=== PATIENT | female | born 1955 | race African-American/Black ===

== ENCOUNTER → 2017-06-20 | Day surgery (SDC) | payer OTHER ==
[~2017-06-20] MED LIST: Acetaminophen 500 MG TAB PO SCH; DARATUMUMAB IV SCH; DEXAMETHASONE IVPB SCH; DIPHENHYDRAMINE HCL IVPB SCH; Dexamethasone 20 MG in Sodium Chloride 0.9% 50 ML IVPB SCH; FLU VACC QS2017-18 36 mo. & older 0.5 ML SYRINGE IM ONE; Famotidine/PF 20 mg/2ml Vial SLOW IVP SCH; PROVENTIL INHALER 6.7 G (200 INHALATIONS) INH SCH; SODIUM CHLORIDE 0.9% IV SCH; SODIUM CHLORIDE 0.9% IVPB SCH; Sodium Chloride 0.9% 30 ML ONE
== END ==
LOC: ONC/OP 09:34
PROVIDERS: ATTEND Internal Medicine Hematology & Oncology
DX: Z51.11 Encounter for antineoplastic chemotherapy (principal); C90.00 Multiple myeloma not having achieved remission; Z86.19 Personal history of other infectious and parasitic diseases; H40.9 Unspecified glaucoma; I10 Essential (primary) hypertension; K21.9 Gastro-esophageal reflux disease without esophagitis; F17.210 Nicotine dependence, cigarettes, uncomplicated; I25.10 Atherosclerotic heart disease of native coronary artery without angina pectoris; I48.91 Unspecified atrial fibrillation; E11.9 Type 2 diabetes mellitus without complications; Z79.84 Long term (current) use of oral hypoglycemic drugs; Z79.01 Long term (current) use of anticoagulants; Z79.891 Long term (current) use of opiate analgesic; Z79.899 Other long term (current) drug therapy; Z98.51 Tubal ligation status; Z95.818 Presence of other cardiac implants and grafts; Z96.651 Presence of right artificial knee joint; Z90.49 Acquired absence of other specified parts of digestive tract; Z98.890 Other specified postprocedural states; Z86.59 Personal history of other mental and behavioral disorders
CPT/HCPCS: 36415; 80053; 82248; 83615; 84100; 84550; 86850; 86900; 86901; 96367; 96375; 96413; 96415; 99212; A4216; G0463; J1100; J1200; J1642; J7050; J9145; S0028

== ENCOUNTER 2017-06-27 09:49 | Day surgery (SDC) | payer OTHER ==
[2017-06-27] MEDS ORDERED: Sodium Chloride 0.9% 20 ML ONE (10:06)
[2017-06-27] MEDS ORDERED: SODIUM CHLORIDE 0.9% IVPB SCH (10:15)
[2017-06-27] MEDS ORDERED: DEXAMETHASONE IVPB SCH (10:15)
[2017-06-27] MEDS ORDERED: Acetaminophen 500 MG TAB PO SCH (10:15)
[2017-06-27] MEDS ORDERED: DIPHENHYDRAMINE IVPB SCH (10:15)
[2017-06-27] MEDS ORDERED: Dexamethasone 20 MG in Sodium Chloride 0.9% 50 ML IVPB SCH (10:30)
[2017-06-27] MEDS ORDERED: diphenhydrAMINE 50 MG in Sodium Chloride 0.9% 50 ML IVPB SCH (10:30)
[2017-06-27] MEDS ORDERED: SODIUM CHLORIDE 0.9% IV SCH (11:00)
[2017-06-27] MEDS ORDERED: DARATUMUMAB IV SCH (11:00)
[2017-06-27 11:04] VITALS: BP 116/66; TEMP 99.3
== END 2017-06-27 16:37 | disposition home or self-care (01) ==
LOC: ONC/OP 09:49
PROVIDERS: ATTEND Internal Medicine Hematology & Oncology
DX: Z51.11 Encounter for antineoplastic chemotherapy (principal); C90.00 Multiple myeloma not having achieved remission; E11.65 Type 2 diabetes mellitus with hyperglycemia; H40.9 Unspecified glaucoma; K21.9 Gastro-esophageal reflux disease without esophagitis; I10 Essential (primary) hypertension; F17.210 Nicotine dependence, cigarettes, uncomplicated; I25.10 Atherosclerotic heart disease of native coronary artery without angina pectoris; I48.0 Paroxysmal atrial fibrillation; Z79.01 Long term (current) use of anticoagulants; Z79.84 Long term (current) use of oral hypoglycemic drugs; Z79.82 Long term (current) use of aspirin; Z79.891 Long term (current) use of opiate analgesic; Z79.899 Other long term (current) drug therapy; Z98.51 Tubal ligation status; Z96.651 Presence of right artificial knee joint; Z90.49 Acquired absence of other specified parts of digestive tract; Z98.890 Other specified postprocedural states; Z86.19 Personal history of other infectious and parasitic diseases
CPT/HCPCS: 96367; 96413; 96415; A4216; J1100; J1200; J1642; J7050; J9145

== ENCOUNTER 2017-06-30 13:18 | Observation (INO) | payer OTHER ==
[2017-06-30 14:16] LABS: #Lymphocytes 1.2 thou/uL (1.20-3.40); #Monocytes 0.5 thou/uL (0.11-0.59); #Neutrophils 2.5 thou/uL (1.40-6.50); %Basophils 0.4 % (0.0-1.0); %Eosinophils 0.7 % (0.0-10.0); %Monocytes 10.9 % (0.0-10.0); Mean Platelet Volume 9.2 fL (7.4-10.4); Red Blood Cell (RBC) Count 3.49 mill/uL (4.20-5.40); White Blood Cell (WBC) Count 4.1 thou/uL (4.8-10.8)
[2017-06-30 14:36] LABS: ALT (SGPT) 33 U/L (8-55); AST (SGOT) 23 U/L (5-34); Alkaline Phosphatase 44 U/L (40-150); Anion Gap 13 mmol/L (10-20); BUN (Urea Nitrogen) 14 mg/dL (9.8-20.1); Bilirubin, Total 0.4 mg/dL (0.2-1.2); Calc. Creatinine Clearance 0 mL/min (70-130); Calcium 8.2 mg/dL (7.8-10.44); Carbon Dioxide 23 mmol/L (23-31); Chloride 108 mmol/L (98-107); Estimated GFR-MDRD 81; Globulin 2.2 g/dL (2.4-3.5); Protein, Total 5.3 g/dL (6.0-8.3)
[2017-06-30 14:41] LABS: Troponin I Less than 0.010 ng/mL (< 0.028)
--- NOTE | 2017-06-30 15:04 | RAD ---
CHEST 1 VIEW: Date: 06/30/17 COMPARISON: 04/29/17. HISTORY: Syncope. Multiple myeloma. Patient is on blood thinners. Fall. FINDINGS: Stable right-sided MediPort catheter. Normal cardiac silhouette. Pulmonary vessels and hilum are nor mal. Costophrenic angles are clear. Chronic changes of the lung parenchyma. Subsegmental atelectasis in the left lung base is noted. No pneumothorax or osseous abnormalities. IMPRESSION: No acute cardiopulmonary process. POS: [facility]
[2017-06-30] MEDS ORDERED: ISOVUE-370 76%-LOCM 1 ML ONE (15:27)
--- NOTE | 2017-06-30 15:30 | CT ---
NONCONTRAST HEAD CT: Date: 06/30/17 HISTORY: Multiple myeloma. Blood thinners. Patient fell. Post-traumatic pain. COMPARISON: 01/13/27. TECHNIQUE: A noncontrast head CT is performed from the skull base to the skull vertex. FINDINGS: No parenchymal hemorrhage or extra-axial hematoma. No midline shift. Basilar cisterns are patent. Br ain volume is age-appropriate. Cortical walters-white matter differentiation is preserved. Ventricles a nd sulci are patent and symmetric. Stable hyperdensity in the medial aspect of both lentiform nuclei due to calcifications/mineralizati on. Adequate aeration of the sinuses and mastoid air cells. Extensive lytic lesions involve the calvariu m, compatible with patient's history of multiple myeloma. IMPRESSION: No intracranial post-traumatic sequelae. POS: [facility]
--- NOTE | 2017-06-30 15:35 | CT ---
CERVICAL SPINE CT WITHOUT CONTRAST: Date: 06/30/17 HISTORY: Fall. Post=traumatic pain. Multiple myeloma. COMPARISON: None. TECHNIQUE: Cervical spine CT is performed without contrast. Reformatted images are submitted for interpretation . FINDINGS: Straightening of normal cervical lordosis, likely due to patient position, muscle spasm, or cervical collar. Current study is not tailored to assess for ligamentous injury. No prevertebral soft tissue swelling. No epidural hematoma. Varying degrees of central canal stenosi s and foraminal narrowing on the basis of degenerative change. Evaluation is limited by technique. Visualized soft tissue neck structures, upper mediastinum, and lung apices are unremarkable. Lateral masses of C1 and C2 articulate appropriately. Appropriate articulation of the interarticular facets. Odontoid process is intact. Straightening of normal cervical lordosis may be due to patient positioning, muscle spasm, or cervic al collar. Current study is not tailored to assess for ligamentous injury. Cervical spine vertebral body height is maintained. No fracture. Extensive lucent foci throughout th e cervical spine compatible with history of multiple myeloma. IMPRESSION: 1. Multiple myelomatous lesions throughout the cervical spine. 2. No evidence of fracture. 3. Straightening of normal cervical lordosis as above. POS: [facility]
--- NOTE | 2017-06-30 15:56 | CT ---
CT ANGIOGRAM OF CHEST: Date: 06/30/17 COMPARISON: 02/07/17. HISTORY: Multiple myeloma. Pain. Hypotension. TECHNIQUE: CT angiogram of the chest is performed in the axial plane. Coronal and oblique three-dimensional ref ormatted images are submitted for interpretation. FINDINGS: Trachea and central bronchi are patent. Stable 5.0 mm nodule in the right upper lobe. Areas of scarr ing and atelectasis in both lower lobes are noted. Superimposed ground-glass opacities may be due to edema or infiltrate. No pneumothorax or pleural effusion. Visualized upper solid organs are unremarkable. Gallbladder is surgically absent. The thoracic aorta and upper abdominal aorta have a normal caliber. No periaortic fat stranding. No mediastinal mass, lymphadenopathy, or hematoma. Stable pericardial fluid along the aortic arch. Adequate contrast opacification of the pulmonary arterial system to the level of the segmental arter ies. No filling defect to imply thromboembolism. There are multiple lucent lesions throughout the osseous structures compatible with known history of multiple myeloma. There is stable soft tissue density at the origin of the celiac artery. Significance is uncertain. IMPRESSION: 1. No evidence of pulmonary artery embolism to the level of the segmental arteries. 2. Chronic changes throughout the osseous structures. Multiple lytic foci due to myelomatous diseas e. 3. Stable nodule in the right lung. POS: [facility]
[2017-06-30] MEDS ORDERED: Dextrose 50% Abboject 50 ML SYRINGE SLOW IVP PRN (17:09)
[2017-06-30] MEDS ORDERED: Ondansetron ODT 4 MG TAB PO PRN (17:09)
[2017-06-30] MEDS ORDERED: Morphine IR Tab 15 MG TAB PO PRN (17:09)
[2017-06-30] MEDS ORDERED: Sodium Chloride 0.9% 1,000 ML IV SCH (17:09)
[2017-06-30] MEDS ORDERED: Nicotine 14 MG PATCH TD SCH (17:09)
[2017-06-30] MEDS ORDERED: Dextrose 5% in Water 1,000 ML IV PRN (17:09)
[2017-06-30] MEDS ORDERED: HumaLOG 300 UNITS/3 ML VIAL SC PRN (17:28)
[2017-06-30 17:29] VITALS: BMI 23.0
[2017-06-30] MEDS ORDERED: Ketorolac Tromethamine 30 MG/ML VIAL IVP SCH ×2 (17:30→18:00)
[2017-06-30] MEDS ORDERED: Diphenoxylate HCl/Atropine Tablet PO PRN (17:32)
[2017-06-30] MEDS ORDERED: Ondansetron ODT 8 MG TAB SL PRN (17:32)
[2017-06-30] MEDS ORDERED: Prochlorperazine Maleate 5 MG TAB PO PRN (17:43)
[2017-06-30] MEDS: Sodium Chloride 0.9% 1,000 ML IV SCH (18:46)
[2017-06-30] MEDS: Morphine IR Tab 15 MG TAB PO PRN (18:46)
--- NOTE | 2017-06-30 19:25 | HP-2 ---
DATE OF ADMISSION: 06/30/2017 CODE STATUS: FULL. PRIMARY CARE PHYSICIAN: [facility] ATTENDING PHYSICIAN: Marietta Johnson M.D. RESIDENT: Diandra Corona MD CHIEF COMPLAINT: \\\\"Black out.\\\\" HISTORY OF PRESENT ILLNESS: This is a 62-year-old female with past medical history of multiple myeloma, coronary artery disease status post 3 stents, atrial fibrillation, who presents after an episode of blacking out. She reports that she took two of her 30 mg extended release morphine tablets for severe pain even though she was only supposed to take one of them. She was sitting outside, when all of a sudden she felt really dizzy. She does not remember anything after that she just felt like she blacked out. This episode was witnessed by her son who reports that she fell. She is unsure how long she was passed out for but she did not have any incontinence during this episode. She did eat breakfast this morning and has had a little bit to drink today. She reports persistent dizziness and lightheadedness, especially when she tries to sit up even right now. This is associated with some blurry vision. She reports severe pain in her back that is related to her multiple myeloma that is chronic. PAST MEDICAL HISTORY: 1. Multiple myeloma. 2. Gastroesophageal reflux disease. 3. Coronary artery disease status post 3 stents. 4. Paroxysmal atrial fibrillation. 5. Tobacco abuse. 6. Diabetes mellitus type 2. PAST SURGICAL HISTORY: 1. Cholecystectomy. 2. Right knee replacement. 3. Breast lumpectomy. 4. Bilateral tubal ligation. ALLERGIES: No known drug allergies. MEDICATIONS: 1. Morphine extended release 30 mg b.i.d. 2. Morphine immediate release 15 mg q. 6 hours p.r.n. 3. Amlodipine 5 mg p.o. daily. 4. Calcium carbonate 600 mg p.o. daily. 5. Vitamin D3 1000 units p.o. daily. 6. Folic acid, multivitamin, iron one tablet p.o. daily. 7. Lomotil 2 tablets p.o. q.i.d. p.r.n. 8. Pomalyst 4 mg p.o. daily. 9. Protonix 40 mg p.o. daily. 10. Compazine 10 mg p.o. q.4 h. p.r.n. 11. Metformin 1000 mg p.o. b.i.d. 12. Xarelto 20 mg p.o. daily. 13. Potassium chloride 20 mEq p.o. q.a.m. with meals. FAMILY HISTORY: Mom has hypertension and diabetes. SOCIAL HISTORY: Tobacco 1/2 pack per day for many years. Denies alcohol use. Reports occasional marijuana use, most recently 1 month ago. She lives with her son. REVIEW OF SYSTEMS: A 12- point review of systems was conducted and was negative , except what was mentioned in the HPI. PHYSICAL EXAMINATION: VITAL SIGNS: Blood pressure 103/60, pulse 65, respiratory rate 16, temperature 98.3, pulse ox 96% on room air, weight 63.5 kilograms. GENERAL: Alert and oriented x3, no acute distress, well-nourished, appropriately interactive. HEENT: Pupils equal, round, reactive to light. Extraocular muscles are intact. Conjunctivae within normal limits. ENT: Nasal mucosa within normal limits. Poor dentition in the mouth. NECK: Supple, no lymphadenopathy. CARDIOVASCULAR: Regular rate and rhythm, no murmurs, 2+ radial and pedal pulses. RESPIRATORY: Normal effort, no retractions, clear to auscultation bilaterally. SKIN: Warm and dry. ABDOMEN: Soft, nontender to palpation, normoactive bowel sounds. No mass or distention. EXTREMITIES: No clubbing, cyanosis or edema. MUSCULOSKELETAL: Structure and tone within normal limits. NEUROLOGIC: No focal deficits. Sensation within normal limits. PSYCHIATRIC: Appropriate. LABORATORY DATA: WBC 4.1, hemoglobin 12.6, hematocrit 36.0, platelets 76, MCV 103. Sodium 140, potassium 4.0, chloride 108, CO2 of 23, BUN 14, creatinine 0.85, glucose 152, GFR 81, calcium 8.2, total protein 5.3, albumin 3.1, total bilirubin 0.4, AST 23, ALT 33, alkaline phos 44, CK-MB 0.4, troponin less than 0.010. Chest x-ray no acute cardiopulmonary process. CT angiogram no evidence of PE, stable nodule in right lung. Brain CT stable lytic lesions. No acute process. CT cervical spine, multiple myeloma lesions. No fractures. ASSESSMENT AND PLAN: This is a 62-year-old female who presents with: 1. Acute narcotic overdose that was unintentional. We will continue immediate release morphine overnight with close monitoring and we will restart extended release in the morning to control pain. We will give a normal saline bolus followed by NS at 125. We will monitor on tele. 2. Hypotension, likely orthostatic. We will check orthostatic vitals. We will give 1 liter normal saline bolus followed by NS at 125 mL per hour. We will encourage p.o. intake. 3. Multiple myeloma pain crisis. We will give immediate release morphine and monitor closely and then we will restart extended release morphine in the morning. If the patient's blood pressures have improved, she is currently alert and oriented x3. 4. Paroxysmal atrial fibrillation. We will monitor on tele and will hold Xarelto due to thrombocytopenia. 5. Thrombocytopenia. This patient is chronically thrombocytopenic, but this is worsened from her baseline. We will hold her Xarelto and monitor. Recheck CBC in the a.m. 6. Coronary artery disease status post 3 stents. Denies chest pain. We will continue home medications. 7. Diabetes mellitus type 2. Sliding scale insulin, metformin, and consistent carbohydrate diet, Accu-Cheks a.c. and at bedtime. 8. Tobacco and marijuana abuse. Nicoderm patch, counseling on cessation. 9. Gastroesophageal reflux disease. We will continue home medications. 10. VTE prophylaxis, sequential compression devices as the patient has low platelets. DISPOSITION: Observation on telemetry. Symptomatic medications will be provided. History and physical exam as well as management discussed with Dr. Marietta Johnson. MIKAEL
[2017-06-30] MEDS: Gabapentin 100 MG CAP PO SCH (20:34)
[2017-06-30] MEDS: Famotidine 20 MG TAB PO SCH (20:34)
[2017-06-30] MEDS ORDERED: FLU VACC QS2017-18 36 mo. & older 0.5 ML SYRINGE IM ONE (21:00)
[2017-07-01] MEDS: Morphine IR Tab 15 MG TAB PO PRN (01:19)
[2017-07-01] MEDS: Sodium Chloride 0.9% 1,000 ML IV SCH ×2 (03:19→12:57)
[2017-07-01 05:29] LABS: #Monocytes 0.3 thou/uL (0.11-0.59); #Neutrophils 2.7 thou/uL (1.40-6.50); %Basophils 0.3 % (0.0-1.0); %Eosinophils 0.9 % (0.0-10.0); %Lymphocytes 24.3 % (21.0-51.0); %Monocytes 8.4 % (0.0-10.0); Mean Platelet Volume 9.1 fL (7.4-10.4); Red Blood Cell (RBC) Count 3.57 mill/uL (4.20-5.40)
[2017-07-01 05:44] LABS: Anion Gap 11 mmol/L (10-20); BUN (Urea Nitrogen) 10 mg/dL (9.8-20.1); Calc. Creatinine Clearance 84 mL/min (70-130); Calcium 7.8 mg/dL (7.8-10.44); Carbon Dioxide 19 mmol/L (23-31); Chloride 110 mmol/L (98-107); Estimated GFR-MDRD Greater than 90
--- NOTE | 2017-07-01 06:43 | PDOC.FM ---
- Subjective Subjective: Pt states that she is in a considerable amount of back pain, which is where she normally hurts. She says that the immediate release morphine does help, it just doesnt provide relief until the next dose. She denies continued light headedness , nausea/vomiting, SOB. All other symptoms in ROS are negative. There were no acute events over night. - Objective MAR Reviewed: Yes Vital Signs & Weight: Vital Signs (12 hours) Temp Pulse Resp BP BP Pulse Ox 07/01/17 03:00 98.5 F 75 20 121/71 98 06/30/17 23:58 98.6 F 66 20 137/67 99 06/30/17 20:00 97.3 F L 74 16 06/30/17 18:51 97.3 F L 74 16 123/75 99 Weight Weight 58.967 kg I&O: 06/29/17 06/30/17 07/01/17 06:59 06:59 06:59 Intake Total 250 Balance 250 Result Diagrams: 07/01/17 04:39 07/01/17 04:39 Phys Exam - Physical Examination Constitutional: NAD HEENT: moist MMs Neck: no JVD, full ROM Respiratory: clear to auscultation bilateral Cardiovascular: RRR, no significant murmur Gastrointestinal: soft, non-tender, no distention, positive bowel sounds Musculoskeletal: no edema Neurological: non-focal, normal sensation, moves all 4 limbs Psychiatric: normal affect, A&O x 3 Skin: no rash Dx/Plan (1) Opiate overdose Code(s): T40.601A - POISONING BY UNSP NARCOTICS, ACCIDENTAL, INIT Status: Acute Qualifiers: Encounter type: initial encounter Injury intent: accidental or unintentional Qualified Code(s): T40.601A - Poisoning by unspecified narcotics , accidental (unintentional), initial encounter (2) Thrombocytopenia Code(s): D69.6 - THROMBOCYTOPENIA, UNSPECIFIED Status: Chronic (3) Hypokalemia Code(s): E87.6 - HYPOKALEMIA Status: Acute (4) Chronic pain due to neoplasm Code(s): G89.3 - NEOPLASM RELATED PAIN (ACUTE) (CHRONIC) Status: Chronic (5) Multiple myeloma Code(s): C90.00 - MULTIPLE MYELOMA NOT HAVING ACHIEVED REMISSION Status: Chronic Qualifiers: Multiple myeloma remission status: unspecified Qualified Code(s): C90.00 - Multiple myeloma not having achieved remission (6) Syncope Code(s): R55 - SYNCOPE AND COLLAPSE Status: Acute Qualifiers: Syncope type: unspecified Qualified Code(s): R55 - Syncope and collapse (7) DM type 2 (diabetes mellitus, type 2) Status: Chronic - Plan Plan: 1. Opiate Overdose -accidental od dt to taking too much medicine 2/2 pain related to multiple myeloma -blood pressure has been stable since yesterday. -Pt is stable and appears to be back at her baseline -likely ready for discharge today 2. hypotension -2/2 opiate over dose, see above 3. Multiple myeloma -pain control with immediate release morphine while hospitalized -chronic diagnosis being managed outpatient 4. Afib -continue home meds -monitor on tele 5. Thrombocytopenia -chronic -monitor cbc 6. DM2 -low carb diet -SSI -home meds -BG checks achs 7. chronic pain -related to MM. Treat as above 8. Hypokalemia -likely dilutional -replace PO today
[2017-07-01] MEDS ORDERED: Potassium Chloride 20 MEQ TAB PO ONE (08:00)
[2017-07-01] MEDS ORDERED: metFORMIN 500 MG TAB PO SCH (08:00)
[2017-07-01] MEDS ORDERED: Potassium Chloride 20 MEQ TAB PO SCH (08:00)
[2017-07-01] MEDS ORDERED: FLUoxetine HCl 20 MG CAP PO SCH (09:00)
[2017-07-01] MEDS ORDERED: Senokot S 8.6-50 MG TAB PO SCH (09:00)
[2017-07-01] MEDS ORDERED: Morphine ER 30 MG TAB PO SCH (09:00)
[2017-07-01] MEDS: Gabapentin 100 MG CAP PO SCH (09:59)
[2017-07-01] MEDS: Famotidine 20 MG TAB PO SCH (11:25)
--- NOTE | 2017-07-01 11:42 | ADD-PRG ---
DATE OF SERVICE: 07/01/2017 This is an addendum to the note of Dr. Tommy Parnell. Ms. Esquivel is much better this morning. She is awake and alert, in no distress. She had been admitt ed after temporarily \\\\"blacking out\\\\" after taking in extra morphine for pain control. She also h as a history of multiple myeloma. She is counseled regarding the proper usage of opioid pain medica tion. In the event this morning she is awake and alert with normal vital signs and ready for and an xious for discharge. Her chemistries are normal. Her glucose levels are in the acceptable range. Her CBC was normal, except for an elevated MCV and a slightly low platelet count, likely related to her multiple myeloma and therapy therein.
[2017-07-01 11:45] VITALS: BP 156/83; TEMP 98.5
--- NOTE | 2017-07-01 14:48 | DIS-2 ---
DATE OF ADMISSION: 06/30/2017 DATE OF DISCHARGE: 07/01/2017 RESIDENT: Tommy Parnell DO ADMITTING ATTENDING: Marietta Johnson M.D. DISCHARGE ATTENDING: Manny Mina M.D. CONSULTATIONS: None. PROCEDURES: None. PRIMARY DIAGNOSIS: Opiate overdose. SECONDARY DIAGNOSES: Multiple myeloma, thrombocytopenia, atrial fibrillation, coronary artery disease, type 2 diabetes, gastroesophageal reflux disease and tobacco abuse. DISCHARGE MEDICATIONS: Lomotil 2.5/0.025 mg, Compazine 10 mg p.o. q.4 hours p.r.n., Pomalyst 4 mg p.o. daily, Protonix 40 mg p.o. daily, calcium 600 mg p.o. daily, amlodipine 5 mg p.o. daily, multivitamin daily, vitamin D3 1000 units daily, Prozac 20 mg daily, gabapentin 100 mg b.i.d., Zestril 10 mg daily, morphine ER 30 mg p.o. q.12 hours, morphine IR 50 mg q.4 hours p.r.n., Zofran 6 mg sublingual q.6 hours p.r.n., metformin 1000 mg p.o. b.i.d., Coreg 6.25 mg p.o. b.i.d., Xarelto 20 mg daily, aspirin 81 mg daily and potassium chloride 20 mEq p.o. daily. HOSPITAL COURSE: Patient was admitted after having a syncopal episode. It was determined that she had overdosed on her narcotics accidentally, instead of taking her morphine q.12 hours, she took two at once for her breakthrough pain. She never required Narcan. There was no sign of respiratory failure; however , she was hypotensive with blood pressures as low as 91 systolic starting the evening of 06/30. The blood pressure started to improve and more consistently in the normal range after on 07/01. It was explained to the patient how she should be taking her medications to avoid this in the future. Of note, the patient in April appears to have labs consistent with a chronic hepatitis C infection. It was also noted that she has not been treated and there is no other workup documented. It is recommended that this be addressed in an outpatient setting. The patient is discharged with the disposition being stable. DISCHARGE INSTRUCTIONS: 1. Location: Home. 2. Diet: Regular. 3. Activity: Ad shakeel. 4. Followup: Marco Koch MD in 1 week and Mary Almendarez M.D., within 1 week. MTDD
== END 2017-07-01 13:20 | disposition home or self-care (01) ==
LOC: ERS 13:18 → 2SW 16:51
PROVIDERS: ADMIT Family Medicine; ATTEND Family Medicine
DX: T40.2X1A Poisoning by other opioids, accidental (unintentional), initial encounter (principal); R55 Syncope and collapse; C90.00 Multiple myeloma not having achieved remission; D69.6 Thrombocytopenia, unspecified; I25.10 Atherosclerotic heart disease of native coronary artery without angina pectoris; E11.9 Type 2 diabetes mellitus without complications; K21.9 Gastro-esophageal reflux disease without esophagitis; I48.0 Paroxysmal atrial fibrillation; F17.210 Nicotine dependence, cigarettes, uncomplicated; Z79.01 Long term (current) use of anticoagulants; Z79.84 Long term (current) use of oral hypoglycemic drugs; Z79.899 Other long term (current) drug therapy; Z98.51 Tubal ligation status; Z90.49 Acquired absence of other specified parts of digestive tract; Z95.5 Presence of coronary angioplasty implant and graft; Z96.651 Presence of right artificial knee joint; Z98.890 Other specified postprocedural states; Z83.3 Family history of diabetes mellitus; Z82.49 Family history of ischemic heart disease and other diseases of the circulatory system
CPT/HCPCS: 36415; 36416; 70450; 71010; 71275; 72125; 80048; 80053; 82553; 84134; 84484; 85025; 90471; 90682; 93005; 96361; 96374; G0008; G0378; J1885; Q2036

== ENCOUNTER 2017-07-04 10:05 | Day surgery (SDC) | payer OTHER ==
[2017-07-04] MEDS ORDERED: diphenhydrAMINE 50 MG, Admixture Fee 1 EACH in Sodium Chloride 0.9% 50 ML IVPB SCH (10:15)
[2017-07-04] MEDS ORDERED: ADMIXTURE FEE IV SCH (10:30)
[2017-07-04] MEDS ORDERED: DARATUMUMAB IV SCH ×2 (10:30→10:45)
[2017-07-04] MEDS ORDERED: SODIUM CHLORIDE IV SCH (10:30)
[2017-07-04] MEDS ORDERED: Acetaminophen 500 MG TAB PO SCH (10:30)
[2017-07-04] MEDS ORDERED: Dexamethasone 20 MG, Admixture Fee 1 EACH in Sodium Chloride 0.9% 50 ML IVPB SCH (10:30)
[2017-07-04] MEDS ORDERED: Sodium Chloride 0.9% 20 ML ONE (10:41)
[2017-07-04] MEDS ORDERED: SODIUM CHLORIDE 0.9% IV SCH (10:45)
[2017-07-04 11:56] VITALS: BP 136/72; TEMP 98.8
== END 2017-07-04 16:00 | disposition home or self-care (01) ==
LOC: ONC/OP 10:05
PROVIDERS: ATTEND Internal Medicine Hematology & Oncology
DX: Z51.11 Encounter for antineoplastic chemotherapy (principal); C79.52 Secondary malignant neoplasm of bone marrow; C90.00 Multiple myeloma not having achieved remission; I10 Essential (primary) hypertension; K21.9 Gastro-esophageal reflux disease without esophagitis; H40.9 Unspecified glaucoma; I48.91 Unspecified atrial fibrillation; I25.10 Atherosclerotic heart disease of native coronary artery without angina pectoris; E11.9 Type 2 diabetes mellitus without complications; F17.200 Nicotine dependence, unspecified, uncomplicated; Z90.49 Acquired absence of other specified parts of digestive tract; Z98.890 Other specified postprocedural states
CPT/HCPCS: 96367; 96413; 96415; A4216; J1100; J1200; J1642; J7050; J9145

== ENCOUNTER 2017-07-18 12:30 | Day surgery (SDC) | payer OTHER ==
[2017-07-18] MEDS ORDERED: SODIUM CHLORIDE 0.9% IV SCH ×2 (12:45→13:15)
[2017-07-18] MEDS ORDERED: DARATUMUMAB IV SCH ×2 (12:45→13:15)
[2017-07-18] MEDS ORDERED: Dexamethasone 20 MG in Sodium Chloride 0.9% 50 ML IVPB SCH (12:45)
[2017-07-18] MEDS ORDERED: diphenhydrAMINE 50 MG in Sodium Chloride 0.9% 50 ML IVPB SCH (12:45)
[2017-07-18] MEDS ORDERED: Acetaminophen 500 MG TAB PO SCH (12:45)
[2017-07-18] MEDS ORDERED: Sodium Chloride 0.9% 20 ML ONE (13:42)
== END 2017-07-18 16:52 | disposition home or self-care (01) ==
LOC: ONC/OP 12:30
PROVIDERS: ATTEND Internal Medicine Hematology & Oncology
DX: Z51.11 Encounter for antineoplastic chemotherapy (principal); C90.00 Multiple myeloma not having achieved remission; C79.52 Secondary malignant neoplasm of bone marrow; I48.91 Unspecified atrial fibrillation; K21.9 Gastro-esophageal reflux disease without esophagitis; I25.10 Atherosclerotic heart disease of native coronary artery without angina pectoris; E11.9 Type 2 diabetes mellitus without complications; F17.200 Nicotine dependence, unspecified, uncomplicated
CPT/HCPCS: 96367; 96413; 96415; A4216; J1100; J1200; J1642; J7050; J9145

== ENCOUNTER → 2017-08-01 | Day surgery (SDC) | payer OTHER ==
[~2017-08-01] MED LIST changes: -DEXAMETHASONE IVPB SCH; -DIPHENHYDRAMINE HCL IVPB SCH; -FLU VACC QS2017-18 36 mo. & older 0.5 ML SYRINGE IM ONE; -Famotidine/PF 20 mg/2ml Vial SLOW IVP SCH; -PROVENTIL INHALER 6.7 G (200 INHALATIONS) INH SCH; -SODIUM CHLORIDE 0.9% IVPB SCH; +Sodium Chloride 0.9% 20 ML ONE; -Sodium Chloride 0.9% 30 ML ONE; +diphenhydrAMINE 50 MG in Sodium Chloride 0.9% 50 ML IVPB SCH
[2017-08-01 12:19] VITALS: BP 150/79; TEMP 98.1
== END ==
LOC: ONC/OP 11:56
PROVIDERS: ATTEND Internal Medicine Hematology & Oncology
DX: Z51.11 Encounter for antineoplastic chemotherapy (principal); C90.00 Multiple myeloma not having achieved remission; C79.52 Secondary malignant neoplasm of bone marrow; I48.91 Unspecified atrial fibrillation; I25.10 Atherosclerotic heart disease of native coronary artery without angina pectoris; E11.9 Type 2 diabetes mellitus without complications; K21.9 Gastro-esophageal reflux disease without esophagitis; F17.200 Nicotine dependence, unspecified, uncomplicated
CPT/HCPCS: 36415; 80053; 82248; 83615; 84100; 84165; 84550; 96367; 96413; 96415; A4216; J1100; J1200; J1642; J7050; J9145

== ENCOUNTER 2017-08-08 09:50 | Day surgery (SDC) | payer OTHER ==
[2017-08-08] MEDS ORDERED: diphenhydrAMINE 50 MG, Admixture Fee 1 EACH in Sodium Chloride 0.9% 50 ML IVPB SCH (10:00)
[2017-08-08] MEDS ORDERED: Acetaminophen 500 MG TAB PO SCH (10:00)
[2017-08-08] MEDS ORDERED: Dexamethasone 20 MG, Admixture Fee 1 EACH in Sodium Chloride 0.9% 50 ML IVPB SCH (10:00)
[2017-08-08] MEDS ORDERED: DARATUMUMAB IV SCH (10:15)
[2017-08-08] MEDS ORDERED: ADMIXTURE FEE IV SCH (10:15)
[2017-08-08] MEDS ORDERED: [UNRECOGNIZED DRUG - OTHER] IV SCH (10:15)
[2017-08-08] MEDS ORDERED: Sodium Chloride 0.9% 20 ML ONE (14:22)
== END 2017-08-08 15:13 | disposition home or self-care (01) ==
LOC: ONC/OP 09:50
PROVIDERS: ATTEND Internal Medicine Hematology & Oncology
DX: Z51.11 Encounter for antineoplastic chemotherapy (principal); C79.51 Secondary malignant neoplasm of bone; C90.00 Multiple myeloma not having achieved remission; E09.9 Drug or chemical induced diabetes mellitus without complications; T38.0X5A Adverse effect of glucocorticoids and synthetic analogues, initial encounter; I10 Essential (primary) hypertension; K21.9 Gastro-esophageal reflux disease without esophagitis; F17.210 Nicotine dependence, cigarettes, uncomplicated; S32.050A Wedge compression fracture of fifth lumbar vertebra, initial encounter for closed fracture; I25.10 Atherosclerotic heart disease of native coronary artery without angina pectoris; Z95.5 Presence of coronary angioplasty implant and graft; Z98.890 Other specified postprocedural states; Z79.82 Long term (current) use of aspirin; Z79.84 Long term (current) use of oral hypoglycemic drugs; Z79.891 Long term (current) use of opiate analgesic; Z79.899 Other long term (current) drug therapy; Z86.19 Personal history of other infectious and parasitic diseases; Z90.49 Acquired absence of other specified parts of digestive tract; Z98.51 Tubal ligation status
CPT/HCPCS: 36415; 80053; 82232; 82248; 83615; 84100; 84550; 96367; 96413; 96415; A4216; J1100; J1200; J1642; J7050; J9145

== ENCOUNTER 2017-08-20 11:27 | Inpatient (IN) | payer OTHER ==
[2017-08-20] MEDS ORDERED: Iopamidol 370 76% 50 ML VIAL FS ONE (11:51)
[2017-08-20] MEDS ORDERED: ISOVUE-370 76%-LOCM 1 ML ONE (11:52)
[2017-08-20 12:11] LABS: #Lymphocytes 1.4 thou/uL (1.20-3.40); #Monocytes 0.4 thou/uL (0.11-0.59); #Neutrophils 6.4 thou/uL (1.40-6.50); %Basophils 0.3 % (0.0-1.0); %Eosinophils 0.1 % (0.0-10.0); %Lymphocytes 16.5 % (21.0-51.0); %Monocytes 4.8 % (0.0-10.0); Hematocrit 51.2 % (36.0-47.0); Mean Platelet Volume 10.6 fL (7.4-10.4); White Blood Cell (WBC) Count 8.1 thou/uL (4.8-10.8)
[2017-08-20 12:27] LABS: ALT (SGPT) 97 U/L (8-55); AST (SGOT) 88 U/L (5-34); Alkaline Phosphatase 173 U/L (40-150); Anion Gap 16 mmol/L (10-20); BUN (Urea Nitrogen) 12 mg/dL (9.8-20.1); Bilirubin, Total 1.4 mg/dL (0.2-1.2); Calc. Creatinine Clearance 0 mL/min (70-130); Calcium 9.2 mg/dL (7.8-10.44); Carbon Dioxide 22 mmol/L (23-31); Chloride 99 mmol/L (98-107); Estimated GFR-MDRD 71; Globulin 2.8 g/dL (2.4-3.5); Protein, Total 7.1 g/dL (6.0-8.3)
--- NOTE | 2017-08-20 12:34 | RAD ---
CHEST ONE VIEW: History: Hypertension, malaise. Comparison: 06-30-17 FINDINGS: Port catheter tip in the inferior SVC. Chronic appearing parenchymal changes in both lung bases which appear similar. No pneumothorax. No effusion. IMPRESSION: Chronic changes. No acute intrathoracic abnormalities. POS: [facility]
[2017-08-20] MEDS ORDERED: Labetalol HCl 100 MG/20 ML VIAL ONE (12:38)
[2017-08-20] MEDS ORDERED: Nitroglycerin 2% Ointment 1 INCH/1 GM Packet ONE (12:38)
[2017-08-20 12:47] LABS: Troponin I 0.043 ng/mL (< 0.028)
[2017-08-20] MEDS ORDERED: Ondansetron HCl/PF 4 MG/2 ML Vial ONE (13:18)
[2017-08-20] MEDS ORDERED: Morphine 2 mg/2ml in 0.9% NaCl PF SYRINGE ONE (13:44)
--- NOTE | 2017-08-20 14:17 | CT ---
CT BRAIN WITHOUT CONTRAST: Date: 08/20/17 HISTORY: Blurry vision. Multiple myeloma. FINDINGS: No acute territorial infarct or hemorrhage. No midline shift or mass effect. There are innumerable punched out lucencies throughout the calvarium. The paranasal sinuses and mastoids are clear. Orbits are unremarkable. IMPRESSION: 1. No acute intracranial abnormality. 2. Extensive lytic lucencies throughout the calvarium consistent with the patient's history of multi ple myeloma. POS: [facility]
[2017-08-20 16:15] LABS: Troponin I 0.055 ng/mL (< 0.028)
[2017-08-20] MEDS ORDERED: Metoprolol Tartrate 50 MG TAB ONE (16:28)
[2017-08-20] MEDS ORDERED: Dextrose 5% in Water 1,000 ML IV PRN (17:12)
[2017-08-20] MEDS ORDERED: Labetalol HCl 100 MG/20 ML VIAL SLOW IVP PRN (17:12)
[2017-08-20] MEDS ORDERED: Promethazine HCl 25 MG/ML VIAL SLOW IVP PRN (17:12)
[2017-08-20] MEDS ORDERED: HumaLOG 300 UNITS/3 ML VIAL SC PRN (17:12)
[2017-08-20] MEDS ORDERED: Dextrose 50% Abboject 50 ML SYRINGE SLOW IVP PRN (17:12)
[2017-08-20] MEDS ORDERED: Prochlorperazine Maleate 5 MG TAB PO PRN (17:20)
--- NOTE | 2017-08-20 17:42 | HP ---
PRIMARY CARE PHYSICIAN CODE STATUS: Full. This is an attending history and physical for the patient, Kevin Esquivel. For full history and physica l details, please see Dr. Diandra Corona's dictated note. I am in agreement with her assessment and kory n as documented. Portions of the history and physical have been repeated by myself. HISTORY OF PRESENT ILLNESS: In brief, this patient is a 62-year-old female with a history of multipl e myeloma who is being followed by Dr. Almendarez who presented to her office today with elevated blood pressures and was subsequently sent to the emergency room. Upon questioning, the patient reports jamilah t over the last few days she has been feeling ill with chills as well as cold sweats, feelings fevers , nausea, vomiting, diarrhea, and abdominal pain, worse in the right lower quadrant. She reports no alleviating or exacerbating factors. She has not tried any medications for relief. She reports that she did not take her blood pressure medicines today due to not feeling well and that her blood press ure had been elevated. The patient also endorses blurry vision that has been present over the last w eeks to months. She, however, denies any chest pain, lower extremity edema or changes in headaches. She does report that she has chronic headaches associated with multiple myeloma. The patient does e ndorse some lightheadedness as well as presyncopal type symptoms at night when going to the bathroom that have been persistent over the last several weeks. Per the patient does endorse some palpitation s that began today. Upon arrival to Dr. Almendarez's office, the patient was noted to have highly eleva maya blood pressures with systolic blood pressure greater than 200 and was subsequently sent to the em ergency room. Upon arrival, she received labetalol as well as nitropatch, which did decreases her bl ood pressure somewhat. PHYSICAL EXAMINATION: At the time of my examination, the patient's: VITAL SIGNS: Showed a temperature of 98.0, pulse 112, blood pressure 137/106, respirations 18 and pu lse ox 98% on room air. GENERAL: The patient was alert and oriented x3. She was mildly ill appearing and was lying in bed w ith eyes closed. HEENT: Pupils were equally round and reactive to light. Extraocular movements intact. CHEST: Clear bilaterally to auscultation. HEART: Irregular rate, as well as rhythm. No murmurs, rubs or gallops. Pulses intact and symmetric al bilaterally. ABDOMEN: Soft. The patient did have moderate tenderness to palpation diffusely, worse in the right lower quadrant. The patient also had a positive voluntary guarding. She appeared to have a positive Rovsing sign as she had tenderness in the right lower quadrant with palpation of the left lower quad rant. The patient also had a positive heel strike sign. EXTREMITIES: There is no clubbing, cyanosis or edema. PERTINENT LABORATORY STUDIES: 1. CBC: WBC 8.1, hemoglobin and hematocrit 16.5 and 51, platelets 104. 2. BMP was overall normal with the exception of a blood sugar of 309. 3. BNP 233. 4. Troponin 0.043. 5. AST and ALT were 88 and 97, both of which are chronic per review of her chart. 6. Chest x-ray showed no acute abnormality. 7. Brain CT showed extensive throughout the calvarium consistent with the patient's history of multi ple myeloma, but otherwise no acute intracranial abnormality. ASSESSMENT AND PLAN: This is a 62-year-old female with a history of multiple myeloma presenting with several days of abdominal pain, nausea, and vomiting as well as elevated blood pressure secondary to missing medication today. 1. Hypertensive urgency. We have a likely cause for her hypertensive urgency and that she did not t leopoldo her medications this morning due to not feeling well. The patient has been given nitro patch as well as labetalol in the ER with significant improvement of her blood pressure. We will resume her h ome medications and titrate as needed. We will need to ensure that her blood pressure does not eleva te quickly to the range it was prior to presentation to the emergency room. Patient did appear to b[place] ve some cardiac rhythm abnormalities on telemetry monitoring and therefore, we will repeat an EKG. S he has a history of paroxysmal atrial fibrillation and her not taking her rate control medications th is morning could explain some of this. Troponins will be trended. Also, due to the new onset elevat ion in BNP and hypertensive urgency, we will check an echo. 2. Nonsustained ventricular tachycardia. This is a new diagnosis that was found during the ER visit today. She has been noted to have 2 separate runs of nonsustained ventricular tachycardia on teleme try monitoring. This could be related to underlying rhythm disturbance. She has been given metoprol ol x1 dose and see if we can bring her overall heart rate down. Cardiology has been consulted. Eraston apryl troponins and obtain an echo as above. Await further recommendations from Cardiology. 3. Abdominal pain. Currently unknown etiology. However, the patient does have sometimes a peritone al irritation including the guarding as well as positive Rovsing sign, and heel strike sign. We will obtain CT abdomen to evaluate for abdominal pathology that could be related to the patient's symptom s and reason for not feeling well over the last few days. We will also check a flu swab in the urina lysis. My concern at this time would be a possible appendicitis or other right lower quadrant pathol ogy. Await results of CT scan and further management per those results. No antibiotics at this time ; however, the patient was noted to have any abdominal pathology she should likely need to be started on antibiotics. Right now, does not appear she has serious infection as her white count is normal a nd she is afebrile.
[2017-08-20] MEDS ORDERED: Piperacillin/Tazobactam 3.375 GM in Sodium Chloride 0.9% 100 ML IVPB SCH (18:15)
[2017-08-20 18:33] LABS: Troponin I 0.068 ng/mL (< 0.028)
[2017-08-20] MEDS: Sodium Chloride 0.9% 1,000 ML IV SCH (19:33)
[2017-08-20] MEDS ORDERED: Metoprolol Tartrate 5 MG/5 ML VIAL IVP SCH (20:15)
[2017-08-20] MEDS: Morphine ER 30 MG TAB PO SCH (20:34)
[2017-08-20] MEDS: Gabapentin 100 MG CAP PO SCH (20:35)
[2017-08-20] MEDS ORDERED: Enoxaparin Sodium 60 MG/0.6 ML SYRINGE SC SCH (21:00)
[2017-08-20 21:12] LABS: Bilirubin Negative (Negative); Blood, Urine Negative (Negative); Glucose, Urine (Dipstick) 250 mg/dL (Negative); Ketone, Urine Negative (Negative); Nitrite Negative (Negative); Protein, Urine (Dipstick) 300 mg/dL (Neg-Trace)
[2017-08-20 21:13] LABS: Bacteria/HPF None Seen HPF (None Seen); Hyaline Casts/LPF 4-6 HYALINE CAST LPF (0-3 Hyaline); RBC/HPF 0-3 HPF (0-3); Squamous Epithelial 0-3 HPF (0-3)
--- NOTE | 2017-08-20 21:56 | CT ---
CT OF THE ABDOMEN AND PELVIS WITH IV CONTRAST 08/20/17 PROVIDED CLINICAL HISTORY: Abdominal pain. FINDINGS: Comparison is made with the examination dated 04/29/17. The visualized lung bases are free of significant opacity. The liver, spleen, pancreas, kidneys, and adrenal glands demonstrate an unremarkable CT appearance. A small gastric diverticulum is seen. A non mass-like area of fluid density seen within the retroperitoneum surrounding the proximal most enteric vessels, stable as compared to prior and presumably reflecting a congenital cyst. There is no bowel dilatation, inflammatory fat stranding, free fluid or lymph node enlargement appare nt. There is mural thickening involving a portion of the sigmoid colon which is somewhat focal. The osseous structures demonstrate a diffusely heterogeneous appearance compatible with the provided clinical history of treated multiple myeloma. Vascular calcifications are seen. IMPRESSION: 1. No definite CT evidence for an acute process. 2. Somewhat focal mural thickening involving a portion of the sigmoid colon could reflect change s of nondistention. Correlation with screening colonoscopy is recommended to exclude neoplasm. POS: [facility]
--- NOTE | 2017-08-20 22:02 | CON ---
DATE OF CONSULTATION: 08/20/2017. REASON FOR CONSULTATION: Atrial fibrillation with a rapid ventricular response. HISTORY OF PRESENT ILLNESS: Ms. Kevin Esquivel is a 62-year-old woman with history of multiple myeloma. The patient presented to the hospital today with a feeling of cold, sweating, difficulty breathing, nausea, vomiting, diarrhea, and abdominal pain, worse in the right lower quadrant. It was noted jamilah t she had atrial fibrillation with a rapid ventricular response here and has also had hypertension wi th blood pressures over 200 systolic. On my arrival to exam today, her heart rate is 160, it is irre gular, in atrial fibrillation with a rapid rate. The patient is being treated with Xarelto presumably for atrial fibrillation, but I do not have the o ther details of that history presently. It is really unclear exactly what medications she was taking at home. She has been started on Xarelt o here starting tomorrow. Difficult to tell what medicines she was taking. SOCIAL HISTORY: Positive for tobacco, half pack of cigarettes a day. PAST SURGICAL HISTORY: Cholecystectomy and tubal ligation. MEDICATIONS: She has received here, metoprolol, Zofran, labetalol. ALLERGIES: None known. REVIEW OF SYSTEMS: Constitutional: Positive for weakness and fatigue. Currently, vision: No carrillo es. Hearing: no changes. Pulmonary: No cough or wheezing. Positive for shortness of breath. Car diac: Positive for palpitations and shortness of breath. Gastrointestinal: Positive for nausea and diarrhea. Skin: No rashes. PHYSICAL EXAMINATION: GENERAL: Ill-appearing elderly woman. VITAL SIGNS: Her heart rate is 165 beats per minute. NECK: Neck veins are normal. Carotid normal upstrokes. No bruits. LUNGS: Clear. CARDIAC: Tachycardic and irregularly irregular. ABDOMEN: Soft, nontender. EXTREMITIES: There is no clubbing or cyanosis. There is no edema. Extremities are cool, but not co ld. LABORATORY AND X-RAY FINDINGS: EKG reveals atrial fibrillation with a rapid rate. ASSESSMENT: 1. Atrial fibrillation with a rapid rate. 2. Reports there is some evidence of some wide complex rhythm at a time. I suspect that is probably aberrancy, but I do not see that on the chart currently. 3. Multiple myeloma. PLAN: 1. We will give intravenous metoprolol and start intravenous diltiazem. 2. Echocardiogram tomorrow. 3. Consideration for amiodarone. The patient's heart rate goes extremely rapidly when she goes into fibrillation.
[2017-08-20 23:18] LABS: Troponin I 0.073 ng/mL (< 0.028)
--- NOTE | 2017-08-21 05:56 | HP-2 ---
DATE OF ADMISSION: 08/20/2017 CODE STATUS: FULL. PRIMARY CARE PHYSICIAN: [facility] ATTENDING: Edin Lugo MD RESIDENT: Diandra Corona MD SPECIALIST: Mary Almendarez M.D. with Oncology. CHIEF COMPLAINT: Elevated blood pressure at oncologist's office. HISTORY OF PRESENT ILLNESS: This is a 62-year-old female with past medical history of multiple myeloma, hypertension, type 2 diabetes, atrial fibrillation , who presents because she has been feeling ill for the past 3 days and so she did not take her blood pressure medications yesterday and then she went to Dr. Almendarez's office and had a blood pressure greater than 200, so he sent her to the ED. She started having nausea and vomiting 3 days ago, along with feeling feverish. She has blurry vision starting this morning. She has been having headaches as well, but these are chronic. She has no swelling in her legs. Her last chemotherapy was on . She denies any chest pain. She does have some dysuria starting 2 days ago, but no increased urinary frequency. She is also having diarrhea that started 3 days ago as well. In the ER, she was given Nitro-Bid, labetalol 10 mg IV push, Zofran 4 mg IV push, aspirin 324 mg, morphine 2 mg IV push. PAST MEDICAL HISTORY: 1. Multiple myeloma. 2. Coronary artery disease status post 3 stents. 3. Gastroesophageal reflux disease. 4. Hypertension. 5. Diabetes type 2. 6. Atrial fibrillation. PAST SURGICAL HISTORY: 1. Right knee surgery. 2. Left breast lumpectomy. 3. Cholecystectomy. 4. Tubal ligation. 5. Stents x3. 6. Hernia surgery. ALLERGIES: No known drug allergies. MEDICATIONS: 1. Xarelto 20 mg p.o. daily. 2. Compazine 10 mg p.o. q.4 h. p.r.n. 3. Potassium chloride 20 mEq p.o. q.a.m. with meals. 4. Pantoprazole 40 mg p.o. daily. 5. Morphine immediate release 15 mg p.o. q.4 h. p.r.n. pain. 6. Morphine extended release 30 mg p.o. q.12 h. 7. Metformin 1000 mg p.o. b.i.d. with meals. 8. Lisinopril 10 mg p.o. daily. 9. Fluoxetine 20 mg p.o. daily. 10. Carvedilol 6.25 mg p.o. b.i.d. with meals. 11. Aspirin 81 mg p.o. daily. 12. Amlodipine 5 mg p.o. daily. 13. Zofran 8 mg sublingual q.6 h. p.r.n. 14. Multivitamin. 15. Lomotil 2 tabs p.o. q.i.d. p.r.n. 16. Vitamin D3 of 1000 units p.o. daily. 17. Calcium carbonate 600 mg p.o. daily. FAMILY HISTORY: Ovarian cancer, breast cancer. SOCIAL HISTORY: Smokes 5 cigarettes per day for 30 years. Alcohol denies. Drugs, uses marijuana occasionally. Lives with her son. REVIEW OF SYSTEMS: General: Positive for fever and chills and fatigue. Eyes: Positive for vision changes. Negative for eye pain. ENT: Positive for rhinorrhea. Negative for sore throat. Respiratory: Negative for cough or shortness of breath. Cardiovascular: Negative for chest pain or edema. Gastrointestinal: Positive for nausea, vomiting, diarrhea, abdominal pain. Negative for GI bleeding. Genitourinary: Positive for dysuria, negative for polyuria. Skin: Negative for rashes or lesions. Musculoskeletal: Positive for pain and tenderness. Neurologic: Positive for weakness. Negative for syncope. Positive for dizziness and positive for presyncope. PHYSICAL EXAMINATION: VITAL SIGNS: Blood pressure initially was 201/132, during my evaluation was 143 /105, pulse 105, respiratory rate 16, temperature 98.0, pulse ox 97% on room air , current weight 58.97 kilograms. GENERAL: Alert, oriented x3, diaphoretic, ill appearing, well-nourished, appropriately interactive. HEENT: PERRLA. Extraocular muscles intact. Mild scleral icterus. ENT: Nasal mucosa, oropharynx within normal limits. NECK: Supple, no lymphadenopathy. CARDIOVASCULAR: Irregularly irregular rhythm. No murmurs or gallops, 2+ radial and pedal pulses. RESPIRATORY: Normal effort, no retractions. Clear to auscultation bilaterally. SKIN: Warm and dry. No cyanosis or lesions. ABDOMEN: Soft, diffusely tender to palpation, worse in the right lower quadrant. Positive heel tap, positive Rovsing sign, voluntary guarding, positive rebound tenderness. No mass or distention. EXTREMITIES: No cyanosis or edema. MUSCULOSKELETAL: Structure and tone within normal limits. NEUROLOGICAL: No focal deficits. Sensation within normal limits. PSYCHIATRIC: Appropriate. LABORATORY DATA: WBC 8.1, hemoglobin 16.5, hematocrit 51.2, platelets 104. Sodium 134, potassium 33.4, chloride 99, CO2 of 22, BUN 12, creatinine 0.96, platelets 309, calcium 9.2, total bilirubin 1.4, AST 88, ALT 97, alkaline phosphatase 173, BNP 233.4, troponin 0.043. EKG showed normal sinus rhythm with prolonged QT and left axis shift. Chest x-ray showed chronic changes, no acute process. ASSESSMENT AND PLAN: This is a 62-year-old female who presents with: 1. Hypertensive urgency. We will continue patient's home medications. Will give labetalol as needed for systolic blood pressure greater than 180, diastolic blood pressure greater than 100. We will recheck EKG. We will monitor the patient closely on tele. We will check blood pressures every 4 hours. 2. Abdominal pain. There is concern for appendicitis due to patient's voluntary guarding, positive Rovsing sign, rebound tenderness, and with her decreased immune system, she may not have elevated white count with infection. She will get a CT abdomen with oral contrast. We will check blood cultures. We will give her a dose of Zosyn. The patient has also had some nausea and vomiting. She will be treated with IV Phenergan for nausea as Zofran will prolong the QT further. 3. Indeterminate troponins, likely secondary to demand. We will trend and repeat EKG. The patient has no chest pain. We will monitor on tele. 4. Elevated BNP. We will get an echo. 5. New onset of nonsustained ventricular tachycardia. Patient had two runs of ventricular tachycardia. While in the ED, the longest was 10 beats. We will consult Cardiology. We will give the patient 50 mg of metoprolol for her tachycardia and will monitor on tele. 6. Dysuria. We will check a urinalysis. If abnormal, we will get urine culture. 7. Acute kidney injury, this could be secondary to dehydration from vomiting, diarrhea versus hypertension. We will give normal saline at 100 mL per hour and monitor. 8. Hypokalemia. We will replete. 9. Elevated liver function tests likely secondary to chemotherapy, is chronic. 10. Thrombocytopenia. We will monitor. 11. Multiple myeloma. The patient is getting chemotherapy with Dr. Almendarez twice weekly. We will continue morphine for pain control. 12. Atrial fibrillation. We will continue home medications. 13. Diabetes type 2. I will give metformin, Accu-Cheks, sliding scale insulin. 14. Coronary artery disease. We will continue aspirin. 15. Gastroesophageal reflux disease. We will continue Protonix. 16. Prolonged QTC. We will get an EKG. We will avoid medication that will worsen the QT. DISPOSITION: Admit to tele. Symptomatic medication will be provided. History and physical exam as well as management discussed with Dr. Lugo. [facility]
[2017-08-21 06:44] LABS: #Lymphocytes 1.5 thou/uL (1.20-3.40); #Monocytes 0.4 thou/uL (0.11-0.59); #Neutrophils 4.2 thou/uL (1.40-6.50); %Basophils 0.1 % (0.0-1.0); %Eosinophils 0.5 % (0.0-10.0); %Lymphocytes 24.7 % (21.0-51.0); %Monocytes 5.9 % (0.0-10.0); Hematocrit 43.7 % (36.0-47.0); Red Blood Cell (RBC) Count 4.23 mill/uL (4.20-5.40); White Blood Cell (WBC) Count 6.2 thou/uL (4.8-10.8)
[2017-08-21] MEDS: Carvedilol 6.25 MG TAB PO SCH ×2 (07:56→18:03)
[2017-08-21] MEDS: metFORMIN 500 MG TAB PO SCH ×2 (07:56→18:01)
[2017-08-21] MEDS: Amlodipine 5 MG TAB PO SCH (07:57)
[2017-08-21] MEDS: Potassium Chloride 20 MEQ TAB PO SCH (07:57)
[2017-08-21] MEDS: FLUoxetine HCl 20 MG CAP PO SCH (07:58)
[2017-08-21] MEDS: Morphine ER 30 MG TAB PO SCH ×2 (07:58→21:27)
[2017-08-21] MEDS: Gabapentin 100 MG CAP PO SCH ×2 (07:58→21:28)
[2017-08-21] MEDS: Lisinopril 10 MG TAB PO SCH (07:58)
[2017-08-21] MEDS ORDERED: Carvedilol 6.25 MG TAB PO SCH (08:00)
[2017-08-21 08:21] LABS: Troponin I 0.052 ng/mL (< 0.028)
[2017-08-21 08:39] LABS: Anion Gap 13 mmol/L (10-20); BUN (Urea Nitrogen) 22 mg/dL (9.8-20.1); Calc. Creatinine Clearance 62 mL/min (70-130); Calcium 7.8 mg/dL (7.8-10.44); Carbon Dioxide 21 mmol/L (23-31); Chloride 101 mmol/L (98-107); Estimated GFR-MDRD 85
[2017-08-21] MEDS ORDERED: Potassium Chloride 20 MEQ TAB PO SCH (08:45)
--- NOTE | 2017-08-21 08:47 | PDOC.FM ---
- Subjective Subjective: Patient appears better this AM. She is still having abdominal pain, N/V. She reports some palpitations overnight, but none currently. She is still having some blurry vision, but it has improved from yesterday. - Objective MAR Reviewed: Yes Vital Signs & Weight: Vital Signs (12 hours) Temp Pulse Resp BP BP Pulse Ox 08/21/17 07:58 129/78 08/21/17 07:57 69 129/78 08/21/17 07:56 129/78 08/21/17 07:53 97.9 F 69 16 129/78 97 Weight Weight 56.291 kg I&O: 08/20/17 08/21/17 08/22/17 06:59 06:59 06:59 Intake Total 50 Balance 50 Result Diagrams: 08/21/17 05:29 08/21/17 07:36 <Diandra Corona - Last Filed: 08/21/17 09:18> - Objective Vital Signs & Weight: Vital Signs (12 hours) Temp Pulse Resp BP BP Pulse Ox 08/21/17 07:58 129/78 08/21/17 07:57 69 129/78 08/21/17 07:56 129/78 08/21/17 07:53 97.9 F 69 16 129/78 97 Weight Weight 56.291 kg I&O: 08/20/17 08/21/17 08/22/17 06:59 06:59 06:59 Intake Total 50 Balance 50 Result Diagrams: 08/21/17 05:29 08/21/17 07:36 <Edin Lugo - Last Filed: 08/21/17 12:23> Phys Exam - Physical Examination Constitutional: NAD (not diaphoretic) HEENT: moist MMs Respiratory: no wheezing, no rales, no rhonchi, clear to auscultation bilateral Cardiovascular: RRR, no significant murmur, no rub Gastrointestinal: soft, no distention, positive bowel sounds diffusely tender to palpation, worse in RLQ Musculoskeletal: no edema, pulses present Neurological: non-focal, moves all 4 limbs Psychiatric: normal affect, A&O x 3 <Diandra Corona - Last Filed: 08/21/17 09:18> Dx/Plan (1) Hypertensive urgency Code(s): I16.0 - HYPERTENSIVE URGENCY Status: Acute Plan: Patient had HTN urgency with BP 200s/100s Improving this AM, continue to monitor BP closely, monitor on tele -Labetalol prn SBP > 180 -Continue home BP meds (2) Atrial fibrillation with rapid ventricular response Code(s): I48.91 - UNSPECIFIED ATRIAL FIBRILLATION Status: Acute Plan: Patient went into a-fib w RVR with rate up to 160s overnight -Cards has been consulted, appreciate recs -Diltiazem -Metoprolol IV -Monitor on tele -Will need closer outpatient f/u with cardiology (3) Abdominal pain Code(s): R10.9 - UNSPECIFIED ABDOMINAL PAIN Status: Acute QualifierTitle: Abdominal location: right lower quadrant Qualified Code(s ): R10.31 - Right lower quadrant pain Plan: Patient has RLQ abdominal pain, CT showed no acute process, no signs of colitis or appendicitis. Patient had been having N/V/D for the past 3 days with subjective fevers and sweating, this is likely a viral gastroenteritis versus side effect of chemotherapy. -Treat symptomatically with phenergan prn due to patient's prolonged QT -Tylenol prn fever/chills -Patient is s/p one dose of zosyn, no need to continue at this time. (4) Non-sustained ventricular tachycardia Code(s): I47.2 - VENTRICULAR TACHYCARDIA Status: Acute Plan: Patient had two runs of Non-sustained VT while in the ED. This has not happened since and she has been monitored on tele overnight -Will continue tele monitoring -diltiazem gtt -Metoprolol IV (5) WALLY (acute kidney injury) Code(s): N17.9 - ACUTE KIDNEY FAILURE, UNSPECIFIED Status: Acute Plan: Patient had WALLY intitially, likely 2/2 dehydration, this has improved s/p fluids -Will continue to monitor (6) Elevated troponin Code(s): R74.8 - ABNORMAL LEVELS OF OTHER SERUM ENZYMES Status: Acute Plan: Patient had troponins that were elevated in the indeterminate range intially, these have since downtrended. No signs of ischemic changes on EKG (7) Elevated brain natriuretic peptide (BNP) level Code(s): R79.89 - OTHER SPECIFIED ABNORMAL FINDINGS OF BLOOD CHEMISTRY Status : Acute Plan: BNP elevated to 300s -Will get Echo -Monitor on tele -no signs of fluid overload (8) Prolonged QT interval Code(s): R94.31 - ABNORMAL ELECTROCARDIOGRAM [ECG] [EKG] Status: Acute (9) Hypokalemia Code(s): E87.6 - HYPOKALEMIA Status: Acute Plan: Patient has chronic hypokalemia, will replete and monitor (10) Multiple myeloma Code(s): C90.00 - MULTIPLE MYELOMA NOT HAVING ACHIEVED REMISSION Status: Chronic QualifierTitle: Multiple myeloma remission status: unspecified Qualified Code(s): C90.00 - Multiple myeloma not having achieved remission Plan: Patient has MM being treated by Dr. Almendarez with biweekly chemotherapy. Will monitor closely -f/u outpatient with Dr. Almendarez (11) Thrombocytopenia Code(s): D69.6 - THROMBOCYTOPENIA, UNSPECIFIED Status: Chronic Plan: This is likely 2/2 chemotherapy -Will hold lovenox for platelets < 100 (12) GERD (gastroesophageal reflux disease) Code(s): K21.9 - GASTRO-ESOPHAGEAL REFLUX DISEASE WITHOUT ESOPHAGITIS Status: Acute QualifierTitle: Esophagitis presence: without esophagitis Qualified Code( s): K21.9 - Gastro-esophageal reflux disease without esophagitis Plan: Will continue protonix (13) DM type 2 (diabetes mellitus, type 2) Status: Chronic QualifierTitle: Diabetes mellitus complication status: without complication 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 Corona. I agree with the History, Examination, Assessment and Plan documented above with any addition or exceptions noted below. Patient is currently in NSR after being on Diltiazem for Aflutter overnight. Cardiology on board. Anticipate that by restarting home meds she will maintain NSR. Appreciate cardiology recs. Awaiting Echo. In regards to abdominal pain, she continues to have tender abdomen despite overtly normal CT. Due to symptoms and signs on exam, we will treat empirically for Colitis with Cipro and Flagyl. Serial abdominal exams. <Edin Lugo - Last Filed: 08/21/17 12:23>
[2017-08-21] MEDS ORDERED: FLU VACC QS2017-18 36 mo. & older 0.5 ML SYRINGE IM ONE (09:00)
[2017-08-21] MEDS ORDERED: Enoxaparin Sodium 60 MG/0.6 ML SYRINGE SC SCH (09:00)
[2017-08-21] MEDS: Sodium Chloride 0.9% 1,000 ML IV SCH ×2 (09:39→10:26)
[2017-08-21] MEDS: metroNIDAZOLE 500 MG in Premix Bag 1 BAG IVPB SCH ×2 (13:50→21:26)
--- NOTE | 2017-08-21 14:40 | PRG ---
DATE OF SERVICE: 08/21/2017 HISTORY: Ms. Esquivel states she just does not feel well. No chest pain or pressure, just fatigued. PHYSICAL EXAMINATION: VITAL SIGNS: Blood pressure 129/78, pulse 60, sinus. LUNGS: Clear. CARDIAC: Normal S1 and S2. ABDOMEN: Soft, nontender. EXTREMITIES: There is no edema. ASSESSMENT: 1. Paroxysmal atrial fibrillation, back in sinus rhythm. 2. Hypokalemia. Potassium is 3.2. 3. Multiple myeloma. 4. Low platelet counts. PLAN: 1. Agree with stopping enoxaparin. 2. Okay to go back on Xarelto for atrial fibrillation prophylaxis. 3. She is on low dose carvedilol. Continue current medical regimen for now. Echocardiogram has be en ordered and is pending.
[2017-08-21] MEDS ORDERED: Rivaroxaban 10 MG TAB PO SCH (17:00)
[2017-08-21] MEDS: Rivaroxaban 10 MG TAB PO SCH (18:02)
[2017-08-22] MEDS: Sodium Chloride 0.9% 1,000 ML IV SCH (05:37)
[2017-08-22] MEDS: metroNIDAZOLE 500 MG in Premix Bag 1 BAG IVPB SCH ×3 (05:37→23:01)
[2017-08-22 06:38] LABS: #Lymphocytes 0.7 thou/uL (1.20-3.40); #Monocytes 0.4 thou/uL (0.11-0.59); %Basophils 0.1 % (0.0-1.0); %Eosinophils 0.5 % (0.0-10.0); %Monocytes 11.7 % (0.0-10.0); Hematocrit 36.2 % (36.0-47.0); Mean Platelet Volume 9.8 fL (7.4-10.4); Red Blood Cell (RBC) Count 3.48 mill/uL (4.20-5.40); White Blood Cell (WBC) Count 3.1 thou/uL (4.8-10.8)
[2017-08-22 06:57] LABS: Anion Gap 11 mmol/L (10-20); BUN (Urea Nitrogen) 21 mg/dL (9.8-20.1); Calc. Creatinine Clearance 66 mL/min (70-130); Carbon Dioxide 18 mmol/L (23-31); Chloride 108 mmol/L (98-107); Estimated GFR-MDRD 87
--- NOTE | 2017-08-22 08:09 | PDOC.FM ---
- Subjective Subjective: The patient reports that she is still having pain this AM. She reports 3 episodes of diarrhea yesterday. No longer having nausea or vomiting. She is not feeling feverish. Denies chest pain or palpitations - Objective MAR Reviewed: Yes Vital Signs & Weight: Vital Signs (12 hours) Temp Pulse Resp BP Pulse Ox 08/22/17 03:37 98.3 F 63 16 121/63 97 08/21/17 23:30 99.1 F 71 20 123/65 95 Weight Admit Weight 56.291 kg Weight 59.144 kg I&O: 08/21/17 08/22/17 08/23/17 06:59 06:59 06:59 Intake Total 50 2207 Balance 50 2207 Result Diagrams: 08/22/17 05:44 08/22/17 05:44 <Diandra Corona - Last Filed: 08/22/17 08:06> - Objective Vital Signs & Weight: Vital Signs (12 hours) Temp Pulse Resp BP BP Pulse Ox 08/22/17 08:48 98.3 F 63 16 98 08/22/17 08:35 106/59 L 08/22/17 08:32 106/59 L 08/22/17 03:37 98.3 F 63 16 121/63 97 Weight Admit Weight 56.291 kg Weight 59.144 kg I&O: 08/21/17 08/22/17 08/23/17 06:59 06:59 06:59 Intake Total 50 2207 Balance 50 2207 Result Diagrams: 08/22/17 05:44 08/22/17 05:44 <Edin Lugo - Last Filed: 08/22/17 12:23> Phys Exam - Physical Examination Constitutional: NAD (drowsy) HEENT: moist MMs Respiratory: no wheezing, no rales, no rhonchi, clear to auscultation bilateral Cardiovascular: RRR, no significant murmur, no rub Gastrointestinal: soft, no distention, positive bowel sounds mildly tender to palpation diffusely Musculoskeletal: no edema, pulses present Psychiatric: normal affect, A&O x 3 <Diandra Corona - Last Filed: 08/22/17 08:06> Dx/Plan (1) Hypertensive urgency Code(s): I16.0 - HYPERTENSIVE URGENCY Status: Acute Plan: Patient had HTN urgency with BP 200s/100s Improving this AM, continue to monitor BP closely, monitor on tele -Labetalol prn SBP > 180 -Continue home BP meds BP has been 82/50-123/65. (2) Atrial fibrillation with rapid ventricular response Code(s): I48.91 - UNSPECIFIED ATRIAL FIBRILLATION Status: Acute Plan: Patient went into a-fib w RVR with rate up to 160s initially, but converted to NSR s/p diltiazem gtt -Cards has been consulted, appreciate recs -Diltiazem gtt has been d/c'd -Carvedilol -Monitor on tele -Will need closer outpatient f/u with cardiology (3) Abdominal pain Code(s): R10.9 - UNSPECIFIED ABDOMINAL PAIN Status: Acute QualifierTitle: Abdominal location: right lower quadrant Qualified Code(s ): R10.31 - Right lower quadrant pain Plan: Patient has RLQ abdominal pain, CT showed no acute process, no signs of appendicitis. Patient had been having N/V/D for the past 3 days with subjective fevers and sweating, this is likely a viral gastroenteritis versus side effect of chemotherapy. -Treat symptomatically with phenergan prn due to patient's prolonged QT -Tylenol prn fever/chills -Patient is s/p one dose of zosyn -Cipro day 2, Flagyl day 2 for concern for colitis -Clear liquid diet (4) Non-sustained ventricular tachycardia Code(s): I47.2 - VENTRICULAR TACHYCARDIA Status: Resolved Plan: Patient had two runs of Non-sustained VT while in the ED. This has not happened since and she has been monitored on tele overnight -Will continue tele monitoring (5) WALLY (acute kidney injury) Code(s): N17.9 - ACUTE KIDNEY FAILURE, UNSPECIFIED Status: Resolved Plan: Patient had WALLY intitially, likely 2/2 dehydration, this has improved s/p fluids -Will continue to monitor (6) Elevated troponin Code(s): R74.8 - ABNORMAL LEVELS OF OTHER SERUM ENZYMES Status: Resolved Plan: Patient had troponins that were elevated in the indeterminate range intially, these have since downtrended. No signs of ischemic changes on EKG (7) Elevated brain natriuretic peptide (BNP) level Code(s): R79.89 - OTHER SPECIFIED ABNORMAL FINDINGS OF BLOOD CHEMISTRY Status : Acute Plan: BNP elevated to 300s -Will get Echo -Monitor on tele -no signs of fluid overload (8) Prolonged QT interval Code(s): R94.31 - ABNORMAL ELECTROCARDIOGRAM [ECG] [EKG] Status: Acute Plan: Patient had prolonged QT, this could be medication induced. Will avoid adding medications that prolong QT -Monitor on tele (9) Hypokalemia Code(s): E87.6 - HYPOKALEMIA Status: Acute Plan: Patient has chronic hypokalemia, will replete and monitor (10) Multiple myeloma Code(s): C90.00 - MULTIPLE MYELOMA NOT HAVING ACHIEVED REMISSION Status: Chronic QualifierTitle: Multiple myeloma remission status: unspecified Qualified Code(s): C90.00 - Multiple myeloma not having achieved remission Plan: Patient has MM being treated by Dr. Almendarez with biweekly chemotherapy. Will monitor closely -f/u outpatient with Dr. Almendarez -Morphine per patient's outpatient regimen for pain control (11) Thrombocytopenia Code(s): D69.6 - THROMBOCYTOPENIA, UNSPECIFIED Status: Chronic Plan: This is likely 2/2 chemotherapy -Will monitor closely for signs of bleeding. 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 Corona. I agree with the History, Examination, Assessment and Plan documented above with any addition or exceptions noted below. Patient somewhat improved this morning. Her nausea and vomiting are improved, and reports her abdominal pain is somewhat better, now only significant prior to bowel movements, described as cramping type pain. Continue abx for suspected colitis. She continues to be in normal sinus rhythm, appreciate Cardiology recs. Her BP has been low over the last day, we will decrease her medications to prevent hypotension. Stop IV fluids and encourage PO hydration. <Edin Lugo - Last Filed: 08/22/17 12:23>
[2017-08-22] MEDS: Potassium Chloride 20 MEQ TAB PO SCH (08:31)
[2017-08-22] MEDS: metFORMIN 500 MG TAB PO SCH ×2 (08:31→17:37)
[2017-08-22] MEDS: FLUoxetine HCl 20 MG CAP PO SCH (08:32)
[2017-08-22] MEDS: Carvedilol 6.25 MG TAB PO SCH ×2 (08:32→17:37)
[2017-08-22] MEDS: Gabapentin 100 MG CAP PO SCH ×2 (08:32→21:05)
[2017-08-22] MEDS: Morphine ER 30 MG TAB PO SCH ×2 (08:32→21:05)
[2017-08-22] MEDS: Amlodipine 5 MG TAB PO SCH (08:35)
[2017-08-22] MEDS: Lisinopril 10 MG TAB PO SCH (08:35)
[2017-08-22] MEDS: Morphine IR Tab 15 MG TAB PO PRN (13:53)
[2017-08-22] MEDS: Mag-Al 1200 mg/1200 mg/30 ML UDCUP PO PRN ×2 (15:11→21:05)
[2017-08-22] MEDS: Rivaroxaban 10 MG TAB PO SCH (17:37)
[2017-08-22] MEDS: Loperamide HCl 2 MG CAP PO PRN (23:03)
--- NOTE | 2017-08-22 23:57 | PRG ---
DATE OF SERVICE: 08/22/2017 Ms. Esquivel is continues to have severe diarrhea, she is back in normal sinus rhythm. I would recommen d she continue aspirin and she said she has had at least 2 coronary stents placed in the last year. She is on Xarelto for atrial fibrillation clot prophylaxis. We will sign off at this point. Please call us if needed.
[2017-08-23] MEDS: Mag-Al 1200 mg/1200 mg/30 ML UDCUP PO PRN (04:04)
[2017-08-23] MEDS: Morphine IR Tab 15 MG TAB PO PRN ×2 (04:04→16:37)
[2017-08-23] MEDS: metroNIDAZOLE 500 MG in Premix Bag 1 BAG IVPB SCH (05:59)
[2017-08-23 06:17] LABS: Anion Gap 11 mmol/L (10-20); BUN (Urea Nitrogen) 6 mg/dL (9.8-20.1); Calc. Creatinine Clearance 79 mL/min (70-130); Calcium 7.1 mg/dL (7.8-10.44); Carbon Dioxide 17 mmol/L (23-31); Chloride 109 mmol/L (98-107); Estimated GFR-MDRD Greater than 90
[2017-08-23 07:27] LABS: Hematocrit 33.7 % (36.0-47.0); Mean Platelet Volume 9.3 fL (7.4-10.4); Red Blood Cell (RBC) Count 3.17 mill/uL (4.20-5.40); White Blood Cell (WBC) Count 2.8 thou/uL (4.8-10.8)
[2017-08-23 07:54] LABS: Band 4 % (5-11); Macrocytosis SLIGHT = 6-15 cells (100X) (0-5/hpf); Neutrophil 42 % (42-75); Polychromasia SLIGHT = 2-3 cells (100X) (0-2/hpf); Reactive Lymphocytes 20 % (0-10)
[2017-08-23] MEDS: metFORMIN 500 MG TAB PO SCH ×2 (08:27→16:22)
[2017-08-23] MEDS: Potassium Chloride 20 MEQ TAB PO SCH (08:27)
[2017-08-23] MEDS: FLUoxetine HCl 20 MG CAP PO SCH (08:28)
[2017-08-23] MEDS: Carvedilol 6.25 MG TAB PO SCH ×2 (08:28→16:22)
[2017-08-23] MEDS: Gabapentin 100 MG CAP PO SCH ×2 (08:28→21:26)
[2017-08-23] MEDS: Lisinopril 10 MG TAB PO SCH (08:29)
[2017-08-23] MEDS: Morphine ER 30 MG TAB PO SCH ×2 (08:29→21:26)
--- NOTE | 2017-08-23 08:38 | PDOC.FM ---
- Subjective Subjective: Patient reports that she is feeling better this AM. She states that she has been slowly improving and is almost back at her baseline level of pain. She is still having diarrhea, but this improved with the immodium. She is tolerating some PO clear liquids. She denies any fevers. - Objective MAR Reviewed: Yes Vital Signs & Weight: Vital Signs (12 hours) Temp Pulse Resp BP BP Pulse Ox 08/23/17 08:29 136/70 08/23/17 08:28 136/70 08/23/17 08:25 97.6 F 62 18 136/70 99 08/23/17 07:29 98.5 F 61 16 08/23/17 03:09 98.5 F 61 16 108/56 L 97 08/22/17 23:22 98.5 F 65 16 97/54 L 97 08/22/17 20:52 97.8 F 67 16 113/65 100 08/22/17 20:50 97.8 F 67 16 100 Weight Admit Weight 56.291 kg Weight 57.924 kg I&O: 08/22/17 08/23/17 08/24/17 06:59 06:59 06:59 Intake Total 2207 2855 Output Total 3300 Balance 2207 -445 Result Diagrams: 08/23/17 05:06 08/23/17 05:06 <Diandra Corona - Last Filed: 08/23/17 08:34> - Objective Vital Signs & Weight: Vital Signs (12 hours) Temp Pulse Resp BP BP Pulse Ox 08/23/17 08:29 136/70 08/23/17 08:28 136/70 08/23/17 08:25 97.6 F 62 18 136/70 99 08/23/17 07:29 98.5 F 61 16 08/23/17 03:09 98.5 F 61 16 108/56 L 97 Weight Admit Weight 56.291 kg Weight 57.924 kg I&O: 08/22/17 08/23/17 08/24/17 06:59 06:59 06:59 Intake Total 2207 2855 Output Total 3300 Balance 2207 -445 Result Diagrams: 08/23/17 05:06 08/23/17 05:06 <Edin Lugo - Last Filed: 08/23/17 12:16> Phys Exam - Physical Examination Constitutional: NAD HEENT: moist MMs Respiratory: no wheezing, no rales, no rhonchi, clear to auscultation bilateral Cardiovascular: RRR, no significant murmur, no rub Gastrointestinal: soft, no distention, positive bowel sounds mildly tender to palpation diffusely Musculoskeletal: no edema, pulses present Neurological: non-focal, moves all 4 limbs Deviation from normal: drowsy <Diandra Corona - Last Filed: 08/23/17 08:34> Dx/Plan (1) Hypertensive urgency Code(s): I16.0 - HYPERTENSIVE URGENCY Status: Resolved Plan: Patient had HTN urgency with BP 200s/100s Resolved, continue to monitor BP closely, monitor on tele BP have now been low -Labetalol prn SBP > 180 -Continue home BP meds, except hold amlodipine BP has been 97/54-118/66. (2) Atrial fibrillation with rapid ventricular response Code(s): I48.91 - UNSPECIFIED ATRIAL FIBRILLATION Status: Resolved Plan: Patient went into a-fib w RVR with rate up to 160s initially, but converted to NSR s/p diltiazem gtt -Cards has been consulted, appreciate recs -Diltiazem gtt has been d/c'd -Carvedilol -Monitor on tele -Will need closer outpatient f/u with cardiology (3) Abdominal pain Code(s): R10.9 - UNSPECIFIED ABDOMINAL PAIN Status: Acute QualifierTitle: Abdominal location: right lower quadrant Qualified Code(s ): R10.31 - Right lower quadrant pain Plan: Patient has RLQ abdominal pain, CT showed no acute process, no signs of appendicitis. Patient had been having N/V/D for the past 3 days with subjective fevers and sweating, this is likely a viral gastroenteritis versus side effect of chemotherapy. -Treat symptomatically with phenergan prn due to patient's prolonged QT -Tylenol prn fever/chills -Patient is s/p one dose of zosyn -Cipro day 3, Flagyl day 3 for concern for colitis -Clear liquid diet -Immodium prn diarrhea -C. diff toxin negative (4) Non-sustained ventricular tachycardia Code(s): I47.2 - VENTRICULAR TACHYCARDIA Status: Resolved Plan: Patient had two runs of Non-sustained VT while in the ED. This has not happened since and she has been monitored on tele -Will continue tele monitoring (5) WALLY (acute kidney injury) Code(s): N17.9 - ACUTE KIDNEY FAILURE, UNSPECIFIED Status: Resolved Plan: Patient had WALLY intitially, likely 2/2 dehydration, this has improved s/p fluids -Will continue to monitor (6) Elevated troponin Code(s): R74.8 - ABNORMAL LEVELS OF OTHER SERUM ENZYMES Status: Resolved Plan: Patient had troponins that were elevated in the indeterminate range intially, these have since downtrended. No signs of ischemic changes on EKG (7) Elevated brain natriuretic peptide (BNP) level Code(s): R79.89 - OTHER SPECIFIED ABNORMAL FINDINGS OF BLOOD CHEMISTRY Status : Acute Plan: BNP elevated to 300s Echo showed EF 55-60%, some diastolic dysfunction -Monitor on tele -no signs of fluid overload (8) Prolonged QT interval Code(s): R94.31 - ABNORMAL ELECTROCARDIOGRAM [ECG] [EKG] Status: Acute Plan: Patient had prolonged QT, this could be medication induced. Will avoid adding medications that prolong QT -Monitor on tele (9) Hypokalemia Code(s): E87.6 - HYPOKALEMIA Status: Acute Plan: Patient has chronic hypokalemia, will replete and monitor (10) Multiple myeloma Code(s): C90.00 - MULTIPLE MYELOMA NOT HAVING ACHIEVED REMISSION Status: Chronic QualifierTitle: Multiple myeloma remission status: unspecified Qualified Code(s): C90.00 - Multiple myeloma not having achieved remission Plan: Patient has MM being treated by Dr. Almendarez with biweekly chemotherapy. Will monitor closely -f/u outpatient with Dr. Almendarez -Morphine per patient's outpatient regimen for pain control (11) Thrombocytopenia Code(s): D69.6 - THROMBOCYTOPENIA, UNSPECIFIED Status: Chronic Plan: This is likely 2/2 chemotherapy -Will monitor closely for signs of bleeding. (12) GERD (gastroesophageal reflux disease) Code(s): K21.9 - GASTRO-ESOPHAGEAL REFLUX DISEASE WITHOUT ESOPHAGITIS Status: Acute QualifierTitle: Esophagitis presence: without esophagitis Qualified Code( s): K21.9 - Gastro-esophageal reflux disease without esophagitis Plan: Will continue protonix (13) DM type 2 (diabetes mellitus, type 2) Status: Chronic QualifierTitle: Diabetes mellitus complication status: without complication Diabetes mellitus order builder insulin use: without order builder use Qualified Code(s): E11.9 - Type 2 diabetes mellitus without complications Plan: Will continue home meds -SSI -Accuchecks ACHS (14) Neutropenia Code(s): D70.9 - NEUTROPENIA, UNSPECIFIED Status: Acute QualifierTitle: Neutropenia type: secondary to cancer chemotherapy Qualified Code(s): D70.1 - Agranulocytosis secondary to cancer chemotherapy; T45.1X5A - Adverse effect of antineoplastic and immunosuppressive drugs, initial encounter; T45.1X5A - Adverse effect of antineoplastic and immunosuppressive drugs, initial encounter Plan: This is likely 2/2 chemotherapy -Will continue to monitor <Diandra Corona - Last Filed: 08/23/17 08:34> Attending Addendum - Attending Addendum I personally evaluated the patient and discussed the management with Dr. Corona. I agree with the History, Examination, Assessment and Plan documented above with any addition or exceptions noted below. Patient with some improvement in abdominal pain. Her heart rhythm continues to be NSR and she is on appropriate meds for that. Appreciate cardiology recs. After discussion with her oncologist, her abdominal pain and diarrhea are chronic issues. Cdiff screen negative. We will stop antibiotics at this time, and she has been given Imodium for relief. Continue to monitor and advance diet. Possible discharge in next 1-2 days if continues to improve. <Edin Lugo - Last Filed: 08/23/17 12:16>
[2017-08-23] MEDS: Loperamide HCl 2 MG CAP PO PRN ×2 (08:43→18:10)
[2017-08-23 13:50] VITALS: BMI 22.6
[2017-08-23] MEDS: Rivaroxaban 10 MG TAB PO SCH (16:38)
[2017-08-24] MEDS: Morphine IR Tab 15 MG TAB PO PRN ×3 (00:43→12:06)
[2017-08-24] MEDS: Mag-Al 1200 mg/1200 mg/30 ML UDCUP PO PRN (03:39)
[2017-08-24] MEDS: Loperamide HCl 2 MG CAP PO PRN ×2 (03:44→12:05)
[2017-08-24 06:13] LABS: Anion Gap 12 mmol/L (10-20); BUN (Urea Nitrogen) 8 mg/dL (9.8-20.1); Calc. Creatinine Clearance 80 mL/min (70-130); Calcium 8.4 mg/dL (7.8-10.44); Carbon Dioxide 19 mmol/L (23-31); Chloride 107 mmol/L (98-107); Estimated GFR-MDRD Greater than 90
[2017-08-24 06:18] LABS: #Eosinphils 0.1 thou/uL (0.0-0.7); #Lymphocytes 1.3 thou/uL (1.20-3.40); #Monocytes 0.5 thou/uL (0.11-0.59); #Neutrophils 1.2 thou/uL (1.40-6.50); %Eosinophils 4.5 % (0.0-10.0); %Lymphocytes 40.7 % (21.0-51.0); %Monocytes 14.5 % (0.0-10.0); Hematocrit 35.3 % (36.0-47.0); Mean Platelet Volume 9.9 fL (7.4-10.4); Red Blood Cell (RBC) Count 3.34 mill/uL (4.20-5.40); White Blood Cell (WBC) Count 3.1 thou/uL (4.8-10.8)
--- NOTE | 2017-08-24 07:23 | PDOC.FM ---
- Subjective Subjective: Pt reports just feeling okay this morning. Still having some pain. Says she is doing better overall. Discussed with her about the possiblity of going home with home health. She said that would probably work. Denies any acute events overnight. Denies any fever chills. - Objective MAR Reviewed: Yes Vital Signs & Weight: Vital Signs (12 hours) Temp Pulse Resp BP Pulse Ox 08/24/17 04:00 99.0 F 68 20 133/69 99 08/23/17 20:55 98.2 F 63 16 133/63 99 Weight Admit Weight 56.291 kg Weight 57.924 kg I&O: 08/23/17 08/24/17 08/25/17 06:59 06:59 06:59 Intake Total 2855 1120 Output Total 3300 2000 Balance -026 -082 Result Diagrams: 08/24/17 05:13 08/24/17 05:13 Radiology Reviewed by me: Yes (No new imaging to review) <Olvin Shell - Last Filed: 08/24/17 07:24> - Objective Vital Signs & Weight: Vital Signs (12 hours) Temp Pulse Resp BP BP Pulse Ox 08/24/17 09:41 162/77 H 08/24/17 09:39 162/77 H 08/24/17 08:00 98.5 F 67 18 162/77 H 99 08/24/17 04:00 99.0 F 68 20 133/69 99 Weight Admit Weight 56.291 kg Weight 57.924 kg I&O: 08/23/17 08/24/17 08/25/17 06:59 06:59 06:59 Intake Total 2855 1840 240 Output Total 3300 2800 Balance -304 -859 240 Result Diagrams: 08/24/17 05:13 08/24/17 05:13 <Edin Lugo - Last Filed: 08/24/17 10:44> Phys Exam - Physical Examination HEENT: PERRLA, moist MMs, oral pharynx no lesions Neck: no nodes, supple, full ROM Respiratory: no wheezing, no rales, no rhonchi, clear to auscultation bilateral Cardiovascular: RRR, no significant murmur, no rub Gastrointestinal: soft, non-tender, no distention, positive bowel sounds But when performed deep palpation w/ stethescope did not illicit response Musculoskeletal: no edema, pulses present, edema present Neurological: non-focal, normal sensation, moves all 4 limbs Lymphatic: no nodes Psychiatric: normal affect, A&O x 3 Skin: no rash, normal turgor <Olvin Shell - Last Filed: 08/24/17 07:24> Dx/Plan (1) Abdominal pain Code(s): R10.9 - UNSPECIFIED ABDOMINAL PAIN Status: Chronic QualifierTitle: Abdominal location: right lower quadrant Qualified Code(s ): R10.31 - Right lower quadrant pain (2) GERD (gastroesophageal reflux disease) Code(s): K21.9 - GASTRO-ESOPHAGEAL REFLUX DISEASE WITHOUT ESOPHAGITIS Status: Chronic QualifierTitle: Esophagitis presence: without esophagitis Qualified Code( s): K21.9 - Gastro-esophageal reflux disease without esophagitis (3) Neutropenia Code(s): D70.9 - NEUTROPENIA, UNSPECIFIED Status: Acute QualifierTitle: Neutropenia type: secondary to cancer chemotherapy Qualified Code(s): D70.1 - Agranulocytosis secondary to cancer chemotherapy; T45.1X5A - Adverse effect of antineoplastic and immunosuppressive drugs, initial encounter; T45.1X5A - Adverse effect of antineoplastic and immunosuppressive drugs, initial encounter (4) Prolonged QT interval Code(s): R94.31 - ABNORMAL ELECTROCARDIOGRAM [ECG] [EKG] Status: Acute (5) WALLY (acute kidney injury) Code(s): N17.9 - ACUTE KIDNEY FAILURE, UNSPECIFIED Status: Resolved (6) Atrial fibrillation with rapid ventricular response Code(s): I48.91 - UNSPECIFIED ATRIAL FIBRILLATION Status: Resolved (7) Elevated troponin Code(s): R74.8 - ABNORMAL LEVELS OF OTHER SERUM ENZYMES Status: Resolved (8) Hypertensive urgency Code(s): I16.0 - HYPERTENSIVE URGENCY Status: Resolved (9) Non-sustained ventricular tachycardia Code(s): I47.2 - VENTRICULAR TACHYCARDIA Status: Resolved (10) DM type 2 (diabetes mellitus, type 2) Status: Chronic QualifierTitle: Diabetes mellitus complication status: without complication Diabetes mellitus watermelon inspector insulin use: without assisted use Qualified Code(s): E11.9 - Type 2 diabetes mellitus without complications (11) Hypertension Code(s): I10 - ESSENTIAL (PRIMARY) HYPERTENSION Status: Chronic (12) Multiple myeloma Code(s): C90.00 - MULTIPLE MYELOMA NOT HAVING ACHIEVED REMISSION Status: Chronic QualifierTitle: Multiple myeloma remission status: unspecified Qualified Code(s): C90.00 - Multiple myeloma not having achieved remission - Plan Plan: (1) Hypertensive urgency Patient had HTN urgency with BP 200s/100s Resolved, continue to monitor BP closely, monitor on tele BP have now been low -Labetalol prn SBP > 180 -Continue home BP meds, except hold amlodipine BP has been stable today and through the night. (2) Atrial fibrillation with rapid ventricular response Patient went into a-fib w RVR with rate up to 160s initially, but converted to NSR s/p diltiazem gtt -Cards has been consulted, appreciate recs -Diltiazem gtt has been d/c'd -Carvedilol -Patient Rate regular and rhythm regular at this time. -Monitor on tele -Will need closer outpatient f/u with cardiology (3) Abdominal pain Patient has RLQ abdominal pain, CT showed no acute process, no signs of appendicitis. Patient had been having N/V/D for the past 3 days with subjective fevers and sweating, this is likely a viral gastroenteritis versus side effect of chemotherapy. -More likely gastroenteritis. Talked with Oncology PA and she stated patient chronically has this abdominal pain. She was less concerned for colitis -Treat symptomatically with phenergan prn due to patient's prolonged QT -Tylenol prn fever/chills -Patient is s/p one dose of zosyn -Got Cipro for 3 days and flagyl for 3 days. C-diff negative. Abx have been stopped -Immodium prn diarrhea (4) Non-sustained ventricular tachycardia Patient had two runs of Non-sustained VT while in the ED. This has not happened since and she has been monitored on tele -Will continue tele monitoring (5) WALLY (acute kidney injury) -Resolved at this time. Patient had WALLY intitially, likely 2/2 dehydration, this has improved s/p fluids -Will continue to monitor (6) Elevated troponin Patient had troponins that were elevated in the indeterminate range intially, these have since downtrended. No signs of ischemic changes on EKG (7) Elevated brain natriuretic peptide (BNP) level BNP elevated to 300s Echo showed EF 55-60%, some diastolic dysfunction -Monitor on tele -no signs of fluid overload (8) Prolonged QT interval Patient had prolonged QT, this could be medication induced. Will avoid adding medications that prolong QT -Monitor on tele (9) Hypokalemia -resolved at this time. K stable this morning Patient has chronic hypokalemia, will monitor as needed and replace as needed (10) Multiple myeloma Patient has MM being treated by Dr. Almendarez with biweekly chemotherapy. Will monitor closely -f/u outpatient with Dr. Almendarez -Morphine per patient's outpatient regimen for pain control -Discussed case w/ Dr. Almendarez PA. She reported patient chronically having abdominal pain and diarrhea. Says patient is around baseline (11) Thrombocytopenia This is likely 2/2 chemotherapy -Will monitor closely for signs of bleeding. -Hgb improved today (12) GERD (gastroesophageal reflux disease) Will continue protonix (13) DM type 2 (diabetes mellitus, type 2) Will continue home meds -SSI -Accuchecks ACHS (14) Neutropenia This is likely 2/2 chemotherapy -Will continue to monitor <Olvin Shell - Last Filed: 08/24/17 07:24> Attending Addendum - Attending Addendum I personally evaluated the patient and discussed the management with Dr. Shell. I agree with the History, Examination, Assessment and Plan documented above with any addition or exceptions noted below. Patient admitted for HTN urgency and irregular heart rate which has been controlled over the last few days. Her BP measurements are improved and she has been in normal sinus rhythm. We feel this was all due to missing doses of medication at home. She continues to experience abdominal pain and diarrhea, though these problems are chronic and she reports some improvement. She has been worked up for serious causes of abdominal pain, and has normal results and lab findings. Diarrhea could be related to Metformin, though unlikely. Patient has declined on multiple instances the chance of rehab versus SNF stint. She desires to go home. There is nothing currently requiring hospitalization and we will work to discharge patient today. <Edin Lugo - Last Filed: 08/24/17 10:44>
[2017-08-24] MEDS: Carvedilol 6.25 MG TAB PO SCH ×2 (09:39→17:23)
[2017-08-24] MEDS: Morphine ER 30 MG TAB PO SCH (09:39)
[2017-08-24] MEDS: metFORMIN 500 MG TAB PO SCH ×3 (09:39→17:43)
[2017-08-24] MEDS: Gabapentin 100 MG CAP PO SCH (09:41)
[2017-08-24] MEDS: Lisinopril 10 MG TAB PO SCH (09:41)
[2017-08-24] MEDS: FLUoxetine HCl 20 MG CAP PO SCH (09:41)
[2017-08-24] MEDS: Potassium Chloride 20 MEQ TAB PO SCH (09:41)
[2017-08-24] MEDS ORDERED: Simethicone Chewable 80 MG TAB PO ONE (10:16)
[2017-08-24] MEDS: Dicyclomine 10 MG/5 ML UDCUP PO SCH ×3 (12:02→17:22)
[2017-08-24 16:48] VITALS: BP 127/61; TEMP 98.4
[2017-08-24] MEDS ORDERED: metFORMIN 500 MG TAB PO SCH (17:00)
[2017-08-24] MEDS: Rivaroxaban 10 MG TAB PO SCH (17:22)
--- NOTE | 2017-08-27 06:45 | DIS-2 ---
DATE OF ADMISSION: 08/20/2017 DATE OF DISCHARGE: 08/24/2017 ADMITTING RESIDENT: Diandra Corona MD DISCHARGE RESIDENT: Diandra Corona MD ADMITTING ATTENDING: Edin Lugo MD DISCHARGE ATTENDING: Edin Lugo MD CONSULTATIONS: Dr. Trent with Cardiology. PROCEDURES: None. IMAGIN. Chest x-ray showed chronic changes, no acute intrathoracic abnormalities. 2. Brain CT showed no acute intracranial abnormality, extensive lytic lucencies throughout the edilson rium consistent with the patient's history of multiple myeloma. 3. Echocardiogram showed left ventricular ejection fraction estimated at 55%-60%, either a flow reve rsal suggestive of diastolic dysfunction, cannot exclude hypokinetic motion of the inferior wall note d in the left ventricle, mild mitral regurgitation, mild tricuspid regurgitation. 4. Abdomen and pelvis CT showed no definite CT evidence for an acute process, somewhat focal mural t hickening involving a portion of the sigmoid colon reflect changes of nondistention. Correlation wit h screening colonoscopy is recommended to exclude neoplasm. PRIMARY DIAGNOSES: 1. Hypertensive urgency. 2. Atrial fibrillation with rapid ventricular response. 3. Abdominal pain, NOS. 4. Nonsustained ventricular tachycardia. 5. Acute kidney injury. 6. Elevated troponin. 7. Elevated BNP. 8. Prolonged QT interval. 9. Hypokalemia. 10. Thrombocytopenia. 11. Multiple myeloma. SECONDARY DIAGNOSES: 1. Gastroesophageal reflux disease. 2. Type 2 diabetes. 3. Neutropenia. DISCHARGE MEDICATIONS: 1. Amlodipine 5 mg p.o. daily. 2. Aspirin 81 mg p.o. daily. 3. Calcium 600 mg p.o. daily. 4. Carvedilol 6.25 mg p.o. b.i.d. with meals. 5. Vitamin D3 1000 units p.o. daily. 6. Dicyclomine 10 mg p.o. q.i.d. 7. Lomotil 2 tabs p.o. q.i.d. p.r.n. diarrhea. 8. Prozac 20 mg p.o. daily. 9. Multivitamin 1 tab p.o. daily. 10. Gabapentin 100 mg p.o. b.i.d. 11. Lisinopril 10 mg p.o. daily. 12. Imodium 2 mg p.o. p.r.n. 13. Metformin 500 mg p.o. b.i.d. with meals. 14. MS Contin 30 mg p.o. q.12 hours. 15. Morphine immediate-release 15 mg p.o. q.4 hours p.r.n. pain. 16. Zofran 8 mg sublingual q.6 hours p.r.n. nausea, vomiting. 17. Protonix 40 mg p.o. daily. 18. Potassium chloride 20 mEq p.o. q.a.m. with meals. 19. Compazine 10 mg p.o. q.4 hours p.r.n. nausea. 20. Xarelto 20 mg p.o. q. 1700. DISCONTINUED MEDICATIONS: None. HISTORY OF PRESENT ILLNESS AND HOSPITAL COURSE: This is a 62-year-old female with past medical histo ry of multiple myeloma, who presented to the ED from her oncologist's office due to elevated blood pr essures in the 200s/100s and was found to have similar blood pressures in the emergency room. She in itially was diaphoretic and in severe pain on her exam and while I was in the room examining her, was noted to be on the monitor having her heart rate jumped to the 140s to 150s. The patient reports th at she had been not feeling well for several days with nausea, vomiting, diarrhea, and had severe rig ht lower quadrant abdominal pain. There was concern for possible appendicitis. Her CT of her abdome n was done which was found to be negative and so a C. diff was done that was also negative, so the radha quintana was treated symptomatically with antinausea medicines, but there was concern that she could hav e had the colitis that she was treated initially with Cipro and Flagyl for a few days to see if that would help, which did help her pain some. She was also started on clear liquid diet with some fluids ; however, after few days with some improvement but not very much improvement. We got in touch with her oncologist and found that she does have some chronic abdominal pain and so it was determined that this is likely a viral gastroenteritis on top of her chronic abdominal pain complicating the picture . The patient reported that she was close to back at her baseline abdominal pain, so she was started back on a full diet and the fluids were stopped. The antibiotics were stopped and she was started o n antidiarrheals. The patient's metformin dose was also decreased to see if this would help with her diarrhea. The patient was found to be initially in atrial fibrillation with RVR as well as hyperten sive urgency. The hypertensive urgency quickly resolved with p.r.n. treatment as well as restarting home meds due to the patient having vomited her home meds the past few days. The atrial fibrillation with rapid ventricular response resolved as well after being started on a diltiazem drip and Dr. Kody barcenas with Cardiology, had been consulted and he followed that set of things. The patient converted ba ck to normal sinus rhythm and remained in sinus rhythm. The rest of the time, she was stopped off th e diltiazem drip and started back on her home medicines with the carvedilol and amlodipine. She ju ined in normal sinus rhythm on the telemetry. The rest of her hospitalization was no longer diaphore tic and felt better from that standpoint. DISPOSITION: Stable. DISCHARGE INSTRUCTIONS: 1. Location: Home. 2. Diet: As tolerated. 3. Activity: As tolerated. 4. Followup: Follow up with Dr. Mina within 2 weeks.
== END 2017-08-24 20:33 | disposition home or self-care (01) | DRG 305 ==
LOC: ERS 11:27 → 2NO 14:10
PROVIDERS: ADMIT Student in an Organized Health Care Education/Training Program; ATTEND Student in an Organized Health Care Education/Training Program
DX: I16.0 Hypertensive urgency (principal); I47.2 Ventricular tachycardia; N17.9 Acute kidney failure, unspecified; C90.00 Multiple myeloma not having achieved remission; I45.81 Long QT syndrome; E11.9 Type 2 diabetes mellitus without complications; I25.10 Atherosclerotic heart disease of native coronary artery without angina pectoris; K21.9 Gastro-esophageal reflux disease without esophagitis; D70.1 Agranulocytosis secondary to cancer chemotherapy; D69.59 Other secondary thrombocytopenia; I48.0 Paroxysmal atrial fibrillation; A08.4 Viral intestinal infection, unspecified; E87.6 Hypokalemia; F17.210 Nicotine dependence, cigarettes, uncomplicated; R74.8 Abnormal levels of other serum enzymes; Z92.21 Personal history of antineoplastic chemotherapy; Z95.5 Presence of coronary angioplasty implant and graft; Z79.82 Long term (current) use of aspirin; Z80.3 Family history of malignant neoplasm of breast; Z80.41 Family history of malignant neoplasm of ovary; T45.1X5A Adverse effect of antineoplastic and immunosuppressive drugs, initial encounter; Y92.238 Other place in hospital as the place of occurrence of the external cause
CPT/HCPCS: 36415; 36416; 70450; 71010; 74177; 80048; 80053; 81001; 82550; 82553; 83735; 83880; 84484; 85025; 87040; 87324; 87449; 93005; 93306; 96374; 96375; A4216; G8978-GP-CM; G8979-GP-CK; J0744; J1642; J1650; J2270; J2405; J2543; J7050; Q0164

== ENCOUNTER 2017-09-26 09:52 | Day surgery (SDC) | payer OTHER ==
[2017-09-26] MEDS ORDERED: Sodium Chloride 0.9% 20 ML ONE (10:02)
[2017-09-26] MEDS ORDERED: SODIUM CHLORIDE IV SCH (10:15)
[2017-09-26] MEDS ORDERED: Dexamethasone 20 MG, Admixture Fee 1 EACH in Sodium Chloride 0.9% 50 ML IVPB SCH (10:15)
[2017-09-26] MEDS ORDERED: Acetaminophen 500 MG TAB PO SCH (10:15)
[2017-09-26] MEDS ORDERED: DARATUMUMAB IV SCH ×2 (10:15→10:30)
[2017-09-26] MEDS ORDERED: ADMIXTURE FEE IV SCH (10:15)
[2017-09-26] MEDS ORDERED: SODIUM CHLORIDE 0.9% IV SCH (10:30)
[2017-09-26] MEDS ORDERED: diphenhydrAMINE 50 MG/ML VIAL IVP SCH (11:30)
[2017-09-26 12:04] VITALS: BP 125/74; TEMP 98.6
== END 2017-09-26 15:08 | disposition home or self-care (01) ==
LOC: ONC/OP 09:52
PROVIDERS: ATTEND Internal Medicine Hematology & Oncology
DX: Z51.11 Encounter for antineoplastic chemotherapy (principal); C79.52 Secondary malignant neoplasm of bone marrow; C90.00 Multiple myeloma not having achieved remission; E11.9 Type 2 diabetes mellitus without complications; I10 Essential (primary) hypertension; K21.9 Gastro-esophageal reflux disease without esophagitis; Z79.82 Long term (current) use of aspirin; Z79.891 Long term (current) use of opiate analgesic; Z79.84 Long term (current) use of oral hypoglycemic drugs; Z79.899 Other long term (current) drug therapy; Z95.5 Presence of coronary angioplasty implant and graft; Z90.49 Acquired absence of other specified parts of digestive tract; Z98.51 Tubal ligation status; Z98.890 Other specified postprocedural states
CPT/HCPCS: 36415; 80053; 82248; 83615; 84100; 84550; 96375; 96413; 96415; 99212; A4216; G0463; J1100; J1200; J1642; J7050; J9145

== ENCOUNTER 2017-10-10 10:25 | Day surgery (SDC) | payer OTHER ==
[2017-10-10] MEDS ORDERED: Sodium Chloride 0.9% 40 ML ONE (10:59)
[2017-10-10] MEDS ORDERED: Dexamethasone 20 MG/5 ML VIAL SLOW IVP SCH (11:30)
[2017-10-10] MEDS ORDERED: Acetaminophen 500 MG TAB PO SCH (11:30)
[2017-10-10] MEDS ORDERED: diphenhydrAMINE 50 MG/ML VIAL IVP SCH (11:30)
[2017-10-10] MEDS ORDERED: SODIUM CHLORIDE IV SCH (11:45)
[2017-10-10] MEDS ORDERED: DARATUMUMAB IV SCH ×2 (11:45)
[2017-10-10] MEDS ORDERED: SODIUM CHLORIDE 0.9% IV SCH (11:45)
[2017-10-10] MEDS ORDERED: ADMIXTURE FEE IV SCH (11:45)
[2017-10-10] MEDS ORDERED: Dexamethasone 20 MG in Sodium Chloride 0.9% 50 ML IVPB SCH (12:15)
[2017-10-10 14:22] VITALS: BP 138/70
== END 2017-10-10 16:46 | disposition home or self-care (01) ==
LOC: ONC/OP 10:25
PROVIDERS: ATTEND Internal Medicine Hematology & Oncology
DX: Z51.11 Encounter for antineoplastic chemotherapy (principal); C79.52 Secondary malignant neoplasm of bone marrow; C90.00 Multiple myeloma not having achieved remission; I48.0 Paroxysmal atrial fibrillation; K21.9 Gastro-esophageal reflux disease without esophagitis; E11.9 Type 2 diabetes mellitus without complications; Z79.84 Long term (current) use of oral hypoglycemic drugs; Z79.899 Other long term (current) drug therapy
CPT/HCPCS: 36415; 80048; 96367; 96375; 96413; 96415; A4216; J1100; J1200; J1642; J7050; J9145

== ENCOUNTER 2017-10-24 10:28 | Day surgery (SDC) | payer OTHER ==
[2017-10-24] MEDS ORDERED: SODIUM CHLORIDE IV SCH (10:45)
[2017-10-24] MEDS ORDERED: ADMIXTURE FEE IV SCH (10:45)
[2017-10-24] MEDS ORDERED: Dexamethasone 20 MG/5 ML VIAL SLOW IVP SCH (10:45)
[2017-10-24] MEDS ORDERED: Acetaminophen 500 MG TAB PO SCH (10:45)
[2017-10-24] MEDS ORDERED: DARATUMUMAB IV SCH ×2 (10:45→11:00)
[2017-10-24] MEDS ORDERED: diphenhydrAMINE 50 MG/ML VIAL IVP SCH ×2 (10:45→14:15)
[2017-10-24] MEDS ORDERED: SODIUM CHLORIDE 0.9% IV SCH (11:00)
[2017-10-24 11:01] VITALS: BP 180/88; TEMP 97.6
[2017-10-24] MEDS ORDERED: Dexamethasone 10 MG/ML VIAL SLOW IVP SCH (11:15)
== END 2017-10-24 16:41 | disposition home or self-care (01) ==
LOC: ONC/OP 10:28
PROVIDERS: ATTEND Internal Medicine Hematology & Oncology
DX: Z51.11 Encounter for antineoplastic chemotherapy (principal); C90.00 Multiple myeloma not having achieved remission; C79.52 Secondary malignant neoplasm of bone marrow; K21.9 Gastro-esophageal reflux disease without esophagitis; E11.65 Type 2 diabetes mellitus with hyperglycemia; H40.9 Unspecified glaucoma; I10 Essential (primary) hypertension; F17.210 Nicotine dependence, cigarettes, uncomplicated; I25.10 Atherosclerotic heart disease of native coronary artery without angina pectoris; I48.91 Unspecified atrial fibrillation; Z79.01 Long term (current) use of anticoagulants; Z79.84 Long term (current) use of oral hypoglycemic drugs; Z79.82 Long term (current) use of aspirin; Z79.891 Long term (current) use of opiate analgesic; Z79.899 Other long term (current) drug therapy; Z98.51 Tubal ligation status; Z90.49 Acquired absence of other specified parts of digestive tract; Z98.890 Other specified postprocedural states
CPT/HCPCS: 96375; 96413; 96415; 99212; G0463; J1100; J1200; J7050; J9145

== ENCOUNTER 2017-11-06 09:21 | Day surgery (SDC) | payer OTHER ==
[2017-11-04 10:53] VITALS: BMI 22.8
[~2017-11-06 09:21] MED LIST changes: -Acetaminophen 500 MG TAB PO SCH; -DARATUMUMAB IV SCH; -Dexamethasone 20 MG in Sodium Chloride 0.9% 50 ML IVPB SCH; +FLU VACC QS2017-18 36 mo. & older 0.5 ML SYRINGE IM ONE; -SODIUM CHLORIDE 0.9% IV SCH; -Sodium Chloride 0.9% 20 ML ONE; -diphenhydrAMINE 50 MG in Sodium Chloride 0.9% 50 ML IVPB SCH
[2017-11-06 10:10] LABS: INR-International Normal Ratio 0.9; PTT 32.8 SEC (22.9-36.1); Prothrombin Time 12.6 SEC (12.0-14.7)
[2017-11-06 11:38] VITALS: BP 180/97; TEMP 99.4
[2017-11-06] MEDS ORDERED: FLU VACC QS2017-18 36 mo. & older 0.5 ML SYRINGE IM ONE (12:30)
--- NOTE | 2017-11-06 13:27 | CT ---
CT GUIDED BONE MARROW BIOPSY: INDICATIONS: Blood disorder. Assess for multiple myeloma. FINDINGS: Poultry Dresser films taken with patient prone on the CT table reveals an abnormal mottled density of the visua lized bones of the pelvis, consistent with multiple myeloma or other infiltrative process. Bone marrow biopsy performed using CT guidance to the posterior iliac spine on the left. An 11 gauge Arrow bone marrow biopsy system was utilized to obtain bone marrow aspirate and bone marrow biopsy f rom this site. The processing technologist was present at the bedside and confirmed adequacy of tissu e. PROCEDURE NOTE: The procedure was discussed with the patient with the nurse. Consent was signed. The nurse states t hat the patient then took oral analgesic medication, which had been prescribed to the patient. No IV conscious sedation was given at the time of the procedure. CT was used to locate an entry site. The skin was then prepped and draped in a sterile manner. Loca l anesthesia was administered with Lidocaine. The 11 gauge Arrow biopsy instrument was used. This n eedle with trocar in place was directed into the right iliac crest, under CT guidance. Bone marrow a spirate was then obtained and given to the technologist. The trocar was removed. A battery powered instrument was attached, and a 2 cm in length bone marrow core biopsy was then obtained and given to the technologist. Post procedure images showed no hematoma. The patient tolerated the procedure well, and there were no problems or complications. POS: [facility]
--- NOTE | 2017-11-08 13:46 | CT ---
CT GUIDED BONE MARROW BIOPSY: INDICATIONS: Blood disorder. Assess for multiple myeloma. FINDINGS: Salesperson Burial Needs films taken with patient prone on the CT table reveals an abnormal mottled density of the visua lized bones of the pelvis, consistent with multiple myeloma or other infiltrative process. Bone marrow biopsy performed using CT guidance to the posterior iliac spine on the left. An 11 gauge Arrow bone marrow biopsy system was utilized to obtain bone marrow aspirate and bone marrow biopsy f rom this site. The biotechnologist was present at the bedside and confirmed adequacy of tissu e. PROCEDURE NOTE: The procedure was discussed with the patient with the nurse. Consent was signed. The nurse states t hat the patient then took oral analgesic medication, which had been prescribed to the patient. No IV conscious sedation was given at the time of the procedure. CT was used to locate an entry site. The skin was then prepped and draped in a sterile manner. Loca l anesthesia was administered with Lidocaine. The 11 gauge Arrow biopsy instrument was used. This n eedle with trocar in place was directed into the right iliac crest, under CT guidance. Bone marrow a spirate was then obtained and given to the technologist. The trocar was removed. A battery powered instrument was attached, and a 2 cm in length bone marrow core biopsy was then obtained and given to the technologist. Post procedure images showed no hematoma. The patient tolerated the procedure well, and there were no problems or complications.
== END 2017-11-06 13:45 | disposition home or self-care (01) ==
LOC: CT 09:21
PROVIDERS: ATTEND Internal Medicine Hematology & Oncology
PROC: BR2CZZZ Computerized Tomography (CT Scan) of Pelvis (ICD-10-PCS; principal; 2017-11-06)
PROC: 07DR3ZX Extraction of Iliac Bone Marrow, Percutaneous Approach, Diagnostic (ICD-10-PCS; principal; 2017-11-06)
DX: C90.00 Multiple myeloma not having achieved remission (principal); E11.65 Type 2 diabetes mellitus with hyperglycemia; H40.9 Unspecified glaucoma; I10 Essential (primary) hypertension; K21.9 Gastro-esophageal reflux disease without esophagitis; F17.210 Nicotine dependence, cigarettes, uncomplicated; I25.10 Atherosclerotic heart disease of native coronary artery without angina pectoris; I48.91 Unspecified atrial fibrillation; Z79.84 Long term (current) use of oral hypoglycemic drugs; Z79.891 Long term (current) use of opiate analgesic; Z79.899 Other long term (current) drug therapy; Z86.19 Personal history of other infectious and parasitic diseases
CPT/HCPCS: 20225; 36415; 77012; 85097; 85610; 85730; 88184; 88237; 88305; 88311; 88313; 88341; 88342; 88365; J1642

== ENCOUNTER 2017-11-07 12:18 | Day surgery (SDC) | payer OTHER ==
[2017-11-07] MEDS ORDERED: SODIUM CHLORIDE IV SCH (12:45)
[2017-11-07] MEDS ORDERED: Dexamethasone 20 MG/5 ML VIAL SLOW IVP SCH (12:45)
[2017-11-07] MEDS ORDERED: DARATUMUMAB IV SCH ×2 (12:45→13:00)
[2017-11-07] MEDS ORDERED: ADMIXTURE FEE IV SCH (12:45)
[2017-11-07] MEDS ORDERED: Acetaminophen 500 MG TAB PO SCH (13:00)
[2017-11-07] MEDS ORDERED: diphenhydrAMINE 50 MG/ML VIAL IVP SCH (13:00)
[2017-11-07] MEDS ORDERED: Dexamethasone 20 MG in Sodium Chloride 0.9% 50 ML IVPB SCH (13:00)
[2017-11-07] MEDS ORDERED: SODIUM CHLORIDE 0.9% IV SCH (13:00)
[2017-11-07] MEDS ORDERED: Sodium Chloride 0.9% 50 ML ONE (13:05)
[2017-11-07 13:09] VITALS: BP 171/94; TEMP 97.6
== END 2017-11-07 17:35 | disposition home or self-care (01) ==
LOC: ONC/OP 12:18
PROVIDERS: ATTEND Internal Medicine Hematology & Oncology
DX: Z51.11 Encounter for antineoplastic chemotherapy (principal); C90.00 Multiple myeloma not having achieved remission; I10 Essential (primary) hypertension; K21.9 Gastro-esophageal reflux disease without esophagitis; F17.210 Nicotine dependence, cigarettes, uncomplicated; Z79.899 Other long term (current) drug therapy
CPT/HCPCS: 96367; 96375; 96413; 96415; A4216; J1100; J1200; J1642; J7050; J9145

== ENCOUNTER 2017-11-21 12:11 | Day surgery (SDC) | payer OTHER ==
[2017-11-21] MEDS ORDERED: Sodium Chloride 0.9% 40 ML ONE (12:27)
[2017-11-21] MEDS ORDERED: Acetaminophen 500 MG TAB PO SCH (12:30)
[2017-11-21] MEDS ORDERED: DARATUMUMAB IV SCH (12:30)
[2017-11-21] MEDS ORDERED: SODIUM CHLORIDE IV SCH (12:30)
[2017-11-21] MEDS ORDERED: diphenhydrAMINE 50 MG/ML VIAL IVP SCH (12:30)
[2017-11-21] MEDS ORDERED: ADMIXTURE FEE IV SCH (12:30)
[2017-11-21] MEDS ORDERED: Dexamethasone 10 MG/ML VIAL SLOW IVP SCH (12:30)
[2017-11-21 15:32] VITALS: BP 163/90; TEMP 98.2
== END 2017-11-21 17:23 | disposition home or self-care (01) ==
LOC: ONC/OP 12:11
PROVIDERS: ATTEND Internal Medicine Hematology & Oncology
DX: Z51.11 Encounter for antineoplastic chemotherapy (principal); C79.52 Secondary malignant neoplasm of bone marrow; C90.00 Multiple myeloma not having achieved remission; I10 Essential (primary) hypertension; K21.9 Gastro-esophageal reflux disease without esophagitis; F17.210 Nicotine dependence, cigarettes, uncomplicated; Z79.84 Long term (current) use of oral hypoglycemic drugs; Z79.899 Other long term (current) drug therapy
CPT/HCPCS: 36415; 80053; 82248; 83615; 84100; 84550; 96375; 96413; 96415; A4216; J1100; J1200; J1642; J7050; J9145

== ENCOUNTER 2017-12-05 10:26 | Day surgery (SDC) | payer OTHER ==
[2017-12-05] MEDS ORDERED: Sodium Chloride 0.9% 50 ML ONE (10:34)
[2017-12-05] MEDS ORDERED: diphenhydrAMINE 50 MG/ML VIAL IVP SCH (10:45)
[2017-12-05] MEDS ORDERED: ADMIXTURE FEE IV SCH (10:45)
[2017-12-05] MEDS ORDERED: [UNRECOGNIZED DRUG - OTHER] IV SCH (10:45)
[2017-12-05] MEDS ORDERED: DARATUMUMAB IV SCH (10:45)
[2017-12-05] MEDS ORDERED: Acetaminophen 500 MG TAB PO SCH (10:45)
[2017-12-05] MEDS ORDERED: Dexamethasone 10 MG/ML VIAL SLOW IVP SCH (10:45)
[2017-12-05 11:02] VITALS: BP 139/71; TEMP 98
== END 2017-12-05 15:18 | disposition home or self-care (01) ==
LOC: ONC/OP 10:26
PROVIDERS: ATTEND Internal Medicine Hematology & Oncology
DX: Z51.11 Encounter for antineoplastic chemotherapy (principal); C79.52 Secondary malignant neoplasm of bone marrow; C90.00 Multiple myeloma not having achieved remission; I10 Essential (primary) hypertension; K21.9 Gastro-esophageal reflux disease without esophagitis; E11.9 Type 2 diabetes mellitus without complications; F17.210 Nicotine dependence, cigarettes, uncomplicated; Z79.891 Long term (current) use of opiate analgesic; Z79.84 Long term (current) use of oral hypoglycemic drugs; Z79.899 Other long term (current) drug therapy
CPT/HCPCS: 96375; 96413; 96415; A4216; J1100; J1200; J1642; J7050; J9145

== ENCOUNTER 2017-12-09 17:23 | Inpatient (IN) | payer OTHER ==
[2017-12-09 18:20] LABS: ALT (SGPT) 107 U/L (8-55); AST (SGOT) 91 U/L (5-34); Albumin 4.1 g/dL (3.4-4.8); Alkaline Phosphatase 107 U/L (40-150); Anion Gap 14 mmol/L (10-20); BUN (Urea Nitrogen) 12 mg/dL (9.8-20.1); Bilirubin, Total 0.8 mg/dL (0.2-1.2); CK (CPK) 19 U/L (29-168); Calc. Creatinine Clearance 0 mL/min (70-130); Calcium 9.3 mg/dL (7.8-10.44); Carbon Dioxide 18 mmol/L (23-31); Chloride 105 mmol/L (98-107); Estimated GFR-MDRD Greater than 90; Globulin 2.5 g/dL (2.4-3.5); Glucose 157 mg/dL (80-115); Potassium 4.1 mmol/L (3.5-5.1); Protein, Total 6.6 g/dL (6.0-8.3); Sodium 133 mmol/L (136-145)
--- NOTE | 2017-12-09 18:20 | RAD ---
FRONTAL VIEW CHEST: INDICATIONS: Chest pain. COMPARISON: 08/20/2017 FINDINGS: Right-sided chest port remains. Lungs are mildly hyperinflated. Linear densities are seen at the lo wer lung zones, grossly stable. There is no new consolidation or effusion. Otherwise, the chest is similar in appearance. IMPRESSION: Stable chest. POS: [facility]
[2017-12-09 18:24] LABS: CKMB 0.4 ng/mL (0-6.6); Troponin I Less than 0.010 ng/mL (< 0.028)
[2017-12-09 18:38] LABS: #Basophils 0.1 thou/uL (0.0-0.2); #Lymphocytes 3.3 thou/uL (1.20-3.40); %Basophils 0.9 % (0.0-1.0); %Eosinophils 0.3 % (0.0-10.0); %Monocytes 11.9 % (0.0-10.0); Hemoglobin 17.5 g/dL (12.0-16.0); Mean Corpuscular HGB CONC 34.2 g/dL (32.0-36.0); Mean Corpuscular Hemoglobin 34.8 pg (27.0-31.0); Mean Platelet Volume 10.1 fL (7.4-10.4); Platelet Count 118 thou/uL (130-400); RBC Distribution Width 12.4 % (11.5-14.5); Red Blood Cell (RBC) Count 5.01 mill/uL (4.20-5.40); White Blood Cell (WBC) Count 8.4 thou/uL (4.8-10.8)
[2017-12-09] MEDS ORDERED: Promethazine HCl 25 MG/ML VIAL ONE ×2 (18:41→20:26)
[2017-12-09] MEDS ORDERED: Fentanyl 100 MCG/2 ML VIAL ONE (18:41)
[2017-12-09] MEDS ORDERED: Morphine 4 MG/ML VIAL ONE ×3 (20:00→22:24)
[2017-12-09] MEDS ORDERED: Ondansetron ODT 8 MG TAB ONE (22:38)
[2017-12-10] MEDS ORDERED: Morphine 4 MG/ML VIAL ONE ×2 (01:25→05:11)
[2017-12-10] MEDS ORDERED: Labetalol HCl 100 MG/20 ML VIAL SLOW IVP PRN (01:44)
[2017-12-10] MEDS ORDERED: hydrALAZINE 20 MG/ML VIAL SLOW IVP PRN (01:44)
[2017-12-10] MEDS ORDERED: Haloperidol Lactate 5 MG/ML VIAL ONE (01:47)
[2017-12-10] MEDS ORDERED: Promethazine HCl 25 MG/ML VIAL ONE (01:47)
[2017-12-10] MEDS ORDERED: Morphine 4 MG/ML Carpuject SLOW IVP PRN ×2 (02:36→13:25)
[2017-12-10] MEDS ORDERED: hydrALAZINE 20 MG/ML VIAL ONE ×3 (03:01→07:28)
--- NOTE | 2017-12-10 03:33 | PDOC.FPRHP ---
- History of Present Illness Chief Complaint: Abdominal pain History of Present Illness: 61 yo F w/hx of multiple myeloma, chronic pain, GERD, COPD, CAD, pAfib here with CC of RLQ abd pain with associated n/v which onset yesterday with acute worsening of pain over the past few hours. She has a history of similar uncontrolled pain in the past and the pt is on PO morphine as an out patient. She describes the pain as acute stabbing pain in the RLQ and epigastrum. Additionally, she was noted to have multiple elevated BPs of greater than 220 systolic in the ED. Pt reports that she did take her meds this morning. She was given IV morphine with some help with pain, however no reduction in BP. Pt was given IV hydralazine which resulted in a reduction to 185 systolic. She denies headache, changes in vision, dizziness, peripheral numbness/weakness. - Allergies/Adverse Reactions Allergies Allergy/AdvReac Type Severity Reaction Status Date / Time No Known Allergies Allergy Verified 11/05/17 09:41 - Home Medications Medication Instructions Recorded Confirmed Type Diphenoxylate HCl/Atropine 2 tab PO DAILY 01/13/17 12/10/17 History [Lomotil] Pantoprazole [Protonix] 40 mg PO DAILY 01/13/17 12/10/17 History Prochlorperazine Maleate 10 mg PO Q4HR PRN 01/13/17 12/10/17 History [Compazine] Carvedilol [Coreg] 6.25 mg PO BID-WM #60 tab 05/05/17 12/10/17 Rx FLUoxetine HCl [Prozac] 20 mg PO DAILY #30 cap 05/05/17 12/10/17 Rx Lisinopril [Zestril] 10 mg PO DAILY #30 tab 05/05/17 12/10/17 Rx Loperamide HCl [Imodium] 2 mg PO PRN PRN #30 cap 08/24/17 12/10/17 Rx Brinzolamide/Brimonidine Tart 1 drop EA EYE BID 11/04/17 12/10/17 History [Simbrinza 1%/0.2% Ophth Susp] Latanoprost [Xalatan 0.005% Ophth 1 drop EA EYE HS 11/04/17 12/10/17 History Soln] Morphine ER [MS Contin] 30 mg PO TID 11/04/17 12/10/17 History metFORMIN [Glucophage] 1,000 mg PO BID-WM 11/04/17 12/10/17 History Amlodipine [Norvasc] 5 mg PO DAILY 12/10/17 12/10/17 History FLUoxetine HCl [Prozac] 40 mg PO DAILY #30 cap 12/13/17 Rx Naloxegol Oxalate [Movantik] 12.5 mg PO DAILY-AC #30 tab 12/13/17 Rx Naproxen [Naprosyn] 500 mg PO BID #60 tablet 12/13/17 Rx Comments: Per clinic med rec - History PMHx: Multiple Myeloma Hep C GERD Macrocytic anemia COPD CAD pAfib Tobacco abuse PSHx: [place] Tubal ligation Hemorrhoidectoy Inguinal hernia repair FHx: Brother HTN Sister uterine ca Social: 30 pk yr smoking no etoh marijuana - Review of Systems General: reports: fever/chills (Chills/cold sweat). denies: weight/appetite/ sleep changes Eyes: denies: vision changes ENT: denies: nasal congestion Respiratory: denies: cough, congestion, shortness of breath Cardiovascular: denies: chest pain, palpitation Gastrointestinal: reports: abdominal pain (LLQ and epigastric) Skin: denies: rashes, lesions Musculoskeletal: denies: pain, tenderness Neurological: denies: numbness, syncope, seizure - Vital signs BP: 199/117 HR: 82 RR: 16 Tmax: Pox: 99% on RA Wt: 55.8 kg - Physical Exam Constitutional: NAD, awake, alert and oriented HEENT: normocephalic and atraumatic, PERRLA, EOMI Neck: supple, FROM, trachea midline Chest: no-tender to palpation Heart: RRR, normal S1/S2 Lungs: CTAB, no respiratory distress -Abdomen: Acute TTP w/guarding LLQ and epigastrum Musculoskeletal: normal structure, normal tone Neurological: no focal deficit, CN II-XII intact Skin: no rash/lesions, good turgor Heme/Lymphatic: no unusual bruising or bleeding Psychiatric: intact recent and remote memory FMR H&P: Results - Labs Result Diagrams: 12/13/17 03:59 12/13/17 03:59 Lab results: WBC 8.4 thou/uL (4.8-10.8) 12/09/17 17:44 Hgb 17.5 g/dL (12.0-16.0) H 12/09/17 17:44 Hct 51.1 % (36.0-47.0) H 12/09/17 17:44 MCV 102.0 fl (81.0-99.0) H 12/09/17 17:44 Plt Count 118 thou/uL (130-400) L 12/09/17 17:44 Neutrophils % 48.0 % (42.0-75.0) 12/09/17 17:44 Sodium 133 mmol/L (136-145) L 12/09/17 17:44 Potassium 4.1 mmol/L (3.5-5.1) 12/09/17 17:44 Chloride 105 mmol/L (98-107) 12/09/17 17:44 Carbon Dioxide 18 mmol/L (23-31) L 12/09/17 17:44 BUN 12 mg/dL (9.8-20.1) 12/09/17 17:44 Creatinine 0.68 mg/dL (0.6-1.1) 12/09/17 17:44 Glucose 157 mg/dL (80-115) H 12/09/17 17:44 Calcium 9.3 mg/dL (7.8-10.44) 12/09/17 17:44 Total Bilirubin 0.8 mg/dL (0.2-1.2) 12/09/17 17:44 AST 91 U/L (5-34) H 12/09/17 17:44 ALT 107 U/L (8-55) H 12/09/17 17:44 Alkaline Phosphatase 107 U/L (40-150) 12/09/17 17:44 Creatine Kinase 19 U/L (29-168) L 12/09/17 17:44 CK-MB (CK-2) 0.4 ng/mL (0-6.6) 12/09/17 17:44 Serum Total Protein 6.6 g/dL (6.0-8.3) 12/09/17 17:44 Albumin 4.1 g/dL (3.4-4.8) 12/09/17 17:44 Lipase 27 U/L (8-78) 12/09/17 17:44 - Radiology Interpretation CT scan - abdomen Status: pending FMR H&P: A/P - Problem List (1) Intractable abdominal pain Status: Chronic Code(s): R10.9 - UNSPECIFIED ABDOMINAL PAIN (2) GERD (gastroesophageal reflux disease) Status: Chronic Code(s): K21.9 - GASTRO-ESOPHAGEAL REFLUX DISEASE WITHOUT ESOPHAGITIS Qualifiers: Esophagitis presence: without esophagitis Qualified Code(s): K21.9 - Gastro -esophageal reflux disease without esophagitis (3) History of hepatitis C Status: Chronic Code(s): Z86.19 - PERSONAL HISTORY OF OTHER INFECTIOUS AND PARASITIC DISEASES (4) Hypertension Status: Chronic Code(s): I10 - ESSENTIAL (PRIMARY) HYPERTENSION (5) Multiple myeloma Status: Chronic Code(s): C90.00 - MULTIPLE MYELOMA NOT HAVING ACHIEVED REMISSION Qualifiers: Multiple myeloma remission status: unspecified Qualified Code(s): C90.00 - Multiple myeloma not having achieved remission (6) Atrial fibrillation with controlled ventricular response Status: Resolved Code(s): I48.91 - UNSPECIFIED ATRIAL FIBRILLATION (7) Hypertensive urgency Status: Resolved Code(s): I16.0 - HYPERTENSIVE URGENCY - Plan Intractable abdominal pain - This is similar to a previous admission. She has been taking her scheduled PO morphine. - Will add IV morphine q2 - CT abd is pending to rule out surgical/infectious cause - Most likely associated with ca related pain Hypertensive urgency - Restart home meds and add PRN Labetalol and hydralazine - work to control pain which is likely contributing to elevated BP - no concern for end organ damage Multiple Myeloma - most recent chemo round last week - Courtesy consult for Dr Almendarez DM2 - ACHS accucheck - low carb diet - continue metformin CAD - restart home statin pAfib - currently rate controlled - continue xarelto GERD - home protonix HTN - restart home meds Marijuana abuse - agency legal counsel on cessation Ppx - pt currently on NOAC Diet low carb Code full Dispo: stable. Work to control pain and r/o infectious/surgical cause of pain. Likely length of stay 24-48 hours FMR H&P: Upper Level - Pertinent history Mrs. Esquivel is a 62 year old female with a past medical history of multiple myeloma, hypertension, GERD, DM2, and atrial fibrillation who presented to the ED complaining of chest pain and right lower quadrant pain. She also reports associated nausea, vomiting, chills, diarrhea. She describes the chest pain as sharp, epigastric, and tender to palpation. She denies shortness of breath, PND , orthopnea cough, dysuria, polyuria, hematuria. She is currently undergoing chemotherapy for multiple myeloma. - Pertinent findings Vital Signs BP: 225/124 HR 90 RR 18 Temp 97.6 O2 sat 99% on Room Air General: AAOx3. Patient appears to be in pain Eyes: EOMI, PERRL. Nonicteric ENT: MMM. Oropharynx clear CV: RRR, no m/r/g Resp: CTA-B. No WRR. Breathing unlabored. Abdomen: Soft. Nondistended. RLQ tenderness. Voluntary guarding. No rebound Skin: No rash or ulcer. No palpable lesions Neuro: CN II-XII intact Psych: Mood and affect appropriate. Judgment and insight intact. - Plan Date/Time: 12/10/17 3439 I, Anurag Lewis DO, have evaluated this patient and agree with findings/plan as outlined by geotechnical intern resident. Pertinent changes/additions are listed here. 62 year old female presents with: 1) Hypertensive urgency - Place in telemetry. Will give iv labetalol. Restart home meds 2) Right lower quadrant pain - No clear etiology at this time. Patient presented with the same complaint on last admission. Abdomen is tender but not consistent with acute abdomen. Will check CT and lactic acid. Serial abdominal exams. Morphine prn pain. Patient appears to have 3) Multiple myeloma - Consult palliative care. Consider consulting oncology for recommendations 4) GERD - Protonix 5) CAD - Home meds 6) Atrial fibrillation - Home meds 7) Hypertension - Continue home meds 8) Marijuana abuse - Recommend cessation Attending Addendum - Attending Addendum Date/Time: 12/17/17 5985 I personally evaluated the patient and discussed the management with Dr. Parnell and Joshua. I agree with and repeated the History, Examination, Assessment and Plan documented above on the day of admission with any addition or exceptions noted below. Abdominal pain with no guarding/rigidity or peritoneal signs. Will admit and perform serial abdominal exams and watch closely.
[2017-12-10 04:25] LABS: Lactic Acid 3.9 mmol/L (0.5-2.2)
[2017-12-10 04:31] LABS: CKMB 0.8 ng/mL (0-6.6)
[2017-12-10 04:38] LABS: Troponin I Less than 0.010 ng/mL (< 0.028)
[2017-12-10] MEDS ORDERED: Labetalol HCl 100 MG/20 ML VIAL ONE (05:21)
[2017-12-10] MEDS ORDERED: Prochlorperazine Maleate 5 MG TAB PO PRN (06:10)
[2017-12-10] MEDS ORDERED: Loperamide HCl 2 MG CAP PO PRN (06:10)
[2017-12-10] MEDS ORDERED: Sodium Chloride 0.9% 1,000 ML IV SCH ×2 (06:45→08:46)
[2017-12-10] MEDS ORDERED: Morphine 10 MG/ML VIAL ONE (07:50)
[2017-12-10] MEDS ORDERED: Iopamidol 370 76% 50 ML VIAL FS ONE (08:02)
[2017-12-10] MEDS ORDERED: ISOVUE-370 76%-LOCM 1 ML ONE (08:02)
[2017-12-10] MEDS ORDERED: Promethazine HCl 25 MG/ML VIAL SLOW IVP PRN (08:38)
[2017-12-10] MEDS ORDERED: Ondansetron HCl/PF 4 MG/2 ML Vial IVP PRN ×2 (08:38→10:57)
[2017-12-10] MEDS ORDERED: Ondansetron ODT 4 MG TAB PO PRN ×2 (08:39→08:46)
[2017-12-10] MEDS ORDERED: Acetaminophen 325 MG TAB PO PRN (08:39)
--- NOTE | 2017-12-10 08:44 | CT ---
PRELIMINARY REPORT/[facility]/EMERGENTY AFTER-HOURS PROCEDURE CT Abdomen and Pelvis With Intravenous Contrast CLINICAL HISTORY: 62 years old, female; Pain and signs and symptoms; Nausea and vomiting; Abdominal pain; Localized; Up per; Prior surgery; Patient HX: F62 presents w/ cp and r side pain x1 day. Pt also reports n/v/d. Yahir kaufman myelomas x3 years on chemo. Pt's last chemo was on . Pt came down with increased pain l ast night. Pt tried morphine for pain but it didn't help. Pt reports she is on xalerto. Pt reports up per abd pain also. Surgical history of cholecystectomy, surgical history of tubal ligation. Stents x3 , hernia repair. TECHNIQUE: Axial computed tomography images of the abdomen and pelvis with intravenous contrast. Coronal reforma tted images were created and reviewed. COMPARISON: Abdomen and pelvis CT report dated 05/24/2014 FINDINGS: Lung bases: Unremarkable. No mass. No consolidation. A small hiatal hernia is detected. ABDOMEN: Liver: Cirrhosis No mass. Gallbladder and bile ducts: Prior cholecystectomy. No ductal dilation. Pancreas: Unremarkable. No mass. No ductal dilation. Spleen: Unremarkable. No splenomegaly. Adrenals: Unremarkable. No mass. Kidneys and ureters: Unremarkable. No solid mass. No hydronephrosis. Stomach and bowel: Colonic diverticulosis noted No obstruction. Question mild colonic thickening. Appendix: No findings to suggest acute appendicitis. PELVIS: Bladder: Unremarkable. No mass. Reproductive: Calcified uterine fibroid noted. ABDOMEN and PELVIS: Intraperitoneal space: Unremarkable. No free air. No significant fluid collection. Bones/joints: No acute fracture. No dislocation. Osteopenia and degenerative changes. Severe chronic compression deformity at L1 with associated sclerosis. Moderate compression deformities at T10 and L5 Soft tissues: Tiny fat-containing periumbilical hernia Vasculature: Unremarkable. No abdominal aortic aneurysm. Lymph nodes: Low attenuation lymph nodes suspected encasing the celiac axis and superior mesenteric a rtery. Calcified lymph node noted in the right posterior pelvis measuring 11 mm IMPRESSION: Low attenuation adenopathy versus fibrosis surrounding the superior mesenteric artery and celiac tabby ry. Comparison with prior images would be helpful. Further evaluation as clinically indicated. Question minimal left-sided colitis. Colonic diverticulosis without diverticulitis. Cirrhosis. Osteopenia and compression fractures as described. Given the history of multiple myeloma underlying o sseous involvement not excluded Thank you for allowing us to participate in the care of your patient. Dictated and Authenticated by: Tony Stevens MD 12/10/2017 4:43 AM Central Time ([place] & [place]) CT ABDOMEN AND PELVIS WITH IV CONTRAST: Date: 12-10-17 Performed on emergency basis at 0413 hours. History: Abdominal pain. Comparison: 08-20-17 FINDINGS: The findings agree with the preliminary report by Dr. Stevens from [facility]. The lobular low density structure surrounding the origin of the mesenteric artery and celiac trunk in the upper abdo men is stable on exams dating back to 2013 and may represent fibrosis. Minimal inflammation is associ ated with the left colon without evidence of complication. Chronic changes of the bones are stable. Code QA POS: OFF
[2017-12-10] MEDS ORDERED: Non-Formulary Item 1 EACH (Brinzolamide/Brimonidine Tart [Simbrinza 1%/0.2% Ophth Susp] 1 EA EYE SCH (09:00)
[2017-12-10] MEDS ORDERED: Morphine ER 15 MG TAB PO SCH (09:00)
[2017-12-10] MEDS: Diphenoxylate HCl/Atropine Tablet PO SCH (09:07)
[2017-12-10] MEDS: Carvedilol 6.25 MG TAB PO SCH ×2 (09:08→17:08)
[2017-12-10] MEDS: metFORMIN 500 MG TAB PO SCH ×2 (09:08→17:12)
[2017-12-10] MEDS: FLUoxetine HCl 20 MG CAP PO SCH (09:08)
[2017-12-10] MEDS: Lisinopril 10 MG TAB PO SCH (09:08)
[2017-12-10] MEDS: Amlodipine 5 MG TAB PO SCH (09:09)
[2017-12-10] MEDS: Brimonidine Tartrate 0.2% Ophth Soln 5 ml Bottle EA EYE SCH ×3 (10:37→20:07)
[2017-12-10] MEDS: Dorzolamide HCl 2% Ophth Soln 10 ml Bottle EA EYE SCH ×2 (10:38→20:07)
[2017-12-10] MEDS ORDERED: diphenhydrAMINE 25 MG CAP PO PRN (10:57)
[2017-12-10] MEDS ORDERED: Naloxone HCl 0.4 mg/ml Vial IV PRN (10:57)
[2017-12-10] MEDS ORDERED: Zolpidem Tartrate 5 MG TAB PO PRN (10:57)
[2017-12-10] MEDS ORDERED: Promethazine HCl 25 MG/ML VIAL IM PRN (10:57)
[2017-12-10] MEDS ORDERED: HYDROmorphone 10 mg/100 ml CADD IV PRN (10:57)
[2017-12-10] MEDS ORDERED: diphenhydrAMINE 50 MG/ML VIAL IM/IV PRN (10:57)
[2017-12-10] MEDS ORDERED: Enoxaparin Sodium 40 MG/0.4 ML SYRINGE SC SCH (11:15)
[2017-12-10] MEDS ORDERED: Morphine 4 MG/ML VIAL SLOW IVP PRN (13:40)
[2017-12-10] MEDS: metroNIDAZOLE 500 MG in Premix Bag 1 BAG IVPB SCH ×2 (14:11→21:34)
[2017-12-10 14:35] LABS: Bilirubin Negative (Negative); Blood, Urine Negative (Negative); Clarity CLEAR (Clear); Glucose, Urine (Dipstick) 100 mg/dL (Negative); Leukocyte Negative (Negative); Nitrite Negative (Negative); Protein, Urine (Dipstick) 100 mg/dL (Neg-Trace); Urobilinogen 0.2 mg/dL (0.2-1.0)
[2017-12-10 14:38] LABS: Bacteria/HPF None Seen HPF (None Seen); Hyaline Casts/LPF 0-3 HYALINE CAST LPF (0-3 Hyaline); Pathc Cast-AUWi Flag 0.14 (0-2.49); RBC/HPF 0-3 HPF (0-3); Squamous Epithelial 0-3 HPF (0-3)
[2017-12-10 14:41] LABS: Specific Gravity, Urine 1.048 (1.002-1.036)
[2017-12-10 15:28] LABS: Lactic Acid 3.9 mmol/L (0.5-2.2)
[2017-12-10] MEDS: Morphine ER 30 MG TAB PO SCH ×2 (15:42→20:04)
[2017-12-10] MEDS ORDERED: Sodium Chloride 0.9% 500 ML IV SCH (16:45)
[2017-12-10] MEDS: Sodium Chloride 0.9% 1,000 ML IV SCH ×2 (17:08→20:16)
--- NOTE | 2017-12-10 18:48 | CON ---
DATE OF CONSULTATION: 12/10/2017 REASON FOR CONSULTATION: Multiple myeloma. HISTORY OF PRESENT ILLNESS: Ms. Esquivel is a 62-year-old -[place] female with a history of non secretory multiple myeloma. She is on Darzalex chemotherapy. She presented to the emergency room wi th acute onset of bone pain. She had a fall and hit her left ribs. The patient has had chronic bone pain for several years and is on MS Contin 30 mg t.i.d. with morphine immediate release 15 mg p.r.n. She ran out several days ago and her pain was intractable, so [facility] pressure [facility] elevated with a systolic greater than 220. She was given IV bloo d pressure medications with mild improvement in her BP. She was given IV morphine and her MS Contin was resumed. The patient's last chemotherapy treatment was on , 12/05/2017. Her next treatm ent is on 12/19/2017. Currently, she complains of moderate pain, particularly in her left rib area. She did have a CT scan in the emergency room which showed chronic compression fractures of her L1, T 10 and L5. There were no noted rib fractures. Patient's hemoglobin was elevated at 17 on admission. She was started on IV fluids for likely dehydration. PAST MEDICAL HISTORY: 1. Multiple myeloma. 2. Chronic bone pain. 3. History of hepatitis C. 4. Diverticulitis. 5. Bilateral glaucoma. 6. Hypertension. 7. Gastroesophageal reflux disease. PAST SURGICAL HISTORY: 1. Cholecystectomy. 2. Tubal ligation. 3. Hernia repair. 4. Hemorrhoidectomy. 5. LHC with PCI. ALLERGIES: No known drug allergies. HOME MEDICATIONS: 1. Amlodipine 5 mg daily. 2. Fluoxetine 20 mg daily. 3. Lisinopril 10 mg daily. 4. Metformin 1000 mg b.i.d. 5. Morphine 15 mg IR p.r.n. 6. MS Contin 30 mg t.i.d. 7. Protonix 40 mg daily. FAMILY HISTORY: Sister had ovarian cancer. SOCIAL HISTORY: , has four children, lives with her son. Current everyday smoker about ector f pack a day. No alcohol or illicit drug use. REVIEW OF SYSTEMS: Twelve point review of systems is negative except for noted in HPI. PHYSICAL EXAMINATION: VITAL SIGNS: Temperature 97.9, pulse 86, respiratory rate 15, BP is 124/80. She is 95% on room air. GENERAL: Chronically ill-appearing female in no acute distress. HEENT: Normocephalic, atraumatic. Pupils are equal and reactive to light. NECK: Supple. CARDIOVASCULAR: Regular rate and rhythm. LUNGS: Clear. ABDOMEN: Soft, nontender, bowel sounds are positive. EXTREMITIES: No clubbing, cyanosis or edema. SKIN: No rash. HEMATOLOGICAL: No petechia or purpura. NEUROLOGICAL: Nonfocal. PSYCHIATRIC: The patient is alert and oriented and appropriate. PERTINENT LABORATORY DATA AND IMAGING DATA: Current WBCs 8.4, hemoglobin 17.5, hematocrit 51.1, and platelet count is 118,000, 48% neutrophils, 39% lymphocytes, 12% monocytes. Sodium is 133, potassium 4.1, chloride 105, CO2 is 18, BUN is 12, creatinine 0.68, lactic acid is 3, calcium 9.3, bilirubin i s 0.8, AST is 91, ALT is 107, alkaline phosphatase is 107, creatinine kinase is 19. Troponin is less than 0.010. Serum total protein 6.6, albumin 4.1, globulin 2.5, and lipase 27. Urine is negative f or bacteria. Radiology per HPI. ASSESSMENT: 1. Multiple myeloma. 2. Acute on chronic bone pain. DISCUSSION: The patient's oral pain medication has resumed. She has IV p.r.n. meds. Her pain is im proving with medication. She has been started on IV fluids. Typically, she does not have an elevate d hemoglobin and hematocrit and this is likely due to mild dehydration. The patient's multiple myelo ma has been well controlled with Darzalex. Her last bone marrow biopsy was in October which showed imp rovement in plasma cells. She is due for another treatment on 12/19/2017. Recommend supportive care and we will follow her hospital course remotely. Thank you for the consult.
[2017-12-10 21:21] LABS: Lactic Acid 4.3 mmol/L (0.5-2.2)
[2017-12-10] MEDS: Latanoprost 0.005% Ophth Soln 2.5 ml Bottle EA EYE SCH (21:32)
[2017-12-10] MEDS: Morphine IR 10 MG/5 ML UDCUP PO PRN (21:33)
--- NOTE | 2017-12-10 22:23 | PDOC.EVN ---
Event Note - Event Note Event Note: called by nursing 2/2 critical lactic of 4.3 Evaluated patient at bedside Diffuse mild tenderness to palpation, no guarding or rebound, bowel sounds present Patient states pain is worse on L side and the back Ordered CMP, PT/INR, CBC Will consider CTA pending above <Kiko Leonard - Last Filed: 12/10/17 22:22> Attending Addendum - Attending Addendum Date/Time: 12/11/17 0127 Discussed in detail with team. Agree with plan. <Christopher Hernandez - Last Filed: 12/11/17 01:27>
[2017-12-10 22:52] LABS: Hemoglobin 13.7 g/dL (12.0-16.0); Mean Corpuscular HGB CONC 34.8 g/dL (32.0-36.0); Mean Corpuscular Hemoglobin 35.5 pg (27.0-31.0); Mean Platelet Volume 8.9 fL (7.4-10.4); Platelet Count 94 thou/uL (130-400); RBC Distribution Width 12.4 % (11.5-14.5); Red Blood Cell (RBC) Count 3.86 mill/uL (4.20-5.40); White Blood Cell (WBC) Count 6.8 thou/uL (4.8-10.8)
[2017-12-10 22:57] LABS: INR-International Normal Ratio 1.1; Prothrombin Time 14.5 SEC (12.0-14.7)
[2017-12-10 23:42] LABS: ALT (SGPT) 63 U/L (8-55); AST (SGOT) 54 U/L (5-34); Albumin 3.1 g/dL (3.4-4.8); Alkaline Phosphatase 67 U/L (40-150); Anion Gap 14 mmol/L (10-20); BUN (Urea Nitrogen) 15 mg/dL (9.8-20.1); Bilirubin, Total 0.9 mg/dL (0.2-1.2); Calc. Creatinine Clearance 59 mL/min (70-130); Calcium 6.9 mg/dL (7.8-10.44); Carbon Dioxide 16 mmol/L (23-31); Chloride 106 mmol/L (98-107); Estimated GFR-MDRD 80; Globulin 1.7 g/dL (2.4-3.5); Glucose 158 mg/dL (80-115); Potassium 3.8 mmol/L (3.5-5.1); Protein, Total 4.8 g/dL (6.0-8.3); Sodium 133 mmol/L (136-145)
[2017-12-11] MEDS: Morphine IR 10 MG/5 ML UDCUP PO PRN ×3 (02:02→18:37)
[2017-12-11 05:01] LABS: #Lymphocytes 0.9 thou/uL (1.20-3.40); #Monocytes 0.4 thou/uL (0.11-0.59); #Neutrophils 2.1 thou/uL (1.40-6.50); %Basophils 0.5 % (0.0-1.0); %Eosinophils 0.4 % (0.0-10.0); %Monocytes 11.1 % (0.0-10.0); Hemoglobin 12.9 g/dL (12.0-16.0); Mean Corpuscular Hemoglobin 34.7 pg (27.0-31.0); Mean Platelet Volume 8.4 fL (7.4-10.4); Platelet Count 69 thou/uL (130-400); RBC Distribution Width 12.3 % (11.5-14.5); Red Blood Cell (RBC) Count 3.71 mill/uL (4.20-5.40); White Blood Cell (WBC) Count 3.4 thou/uL (4.8-10.8)
[2017-12-11] MEDS: metroNIDAZOLE 500 MG in Premix Bag 1 BAG IVPB SCH ×3 (05:09→22:55)
[2017-12-11 05:25] LABS: Anion Gap 13 mmol/L (10-20); BUN (Urea Nitrogen) 15 mg/dL (9.8-20.1); Calc. Creatinine Clearance 65 mL/min (70-130); Calcium 6.9 mg/dL (7.8-10.44); Carbon Dioxide 18 mmol/L (23-31); Chloride 107 mmol/L (98-107); Estimated GFR-MDRD 89; Glucose 136 mg/dL (80-115); Potassium 3.5 mmol/L (3.5-5.1); Sodium 134 mmol/L (136-145)
--- NOTE | 2017-12-11 07:19 | CT ---
CTA ABDOMEN AND PELVIS WITH 3D VOLUME RENDERING: CLINICAL HISTORY: Abdominal pain. Clinical concern for mesenteric ischemia. FINDINGS: There is tortuosity of the abdominal aorta without evidence of aneurysm or focal resection. There is diffuse calcified and noncalcified plaque of the abdominal aorta. There is minimal atherosclerotic irregularity involving the origin of the celiac trunk. No significant stenosis of the superior mesen teric artery. Mild calcification is seen at the origin of the left main renal artery. No high grade stenosis of the right main renal artery. There is marked abnormal thickening of the wall of the sigmoid colon, where there are interspersed di verticula. There is prominent distention of the urinary bladder. Severe compression fracture of L1 is present. There is a moderate to severe L5 compression fracture. Mild superior endplate height lo ss of L3 and mild to moderate superior endplate height loss of L4 present. There is focal endplate i rregularity of T10. IMPRESSION: 1. Diffuse atherosclerotic vascular disease, as described above. There is no evidence of focal occl usion of the imaged arterial system of the abdomen and pelvis. 2. Multifocal compression deformities of the thoracolumbar spine. 3. Prominent abnormal wall thickening of the sigmoid colon. There are interspersed diverticula. Th e possibility of an underlying mass is not included. Followup with colonoscopy is warranted. POS: [facility]
[2017-12-11 07:55] LABS: Lactic Acid 2.3 mmol/L (0.5-2.2)
[2017-12-11] MEDS ORDERED: ISOVUE-370 76%-LOCM 1 ML ONE (08:15)
[2017-12-11] MEDS: Morphine ER 30 MG TAB PO SCH ×3 (09:00→20:20)
[2017-12-11] MEDS: metFORMIN 500 MG TAB PO SCH ×2 (09:00→17:34)
[2017-12-11] MEDS ORDERED: Enoxaparin Sodium 40 MG/0.4 ML SYRINGE SC SCH (09:00)
[2017-12-11] MEDS: FLUoxetine HCl 20 MG CAP PO SCH (09:01)
[2017-12-11] MEDS: Lisinopril 10 MG TAB PO SCH (09:01)
[2017-12-11] MEDS: Amlodipine 5 MG TAB PO SCH (09:01)
[2017-12-11] MEDS: Carvedilol 6.25 MG TAB PO SCH ×2 (09:01→17:34)
[2017-12-11] MEDS: Diphenoxylate HCl/Atropine Tablet PO SCH (09:04)
[2017-12-11] MEDS: Brimonidine Tartrate 0.2% Ophth Soln 5 ml Bottle EA EYE SCH ×2 (09:09→20:21)
[2017-12-11] MEDS: Dorzolamide HCl 2% Ophth Soln 10 ml Bottle EA EYE SCH ×2 (09:24→20:21)
[2017-12-11] MEDS: Sodium Chloride 0.9% 1,000 ML IV SCH ×2 (10:18→20:22)
--- NOTE | 2017-12-11 11:02 | PDOC.FM ---
- Subjective Subjective: CASSI overnight. CTA-AP obtained 2/2 increase in LA which was negative for any ischemia Pt rates pain at 7/10 this AM which she states is her usual pain when at home on her home PO morphine regimen. Endorsing RLQ pain s/p fall. Vitals otherwise stable. - Objective MAR Reviewed: Yes Vital Signs & Weight: Vital Signs (12 hours) Temp Pulse Resp BP BP BP Pulse Ox 12/11/17 07:58 98.3 F 75 18 12/11/17 07:25 98.3 F 75 18 120/69 98 12/11/17 04:45 98.1 F 76 15 99/56 L 98 12/11/17 02:02 69 16 108/66 97 12/10/17 23:23 98.1 F 67 18 94/50 L 97 Weight Weight 54.613 kg I&O: 12/10/17 12/11/17 12/12/17 06:59 06:59 06:59 Intake Total 3187 684 Output Total 1000 400 Balance 2187 284 Result Diagrams: 12/11/17 04:51 12/11/17 04:51 <Christopher Rosenbaum - Last Filed: 12/11/17 11:00> - Objective Vital Signs & Weight: Vital Signs (12 hours) Temp Pulse Resp BP BP BP Pulse Ox 12/11/17 11:15 99.0 F 75 18 111/58 L 97 12/11/17 07:58 98.3 F 75 18 12/11/17 07:25 98.3 F 75 18 120/69 98 12/11/17 04:45 98.1 F 76 15 99/56 L 98 12/11/17 02:02 69 16 108/66 97 12/10/17 23:23 98.1 F 67 18 94/50 L 97 Weight Weight 54.613 kg I&O: 12/10/17 12/11/17 12/12/17 06:59 06:59 06:59 Intake Total 3187 684 Output Total 1000 400 Balance 2187 284 Result Diagrams: 12/11/17 04:51 12/11/17 04:51 <Jermaine Diallo - Last Filed: 12/11/17 11:28> Phys Exam - Physical Examination Constitutional: NAD HEENT: PERRLA Respiratory: no wheezing, clear to auscultation bilateral Cardiovascular: RRR, no significant murmur Gastrointestinal: soft TTP RLQ. No rebound or rigidity. Musculoskeletal: no edema, pulses present Neurological: moves all 4 limbs Psychiatric: A&O x 3 <Christopher Rosenbaum - Last Filed: 12/11/17 11:00> Dx/Plan (1) Intractable abdominal pain Code(s): R10.9 - UNSPECIFIED ABDOMINAL PAIN Status: Acute Plan: Pt back to patient's endorsed baseline on home regimen Likely 2/2 running out of home meds which she endorses Negative for any ischemia w/ CTA obtained Will consult GI 2/2 sigmoid wall thickening conerning for possible malignancy (2) Multiple myeloma Code(s): C90.00 - MULTIPLE MYELOMA NOT HAVING ACHIEVED REMISSION Status: Chronic QualifierTitle: Multiple myeloma remission status: unspecified Qualified Code(s): C90.00 - Multiple myeloma not having achieved remission Plan: Pain likely exacerbation of her usual chronic pain 2/2 her malignancy Oncology consulted, appreciate reccomendations Will consult GI for possible EGD w/ bowel wall thickening seen on CTA Cont w/ home PO pain medication regimen (3) Thrombocytopenia Code(s): D69.6 - THROMBOCYTOPENIA, UNSPECIFIED Status: Chronic Plan: Likely 2/2 MM Will cont. to monitor (4) History of hepatitis C Code(s): Z86.19 - PERSONAL HISTORY OF OTHER INFECTIOUS AND PARASITIC DISEASES Status: Chronic Plan: stable Will cont. to monitor (5) Hypertensive urgency Code(s): I16.0 - HYPERTENSIVE URGENCY Status: Resolved Plan: Back to normal BP w/ pain better controlled and on home BP meds Will cont. to monitor (6) Colitis Code(s): K52.9 - NONINFECTIVE GASTROENTERITIS AND COLITIS, UNSPECIFIED Status : Ruled-out Plan: Likely chronic upon review of old records Will cont. abx for now Pending GI recs <Christopher Rosenbaum - Last Filed: 12/11/17 11:00> Attending Addendum - Attending Addendum Date/Time: 12/11/17 1120 I personally evaluated the patient and discussed the management with Dr. Jasmyne Rosenbaum. I agree with the History, Examination, Assessment and Plan documented above with any addition or exceptions noted below. She appears depressed, but does not endorse being depressed. Does endorse low energy, and problems sleeping. Enjoys reading and is involved with her moravian. She is already taking Fluoxetine 20 mg daily. Poiints to RLQ and RUQ as location of her pain. Rates pain at 7 but states that is her normal baseline. Abdomen is soft. Mild mid right abdominal tenderness. Tender over right lower anterior ribs and over right ASISpine. I personally reveiwed the CT of Abdomen/ Pelvis and see no bertha abnormalities/or pelvic fractures. A: Chronic pain RUQ/RLQ and tenderness over R-mid abdomen. Depression, likely could benefit from increased dose Fluoxetine. P: GI consulted for Colonoscopy that was recommended but patient did not follow up after last hospitalization. Increase Fluoxetine to 40 mg daily. MD Nick <Jermaine Diallo - Last Filed: 12/11/17 11:28>
[2017-12-11] MEDS ORDERED: GoLYTELY 4,000 ml Bottle PO SCH (13:45)
[2017-12-11 14:25] VITALS: BMI 21.3
--- NOTE | 2017-12-11 14:32 | CON ---
DATE OF CONSULTATION: 12/11/2017 REASON FOR CONSULTATION: Abnormal CT scan of the sigmoid colon. HISTORY OF PRESENT ILLNESS: Kevin Esquivel is a pleasant but unfortunate 62-year-old -[place] w aster with multiple myeloma for the past 3 years, currently on chemotherapy. She has a lot of associa maya chronic pain associated with multiple fractures. She has a history of peripheral vascular diseas e and she continues to smoke, coronary artery disease, atrial fibrillation, and COPD. She also has h epatitis C. She has seen my GI colleague, Dr. Kalyan Sullivan in the past. Note that a colonoscopy back in 2005 was normal. She was admitted to the hospital yesterday with acute worsening of somewhat vault manager rex abdominal pain. She states that the pain has been going on for a few weeks to months, but sudden ly worsened yesterday. The pain is primarily in the right lower quadrant, but sometimes involving th e epigastrium as well. She has not had a bowel movement for the past couple of days. She was doing a lot of vomiting on presentation. No further vomiting today. She is admitted for IV fluids and tabatha n control. She had a CT of the abdomen and pelvis with contrast yesterday and this demonstrated prom inent abnormal thickening of the sigmoid colon as well as sigmoid diverticulosis, but no inflammatory changes to suggest diverticulitis. Neoplasm cannot be excluded. I note that she had a similar find ing on CT scan back in 08/2017. I also note that she did undergo EGD and colonoscopy in 05/[address] Ramires here in the hospital. At that time, EGD showed a small hiatal hernia and a duodenal p olyp which was biopsied and benign showing duodenitis and colonoscopy showed sigmoid diverticulosis a s well as a polyp in the descending colon which appeared to be a lipoma and biopsies of that were neg ative. There were no mass, lesions seen on that colonoscopy. REVIEW OF SYSTEMS: Full review of systems including constitutional, head, eyes, ears, nose, throat, GI, , cardiovascular, respiratory, musculoskeletal, and neurologic systems is negative except as no maya in the HPI. PAST MEDICAL HISTORY: Multiple myeloma on chemotherapy, cholecystectomy, tubal ligation, peripheral vascular disease, coronary artery disease with stent placement, inguinal hernia repair, atrial fibril lation, diabetes, COPD, GERD, hepatitis C. ALLERGIES: No known drug allergies. OUTPATIENT MEDICATIONS: Amlodipine, fluoxetine, lisinopril, metformin, Protonix 40 mg daily, MS Cont in, morphine intermediate release. FAMILY HISTORY: Sister had uterine cancer. SOCIAL HISTORY: The patient continues to smoke. She has a [id number] history of smoking. Does sm elaine marijuana. No alcohol. PHYSICAL EXAMINATION: VITAL SIGNS: Temperature 99.0, pulse 75, blood pressure 111/58, 97% oxygen saturation on room air. GENERAL: Chronically ill-appearing 62-year-old -[place] woman lying in bed in no acute distr ess. SKIN: No jaundice, no rashes were palpable. EYES: No scleral icterus. Extraocular movements intact. ENT: Mucous membranes moist, no oral lesions. LYMPH: No submandibular, supraclavicular lymphadenopathy. THYROID: Nontender to palpation. HEART: Regular rate and rhythm. LUNGS: Clear to auscultation bilaterally. ABDOMEN: Bowel sounds present, soft, tender to palpation in the right lower quadrant and to a lesser degree in the epigastrium. No guarding, rebound tenderness. EXTREMITIES: No peripheral edema. VESSELS: Radial pulses 2+ bilaterally. NEUROLOGICAL: Cranial nerves II-XII intact bilaterally. No focal deficits. LABORATORY STUDIES: Hemoglobin initially 17.5 with hydration this has gone to 12.9, WBC 3.4, platele ts 69. INR 1.1. Sodium 134, potassium 3.5, BUN 15, creatinine 0.79. Lactic acid initially 4.3, now down to 2.3. Total bilirubin 0.9, alkaline phosphatase 67, AST 54, ALT 63, albumin 3.1, lipase only 27. Troponin negative. IMAGING STUDIES: CT angiogram of the abdomen and pelvis demonstrated prominent abnormal thickening i n the sigmoid colon with interspersed diverticulosis. There are multiple compression fracture deform ities of the spine as well as diffuse atherosclerotic disease. ASSESSMENT AND PLAN: 1. Right lower quadrant pain. 2. Epigastric pain. 3. Nausea, vomiting. 4. Abnormal CT scan of the sigmoid colon. I note the patient had an essentially negative EGD and co lonoscopy in 05/2017, but on the other hand these abdominal pain symptoms seem to be newer, and arabella p so far has been otherwise unrevealing. It would be reasonable to proceed with endoscopic investiga tion at this time, particularly examination of the sigmoid colon to rule out underlying mass. We kunal l go ahead and try to prep her for EGD and colonoscopy tomorrow. Thank you for the consultation. Please call back with questions or concerns.
[2017-12-11] MEDS: Ketorolac Tromethamine 30 MG/ML VIAL IVP PRN ×2 (15:36→22:52)
[2017-12-11] MEDS: Latanoprost 0.005% Ophth Soln 2.5 ml Bottle EA EYE SCH (20:21)
[2017-12-12] MEDS: metroNIDAZOLE 500 MG in Premix Bag 1 BAG IVPB SCH ×3 (05:25→21:51)
[2017-12-12] MEDS: Sodium Chloride 0.9% 1,000 ML IV SCH (06:08)
[2017-12-12] MEDS: Carvedilol 6.25 MG TAB PO SCH ×2 (06:08→18:41)
[2017-12-12] MEDS: Morphine ER 30 MG TAB PO SCH ×3 (07:02→21:41)
[2017-12-12 08:06] LABS: Mean Corpuscular HGB CONC 34.3 g/dL (32.0-36.0); Mean Corpuscular Hemoglobin 35.4 pg (27.0-31.0); Mean Platelet Volume 9.3 fL (7.4-10.4); Platelet Count 71 thou/uL (130-400); RBC Distribution Width 12.4 % (11.5-14.5); Red Blood Cell (RBC) Count 3.67 mill/uL (4.20-5.40); White Blood Cell (WBC) Count 2.5 thou/uL (4.8-10.8)
[2017-12-12 08:12] LABS: Anion Gap 11 mmol/L (10-20); BUN (Urea Nitrogen) 6 mg/dL (9.8-20.1); Calc. Creatinine Clearance 80 mL/min (70-130); Carbon Dioxide 18 mmol/L (23-31); Chloride 112 mmol/L (98-107); Estimated GFR-MDRD Greater than 90; Glucose 93 mg/dL (80-115); Potassium 3.5 mmol/L (3.5-5.1); Sodium 137 mmol/L (136-145)
[2017-12-12] MEDS: metFORMIN 500 MG TAB PO SCH ×2 (08:25→18:41)
[2017-12-12] MEDS: FLUoxetine HCl 20 MG CAP PO SCH (08:27)
[2017-12-12] MEDS: Amlodipine 5 MG TAB PO SCH (08:28)
[2017-12-12] MEDS: Lisinopril 10 MG TAB PO SCH (08:28)
[2017-12-12] MEDS ORDERED: Dexamethasone 10 MG/ML VIAL SLOW IVP SCH (08:30)
[2017-12-12] MEDS: Dorzolamide HCl 2% Ophth Soln 10 ml Bottle EA EYE SCH ×2 (08:38→21:42)
[2017-12-12] MEDS: Brimonidine Tartrate 0.2% Ophth Soln 5 ml Bottle EA EYE SCH ×2 (08:39→20:10)
[2017-12-12] MEDS: Morphine IR 10 MG/5 ML UDCUP PO PRN ×2 (08:53→19:59)
[2017-12-12] MEDS: Diphenoxylate HCl/Atropine Tablet PO SCH (09:00)
[2017-12-12 09:01] LABS: MDiff Complete? YES; PLT Morphology Comment Appears Decreased; RBC Morphology Normal
[2017-12-12 09:06] LABS: Band 1 % (5-11); Lymphocytes 47 % (21-51); Neutrophil 38 % (42-75)
[2017-12-12 09:07] LABS: Eosinophils 1 % (0-10); Monocytes 12 % (0-10); Promyelocytes 1 % (0-0)
--- NOTE | 2017-12-12 09:33 | PDOC.FM ---
- Subjective Subjective: CASSI overnight, VSS, pain somewhat improved this AM. Still endorsing RLQ and right rib pain. Pt to go for EGD/Colonoscopy this AM w/ GI. - Objective MAR Reviewed: Yes Vital Signs & Weight: Vital Signs (12 hours) Temp Pulse Resp BP BP BP Pulse Ox 12/12/17 08:43 98.8 F 66 16 97 12/12/17 08:28 66 130/80 12/12/17 07:30 98.8 F 65 16 130/80 97 12/12/17 04:00 98.1 F 66 20 146/72 H 95 12/11/17 23:00 98.3 F 69 20 96 Weight Admit Weight 57.017 kg Weight 54.613 kg I&O: 12/11/17 12/12/17 12/13/17 06:59 06:59 06:59 Intake Total 3187 5860 Output Total 1000 4800 Balance 2187 1060 Result Diagrams: 12/12/17 03:30 12/12/17 03:30 <Christopher Rosenbaum - Last Filed: 12/12/17 09:31> - Objective Vital Signs & Weight: Vital Signs (12 hours) Temp Pulse Resp BP BP BP Pulse Ox 12/12/17 08:43 98.8 F 66 16 97 12/12/17 08:28 66 130/80 12/12/17 07:30 98.8 F 65 16 130/80 97 12/12/17 04:00 98.1 F 66 20 146/72 H 95 12/11/17 23:00 98.3 F 69 20 96 Weight Admit Weight 57.017 kg Weight 54.613 kg I&O: 12/11/17 12/12/17 12/13/17 06:59 06:59 06:59 Intake Total 3187 5860 Output Total 1000 4800 Balance 2187 1060 Result Diagrams: 12/12/17 03:30 12/12/17 03:30 <Jermaine Diallo - Last Filed: 12/12/17 10:21> Phys Exam - Physical Examination Constitutional: NAD HEENT: PERRLA, moist MMs Neck: no nodes Respiratory: no wheezing, clear to auscultation bilateral Cardiovascular: RRR, no significant murmur Gastrointestinal: soft, no distention, positive bowel sounds TTP RLQ, epigastrium and right lower ribs/flank Musculoskeletal: no edema, pulses present Neurological: moves all 4 limbs Psychiatric: A&O x 3 Deviation from normal: blunted affect Skin: cap refill <2 seconds <Christopher Rosenbaum - Last Filed: 12/12/17 09:31> Dx/Plan (1) Intractable abdominal pain Code(s): R10.9 - UNSPECIFIED ABDOMINAL PAIN Status: Acute Plan: Pt back to patient's endorsed baseline on home regimen Likely 2/2 running out of home meds which she endorses Negative for any ischemia w/ CTA obtained To go for EGD/colonscopy today to further eval sigmoid mass Will contact onc today to determine last PET scan w/ bone pain from possible bone mets on ddx for eitiology of pain (2) Multiple myeloma Code(s): C90.00 - MULTIPLE MYELOMA NOT HAVING ACHIEVED REMISSION Status: Chronic QualifierTitle: Multiple myeloma remission status: unspecified Qualified Code(s): C90.00 - Multiple myeloma not having achieved remission Plan: Pain likely exacerbation of her usual chronic pain 2/2 her malignancy Oncology consulted, appreciate reccomendations EGD/colonscopy today to eval sigmoid mass Will discuss possibility of bone mets as eitiology of pt's worsening pain w/ Onc (3) Thrombocytopenia Code(s): D69.6 - THROMBOCYTOPENIA, UNSPECIFIED Status: Chronic Plan: Likely 2/2 MM Will cont. to monitor (4) History of hepatitis C Code(s): Z86.19 - PERSONAL HISTORY OF OTHER INFECTIOUS AND PARASITIC DISEASES Status: Chronic Plan: stable Will cont. to monitor (5) Colitis Code(s): K52.9 - NONINFECTIVE GASTROENTERITIS AND COLITIS, UNSPECIFIED Status : Ruled-out Plan: Likely chronic upon review of old records Will cont. abx for now Pending GI recs and findings on EGD/colonoscopy <Christopher Rosenbaum - Last Filed: 12/12/17 09:31> Attending Addendum - Attending Addendum Date/Time: 12/12/17 1018 I personally evaluated the patient and discussed the management with Dr. AYAD Rosenbaum. I agree with the History, Examination, Assessment and Plan documented above with any addition or exceptions noted below. Seen in her room. Staring off out the window. A little more interactive today. Still appears depressed to this examiner. Tender over the R-lower anterior ribs, R-pelvis and R-mid abdomen. Concern that this is myeloma bone pain vs GI source or both. P: Going for EGD/Colonoscpy this morning. Fluoxetine was increased yesterday and hope to see improvement in pain and depressed affect in the next few days or weeks. MD Nick <Jermaine Diallo - Last Filed: 12/12/17 10:21>
[2017-12-12] MEDS ORDERED: Lidocaine 1% PF 5 ML VIAL ONE (16:13)
[2017-12-12] MEDS ORDERED: PROPOFOL 200 MG/20 ML VIAL ONE (16:13)
[2017-12-12] MEDS ORDERED: Morphine 4 MG/ML VIAL ONE (17:21)
[2017-12-12] MEDS: Latanoprost 0.005% Ophth Soln 2.5 ml Bottle EA EYE SCH (20:15)
[2017-12-13] MEDS: Morphine IR 10 MG/5 ML UDCUP PO PRN ×3 (00:07→12:47)
--- NOTE | 2017-12-13 00:20 | OP ---
DATE OF PROCEDURE: 12/12/2017 PREOPERATIVE DIAGNOSES: 1. Epigastric pain. 2. Right lower quadrant pain. 3. Abnormal CT scan of the colon. PROCEDURE IN DETAIL: After informed consent was obtained, the patient was placed in the left lateral decubitus position. Anesthesia was administered per the Anesthesia Department. Forward-viewing end oscope was inserted into the esophagus under direct visualization with ease and passed to the second portion of the duodenum with ease. Second portion of the duodenum, duodenal bulb were normal. The p ylorus, antrum, body, fundus, and cardia were normal. Retroflexion in the stomach was normal. The e sophagus was normal throughout. ASSESSMENT: Normal esophagogastroduodenoscopy. RECOMMENDATIONS: Proceed with colonoscopy. PROCEDURE IN DETAIL: After informed consent was obtained, the patient was placed in the left lateral decubitus position. Anesthesia was administered per the Anesthesia Department. Forward-viewing end oscope was inserted into the rectum after perianal inspection and rectal exam were normal and passed to the cecum with ease. The cecum, ileocecal valve, and appendiceal orifice were normal. The prep w as good. The ascending, transverse, descending, sigmoid and rectum were normal except for left-sided diverticulosis coli. ASSESSMENT: 1. Left-sided diverticulosis coli. 2. Otherwise normal colonoscopy. RECOMMENDATIONS: 1. Continue present management. 2. Consider trial of Movantik.
[2017-12-13 04:55] LABS: Band 1 % (5-11); Hemoglobin 13.5 g/dL (12.0-16.0); Lymphocytes 12 % (21-51); MDiff Complete? YES; Mean Corpuscular HGB CONC 34.4 g/dL (32.0-36.0); Monocytes 16 % (0-10); Neutrophil 69 % (42-75); PLT Morphology Comment Appears Decreased; Platelet Count 74 thou/uL (130-400); RBC Distribution Width 12.3 % (11.5-14.5); Reactive Lymphocytes 2 % (0-10); Red Blood Cell (RBC) Count 3.75 mill/uL (4.20-5.40); White Blood Cell (WBC) Count 3.6 thou/uL (4.8-10.8)
[2017-12-13] MEDS: metroNIDAZOLE 500 MG in Premix Bag 1 BAG IVPB SCH ×2 (05:00→13:59)
[2017-12-13 05:41] LABS: Anion Gap 14 mmol/L (10-20); BUN (Urea Nitrogen) 8 mg/dL (9.8-20.1); Calc. Creatinine Clearance 71 mL/min (70-130); Calcium 7.3 mg/dL (7.8-10.44); Carbon Dioxide 13 mmol/L (23-31); Chloride 106 mmol/L (98-107); Estimated GFR-MDRD Greater than 90; Glucose 328 mg/dL (80-115); Potassium 3.9 mmol/L (3.5-5.1); Sodium 129 mmol/L (136-145)
[2017-12-13] MEDS ORDERED: Morphine IR 10 MG/5 ML UDCUP PO SCH (07:30)
[2017-12-13] MEDS: metFORMIN 500 MG TAB PO SCH (07:51)
[2017-12-13] MEDS: Lisinopril 10 MG TAB PO SCH (07:51)
[2017-12-13] MEDS: Morphine ER 30 MG TAB PO SCH (07:52)
[2017-12-13] MEDS: FLUoxetine HCl 20 MG CAP PO SCH (07:52)
[2017-12-13] MEDS: Carvedilol 6.25 MG TAB PO SCH (07:53)
[2017-12-13] MEDS: Amlodipine 5 MG TAB PO SCH (07:53)
[2017-12-13] MEDS: Brimonidine Tartrate 0.2% Ophth Soln 5 ml Bottle EA EYE SCH (07:59)
[2017-12-13] MEDS: Diphenoxylate HCl/Atropine Tablet PO SCH (07:59)
[2017-12-13 08:00] VITALS: BP 130/80
[2017-12-13] MEDS: Dorzolamide HCl 2% Ophth Soln 10 ml Bottle EA EYE SCH (08:00)
[2017-12-13] MEDS ORDERED: Naproxen 500 MG TAB PO SCH (09:00)
--- NOTE | 2017-12-13 09:24 | PDOC.FM ---
- Subjective Subjective: Colonoscopy and endoscopy performed yesterday by GI. Pt w/ slightly worse pain above baseline 04/11 w/ usual home pain 03/11. CASSI overnight, VSS, afebrile. No new complaints. - Objective MAR Reviewed: Yes Vital Signs & Weight: Vital Signs (12 hours) Temp Pulse Resp BP BP BP BP 12/13/17 07:53 62 130/80 12/13/17 07:51 130/80 12/13/17 07:13 98.0 F 62 16 161/95 H 12/13/17 04:00 73 18 146/79 H 12/13/17 00:11 98.0 F 70 20 131/77 Pulse Ox 12/13/17 07:53 12/13/17 07:51 12/13/17 07:13 99 12/13/17 04:00 12/13/17 00:11 98 Weight Admit Weight 57.017 kg Weight 54.613 kg I&O: 12/12/17 12/13/17 12/14/17 06:59 06:59 06:59 Intake Total 5860 350 Output Total 4800 650 Balance 1060 -300 Result Diagrams: 12/13/17 03:59 12/13/17 03:59 <Christopher Rosenbaum - Last Filed: 12/13/17 09:21> - Objective Vital Signs & Weight: Vital Signs (12 hours) Temp Pulse Resp BP BP Pulse Ox 12/13/17 08:00 98.1 F 62 16 99 12/13/17 07:53 62 130/80 12/13/17 07:51 130/80 12/13/17 07:13 98.0 F 62 16 161/95 H 99 Weight Admit Weight 57.017 kg Weight 54.613 kg I&O: 12/12/17 12/13/17 12/14/17 06:59 06:59 06:59 Intake Total 5860 350 720 Output Total 4800 650 Balance 1060 -300 720 Result Diagrams: 12/13/17 03:59 12/13/17 03:59 <Jermaine Diallo - Last Filed: 12/13/17 16:23> Phys Exam - Physical Examination Constitutional: NAD HEENT: PERRLA, moist MMs Respiratory: no wheezing, clear to auscultation bilateral Cardiovascular: RRR, no significant murmur Gastrointestinal: soft, no distention, positive bowel sounds TTP RLQ and over iliac crest Musculoskeletal: no edema, pulses present Neurological: moves all 4 limbs Psychiatric: A&O x 3 Deviation from normal: depressed Skin: cap refill <2 seconds <Christopher Rosenbaum - Last Filed: 12/13/17 09:21> Dx/Plan (1) Intractable abdominal pain Code(s): R10.9 - UNSPECIFIED ABDOMINAL PAIN Status: Chronic Plan: Pt with slight increase in pain this AM above baseline s/p endocsopy Was previously back to patient's endorsed baseline on home regimen Will give 20 mg IR morphine this AM and start naprosyn 500 mg BID Opiods written by Onc and sent to pharmacy Negative for any ischemia w/ CTA obtained To go for EGD/colonscopy today to further eval sigmoid mass Pain likely 2/2 med noncompliance and bone pain from her MM Pt has f/u appointment w/ onc in 1 week (2) Multiple myeloma Code(s): C90.00 - MULTIPLE MYELOMA NOT HAVING ACHIEVED REMISSION Status: Chronic QualifierTitle: Multiple myeloma remission status: unspecified Qualified Code(s): C90.00 - Multiple myeloma not having achieved remission Plan: Pain likely exacerbation of her usual chronic pain 2/2 her malignancy Oncology consulted, appreciate reccomendations EGD/colonscopy WNL Will start movantik to aid w/ opiod induced constipation (3) Thrombocytopenia Code(s): D69.6 - THROMBOCYTOPENIA, UNSPECIFIED Status: Chronic Plan: Likely 2/2 MM Will cont. to monitor (4) History of hepatitis C Code(s): Z86.19 - PERSONAL HISTORY OF OTHER INFECTIOUS AND PARASITIC DISEASES Status: Chronic Plan: stable Will cont. to monitor <Christopher Rosenbaum - Last Filed: 12/13/17 09:21> Attending Addendum - Attending Addendum Date/Time: 12/13/17 1626 I personally evaluated the patient and discussed the management with Dr. Mendez and Dr. Rosenbaum. I agree with the History, Examination, Assessment and Plan documented above with any addition or exceptions noted below. She feels ok and denies pain. Pain seems to be coming from ribs and pelvis and appears to be bone pain from her myeloma. V/S stable/acceptable. Plan: D/c home on usual meds but increase Fluoxetine to 40 mg daily, start Naprosyn 500 bid with meals, Increased morphine to 20 mg prn. Follow up with PCP next week at [facility] and with Dr. Almendarez as scheduled on . Nick <Jermaine Diallo - Last Filed: 12/13/17 16:23>
[2017-12-13 09:52] VITALS: TEMP 98.1
--- NOTE | 2017-12-14 03:14 | DIS-2 ---
DATE OF ADMISSION: 12/10/2017 DATE OF DISCHARGE: 12/13/2017 ADMITTING ATTENDING: Christopher Hernandez M.D. DISCHARGE ATTENDING: Jermaine Diallo M.D. RESIDENT: Christopher Rosenbaum M.D. CONSULTATIONS: 1. Oncology, Dr. Almendarez. 2. GI, Dr. Mejia. PROCEDURES: EGD and colonoscopy pertinent positive for diverticulosis, otherwise without abnormaliti es. PRIMARY DIAGNOSES: 1. Hypertensive urgency. 2. Intractable abdominal pain secondary to multiple myeloma. SECONDARY DIAGNOSES: 1. Type 2 diabetes mellitus. 2. Hypertension. 3. Multiple myeloma. 4. Thrombocytopenia. 5. History of hepatitis C. DISCHARGE MEDICATIONS: 1. MS Contin 30 mg t.i.d. 2. Immediate release morphine 15 mg p.o. q.4 hours as needed for breakthrough pain. 3. Naproxen 500 mg p.o. b.i.d. 4. Prozac 40 mg p.o. daily. 5. Movantik 12.5 mg p.o. daily before food. 6. Lomotil 2 mg p.o. daily. 7. Compazine 10 mg p.o. q.4 hours as needed. 8. Protonix 40 mg p.o. daily. 9. Coreg 6.25 mg p.o. b.i.d. with meals. 10. Imodium 2 mg p.o. p.r.n. 11. Latanoprost 1 drop each eye at bedtime. 12. Simbrinza 1%/0.2% ophthalmic suspension 1 drop each eye b.i.d. 12. Metformin 1000 mg p.o. b.i.d. 13. Norvasc 10 mg p.o. daily. DISCONTINUED MEDICATIONS: Fluoxetine 10 mg p.o. daily. HISTORY OF PRESENT ILLNESS: The patient is a 62-year-old female with past medical history of multipl e myeloma, hypertension, chronic abdominal pain, who presented to the ER for evaluation of worsening abdominal pain and was found to have elevated blood pressures in the 220s/120s. The patient reported ly had been out of her usual pain regimen prescribed by her oncologist for the past few days. The pa lilian was given IV morphine equivalent with improvement of her pain and given her home blood pressure medications in addition to IV p.r.n. medications. The patient's pain became better, under control a nd pain returned back to baseline on home regimen. CT abdomen and pelvis obtained showing thickening of the sigmoid colonic wall concerning for possible metastasis. GI was consulted for further evalua tion. The patient underwent EGD and colonoscopy, which were both negative for any malignant processe s. The patient did have elevated lactate upon admission, which peaked at 4.9 and down trending statu s post IV fluid administration secondary to acute worsening abdominal pain and elevated lactic acid. The patient underwent CTA abdomen and pelvis, which was negative for any ischemic process. The faye ent was started on 500 mg b.i.d. naproxen for the patient having likely bone pain secondary to her mu ltiple myeloma. It was found that the patient had recent bone biopsies last month with worsening of her myeloma. The patient is to follow up outpatient with Dr. Almendarez for further chemotherapy treatm ents. DISPOSITION: Stable. DISCHARGE INSTRUCTIONS: 1. Location: Home. 2. Follow up with Dr. Almendarez at prescheduled appointment in 1 week. 3. Follow up with primary care provider in 7-10 days. 4. Activity: Ad-shakeel.
[2017-12-16 18:10] LABS: Hematocrit 36.6 % (34.0-46.6); Hematology Comment Note: (.); RBC Folate Test Component 1246 ng/mL (>498)
== END 2017-12-13 14:34 | disposition home or self-care (01) | DRG 948 ==
LOC: ERS 17:23 → OBSVTOIN 12-10 01:45 → 2SW 12-10 01:45 → T4-A 12-11 22:49
PROVIDERS: ADMIT Emergency Medicine; ATTEND Emergency Medicine
PROC: 0DJ08ZZ Inspection of Upper Intestinal Tract, Via Natural or Artificial Opening Endoscopic (ICD-10-PCS; principal; 2017-12-12)
PROC: 0DJD8ZZ Inspection of Lower Intestinal Tract, Via Natural or Artificial Opening Endoscopic (ICD-10-PCS; 2017-12-12)
DX: G89.3 Neoplasm related pain (acute) (chronic) (principal); C90.00 Multiple myeloma not having achieved remission; D69.6 Thrombocytopenia, unspecified; M48.54XA Collapsed vertebra, not elsewhere classified, thoracic region, initial encounter for fracture; E86.0 Dehydration; I48.91 Unspecified atrial fibrillation; M48.56XA Collapsed vertebra, not elsewhere classified, lumbar region, initial encounter for fracture; I16.0 Hypertensive urgency; B19.20 Unspecified viral hepatitis C without hepatic coma; E11.9 Type 2 diabetes mellitus without complications; F17.210 Nicotine dependence, cigarettes, uncomplicated; R10.32 Left lower quadrant pain; I73.9 Peripheral vascular disease, unspecified; I25.10 Atherosclerotic heart disease of native coronary artery without angina pectoris; J44.9 Chronic obstructive pulmonary disease, unspecified; K21.9 Gastro-esophageal reflux disease without esophagitis; F12.10 Cannabis abuse, uncomplicated; F32.9 Major depressive disorder, single episode, unspecified; K57.30 Diverticulosis of large intestine without perforation or abscess without bleeding
CPT/HCPCS: 36415; 36416; 71045; 74174; 74177; 80048; 80053; 81003; 81015; 82553; 82607; 82747; 83605; 83690; 84484; 85025; 85027; 85610; 87086; 93005; 96361; 96365; 96366; 96375; 96376; A4216; J0360; J0744; J1100; J1630; J1650; J1885; J2001; J2270; J2550; J2704; J3010

== ENCOUNTER 2017-12-19 11:29 | Day surgery (SDC) | payer OTHER ==
[2017-12-19] MEDS ORDERED: Sodium Chloride 0.9% 50 ML ONE (12:04)
[2017-12-19] MEDS ORDERED: diphenhydrAMINE 50 MG in Sodium Chloride 0.9% 50 ML IVPB SCH (12:15)
[2017-12-19 12:20] VITALS: BP 117/66; TEMP 98.7
[2017-12-19] MEDS ORDERED: Dexamethasone 20 MG in Sodium Chloride 0.9% 50 ML IVPB SCH (12:30)
[2017-12-19] MEDS ORDERED: DARATUMUMAB IV SCH ×2 (12:30→12:45)
[2017-12-19] MEDS ORDERED: SODIUM CHLORIDE 0.9% IV SCH ×2 (12:30→12:45)
[2017-12-19] MEDS ORDERED: Acetaminophen 500 MG TAB PO SCH (12:30)
[2017-12-19 14:40] LABS: ALT (SGPT) 100 U/L (8-55); AST (SGOT) 137 U/L (5-34); Albumin 3.1 g/dL (3.4-4.8); Alkaline Phosphatase 132 U/L (40-150); Anion Gap 9 mmol/L (10-20); BUN (Urea Nitrogen) 14 mg/dL (9.8-20.1); Bilirubin, Total 0.6 mg/dL (0.2-1.2); Calc. Creatinine Clearance 72 mL/min (70-130); Calcium 8.8 mg/dL (7.8-10.44); Carbon Dioxide 25 mmol/L (23-31); Chloride 105 mmol/L (98-107); Estimated GFR-MDRD Greater than 90; Globulin 1.7 g/dL (2.4-3.5); Glucose 219 mg/dL (80-115); LDH 200 U/L (125-220); Potassium 4.3 mmol/L (3.5-5.1); Protein, Total 4.8 g/dL (6.0-8.3); Sodium 135 mmol/L (136-145); Uric Acid 6.4 mg/dL (2.6-6.0)
== END 2017-12-19 17:44 | disposition home or self-care (01) ==
LOC: ONC/OP 11:29
PROVIDERS: ATTEND Internal Medicine Hematology & Oncology
DX: Z51.11 Encounter for antineoplastic chemotherapy (principal); C90.00 Multiple myeloma not having achieved remission; C79.52 Secondary malignant neoplasm of bone marrow; I10 Essential (primary) hypertension; K21.9 Gastro-esophageal reflux disease without esophagitis; H40.9 Unspecified glaucoma; E11.51 Type 2 diabetes mellitus with diabetic peripheral angiopathy without gangrene; F17.200 Nicotine dependence, unspecified, uncomplicated; I25.10 Atherosclerotic heart disease of native coronary artery without angina pectoris; I48.91 Unspecified atrial fibrillation; J44.9 Chronic obstructive pulmonary disease, unspecified; Z79.84 Long term (current) use of oral hypoglycemic drugs; Z79.1 Long term (current) use of non-steroidal anti-inflammatories (NSAID); Z79.899 Other long term (current) drug therapy
CPT/HCPCS: 83615; 84550; 96367; 96375; 96413; 96415; A4216; J1100; J1200; J1642; J7050; J9145

== ENCOUNTER 2018-01-04 12:34 | Observation (INO) | payer OTHER ==
[~2018-01-04 12:34] MED LIST changes: -FLU VACC QS2017-18 36 mo. & older 0.5 ML SYRINGE IM ONE; +ISOVUE-370 76%-LOCM 1 ML ONE; +Iopamidol 370 76% 50 ML VIAL FS ONE
[2018-01-04] MEDS ORDERED: Ondansetron ODT 4 MG TAB ONE (13:08)
[2018-01-04] MEDS ORDERED: Nitroglycerin 2% Ointment 1 INCH/1 GM Packet ONE (13:31)
[2018-01-04 13:46] LABS: #Lymphocytes 1.7 thou/uL (1.20-3.40); #Monocytes 0.6 thou/uL (0.11-0.59); #Neutrophils 2.6 thou/uL (1.40-6.50); %Basophils 0.2 % (0.0-1.0); %Eosinophils 0.5 % (0.0-10.0); %Lymphocytes 34.5 % (21.0-51.0); %Monocytes 12.3 % (0.0-10.0); %Neutrophils 52.4 % (42.0-75.0); Hemoglobin 14.2 g/dL (12.0-16.0); Mean Corpuscular Hemoglobin 36.2 pg (27.0-31.0); Mean Platelet Volume 9.2 fL (7.4-10.4); Platelet Count 119 thou/uL (130-400); RBC Distribution Width 12.9 % (11.5-14.5); Red Blood Cell (RBC) Count 3.93 mill/uL (4.20-5.40)
--- NOTE | 2018-01-04 13:51 | RAD ---
PORTABLE CHEST: Date: 01/04/18 HISTORY: Chest pain. COMPARISON: 12/09/17. FINDINGS: Linear stranding left lower lung again noted. Lungs are clear. No infiltrate or vascular congestion. MediPort catheter is unchanged in position. IMPRESSION: No acute process or interval change. POS: [facility]
[2018-01-04 13:57] LABS: ALT (SGPT) 57 U/L (8-55); AST (SGOT) 70 U/L (5-34); Alkaline Phosphatase 127 U/L (40-150); Anion Gap 14 mmol/L (10-20); BUN (Urea Nitrogen) 10 mg/dL (9.8-20.1); Bilirubin, Total 0.7 mg/dL (0.2-1.2); CK (CPK) 17 U/L (29-168); CKMB 0.4 ng/mL (0-6.6); Calc. Creatinine Clearance 0 mL/min (70-130); Calcium 7.2 mg/dL (7.8-10.44); Carbon Dioxide 15 mmol/L (23-31); Chloride 112 mmol/L (98-107); Estimated GFR-MDRD Greater than 90; Glucose 190 mg/dL (80-115); Potassium 3.6 mmol/L (3.5-5.1); Sodium 137 mmol/L (136-145); Troponin I Less than 0.010 ng/mL (< 0.028)
--- NOTE | 2018-01-04 15:10 | CT ---
CT PULMONARY ANGIO CHEST WITH CONTRAST: Date: 01/04/18 Multiple axial tomograms obtained through chest with IV enhancement and angio protocol with multiplan ar reconstruction and 3D postprocessing obtained. INDICATION: Chest pain. FINDINGS: Pulmonary arteries show adequate enhancement. There is no evidence of pulmonary embolus. The lungs sh ow no evidence of infiltrate or effusion. Mediastinum unremarkable with nonspecific lymph node nodes. Images through the upper abdomen reveal a nodular density in the region of the left adrenal gland. T his may represent a gastric diverticulum, although this is not definitely confirmed on the prior stud ies. Lack of oral contrast prevents adequate confirmation of this density. IMPRESSION: 1. No evidence of pulmonary embolus. 2. No acute lung process. 3. Question density in the region of the left adrenal. An adrenal mass was not present on the recent CT and this may represent a gastric diverticulum protruding into the left adrenal gland. This could be confirmed with repeat exam with oral contrast as indicated. POS: [facility]
--- NOTE | 2018-01-04 15:32 | PDOC.FPRHP ---
- History of Present Illness Chief Complaint: Chest Pain History of Present Illness: 62 y/o F with PMHx MM, HTN, HLD, DM2, a-fib who presents with chest pain. The patient reports that the chest pain started this morning and is sharp, substernal, comes and goes. Nothing makes the pain feel better or worse. The pain is associated with SOB, Nausea, and diaphoresis. She reports that she did feel a little better when she got the nitro in the ED. She has never had a pain like this before. Her last chemo was on . She has chronic abdominal pain related to her multiple myeloma. She denies a cough, fever, diarrhea. ED Course: The patient was given Morphine 4mg, NS 500mL bolus x2, Nitro bid 1 inch, zofran 4mg in the ED. - Allergies/Adverse Reactions Allergies Allergy/AdvReac Type Severity Reaction Status Date / Time No Known Allergies Allergy Verified 11/05/17 09:41 - Home Medications Medication Instructions Recorded Confirmed Type Diphenoxylate HCl/Atropine 2 tab PO DAILY 01/13/17 01/04/18 History [Lomotil] Pantoprazole [Protonix] 40 mg PO DAILY 01/13/17 01/04/18 History Carvedilol [Coreg] 6.25 mg PO BID- #60 tab 05/05/17 01/04/18 Rx Lisinopril [Zestril] 10 mg PO DAILY #30 tab 05/05/17 01/04/18 Rx Loperamide HCl [Imodium] 2 mg PO PRN PRN #30 cap 08/24/17 01/04/18 Rx Brinzolamide/Brimonidine Tart 1 drop EA EYE BID 11/04/17 01/04/18 History [Simbrinza 1%/0.2% Ophth Susp] Latanoprost [Xalatan 0.005% Ophth 1 drop EA EYE HS 11/04/17 01/04/18 History Soln] Morphine ER [MS Contin] 30 mg PO TID 11/04/17 01/04/18 History metFORMIN [Glucophage] 1,000 mg PO BID- 11/04/17 01/04/18 History Amlodipine [Norvasc] 5 mg PO DAILY 12/10/17 01/04/18 History FLUoxetine HCl [Prozac] 40 mg PO DAILY #30 cap 12/13/17 01/04/18 Rx Naloxegol Oxalate [Movantik] 12.5 mg PO DAILY-AC #30 tab 12/13/17 01/04/18 Rx Naproxen [Naprosyn] 500 mg PO BID #60 tablet 12/13/17 01/04/18 Rx Dicyclomine [Bentyl Oral Solution] 5 ml PO QID 01/04/18 01/04/18 History - History PMHx: Multiple Myeloma Hep C GERD Macrocytic anemia COPD CAD pAfib Tobacco abuse PSHx: [place] Tubal ligation Hemorrhoidectomy Inguinal hernia repair FHx: Brother HTN Sister uterine ca Social: 30 pk yr smoking no etoh occasional marijuana use - reports that she has quit - Review of Systems General: denies: fever/chills, weight/appetite/sleep changes Eyes: denies: eye pain ENT: reports: nasal congestion. denies: rhinorrhea Respiratory: denies: cough, shortness of breath Cardiovascular: reports: chest pain. denies: edema Gastrointestinal: reports: nausea, vomiting Skin: denies: rashes, lesions Musculoskeletal: reports: pain, tenderness Neurological: denies: numbness, syncope, seizure Psychological: denies: anxiety, depression - Vital signs BP: 166/98 HR: 76 RR: 18 Tmax: 98.2 Pox: 98% on RA Wt: 56.25kg - Physical Exam Constitutional: NAD, awake, alert and oriented, well developed HEENT: normocephalic and atraumatic, PERRLA, EOMI, grossly normal vision, normal nasal mucosa, MMM, other (poor dentition) Neck: supple, no LAD Heart: RRR, normal S1/S2, no murmurs/rubs/gallops, pulses present, no edema Lungs: CTAB, no respiratory distress, good air movement, no rales/rhonchi, no wheezing, no retractions -Abdomen: Non-distended, normoactive bowel sounds, soft, mildly tender to palpation diffusely -Musculoskeletal: normal structure, decreased tone Neurological: no focal deficit, CN II-XII intact Skin: good turgor, capillary refill <2 seconds Heme/Lymphatic: no unusual bruising or bleeding, no purpura Psychiatric: normal mood and affect, good judgment and insight, intact recent and remote memory FMR H&P: Results - Labs Result Diagrams: 01/04/18 13:27 01/04/18 13:27 Lab results: WBC 5.0 thou/uL (4.8-10.8) 01/04/18 13:27 Hgb 14.2 g/dL (12.0-16.0) 01/04/18 13:27 Hct 40.7 % (36.0-47.0) 01/04/18 13:27 MCV 104.0 fl (81.0-99.0) H 01/04/18 13:27 Plt Count 119 thou/uL (130-400) L 01/04/18 13:27 Neutrophils % 52.4 % (42.0-75.0) 01/04/18 13:27 Sodium 137 mmol/L (136-145) 01/04/18 13:27 Potassium 3.6 mmol/L (3.5-5.1) 01/04/18 13:27 Chloride 112 mmol/L (98-107) H 01/04/18 13:27 Carbon Dioxide 15 mmol/L (23-31) L 01/04/18 13:27 BUN 10 mg/dL (9.8-20.1) 01/04/18 13:27 Creatinine 0.57 mg/dL (0.6-1.1) L 01/04/18 13:27 Glucose 190 mg/dL (80-115) H 01/04/18 13:27 Calcium 7.2 mg/dL (7.8-10.44) L 01/04/18 13:27 Total Bilirubin 0.7 mg/dL (0.2-1.2) 01/04/18 13:27 AST 70 U/L (5-34) H 01/04/18 13:27 ALT 57 U/L (8-55) H 01/04/18 13:27 Alkaline Phosphatase 127 U/L (40-150) 01/04/18 13:27 Creatine Kinase 17 U/L (29-168) L 01/04/18 13:27 CK-MB (CK-2) 0.4 ng/mL (0-6.6) 01/04/18 13:27 B-Natriuretic Peptide 118.8 pg/mL (0-100) H 01/04/18 13:27 Serum Total Protein 5.0 g/dL (6.0-8.3) L 01/04/18 13:27 Albumin 3.0 g/dL (3.4-4.8) L 01/04/18 13:27 - EKG Interpretation EKG: NSR - Radiology Interpretation Chest x-ray Status: image reviewed by me, report reviewed by me Additional comment: No acute process CT scan - chest Status: report reviewed by me Additional comment: No PE. Adrenal mass vs gastric diverticulum. CT scan - abdomen Status: report reviewed by me Additional comment: Posterior gastric fundal diverticulum. FMR H&P: A/P - Problem List (1) Chest pain Current Visit: Yes Status: Acute Code(s): R07.9 - CHEST PAIN, UNSPECIFIED Qualifiers: Ischemic chest pain type: unspecified angina pectoris type (2) Hypertensive urgency Current Visit: No Status: Acute Code(s): I16.0 - HYPERTENSIVE URGENCY (3) Chronic pain due to neoplasm Current Visit: No Status: Chronic Code(s): G89.3 - NEOPLASM RELATED PAIN ( ACUTE) (CHRONIC) (4) DM type 2 (diabetes mellitus, type 2) Current Visit: No Status: Chronic Qualifiers: Diabetes mellitus skilled nursing insulin use: without skilled nursing use Diabetes mellitus complication status: without complication Qualified Code(s): E11.9 - Type 2 diabetes mellitus without complications (5) Dyslipidemia Current Visit: No Status: Chronic Code(s): E78.5 - HYPERLIPIDEMIA, UNSPECIFIED (6) GERD (gastroesophageal reflux disease) Current Visit: No Status: Chronic Code(s): K21.9 - GASTRO-ESOPHAGEAL REFLUX DISEASE WITHOUT ESOPHAGITIS Qualifiers: Esophagitis presence: without esophagitis Qualified Code(s): K21.9 - Gastro -esophageal reflux disease without esophagitis (7) Hypertension Current Visit: No Status: Chronic Code(s): I10 - ESSENTIAL (PRIMARY) HYPERTENSION (8) Multiple myeloma Current Visit: No Status: Chronic Code(s): C90.00 - MULTIPLE MYELOMA NOT HAVING ACHIEVED REMISSION Qualifiers: Multiple myeloma remission status: unspecified Qualified Code(s): C90.00 - Multiple myeloma not having achieved remission - Plan Atypical Chest Pain Heart Score 4. Trop negative x2. EKG negative. CTA negative for PE. -Monitor on tele -Trend cardiac enzymes -Repeat EKG for new or worsening CP -Stress test in AM -Nitro prn -Aspirin -Statin HTN Urgency Patient had BP to 187/138 in the ED. Improved with Nitrobid. She did not take her home BP meds this AM. -Will continue to monitor -Continue patient's home BP meds Abdominal Pain, chronic Patient has chronic abdominal pain 2/2 her Multiple Myeloma. She also had a gastric diverticula found on CT scan that could be contributing to some of her pain. She does not have an acute surgical abdomen. Lactic acid WNL. -Will continue her home pain meds -Monitor for signs of worsening pain HTN -restart home amlodipine, lisinopril, and coreg CAD -Continue aspirin DM2 -SSI -Accuchecks ACHS Transaminitis Chronic, lower than last visit. Likely 2/2 hep C -f/u outpatient GERD -Protonix Macrocytic Anemia Chronic, Stable -Monitor Hep C -f/u outpatient COPD No signs of acute exacerbation -duonebs prn VTE Ppx: Lovenox Code Status: Full Disposition/LOS: Obs on tele, length of stay likely less than 48 hours. FMR H&P: Upper Level - Pertinent history Patient seen by me 01/02/18 at approximately 1600 54 year old female presents with chest pain associtaed with nausea, vomiting, dyspnea, and diaphoresis. Pain is substernal. Other associated symptoms include chills, malaise, weakness, and back pain (which is chronic). She says her stomach also hurts. She has not measured a fever. She denies diarrhea, dysuria, polyuria, rhinorrhea, nasal congestion, sore throat, and cough. She took her pain meds this morning but did not take her other medications because of feeling unwell PMH - Multiple myeloma, history of Hep C, GERD, HTN, DM2, COPD, CAD, paroxysmal atrial fibrillation, and microcytic anemia PSH - EGD 12/13/17 was normal, colonoscopy 12/13/17 showed colonic diverticuli; cholecystectomy, hemorrhoidectomy, hernia repair, and BTL Social - 30 pack year smoking. Occasional marijuana but reports she has now quit. Denies alcohol use. ED - Seen by [facility] Divya O'Jr. Given topical Nitrobid, 1L NS, and 4 mg iv morphine - Pertinent findings Vital Signs Tmax 98.1 RR 17 HR 78 BP 153/106 O2 sats 99% on RA Wegith 56.2 kg Physical Exam General: NAD. AAOx4. Eyes: EOMI, PERRL, nonicteric ENT: MMM, oropharynx clear CV: RRR. No murmurs, rubs, or gallops. Pulses full and equal in all 4 extremities Respiratory: Lungs CTAB. No wheezing, rales, or rhonchi auscultated. Breating unlabored Abdomen: Diffusely tender. No distention. Voluntary guarding. No rebound Extremities: No clubbing, cyanosis, or edema. Equal movements bilaterally Skin: No rash or ulcer Neuro: CN II - XII intact. No focal deficits Psych: Quiet. Affect guarded CXR - No acute processes CTA chest - Negative for PE and acute lung process. Questionable area of density near left adrenal. Radiology recommended CT abdomen and pelvis EKG - NSR. LAD. No ischemic changes. - Plan Date/Time: 01/04/18 1530 I, Anurag Lewis DO, have evaluated this patient and agree with findings/plan as outlined by industrial design intern resident. Pertinent changes/additions are listed here. A/P: 62 year old female presents for: 1) Atypical chest pain - Place on telemetry. HEART score is 4. Trend CEz and EKG. Consider stress test in the morning. Patient has transdermal Nitro. Continue aspirin and statin 2) Abdominal pain - Patient does not have an acute abdomen. Will get CT abdomen on basis of possible abnormal finding on CTA chest. Repeat abdominal exam later tonight. Symptoms could be consistent with diverticulitis and patient had diverticulosis on colonoscopy last month. Will await CT results and treat with antibiotics if patient develops fever or other signs of infection. Well check lactic acid 3) Hypertensive urgency - Improved with management of pain. Patient missed home BP meds this morning. Will restart home meds 4) HTN - restart home meds 5) CAD - Home meds 6) DM2 - Home meds. Accuchecks. Sliding scale insulin 7) COPD - DuoNeb PRN 8) GERD - Protonix 9) Macrocytic abnemia - Chronic 10) Hep C - Outpatient follow up 11) Transaminitis - Chronic. Likely 2/2 Hep C. LFTs lower than last visit. 12) Code status- Full
[2018-01-04] MEDS ORDERED: Morphine 4 MG/ML VIAL ONE (15:35)
[2018-01-04] MEDS ORDERED: Acetaminophen 325 MG TAB PO PRN (16:58)
[2018-01-04] MEDS ORDERED: Ondansetron ODT 4 MG TAB SL PRN (16:58)
[2018-01-04] MEDS ORDERED: Morphine 4 MG/ML VIAL SLOW IVP PRN (16:58)
[2018-01-04] MEDS ORDERED: Ondansetron HCl/PF 4 MG/2 ML Vial IVP PRN (16:58)
--- NOTE | 2018-01-04 17:00 | CT ---
ABDOMEN AND PELVIC CT SCAN 01/04/18 HISTORY: 62-year-old female with history of abdominal pain and chest pain. Minimal linear and parenchymal changes in the lung bases. There is severe heterogeneous bony deminera lization with multiple old stable compression fractures and multiple areas of marked decreased bone d ensity throughout the axial skeleton and pelvis but all of these appear stable from prior studies. Th e liver, pancreas and spleen appear unremarkable. The area of concern on the prior CT is indeed a gas tric fundal diverticulum. There is some prominent scattered persistent renal cortical contrast enhanc ement. There is no renal hydronephrosis. Correlate with patient's renal function. No evidence of larg e or small bowel obstruction. Stable appearing fullness around the celiac and superior mesenteric art vesta region. No free intraperitoneal fluid. IMPRESSION: Areas of concern on the prior CT pulmonary angiogram is indeed a posteriorly located gastric fundal d iverticulum now seen with air and contrast. Very heterogeneous intense delayed contrast concentration noted within both renal cortices bilaterally. No renal hydronephrosis. No evidence for other signifi cant acute process. POS: [facility]
[2018-01-04] MEDS ORDERED: Nitroglycerin 0.4 MG TAB (25 Tab Bottle) PO PRN (17:03)
[2018-01-04 17:05] LABS: Lactic Acid 1.4 mmol/L (0.5-2.2)
[2018-01-04 17:10] LABS: Troponin I Less than 0.010 ng/mL (< 0.028)
[2018-01-04 17:11] VITALS: BMI 22.8
[2018-01-04] MEDS ORDERED: Aspirin 325 MG TAB PO SCH (17:15)
[2018-01-04] MEDS ORDERED: HumaLOG 300 UNITS/3 ML VIAL SC PRN (17:16)
[2018-01-04] MEDS ORDERED: Dextrose 50% Abboject 50 ML SYRINGE SLOW IVP PRN (17:16)
[2018-01-04] MEDS ORDERED: Dextrose 5% in Water 1,000 ML IV PRN (17:16)
[2018-01-04] MEDS: Sodium Chloride 0.9% 1,000 ML IV SCH (17:55)
[2018-01-04] MEDS: Ondansetron ODT 4 MG TAB PO PRN (17:55)
[2018-01-04] MEDS: Morphine ER 30 MG TAB PO SCH (19:53)
[2018-01-04] MEDS: Famotidine 20 MG TAB PO SCH (19:54)
[2018-01-04 20:04] LABS: Troponin I Less than 0.010 ng/mL (< 0.028)
[2018-01-05] MEDS: Sodium Chloride 0.9% 1,000 ML IV SCH (04:06)
[2018-01-05 05:16] LABS: Anion Gap 7 mmol/L (10-20); BUN (Urea Nitrogen) 9 mg/dL (9.8-20.1); Calc. Creatinine Clearance 82 mL/min (70-130); Calcium 7.7 mg/dL (7.8-10.44); Carbon Dioxide 21 mmol/L (23-31); Cardiac Risk 6.6 (Less than 4.5); Chloride 113 mmol/L (98-107); Cholesterol 166 mg/dl (< 200 Desired); Estimated GFR-MDRD Greater than 90; Glucose 91 mg/dL (80-115); HDL Cholesterol 25 mg/dL (>60 Neg Risk); LDL Cholesterol, Calculated 108 mg/dL; Potassium 3.7 mmol/L (3.5-5.1); Sodium 137 mmol/L (136-145); Triglycerides 167 mg/dL (Less than 150)
[2018-01-05 05:46] LABS: Hemoglobin 12.7 g/dL (12.0-16.0); Lymphocytes 53 % (21-51); MDiff Complete? YES; Macrocytosis SLIGHT = 6-15 cells (100X) (0-5/hpf); Mean Corpuscular HGB CONC 34.6 g/dL (32.0-36.0); Mean Corpuscular Hemoglobin 35.7 pg (27.0-31.0); Mean Platelet Volume 8.9 fL (7.4-10.4); Monocytes 11 % (0-10); Neutrophil 36 % (42-75); PLT Morphology Comment Appears Decreased; Platelet Count 104 thou/uL (130-400); RBC Distribution Width 12.8 % (11.5-14.5); Red Blood Cell (RBC) Count 3.56 mill/uL (4.20-5.40); White Blood Cell (WBC) Count 4.3 thou/uL (4.8-10.8)
--- NOTE | 2018-01-05 06:07 | PDOC.FM ---
- Subjective Subjective: Kevin Esquivel seen at bedside this morning. She is doing well, had no acute events overnight. She denies any current chest pain or any recurrence of chest pain overnight. She is NPO and ready for stress test this morning. She has no questions or concerns. Denies fever, chills, chest pain, dyspnea, n/v, diaphoresis. - Objective MAR Reviewed: Yes Vital Signs & Weight: Vital Signs (12 hours) Temp Pulse Resp BP Pulse Ox 01/05/18 03:55 98.1 F 73 14 113/58 L 98 01/04/18 23:10 98.8 F 75 18 126/70 98 01/04/18 19:55 98.4 F 76 20 01/04/18 19:37 98.4 F 76 20 120/64 98 Weight Weight 58.513 kg I&O: 01/03/18 01/04/18 01/05/18 06:59 06:59 06:59 Intake Total 1212 Output Total 450 Balance 762 Result Diagrams: 01/05/18 04:35 01/05/18 04:35 <Myron Persaud - Last Filed: 01/05/18 07:40> - Objective Vital Signs & Weight: Vital Signs (12 hours) Temp Pulse Resp BP Pulse Ox 01/05/18 07:38 98.1 F 75 16 145/70 H 97 01/05/18 03:55 98.1 F 73 14 113/58 L 98 01/04/18 23:10 98.8 F 75 18 126/70 98 Weight Weight 129 lb I&O: 01/04/18 01/05/18 01/06/18 06:59 06:59 06:59 Intake Total 1212 Output Total 450 Balance 762 Result Diagrams: 01/05/18 04:35 01/05/18 04:35 <Fernando Gilmore - Last Filed: 01/05/18 10:08> Phys Exam - Physical Examination Constitutional: NAD HEENT: moist MMs, sclera anicteric Neck: no JVD, supple, full ROM Respiratory: no wheezing, no rales, no rhonchi, clear to auscultation bilateral Cardiovascular: RRR, no significant murmur, no rub Gastrointestinal: soft, non-tender, no distention Musculoskeletal: no edema, pulses present Neurological: non-focal, normal sensation, moves all 4 limbs Psychiatric: normal affect, A&O x 3 Skin: no rash, normal turgor <Myron Persaud - Last Filed: 01/05/18 07:40> Dx/Plan (1) Chest pain Code(s): R07.9 - CHEST PAIN, UNSPECIFIED Status: Acute QualifierTitle: Ischemic chest pain type: unspecified angina pectoris type (2) Hypertensive urgency Code(s): I16.0 - HYPERTENSIVE URGENCY Status: Acute (3) Chronic pain due to neoplasm Code(s): G89.3 - NEOPLASM RELATED PAIN (ACUTE) (CHRONIC) Status: Chronic (4) Dyslipidemia Code(s): E78.5 - HYPERLIPIDEMIA, UNSPECIFIED Status: Chronic (5) History of hepatitis C Code(s): Z86.19 - PERSONAL HISTORY OF OTHER INFECTIOUS AND PARASITIC DISEASES Status: Chronic (6) Hypertension Code(s): I10 - ESSENTIAL (PRIMARY) HYPERTENSION Status: Chronic (7) Multiple myeloma Code(s): C90.00 - MULTIPLE MYELOMA NOT HAVING ACHIEVED REMISSION Status: Chronic QualifierTitle: Multiple myeloma remission status: unspecified Qualified Code(s): C90.00 - Multiple myeloma not having achieved remission - Plan Plan: Atypical Chest Pain Heart Score 4. EKG negative. CTA negative for PE. -Monitor on tele -cardiac enzymes neg X3 -Repeat EKG for new or worsening CP -Stress test in AM -Nitro prn -Aspirin -Statin HTN Urgency Patient had BP to 187/138 in the ED. Improved with Nitrobid. She did not take her home BP meds this AM. -Will continue to monitor -Continue patient's home BP meds Abdominal Pain, chronic Patient has chronic abdominal pain 2/2 her Multiple Myeloma. She also had a gastric diverticula found on CT scan that could be contributing to some of her pain. She does not have an acute surgical abdomen. Lactic acid WNL. -Will continue her home pain meds -Monitor for signs of worsening pain HTN -restart home amlodipine, lisinopril, and coreg CAD -Continue aspirin DM2 -SSI -Accuchecks ACHS Transaminitis Chronic, lower than last visit. Likely 2/2 hep C -f/u outpatient GERD -Protonix Macrocytic Anemia Chronic, Stable -Monitor Hep C -f/u outpatient COPD No signs of acute exacerbation -duonebs prn <Myron Persaud - Last Filed: 01/05/18 07:40> Attending Addendum - Attending Addendum Date/Time: 01/05/18 1006 I personally evaluated the patient and discussed the management with Dr. Persaud I agree with the History, Examination, Assessment and Plan documented above with any addition or exceptions noted below. Kevin Esquivel is a 62 year old female who presented to the ED with substernal chest pain associated with nausea and diaphoresis, pain relieved with nitro. Stable vitals, Negative EKG, trops negative X3, chest pain has resolved and not returned. Stress test scheduled for this morning. Further plan to be determined after stress test results. <Fernando Gilmore - Last Filed: 01/05/18 10:08>
[2018-01-05] MEDS ORDERED: Carvedilol 6.25 MG TAB PO SCH (08:00)
[2018-01-05] MEDS: Morphine ER 30 MG TAB PO SCH ×2 (08:26→14:29)
[2018-01-05] MEDS: Ondansetron ODT 4 MG TAB PO PRN (08:26)
[2018-01-05] MEDS ORDERED: Enoxaparin Sodium 40 MG/0.4 ML SYRINGE SC SCH (09:00)
[2018-01-05] MEDS ORDERED: Lisinopril 10 MG TAB PO SCH (09:00)
[2018-01-05] MEDS ORDERED: Prevnar 13-Val Conj/PF 0.5 ML SYRINGE IM ONE (09:00)
[2018-01-05] MEDS ORDERED: Amlodipine 5 MG TAB PO SCH (09:00)
[2018-01-05] MEDS ORDERED: Aspirin 325 MG TAB PO SCH (09:00)
[2018-01-05] MEDS ORDERED: FLUoxetine HCl 20 MG CAP PO SCH (09:00)
[2018-01-05] MEDS ORDERED: Diphenoxylate HCl/Atropine Tablet PO SCH (09:00)
[2018-01-05] MEDS ORDERED: Regadenoson 0.4 MG/5 ML SYRINGE ONE (11:39)
[2018-01-05 11:43] VITALS: BP 149/85; TEMP 97.7
[2018-01-05] MEDS: Famotidine 20 MG TAB PO SCH (12:18)
--- NOTE | 2018-01-05 13:06 | NM ---
RADIONUCLIDE STRESS AND REST MYOCARDIAL PERFUSION SCAN WITH CT ATTENUATION CORRECTION AND SPECT IMAGI NG WITH LEFT VENTRICULAR WALL MOTION EVALUATION AND EJECTION FRACTION: HISTORY: chest pain --------- FINDINGS: Lexiscan protocol used. There is heterogeneous uptake of radiotracer throughout the left ventricular myocardium. No focal perfusion defect or reversibility. QGS analysis of gated SPECT images estimates left ventricular ejection fraction at 76%. IMPRESSION: 1. Normal myocardial perfusion scan. 2. Normal LVEF. POS: [facility]
--- NOTE | 2018-01-05 23:21 | DIS-2 ---
DATE OF ADMISSION: 01/04/2018 DATE OF DISCHARGE: 01/05/2018 RESIDENT: Myron Persaud MD. ADMITTING ATTENDING: Dr. Fernando Gilmore. DISCHARGE ATTENDING: Dr. Fernando Gilmore. CONSULTATIONS: None. PROCEDURES: 1. Chest x-ray on 01/04/2018, impression; no acute process or interval change. 2. CT of the chest on 01/04/2018, impression; no evidence of pulmonary embolus, no acute lung proces s, question density in the region of the left adrenal and adrenal mass was not the problem on recent CT and this may represent a gastric diverticulum protruding into the left adrenal gland. 3. CT of the abdomen and pelvis on 01/04/2018, impression; areas of concern on the prior CT pulmonar y angiogram is indeed a posteriorly located gastric fundal diverticulum now seen with air and contras t, very heterogeneous intense delayed contrast concentration noted within both renal cortices bilater ally. No renal hydronephrosis. No other significant acute process. 4. Nuclear medicine stress test on 01/05/2018, impression; normal myocardial perfusion scan and norm al left ventricular ejection fraction. ADMISSION DIAGNOSES: 1. Atypical chest pain. 2. Hypertensive urgency. 3. Chronic pain due to neoplasm. 4. Type 2 diabetes mellitus. 5. Dyslipidemia. 6. Gastroesophageal reflux disease. 7. Hypertension. 8. Multiple myeloma. DISCHARGE DIAGNOSES: 1. Chest pain. 2. Type 2 diabetes mellitus. 3. Multiple myeloma. 4. Chronic pain due to neoplasm. 5. Dyslipidemia. 6. Gastroesophageal reflux disease. 7. Hypertension. DISCHARGE MEDICATIONS: Resume all home medications as follows: 1. Lomotil 2 tabs p.o. daily. 2. Protonix 40 mg p.o. daily. 3. Lisinopril 10 mg p.o. daily. 4. Carvedilol 6.25 mg p.o. b.i.d. with meals. 5. Imodium 2 mg p.o. p.r.n. 6. Latanoprost 1 drop to each eye at bedtime. 7. Simbrinza 1 drop each eye b.i.d. 8. Metformin 1000 mg p.o. b.i.d. with meals. 9. Metformin ER 30 mg p.o. t.i.d. 10. Amlodipine 5 mg p.o. daily. 11. Naproxen 500 p.o. b.i.d. 12. Fluoxetine HCL 40 mg p.o. daily. 13. Movantik 12.5 mg p.o. daily a.c. 14. Bentyl 5 mL p.o. q.i.d. 15. Morphine IR 15 mg tab 1-2 tabs p.o. q.4 hours p.r.n. 16. Aspirin 325 mg p.o. daily. HISTORY OF PRESENT ILLNESS AND HOSPITAL COURSE: Kevin Esquivel is a 62-year-old female with past medica l history of multiple myeloma, hypertension, hyperlipidemia, type 2 diabetes mellitus, and atrial fib rillation who presented to the ED with chest pain on 01/04/2018, she reported the chest pain started earlier in the morning and it is sharp, substernal, and comes and goes, Nothing makes the pain feel b stephon or worse. Pain occurred at rest. The pain is also associated with shortness of breath, nausea and diaphoresis. She reports that she feels a little bit better when she got nitroglycerin in the E D. She has never had pain like this before. Her last chemo was on a few days prior to pres entation and she has chronic abdominal pain related to her multiple myeloma. She denies any cough, f ever, diarrhea. In the ED, she received morphine 4 mg, normal saline 500 mL bolus x2, nitroglycerin and Zofran. Patient was admitted for ACS rule out. She had a negative EKGs showing only normal sinu s rhythm. Chest x-ray was normal. CT scan of the chest was normal. CT scan of the abdomen showed p osterior gastric fundic diverticulum. Troponins were negative x3. BNP was 118. Patient's pain was well controlled during her admission. Stress test on 01/05/2018 was negative showing normal ejection fraction, normal myocardial perfusion study. Patient was cleared for discharge after negative stres s test. The patient was instructed to follow up with primary care provider at [facility] t o discuss her hospital admission and to discuss management of CT of the abdomen findings of gastric f undal diverticulum. The patient was in agreement with the plan. No new medications were started. DISPOSITION: Stable. The patient is in good condition on discharge. She should do well. She follo ws up with primary care provider at [facility] to discuss her admission and to discuss abno rmal findings on CT abdomen. DISCHARGE INSTRUCTIONS: 1. Location: Home. 2. Diet: Heart healthy. 3. Activity: As tolerated. 4. Followup: Follow up with primary care provider at [facility] within 1 week.
== END 2018-01-05 15:04 | disposition home or self-care (01) ==
LOC: ERS 12:34 → 2SW 15:27
PROVIDERS: ADMIT Family Medicine; ATTEND Family Medicine
DX: R07.89 Other chest pain (principal); C90.00 Multiple myeloma not having achieved remission; G89.3 Neoplasm related pain (acute) (chronic); E11.9 Type 2 diabetes mellitus without complications; E78.5 Hyperlipidemia, unspecified; K21.9 Gastro-esophageal reflux disease without esophagitis; I10 Essential (primary) hypertension; J44.9 Chronic obstructive pulmonary disease, unspecified; I25.10 Atherosclerotic heart disease of native coronary artery without angina pectoris; F17.210 Nicotine dependence, cigarettes, uncomplicated; I48.0 Paroxysmal atrial fibrillation; I16.0 Hypertensive urgency; D53.9 Nutritional anemia, unspecified; Z79.82 Long term (current) use of aspirin; Z79.891 Long term (current) use of opiate analgesic; Z79.84 Long term (current) use of oral hypoglycemic drugs; Z79.899 Other long term (current) drug therapy
CPT/HCPCS: 36415; 36416; 71045; 71275; 74176; 78452; 80048; 80053; 80061; 82550; 82553; 83605; 83880; 84484; 85025; 85379; 93005; 93017; 94760; 96361; 96372; 96374; A9500; G0378; J1642; J1650; J2270; J2785; Q0162

== ENCOUNTER 2018-01-15 10:51 | Day surgery (SDC) | payer OTHER ==
[2018-01-15] MEDS ORDERED: diphenhydrAMINE 50 MG/ML VIAL IVP SCH (11:00)
[2018-01-15] MEDS ORDERED: DARATUMUMAB IV SCH ×2 (11:15)
[2018-01-15] MEDS ORDERED: SODIUM CHLORIDE 0.9% IV SCH ×2 (11:15)
[2018-01-15] MEDS ORDERED: Dexamethasone 10 MG/ML VIAL SLOW IVP SCH (11:15)
[2018-01-15] MEDS ORDERED: Acetaminophen 500 MG TAB PO SCH (11:15)
[2018-01-15] MEDS ORDERED: Morphine IR Tab 15 MG TAB PO SCH (13:00)
[2018-01-15] MEDS ORDERED: Sodium Chloride 0.9% 40 ML ONE (13:30)
[2018-01-15 14:21] VITALS: BP 119/74; TEMP 98.6
== END 2018-01-15 16:20 | disposition home or self-care (01) ==
LOC: ONC/OP 10:51
PROVIDERS: ATTEND Internal Medicine Hematology & Oncology
DX: Z51.11 Encounter for antineoplastic chemotherapy (principal); C79.52 Secondary malignant neoplasm of bone marrow; C90.00 Multiple myeloma not having achieved remission; I10 Essential (primary) hypertension; K21.9 Gastro-esophageal reflux disease without esophagitis; F17.210 Nicotine dependence, cigarettes, uncomplicated; E11.9 Type 2 diabetes mellitus without complications; Z79.84 Long term (current) use of oral hypoglycemic drugs; Z79.891 Long term (current) use of opiate analgesic; Z79.82 Long term (current) use of aspirin; Z79.899 Other long term (current) drug therapy
CPT/HCPCS: 36415; 80053; 82248; 83615; 84100; 84550; 96375; 96413; 96415; 99211; A4216; G0463; J1100; J1200; J1642; J7050; J9145

== ENCOUNTER 2018-02-13 11:04 | Day surgery (SDC) | payer OTHER ==
[2018-02-13] MEDS ORDERED: diphenhydrAMINE 50 MG/ML VIAL IVP SCH (11:15)
[2018-02-13] MEDS ORDERED: Sodium Chloride 0.9% 30 ML ONE (11:27)
[2018-02-13] MEDS ORDERED: SODIUM CHLORIDE 0.9% IV SCH ×2 (11:30)
[2018-02-13] MEDS ORDERED: Acetaminophen 500 MG TAB PO SCH (11:30)
[2018-02-13] MEDS ORDERED: DARATUMUMAB IV SCH ×2 (11:30)
[2018-02-13] MEDS ORDERED: Dexamethasone 20 MG/5 ML VIAL SLOW IVP SCH (11:30)
[2018-02-13 12:30] VITALS: BP 124/74; TEMP 98.4
== END 2018-02-13 15:31 | disposition home or self-care (01) ==
LOC: ONC/OP 11:04
PROVIDERS: ATTEND Internal Medicine Hematology & Oncology
DX: Z51.11 Encounter for antineoplastic chemotherapy (principal); C79.52 Secondary malignant neoplasm of bone marrow; C90.00 Multiple myeloma not having achieved remission; R11.2 Nausea with vomiting, unspecified; B19.20 Unspecified viral hepatitis C without hepatic coma; E11.65 Type 2 diabetes mellitus with hyperglycemia; E11.39 Type 2 diabetes mellitus with other diabetic ophthalmic complication; H40.9 Unspecified glaucoma; I10 Essential (primary) hypertension; K21.9 Gastro-esophageal reflux disease without esophagitis; F17.210 Nicotine dependence, cigarettes, uncomplicated
CPT/HCPCS: 96375; 96413; 96415; A4216; J1200; J1642; J7050; J9145

== ENCOUNTER 2018-03-13 10:17 | Day surgery (SDC) | payer MEDICARE, MEDICAID ==
[2018-03-13] MEDS ORDERED: SODIUM CHLORIDE 0.9% IV SCH (10:45)
[2018-03-13] MEDS ORDERED: Dexamethasone 20 MG in Sodium Chloride 0.9% 50 ML IVPB SCH (10:45)
[2018-03-13] MEDS ORDERED: DARATUMUMAB IV SCH (10:45)
[2018-03-13] MEDS ORDERED: Acetaminophen 500 MG TAB PO SCH (10:45)
[2018-03-13] MEDS ORDERED: diphenhydrAMINE 50 MG/ML VIAL IVP SCH (10:45)
[2018-03-13] MEDS ORDERED: Sodium Chloride 0.9% 30 ML ONE ×2 (10:46→11:40)
[2018-03-13 11:50] VITALS: BP 143/86; TEMP 99
== END 2018-03-13 16:51 | disposition home or self-care (01) ==
LOC: ONC/OP 10:17
PROVIDERS: ATTEND Internal Medicine Hematology & Oncology
DX: Z51.11 Encounter for antineoplastic chemotherapy (principal); C79.52 Secondary malignant neoplasm of bone marrow; C90.00 Multiple myeloma not having achieved remission; B19.20 Unspecified viral hepatitis C without hepatic coma; E11.65 Type 2 diabetes mellitus with hyperglycemia; E11.39 Type 2 diabetes mellitus with other diabetic ophthalmic complication; I10 Essential (primary) hypertension; K21.9 Gastro-esophageal reflux disease without esophagitis; F17.210 Nicotine dependence, cigarettes, uncomplicated; R11.2 Nausea with vomiting, unspecified; H40.9 Unspecified glaucoma; Z79.84 Long term (current) use of oral hypoglycemic drugs; Z79.899 Other long term (current) drug therapy
CPT/HCPCS: 36415; 80053; 82248; 83615; 84100; 84550; 96375; 96413; 96415; A4216; J1100; J1200; J1642; J7050; J9145

== ENCOUNTER 2018-04-28 09:43 | Outpatient (CLI) | payer MEDICAID, MEDICARE, OTHER ==
--- NOTE | 2018-04-28 10:15 | RAD ---
RIGHT SIDED RIBS TWO VIEWS STANDARD: History: Fall. Comparison: None. FINDINGS: Port catheter tip is in good position at the cavoatrial junction. No evidence of displaced right side d rib fractures. No pneumothorax. No underlying right sided airspace opacity. IMPRESSION: No acute displaced rib fracture. POS: [facility]
== END 2018-04-28 09:44 | disposition home or self-care (01) ==
LOC: RAD 09:43
PROVIDERS: ATTEND Internal Medicine
DX: R07.81 Pleurodynia (principal)

== ENCOUNTER 2018-05-14 09:53 | Day surgery (SDC) | payer MEDICARE, MEDICAID ==
[2018-05-14] MEDS: Acetaminophen 500 MG TAB PO SCH (10:56)
[2018-05-14] MEDS: Sodium Chloride 0.9% 20 ML ONE (10:57)
[2018-05-14] MEDS: diphenhydrAMINE 50 MG, Admixture Fee 1 EACH in Sodium Chloride 0.9% 50 ML IVPB SCH (11:50)
[2018-05-14] MEDS: Dexamethasone 20 MG, Admixture Fee 1 EACH in Sodium Chloride 0.9% 50 ML IVPB SCH (11:50)
[2018-05-14 12:23] VITALS: BP 159/90; TEMP 98.8
[2018-05-14] MEDS: SODIUM CHLORIDE 0.9% IV SCH (12:30)
[2018-05-14] MEDS: DARATUMUMAB IV SCH (12:30)
== END 2018-05-14 16:28 | disposition home or self-care (01) ==
LOC: ONC/OP 09:53
PROVIDERS: ATTEND Internal Medicine Hematology & Oncology
DX: Z51.11 Encounter for antineoplastic chemotherapy (principal); C90.00 Multiple myeloma not having achieved remission; C79.52 Secondary malignant neoplasm of bone marrow; I10 Essential (primary) hypertension; K21.9 Gastro-esophageal reflux disease without esophagitis; F17.200 Nicotine dependence, unspecified, uncomplicated; Z79.899 Other long term (current) drug therapy
CPT/HCPCS: 36415; 80053; 82248; 83615; 84100; 84550; 96375; 96413; 96415; A4216; J1100; J1200; J1642; J7050; J9145

== ENCOUNTER 2018-06-11 10:35 | Day surgery (SDC) | payer MEDICARE, MEDICAID ==
[2018-06-11] MEDS ORDERED: Sodium Chloride 0.9% 30 ML ONE (10:44)
[2018-06-11] MEDS ORDERED: SODIUM CHLORIDE 0.9% IV SCH ×2 (11:00)
[2018-06-11] MEDS ORDERED: diphenhydrAMINE 50 MG CAP PO SCH (11:00)
[2018-06-11] MEDS ORDERED: Dexamethasone 20 MG in Sodium Chloride 0.9% 50 ML IVPB SCH (11:00)
[2018-06-11] MEDS ORDERED: Dexamethasone Sod Phosphate 20 MG in Sodium Chloride 0.9% 50 ML IVPB SCH (11:00)
[2018-06-11] MEDS ORDERED: DARATUMUMAB IV SCH ×2 (11:00)
[2018-06-11] MEDS ORDERED: Acetaminophen 500 MG TAB PO SCH (11:00)
[2018-06-11 12:41] VITALS: BP 160/83; TEMP 98.3
[2018-06-11 12:57] LABS: Bilirubin Negative (Negative); Blood, Urine Negative (Negative); Clarity CLEAR (Clear); Glucose, Urine (Dipstick) Negative (Negative); Leukocyte Trace (Negative); Nitrite Negative (Negative); Protein, Urine (Dipstick) Trace mg/dL (Neg-Trace); Specific Gravity, Urine 1.023 (1.002-1.036)
[2018-06-11 12:59] LABS: Bacteria/HPF None Seen HPF (None Seen); Hyaline Casts/LPF 0-3 HYALINE CAST LPF (0-3 Hyaline); Pathc Cast-AUWi Flag 0.29 (0-2.49); RBC/HPF 0-3 HPF (0-3); Squamous Epithelial 0-3 HPF (0-3); WBC/HPF 0-3 HPF (0-3)
[2018-06-11] MEDS ORDERED: diphenhydrAMINE 25 MG CAP PO SCH (14:30)
== END 2018-06-11 16:11 | disposition home or self-care (01) ==
LOC: ONC/OP 10:35
PROVIDERS: ATTEND Internal Medicine Hematology & Oncology
DX: Z51.11 Encounter for antineoplastic chemotherapy (principal); C90.00 Multiple myeloma not having achieved remission; C79.52 Secondary malignant neoplasm of bone marrow; I10 Essential (primary) hypertension; K21.9 Gastro-esophageal reflux disease without esophagitis; F17.200 Nicotine dependence, unspecified, uncomplicated; Z79.84 Long term (current) use of oral hypoglycemic drugs; Z79.899 Other long term (current) drug therapy
CPT/HCPCS: 36415; 80053; 81001; 82248; 83615; 84100; 84550; 87086; 96367; 96413; 96415; 99211; A4216; G0463; J1100; J1642; J7050; J9145

== ENCOUNTER 2018-07-09 11:40 | Day surgery (SDC) | payer MEDICARE, MEDICAID ==
[2018-07-09] MEDS ORDERED: Sodium Chloride 0.9% 20 ML ONE (11:45)
[2018-07-09 11:50] VITALS: BP 143/84; TEMP 97.6
[2018-07-09] MEDS ORDERED: SODIUM CHLORIDE 0.9% IV SCH ×2 (12:00)
[2018-07-09] MEDS ORDERED: Dexamethasone Sod Phosphate 20 MG in Sodium Chloride 0.9% 50 ML IVPB SCH (12:00)
[2018-07-09] MEDS ORDERED: Acetaminophen 500 MG TAB PO SCH (12:00)
[2018-07-09] MEDS ORDERED: Dexamethasone 20 MG in Sodium Chloride 0.9% 50 ML IVPB SCH (12:00)
[2018-07-09] MEDS ORDERED: diphenhydrAMINE 50 MG CAP PO SCH (12:00)
[2018-07-09] MEDS ORDERED: DARATUMUMAB IV SCH ×2 (12:00)
== END 2018-07-09 17:13 | disposition home or self-care (01) ==
LOC: ONC/OP 11:40
PROVIDERS: ATTEND Internal Medicine Hematology & Oncology
DX: Z51.11 Encounter for antineoplastic chemotherapy (principal); C90.00 Multiple myeloma not having achieved remission; C79.52 Secondary malignant neoplasm of bone marrow
CPT/HCPCS: 36415; 80053; 82248; 83615; 84100; 84550; 96375; 96413; 96415; J1100; J1642; J7050; J9145

== ENCOUNTER 2018-08-06 11:35 | Day surgery (SDC) | payer MEDICARE, MEDICAID ==
[2018-08-06] MEDS ORDERED: Acetaminophen 500 MG TAB PO SCH (12:00)
[2018-08-06] MEDS ORDERED: Sodium Chloride 0.9% 20 ML ONE (12:23)
[2018-08-06] MEDS ORDERED: diphenhydrAMINE 50 MG in Sodium Chloride 0.9% 50 ML IVPB SCH (12:30)
[2018-08-06] MEDS ORDERED: Dexamethasone Sod Phosphate 20 MG in Sodium Chloride 0.9% 50 ML IVPB SCH (12:30)
[2018-08-06 12:39] VITALS: BP 187/92; TEMP 98.4
[2018-08-06] MEDS ORDERED: SODIUM CHLORIDE 0.9% IV SCH (13:00)
[2018-08-06] MEDS ORDERED: DARATUMUMAB IV SCH (13:00)
== END 2018-08-06 17:41 | disposition home or self-care (01) ==
LOC: ONC/OP 11:35
PROVIDERS: ATTEND Internal Medicine Hematology & Oncology
DX: Z51.11 Encounter for antineoplastic chemotherapy (principal); C90.00 Multiple myeloma not having achieved remission; C79.52 Secondary malignant neoplasm of bone marrow
CPT/HCPCS: 36415; 80053; 82248; 83615; 84100; 84550; 85025; 96375; 96413; 96415; J1200; J1642; J7050; J9145

== ENCOUNTER 2018-10-01 12:41 | Day surgery (SDC) | payer MEDICARE, MEDICAID ==
[2018-10-01] MEDS ORDERED: diphenhydrAMINE 50 MG in Sodium Chloride 0.9% 50 ML IVPB SCH (13:00)
[2018-10-01] MEDS ORDERED: SODIUM CHLORIDE 0.9% IV SCH (13:00)
[2018-10-01] MEDS ORDERED: DARATUMUMAB IV SCH (13:00)
[2018-10-01] MEDS ORDERED: Dexamethasone 20 MG in Sodium Chloride 0.9% 50 ML IVPB SCH (13:00)
[2018-10-01] MEDS ORDERED: Acetaminophen 500 MG TAB PO SCH (13:00)
[2018-10-01] MEDS ORDERED: Famotidine/PF 20 mg/2ml Vial SLOW IVP SCH (15:30)
== END 2018-10-01 17:54 | disposition home or self-care (01) ==
LOC: ONC/OP 12:41
PROVIDERS: ATTEND Internal Medicine Hematology & Oncology
DX: Z51.12 Encounter for antineoplastic immunotherapy (principal); C79.52 Secondary malignant neoplasm of bone marrow; C90.00 Multiple myeloma not having achieved remission; E11.9 Type 2 diabetes mellitus without complications; K21.9 Gastro-esophageal reflux disease without esophagitis; F17.210 Nicotine dependence, cigarettes, uncomplicated; I10 Essential (primary) hypertension; Z79.84 Long term (current) use of oral hypoglycemic drugs; Z79.891 Long term (current) use of opiate analgesic; Z79.899 Other long term (current) drug therapy
CPT/HCPCS: 36415; 80053; 82248; 83615; 84100; 84550; 96375; 96413; 96415; J1100; J1200; J1642; J7050; J9145; S0028

== ENCOUNTER 2018-10-07 14:33 | Inpatient (IN) | payer MEDICARE, MEDICAID ==
[~2018-10-07 14:33] MED LIST changes: -Iopamidol 370 76% 50 ML VIAL FS ONE
[2018-10-07 14:55] LABS: #Basophils 0.1 thou/uL (0.0-0.2); #Lymphocytes 3.1 thou/uL (1.20-3.40); #Monocytes 0.8 thou/uL (0.11-0.59); #Neutrophils 3.5 thou/uL (1.40-6.50); %Basophils 1.4 % (0.0-1.0); %Eosinophils 0.3 % (0.0-10.0); %Lymphocytes 41.2 % (21.0-51.0); %Monocytes 11.2 % (0.0-10.0); %Neutrophils 45.9 % (42.0-75.0); Hemoglobin 14.4 g/dL (12.0-16.0); INR-International Normal Ratio 0.9; Mean Corpuscular HGB CONC 33.6 g/dL (32.0-36.0); Mean Platelet Volume 9.9 fL (7.4-10.4); Platelet Count 112 thou/uL (130-400); Prothrombin Time 12.5 SEC (12.0-14.7); RBC Distribution Width 11.9 % (11.5-14.5); Red Blood Cell (RBC) Count 4.11 mill/uL (4.20-5.40); White Blood Cell (WBC) Count 7.6 thou/uL (4.8-10.8)
[2018-10-07 15:01] LABS: ALT (SGPT) 52 U/L (8-55); AST (SGOT) 51 U/L (5-34); Albumin 4.1 g/dL (3.4-4.8); Alkaline Phosphatase 82 U/L (40-150); Anion Gap 17 mmol/L (10-20); BUN (Urea Nitrogen) 12 mg/dL (9.8-20.1); Bilirubin, Total 0.6 mg/dL (0.2-1.2); CK (CPK) 24 U/L (29-168); Calc. Creatinine Clearance 0 mL/min (70-130); Calcium 9.3 mg/dL (7.8-10.44); Carbon Dioxide 19 mmol/L (23-31); Chloride 107 mmol/L (98-107); Estimated GFR-MDRD Greater than 90; Globulin 2.4 g/dL (2.4-3.5); Glucose 101 mg/dL (80-115); Potassium 4.5 mmol/L (3.5-5.1); Protein, Total 6.5 g/dL (6.0-8.3); Sodium 138 mmol/L (136-145)
--- NOTE | 2018-10-07 15:15 | CT ---
ADDENDUM: Findings were called to Dr. Smallwood at 2:43 p.m. on 10/07/2018. CODE CR POS: [facility]
[2018-10-07] MEDS ORDERED: Metoprolol Tartrate 5 MG/5 ML VIAL ONE (15:23)
[2018-10-07] MEDS ORDERED: Aspirin Chewable 81 MG TAB ONE (15:23)
--- NOTE | 2018-10-07 15:34 | CT ---
CTA OF THE HEAD AND CTA OF THE NECK WITH CONTRAST: COMPARISON: None. HISTORY: Stroke. History of bone cancer/multiple myeloma. The patient has left facial drooping and slurred s peech. TECHNIQUE: 1. Multiple contiguous axial images were obtained in a CTA of the neck with contrast. Three-D sagit nanette and coronal MIP reformats were performed. 2. Multiple contiguous axial images were obtained in a CTA of the head with contrast. Three-D sagit nanette and coronary MIP reformats were performed. FINDINGS: CTA NECK: The common carotid arteries have a normal origin from the aortic arch. The subclavian arteries are p atent without significant atherosclerotic disease. No significant atherosclerotic disease is seen in either common carotid artery. Minimal atherosclerotic disease is seen in the proximal aspect of both internal carotid arteries. Es timated stenosis of less than 10% is seen bilaterally per NASCET criteria. The external carotid tabby nikki are patent. Both vertebral arteries are patent without significant narrowing to suggest atherosclerotic disease. Degenerative changes are seen in the spine. The lung apices are unremarkable. A MediPort is seen wi th its tip in the superior vena cava. CTA HEAD: Both cavernous portions of the internal carotid arteries have moderate diffuse nonfocal atherosclerot ic disease. The intracranial portion of the internal carotid arteries are normal in appearance witho ut significant atherosclerotic disease. These branch into normal-appearing anterior and middle cereb ral arteries. There is no evidence of occlusion, aneurysmal dilatation, or focal stenosis in the ant erior circulation. Both vertebral arteries form a normal-appearing basilar artery. The posterior cerebral arteries and cerebellar arteries are patent. There is no evidence of focal stenosis, occlusion, or aneurysmal dil atation in the posterior circulation. The visualized paranasal sinuses and mastoid air cells are well aerated. There are multiple lytic le sions in the calvarium which is also hyperdense. IMPRESSION: 1. No significant CTA abnormality of the neck. 2. No evidence of acute CTA abnormality of the head. 3. Multiple lytic lesions in the calvarium are consistent with the patient's diagnosis of multiple m yeloma. POS: [facility]
--- NOTE | 2018-10-07 16:00 | PDOC.FPRHP ---
- History of Present Illness Chief Complaint: TIA History of Present Illness: Ms. Esquivel is a 63 y/o F with a pmh of multiple myeloma, HTN, and CAD who comes into the ER today with 45 minutes of right sided upper and lower extremity weakness and numbness as well as left sided facial droop. Family also reported dysarthria and altered mental status. CT head showed no acute changes. Her symptoms began to gradually resolve around 1 hour after onset. She has been treated for multiple myeloma for the past three years. She is also complaining of low back pain but this is chronic. ED Course: ASA, metoprolol, EKG, UA, CBC CT brain, CTA head and neck - Allergies/Adverse Reactions Allergies Allergy/AdvReac Type Severity Reaction Status Date / Time No Known Allergies Allergy Verified 04/16/18 00:58 - Home Medications Medication Instructions Recorded Confirmed Type Lisinopril [Zestril] 10 mg PO DAILY #30 tab 05/05/17 10/07/18 Rx Amlodipine [Norvasc] 5 mg PO DAILY 10/07/18 10/07/18 History Cyclobenzaprine [Flexeril] 10 mg PO TID 10/07/18 10/07/18 History Diclofenac Sodium [Diclofenac 1 applic TOP DAILY PRN 10/07/18 10/07/18 History Sodium 1% Gel] Morphine ER [MS Contin] 15 mg PO SEEPHYS PRN 10/07/18 10/07/18 History Naproxen 500 mg PO BID 10/07/18 10/07/18 History Pantoprazole [Protonix] 40 mg PO DAILY 10/07/18 10/07/18 History - History PMHx: multiple myeloma, HTN, CAD, GERD PSHx: knee surgery, stent FHx: CAD Social: 1/2 ppd, no AD - Review of Systems General: denies: fever/chills, weight/appetite/sleep changes Eyes: reports: vision changes. denies: eye pain Respiratory: reports: shortness of breath. denies: cough, congestion Cardiovascular: reports: orthopnea. denies: chest pain, palpitation, edema Gastrointestinal: denies: nausea, vomiting, diarrhea, constipation Genitourinary: denies: incontinence, dysuria Skin: denies: rashes Musculoskeletal: reports: pain. denies: tenderness Neurological: reports: weakness, other - Vital signs BP: 164/101 HR: 82 RR: 18 Tmax: 98.4 Pox: 99% on RA Wt: 64kg - Physical Exam Constitutional: NAD, awake, alert and oriented, other (slow to respond, mild dysphagia) HEENT: normocephalic and atraumatic, EOMI, grossly normal vision, grossly normal hearing, MMM Neck: supple, trachea midline Chest: no-tender to palpation Heart: RRR, normal S1/S2, no murmurs/rubs/gallops, pulses present, no edema Lungs: CTAB, no respiratory distress, good air movement Abdomen: soft, non-tender, bowel sounds present, no masses/distention Musculoskeletal: normal structure, normal tone, other (R sided 4/5 strength compared to left) Neurological: CN II-XII intact (R sided facial droop), normal sensation -Neurological: Pt had some slurred speech. Family reported as improving. Pt had some slower movements on the R. side. Strenght 5/5 in extremities bilaterally. Skin: no rash/lesions, good turgor Heme/Lymphatic: no unusual bruising or bleeding Psychiatric: normal mood and affect FMR H&P: Results - Labs Result Diagrams: 10/07/18 14:38 10/07/18 14:38 Lab results: WBC 7.6 thou/uL (4.8-10.8) 10/07/18 14:38 Hgb 14.4 g/dL (12.0-16.0) 10/07/18 14:38 Hct 42.8 % (36.0-47.0) 10/07/18 14:38 MCV 104.0 fL (78.0-98.0) H 10/07/18 14:38 Plt Count 112 thou/uL (130-400) L 10/07/18 14:38 Neutrophils % 45.9 % (42.0-75.0) 10/07/18 14:38 Sodium 138 mmol/L (136-145) 10/07/18 14:38 Potassium 4.5 mmol/L (3.5-5.1) 10/07/18 14:38 Chloride 107 mmol/L (98-107) 10/07/18 14:38 Carbon Dioxide 19 mmol/L (23-31) L 10/07/18 14:38 BUN 12 mg/dL (9.8-20.1) 10/07/18 14:38 Creatinine 0.77 mg/dL (0.6-1.1) 10/07/18 14:38 Glucose 101 mg/dL (80-115) 10/07/18 14:38 Calcium 9.3 mg/dL (7.8-10.44) 10/07/18 14:38 Total Bilirubin 0.6 mg/dL (0.2-1.2) 10/07/18 14:38 AST 51 U/L (5-34) H 10/07/18 14:38 ALT 52 U/L (8-55) 10/07/18 14:38 Alkaline Phosphatase 82 U/L (40-150) 10/07/18 14:38 Creatine Kinase 24 U/L (29-168) L 10/07/18 14:38 Serum Total Protein 6.5 g/dL (6.0-8.3) 10/07/18 14:38 Albumin 4.1 g/dL (3.4-4.8) 10/07/18 14:38 FMR H&P: A/P - Problem List (1) TIA (transient ischemic attack) Current Visit: Yes Status: Acute Code(s): G45.9 - TRANSIENT CEREBRAL ISCHEMIC ATTACK, UNSPECIFIED (2) CAD (coronary artery disease) Current Visit: Yes Status: Acute Code(s): I25.10 - ATHSCL HEART DISEASE OF [place] CORONARY ARTERY W/O ANG PCTRS (3) DM type 2 (diabetes mellitus, type 2) Current Visit: No Status: Chronic Qualifiers: 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: without intermodal owner operator truck driver use Diabetes mellitus complication status: without complication Qualified Code(s): E11.9 - Type 2 diabetes mellitus without complications (4) Dyslipidemia Current Visit: No Status: Chronic Code(s): E78.5 - HYPERLIPIDEMIA, UNSPECIFIED (5) GERD (gastroesophageal reflux disease) Current Visit: No Status: Chronic Code(s): K21.9 - GASTRO-ESOPHAGEAL REFLUX DISEASE WITHOUT ESOPHAGITIS Qualifiers: Esophagitis presence: without esophagitis Qualified Code(s): K21.9 - Gastro -esophageal reflux disease without esophagitis (6) Multiple myeloma Current Visit: No Status: Chronic Code(s): C90.00 - MULTIPLE MYELOMA NOT HAVING ACHIEVED REMISSION Qualifiers: Multiple myeloma remission status: unspecified Qualified Code(s): C90.00 - Multiple myeloma not having achieved remission (7) Hypertensive urgency Current Visit: No Status: Resolved Code(s): I16.0 - HYPERTENSIVE URGENCY - Plan TIA vs CVA - resolving right sided weakness beginning on 10/07 at 1345, resolving on exam at 1630 - CTA head and neck neg for acute hemorrhagic stroke - TPA risks/benefits/indication discussed by ED physician with pt and family- declined - ASA given, continue daily, atorvastatin 80mg - TSH, FLP, MRI pending - permissive HTN for 24hrs - NPO until eval by ST - neuro checks HTN - hold home meds until 10/08 - hydralazine prn BP>220/110 CAD - aware, no CP at this time - EKG, morphine, nitro for CP DMII - monitor, hold metformin for recent contrast Multiple myeloma - aware, monitor CBC - hold opiates for now GERD - aware, continue home meds when tolerating NPO Tobacco use - encourage cessation code: full ppx: lovenox Dispo: admit to stroke, MRI, reduce risk factors FMR H&P: Upper Level - Pertinent history Pt started having R. sided weakness around 1:00 this afternoon. Pt reports feels like it is getting better today. Pt denies any chest pain or SOB at this time. - Pertinent findings Neuro; R. sided facial Droop. Pt had some slurred speech. Family reported as improving. Pt had some slower movements on the R. side. Strenght 5/5 in extremities bilaterally. Cardio: RRR, no murmurs or gallops, No bruits Resp: CTA-B, no wheezes or crackles. - Plan Date/Time: 10/07/18 2182 I, Olvin Shell MD, have evaluated this patient and agree with findings/plan as outlined by management intern resident. Pertinent changes/additions are listed here. I was present in the room with the management intern while he asked questions and obtained the History and Physical. I scribed during the encounter in the room. I asked additional questions as needed. I changed to edited the above H&P as needed. TIA vs CVA - resolving right sided weakness beginning on 10/07 at 1345, resolving on exam at 1630. - CTA head and neck neg for acute hemorrhagic stroke. Shows some changes related to Multiple myeloma -MRI pending. -Neurology- Maraist consulted- follow recs. - TPA risks/benefits/indication discussed by ED physician with pt and family- declined - ASA given, continue daily, atorvastatin 80mg - TSH, FLP, - permissive HTN for 24hrs - NPO until eval by ST - neuro checks HTN - hold home meds until 10/08 - hydralazine/Labetolol prn to keep BP>220/110 CAD - aware, no CP at this time - EKG, morphine, nitro for CP DMII - monitor, hold metformin for recent contrast Multiple myeloma - aware, monitor CBC -possible cause of weakness. -Will consult Oncology if needed. - hold opiates for now GERD - aware, continue home meds when tolerating NPO Tobacco use - counseled on cessation. Addendum - Attending - Attending Attestation Date/Time: 10/07/182115 I personally evaluated the patient and discussed the management with Dr. Mansfield/ [place]. I agree with the History, Examination, Assessment and Plan documented above with any addition or exceptions noted below. Patient here with weakness and dysarthria that was transient in nature and overall resolved at this time. Suspect possible CVA or TIA as other lab testing and imaging non revealing at this point. Plan for MRI in AM as well as echo. Allow permissive HTN for 24 hours or until CVA excluded. ST/PT/OT. Continue home meds for chronic conditions otherwise.
[2018-10-07 16:25] LABS: Bilirubin Negative (Negative); Blood, Urine Negative (Negative); Clarity CLEAR (Clear); Glucose, Urine (Dipstick) Negative (Negative); Leukocyte Negative (Negative); Nitrite Negative (Negative); Protein, Urine (Dipstick) 30 mg/dL (Neg-Trace); Specific Gravity, Urine 1.032 (1.002-1.036); pH, Urine 7.5 (5.0-9.0)
[2018-10-07 16:27] LABS: Bacteria/HPF None Seen HPF (None Seen); Hyaline Casts/LPF 0-3 HYALINE CAST LPF (0-3 Hyaline); Pathc Cast-AUWi Flag 0.43 (0-2.49); RBC/HPF 0-3 HPF (0-3); Squamous Epithelial 0-3 HPF (0-3); WBC/HPF 0-3 HPF (0-3)
[2018-10-07] MEDS ORDERED: Morphine 4 MG/ML VIAL ONE (17:50)
[2018-10-07] MEDS ORDERED: Ondansetron ODT 4 MG TAB PO PRN (18:21)
[2018-10-07] MEDS ORDERED: Acetaminophen 325 MG TAB PO PRN (18:21)
[2018-10-07 18:41] LABS: Hemoglobin A1c 6.1 % (4.0-6.0)
[2018-10-07] MEDS: Atorvastatin Calcium 40 MG TAB PO SCH (21:28)
[2018-10-07] MEDS ORDERED: Morphine ER 15 MG TAB PO PRN (21:46)
[2018-10-07] MEDS ORDERED: Ketorolac Tromethamine 30 MG/ML VIAL IVP SCH (22:00)
[2018-10-08 03:28] VITALS: BMI 23.7
[2018-10-08] MEDS ORDERED: Ketorolac Tromethamine 30 MG/ML VIAL IVP SCH (05:00)
[2018-10-08] MEDS ORDERED: Morphine IR Tab 15 MG TAB PO PRN (05:03)
[2018-10-08 05:24] LABS: #Basophils 0.1 thou/uL (0.0-0.2); #Lymphocytes 2.3 thou/uL (1.20-3.40); #Monocytes 0.8 thou/uL (0.11-0.59); #Neutrophils 2.8 thou/uL (1.40-6.50); %Basophils 0.9 % (0.0-1.0); %Eosinophils 0.4 % (0.0-10.0); %Lymphocytes 38.8 % (21.0-51.0); %Monocytes 12.8 % (0.0-10.0); %Neutrophils 47.1 % (42.0-75.0); Hemoglobin 13.9 g/dL (12.0-16.0); Mean Corpuscular HGB CONC 33.3 g/dL (32.0-36.0); Mean Corpuscular Hemoglobin 34.6 pg (27.0-31.0); Mean Platelet Volume 10.3 fL (7.4-10.4); Platelet Count 110 thou/uL (130-400); RBC Distribution Width 12.1 % (11.5-14.5); Red Blood Cell (RBC) Count 4.02 mill/uL (4.20-5.40); White Blood Cell (WBC) Count 5.9 thou/uL (4.8-10.8)
[2018-10-08 05:40] LABS: ALT (SGPT) 45 U/L (8-55); AST (SGOT) 48 U/L (5-34); Alkaline Phosphatase 73 U/L (40-150); Anion Gap 15 mmol/L (10-20); BUN (Urea Nitrogen) 16 mg/dL (9.8-20.1); Bilirubin, Total 0.6 mg/dL (0.2-1.2); Calc. Creatinine Clearance 68 mL/min (70-130); Calcium 9.4 mg/dL (7.8-10.44); Carbon Dioxide 18 mmol/L (23-31); Cardiac Risk 5.3 (Less than 4.5); Chloride 108 mmol/L (98-107); Cholesterol 210 mg/dl (< 200 Desired); Estimated GFR-MDRD Greater than 90; Globulin 2.5 g/dL (2.4-3.5); Glucose 107 mg/dL (80-115); HDL Cholesterol 40 mg/dL (>60 Neg Risk); LDL Cholesterol, Calculated 122 mg/dL; Potassium 4.4 mmol/L (3.5-5.1); Protein, Total 6.5 g/dL (6.0-8.3); Sodium 137 mmol/L (136-145); Triglycerides 238 mg/dL (Less than 150)
--- NOTE | 2018-10-08 06:34 | PDOC.FM ---
- Subjective Subjective: Pt reports still not feeling good this morning. Pt still having weakness on the R. side. Pt having R. sided facial droop. Pt speech still slurred. Pt denies any pain. Denies any acute events overnight. Denies any SOB or Chest pain. Pt denies any n/v/d/c. Pt A&Ox3 - Objective MAR Reviewed: Yes Vital Signs & Weight: Vital Signs (12 hours) Temp Pulse Resp BP Pulse Ox 10/08/18 05:34 98.9 F 86 20 179/101 H 98 10/08/18 00:00 98.2 F 76 20 168/94 H 99 10/07/18 20:20 99 10/07/18 20:00 98.4 F 71 18 159/96 H 99 Weight Weight 58.922 kg Result Diagrams: 10/08/18 04:40 10/08/18 04:40 EKG Reviewed by me: Yes Radiology Reviewed by me: Yes (CTA Shows some changes related to multiple myeloma. ) Phys Exam - Physical Examination Constitutional: NAD HEENT: PERRLA, moist MMs Neck: no nodes, supple, full ROM Respiratory: no wheezing, no rhonchi, clear to auscultation bilateral Cardiovascular: RRR, no significant murmur, no rub Gastrointestinal: soft, non-tender, no distention, positive bowel sounds Musculoskeletal: no edema, pulses present Neurological: normal sensation, moves all 4 limbs (R. side movements much slower. Unable to wiggle fingers) R. facial droop. Slurred speech. Unable to lift R. shoulder. Strenght 3/5 on R. side. unable to move as well. 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: without magnet valve assembler use Diabetes mellitus complication status: without complication Qualified Code(s): E11.9 - Type 2 diabetes mellitus without complications (5) Dyslipidemia Code(s): E78.5 - HYPERLIPIDEMIA, UNSPECIFIED Status: Chronic (6) GERD (gastroesophageal reflux disease) Code(s): K21.9 - GASTRO-ESOPHAGEAL REFLUX DISEASE WITHOUT ESOPHAGITIS Status: Chronic Qualifiers: Esophagitis presence: without esophagitis Qualified Code(s): K21.9 - Gastro -esophageal reflux disease without esophagitis (7) Multiple myeloma Code(s): C90.00 - MULTIPLE MYELOMA NOT HAVING ACHIEVED REMISSION Status: Chronic Qualifiers: Multiple myeloma remission status: unspecified Qualified Code(s): C90.00 - Multiple myeloma not having achieved remission (8) Hypertensive urgency Code(s): I16.0 - HYPERTENSIVE URGENCY Status: Resolved - Plan Plan: TIA vs CVA - Pt still having R. sided facial droop and weakness. Pt denies any improvement since yesterday admission. Looking more stroke related at this time. - CTA head and neck neg for acute hemorrhagic stroke. Shows some changes related to Multiple myeloma -MRI pending. -Neurology- Deondre consulted- follow recs. - TPA risks/benefits/indication discussed by ED physician with pt and family- declined - ASA given, continue daily, atorvastatin 80mg - TSH- normal -Cholesterol 210 elevated. - permissive HTN for 24hrs - NPO until eval by ST - neuro checks HTN - hold home meds until 10/08 - hydralazine/Labetolol prn to keep BP>220/110 CAD - aware, no CP at this time - EKG, morphine, nitro for CP DMII - monitor, hold metformin for recent contrast Multiple myeloma - aware, monitor CBC -possible cause of weakness. -Will consult Oncology if needed. - hold opiates for now GERD - aware, continue home meds when tolerating NPO -Mild SSI, Accuchecks ACHS Tobacco use - counseled on cessation. Addendum - Attending - Attending Attestation Date/Time: 10/08/18 1753 I personally evaluated the patient and discussed the management with Dr. Shell. I agree with the History, Examination, Assessment and Plan documented above with any addition or exceptions noted below. Patient continues to have pain and complaints of R arm weakness and some facial droop. Speech slurred. MRI pending. Allowing permissive HTN at this time and Neuro has been consulted. Continue therapy services and await recs. Needs statin therapy that has been started as well as ASA therapy.
[2018-10-08] MEDS ORDERED: Dextrose 50% Abboject 50 ML SYRINGE SLOW IVP PRN (06:38)
[2018-10-08] MEDS ORDERED: Dextrose 5% in Water 1,000 ML IV PRN (06:38)
[2018-10-08] MEDS: Morphine ER 15 MG TAB PO PRN ×2 (08:49→18:02)
[2018-10-08] MEDS: Aspirin 81 mg Enteric Coated Tablet PO SCH (08:51)
[2018-10-08] MEDS: Enoxaparin Sodium 40 MG/0.4 ML SYRINGE SC SCH (08:52)
--- NOTE | 2018-10-08 14:00 | MRI ---
MRI BRAIN WITHOUT CONTRAST: HISTORY: Left-sided facial droop. Slurred speech. CORRELATION: The previous day's CT scan. FINDINGS: There is a 13 mm focus of restricted diffusion in the left periventricular white matter, consistent w ith acute infarction. Patchy areas of T2 prolongation in the periventricular white matter are consis tent with chronic small vessel ischemic disease. No evidence of hemorrhage, midline shift, or abnorm al extraaxial fluid collections is seen. The ventricular size is appropriate, and the basilar cister ns are patent. There is mild mucosal disease in the paranasal sinuses. Heterogeneity in the calvari um corresponds to the lytic lesions on the bone windows of the CT scan from the previous day (multipl e myeloma). IMPRESSION: Acute focal infarction in the left periventricular white matter. POS: [facility]
[2018-10-08] MEDS: Morphine 2 MG/ML SYRINGE SLOW IVP PRN ×3 (16:11→23:47)
[2018-10-08] MEDS: Atorvastatin Calcium 40 MG TAB PO SCH (20:05)
[2018-10-08] MEDS: HumaLOG 300 UNITS/3 ML VIAL SC PRN (21:48)
[2018-10-09] MEDS: Morphine 2 MG/ML SYRINGE SLOW IVP PRN ×5 (05:18→22:22)
--- NOTE | 2018-10-09 06:27 | PDOC.FM ---
- Subjective Subjective: Pt resting in bed. Pt still reports feeling weak on the R. side. Pt denies any new symptoms. Denies any new numbness or tingling. denies any chest pain or SOB. No acute events overnight. - Objective MAR Reviewed: Yes Vital Signs & Weight: Vital Signs (12 hours) Temp Pulse Resp BP BP BP Pulse Ox 10/09/18 03:21 98.3 F 78 18 136/98 H 99 10/08/18 23:08 98.3 F 73 18 167/106 H 98 10/08/18 20:04 86 218/108 H 10/08/18 20:00 98 10/08/18 19:35 97.5 F L 86 18 98 10/08/18 19:15 218/108 H Weight Weight 58.922 kg I&O: 10/07/18 10/08/18 10/09/18 06:59 06:59 06:59 Intake Total 696 Balance 696 Result Diagrams: 10/08/18 04:40 10/08/18 04:40 EKG Reviewed by me: Yes Radiology Reviewed by me: Yes (MRI Brain: Infarction of L. periventricular white matter) Phys Exam - Physical Examination Constitutional: NAD HEENT: PERRLA, moist MMs Neck: no nodes, supple, full ROM Respiratory: no wheezing, no rhonchi, clear to auscultation bilateral Cardiovascular: RRR, no significant murmur, no rub Gastrointestinal: soft, non-tender, no distention, positive bowel sounds Musculoskeletal: pulses present Neurological: moves all 4 limbs (Moves th right slide with much more effort and slowly ) R. sided facial droop. R. side UE/LE strength 3/5. Moves very slowly Did not answer about sensation when testing. 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 use: without fci use Diabetes mellitus complication status: without complication Qualified Code(s): E11.9 - Type 2 diabetes mellitus without complications (4) Dyslipidemia Code(s): E78.5 - HYPERLIPIDEMIA, UNSPECIFIED Status: Chronic (5) GERD (gastroesophageal reflux disease) Code(s): K21.9 - GASTRO-ESOPHAGEAL REFLUX DISEASE WITHOUT ESOPHAGITIS Status: Chronic Qualifiers: Esophagitis presence: without esophagitis Qualified Code(s): K21.9 - Gastro -esophageal reflux disease without esophagitis (6) Multiple myeloma Code(s): C90.00 - MULTIPLE MYELOMA NOT HAVING ACHIEVED REMISSION Status: Chronic Qualifiers: Multiple myeloma remission status: unspecified Qualified Code(s): C90.00 - Multiple myeloma not having achieved remission (7) Hypertensive urgency Code(s): I16.0 - HYPERTENSIVE URGENCY Status: Resolved - Plan Plan: CVA - MRI shows acute focal infarction of L. periventricular white matter. Pt having R. sided related weakness and facial droop. - CTA head and neck neg for acute hemorrhagic stroke. Shows some changes related to Multiple myeloma -Neurology- Deondre consulted- follow recs. - TPA risks/benefits/indication discussed by ED physician with pt and family- declined - ASA given, continue daily, atorvastatin 80mg - TSH- normal -Cholesterol 210 elevated. - neuro checks -Rehab team consulted as pt will need stay in inpatient rehab HTN - continue home meds. BP stable. Continue to monitor and adjust as needed - hydralazine/Labetolol prn to keep BP>220/110 CAD - aware, no CP at this time - EKG, morphine, nitro for CP DMII - monitor -continue home medications -Mild SSI, Accuchecks ACHS Multiple myeloma - aware, monitor CBC -possible cause of weakness. -Will consult Oncology if needed. -continue home meds GERD - aware, continue home meds Tobacco use - counseled on cessation. Addendum - Attending - Attending Attestation Date/Time: 10/09/18 0709 I personally evaluated the patient and discussed the management with Dr. Shell. I agree with the History, Examination, Assessment and Plan documented above with any addition or exceptions noted below. Patient continues to complain of weakness. Her MRI did show acute CVA. Continue on statin and ASA therapy. Awaiting neuro recs. Gain control of HTN today and continue therapy services. Appears that she needs placement at inpt rehab and will work to facilitate that today.
[2018-10-09] MEDS: metFORMIN 500 MG TAB PO SCH (08:25)
[2018-10-09] MEDS: Lisinopril 10 MG TAB PO SCH (08:25)
[2018-10-09] MEDS: Amlodipine 5 MG TAB PO SCH (08:25)
[2018-10-09] MEDS: Naproxen 500 MG TAB PO SCH ×2 (08:25→20:37)
[2018-10-09] MEDS: Aspirin 81 mg Enteric Coated Tablet PO SCH (08:26)
[2018-10-09] MEDS: Cyclobenzaprine 10 MG TAB PO SCH ×3 (08:26→20:37)
[2018-10-09] MEDS: Enoxaparin Sodium 40 MG/0.4 ML SYRINGE SC SCH (08:27)
--- NOTE | 2018-10-09 17:37 | CON ---
DATE OF CONSULTATION: 10/09/2018 CONSULTING PHYSICIAN: [facility]. IMPRESSION: 1. Lacunar infarction, resulting in right-sided weakness. 2. Tobacco abuse. 3. Aspirin failure. 4. Hypertension. 5. Coronary artery disease. 6. Diabetes. 7. Hyperlipidemia. PLAN: 1. Continue aspirin and add Plavix. 2. Continue statin therapy. 3. Rehab transfer. 4. Review echocardiogram when available. HISTORY OF PRESENT ILLNESS: Ms. Esquivel is a 63-year-old black female, who came in with acute onset right-sided weakness. The symptoms have not improved a great deal since admission. Her initial CTA did not show any large vessel stenosis. MRI of the brain showed an acute area of infarction in the left periventricular region. The echocardiogram is pending. She has been able to swallow. She is not complaining of headache, nausea, vomiting, or vertigo. PAST HISTORY: As listed above. ALLERGIES: NONE REPORTED. SOCIAL HISTORY: Positive for tobacco. FAMILY HISTORY: Noncontributory. MEDICATIONS: List was reviewed. REVIEW OF SYSTEMS: A 10-system review of systems is otherwise negative. PHYSICAL EXAMINATION: VITAL SIGNS: Stable. She is afebrile. GENERAL: She is a well-nourished elderly woman, in no distress. HEENT: Pupils are equal. Conjunctivae clear. Oropharynx clear. NECK: Supple. No lymphadenopathy. ABDOMEN: Soft and nontender. EXTREMITIES: No cyanosis or edema. NEUROLOGIC: She was alert and cooperative. Her speech is a bit dysarthric. She has a right facial droop. She only has 3/5 strength in the right arm at best with diminished movement in the hand, more so than the proximal area. She has antigravity strength in the right leg. She was able to stand and walk 3 feet today. Sensations intact to touch. No abnormal movements were seen. DIAGNOSTIC STUDIES: EKG shows a sinus rhythm. IMAGING STUDIES: Reviewed. LABORATORY RESULTS: Laboratory studies were reviewed as well. SUMMARY: A 63-year-old woman with a lacunar stroke secondary to her underlying risk factors. She failed aspirin therapy. I would add Plavix and anticipate her transfer to rehab. Job ID: [id number]
[2018-10-09] MEDS: Nicotine 14 MG PATCH TD SCH (18:52)
[2018-10-09] MEDS: Atorvastatin Calcium 40 MG TAB PO SCH (20:36)
[2018-10-10] MEDS: Morphine 2 MG/ML SYRINGE SLOW IVP PRN ×5 (04:06→23:59)
--- NOTE | 2018-10-10 06:21 | PDOC.FM ---
- Subjective Subjective: Pt resting in bed this morning. Pt still reports weakness on the R. side. Pt denies any tingling. Denies any headache or vision changes. Denies chest pain or SOB. Denies any n/v/d/c. No acute events overnight. Pt reports pain being well controlled at this time. - Objective MAR Reviewed: Yes Vital Signs & Weight: Vital Signs (12 hours) Temp Pulse Resp BP BP Pulse Ox 10/10/18 04:00 97.8 F 75 16 131/82 95 10/10/18 00:00 98.4 F 74 18 127/84 97 10/09/18 20:07 97.6 F 74 14 149/95 H 94 L 10/09/18 20:00 94 L Weight Weight 58.922 kg I&O: 10/08/18 10/09/18 10/10/18 06:59 06:59 06:59 Intake Total 696 Balance 696 Result Diagrams: 10/08/18 04:40 10/08/18 04:40 EKG Reviewed by me: Yes (Sinus rhythm) Radiology Reviewed by me: Yes (ECHO shows 1/3 Diastolic dysfunction. Normal EF) Phys Exam - Physical Examination Constitutional: NAD HEENT: PERRLA, moist MMs Neck: no nodes, no JVD, supple, full ROM Respiratory: no wheezing, no rales, clear to auscultation bilateral Cardiovascular: RRR, no significant murmur, no rub Gastrointestinal: soft, non-tender, no distention, positive bowel sounds Musculoskeletal: no edema, pulses present R. sided facial droop. Slurred speech still noted. Strenght 3/5 on R. side Pt denies any numbness. R. side movement slower Psychiatric: normal affect, A&O x 3 Skin: no rash, normal turgor, cap refill <2 seconds Dx/Plan (1) Stroke Code(s): I63.9 - CEREBRAL INFARCTION, UNSPECIFIED Status: Acute (2) CAD (coronary artery disease) Code(s): I25.10 - ATHSCL HEART DISEASE OF [place] CORONARY ARTERY W/O ANG PCTRS Status: Acute (3) DM type 2 (diabetes mellitus, type 2) Status: Chronic Qualifiers: Diabetes mellitus extermination inspector insulin use: without extermination inspector use Diabetes mellitus complication status: without complication Qualified Code(s): E11.9 - Type 2 diabetes mellitus without complications (4) Dyslipidemia Code(s): E78.5 - HYPERLIPIDEMIA, UNSPECIFIED Status: Chronic (5) GERD (gastroesophageal reflux disease) Code(s): K21.9 - GASTRO-ESOPHAGEAL REFLUX DISEASE WITHOUT ESOPHAGITIS Status: Chronic Qualifiers: Esophagitis presence: without esophagitis Qualified Code(s): K21.9 - Gastro -esophageal reflux disease without esophagitis (6) Multiple myeloma Code(s): C90.00 - MULTIPLE MYELOMA NOT HAVING ACHIEVED REMISSION Status: Chronic Qualifiers: Multiple myeloma remission status: unspecified Qualified Code(s): C90.00 - Multiple myeloma not having achieved remission (7) Hypertensive urgency Code(s): I16.0 - HYPERTENSIVE URGENCY Status: Resolved - Plan Plan: CVA - MRI shows acute focal infarction of L. periventricular white matter. Pt having R. sided related weakness and facial droop. - CTA head and neck neg for acute hemorrhagic stroke. Shows some changes related to Multiple myeloma -Neurology- Deondre consulted- follow recs. -Will add plavix at this time. - TPA risks/benefits/indication discussed by ED physician with pt and family- declined - ASA given, continue daily, atorvastatin 80mg - TSH- normal -Cholesterol 210 elevated. on statin - neuro checks -Rehab team consulted as pt will need stay in inpatient rehab HTN - continue home meds. BP stable. Continue to monitor and adjust as needed - hydralazine/Labetolol prn to keep BP>220/110 CAD - aware, no CP at this time - EKG, morphine, nitro for CP DMII - monitor -continue home medications -Mild SSI, Accuchecks ACHS Multiple myeloma - aware, monitor CBC -possible cause of weakness. -continue home meds GERD - aware, continue home meds Tobacco use - counseled on cessation. Addendum - Attending - Attending Attestation Date/Time: 10/10/18 0343 I personally evaluated the patient and discussed the management with Dr. Shell. I agree with the History, Examination, Assessment and Plan documented above with any addition or exceptions noted below. Patient here s/p CVA and with post stroke care. BP well controlled at this time. On ASA, Plavix, statin. Continue therapy services and await placement at rehab facility.
[2018-10-10] MEDS: Enoxaparin Sodium 40 MG/0.4 ML SYRINGE SC SCH (08:59)
[2018-10-10] MEDS: Amlodipine 5 MG TAB PO SCH (09:00)
[2018-10-10] MEDS: Clopidogrel Bisulfate 75 MG TAB PO SCH (09:00)
[2018-10-10] MEDS: Naproxen 500 MG TAB PO SCH ×2 (09:01→20:20)
[2018-10-10] MEDS: Lisinopril 10 MG TAB PO SCH (09:01)
[2018-10-10] MEDS: Cyclobenzaprine 10 MG TAB PO SCH ×3 (09:02→20:20)
[2018-10-10] MEDS: metFORMIN 500 MG TAB PO SCH (09:02)
[2018-10-10] MEDS: Aspirin 81 mg Enteric Coated Tablet PO SCH (09:03)
[2018-10-10] MEDS: HumaLOG 300 UNITS/3 ML VIAL SC PRN (10:24)
[2018-10-10] MEDS: Nicotine 14 MG PATCH TD SCH (18:39)
[2018-10-10] MEDS: Atorvastatin Calcium 40 MG TAB PO SCH (20:19)
[2018-10-11] MEDS: Morphine 2 MG/ML SYRINGE SLOW IVP PRN ×3 (04:20→15:59)
--- NOTE | 2018-10-11 07:09 | PDOC.FM ---
- Subjective Subjective: Pt reports doing about the same this morning. Still reports being weak on the R. side. Jose any SOB or chest pain. Denies any weakness, dizziness, lightheadness. Denies any numbness or tingling. Reports pain being well controlled at this time. - Objective MAR Reviewed: Yes Vital Signs & Weight: Vital Signs (12 hours) Temp Pulse Resp BP Pulse Ox 10/11/18 04:00 98.4 F 88 18 158/97 H 98 10/11/18 00:00 98.3 F 81 14 145/86 H 100 10/10/18 20:20 97 10/10/18 20:00 97.6 F 86 14 155/91 H 97 Weight Weight 58.922 kg I&O: 10/10/18 10/11/18 10/12/18 06:59 06:59 06:59 Intake Total 1100 Balance 1100 Result Diagrams: 10/08/18 04:40 10/08/18 04:40 EKG Reviewed by me: Yes Radiology Reviewed by me: Yes (No new imaging ) Phys Exam - Physical Examination Constitutional: NAD HEENT: PERRLA, moist MMs Neck: no nodes, supple, full ROM Respiratory: no wheezing, no rales, no rhonchi, clear to auscultation bilateral Cardiovascular: RRR, no significant murmur, no rub Gastrointestinal: soft, non-tender, no distention, positive bowel sounds Musculoskeletal: no edema, pulses present r. facial droop improving. Still present. Speech slightly slurred Strenght 3/5 on R. side. Moves r. limbs much more slowly Deviation from normal: Pt has depressed affect Skin: no rash, normal turgor, cap refill <2 seconds Dx/Plan (1) Stroke Code(s): I63.9 - CEREBRAL INFARCTION, UNSPECIFIED Status: Acute (2) CAD (coronary artery disease) Code(s): I25.10 - ATHSCL HEART DISEASE OF [place] CORONARY ARTERY W/O ANG PCTRS Status: Acute (3) DM type 2 (diabetes mellitus, type 2) Status: Chronic Qualifiers: Diabetes mellitus skilled nursing insulin use: without terminal superintendent use Diabetes mellitus complication status: without complication Qualified Code(s): E11.9 - Type 2 diabetes mellitus without complications (4) Dyslipidemia Code(s): E78.5 - HYPERLIPIDEMIA, UNSPECIFIED Status: Chronic (5) GERD (gastroesophageal reflux disease) Code(s): K21.9 - GASTRO-ESOPHAGEAL REFLUX DISEASE WITHOUT ESOPHAGITIS Status: Chronic Qualifiers: Esophagitis presence: without esophagitis Qualified Code(s): K21.9 - Gastro -esophageal reflux disease without esophagitis (6) Multiple myeloma Code(s): C90.00 - MULTIPLE MYELOMA NOT HAVING ACHIEVED REMISSION Status: Chronic Qualifiers: Multiple myeloma remission status: unspecified Qualified Code(s): C90.00 - Multiple myeloma not having achieved remission (7) Hypertensive urgency Code(s): I16.0 - HYPERTENSIVE URGENCY Status: Resolved - Plan Plan: CVA - MRI shows acute focal infarction of L. periventricular white matter. Pt having R. sided related weakness and facial droop. - CTA head and neck neg for acute hemorrhagic stroke. Shows some changes related to Multiple myeloma -Neurology- Deondre consulted- follow recs. -Will add plavix at this time. - TPA risks/benefits/indication discussed by ED physician with pt and family- declined - ASA given, continue daily, atorvastatin 80mg - TSH- normal -Cholesterol 210 elevated. on statin - neuro checks -Rehab team consulted. Pt waiting on Rehab bed. Pt has been approved HTN - continue home meds. BP a little elevated. May adjust medication. - hydralazine/Labetolol prn to keep BP>220/110 CAD - aware, no CP at this time - EKG, morphine, nitro for CP DMII - monitor -continue home medications -Mild SSI, Accuchecks ACHS Multiple myeloma - aware, monitor CBC -possible cause of weakness. -continue home meds GERD - aware, continue home meds Tobacco use - counseled on cessation.
[2018-10-11 07:52] LABS: Anion Gap 12 mmol/L (10-20); BUN (Urea Nitrogen) 21 mg/dL (9.8-20.1); Calc. Creatinine Clearance 61 mL/min (70-130); Calcium 9.5 mg/dL (7.8-10.44); Carbon Dioxide 20 mmol/L (23-31); Chloride 109 mmol/L (98-107); Estimated GFR-MDRD 81; Glucose 115 mg/dL (80-115); Sodium 136 mmol/L (136-145)
[2018-10-11] MEDS: Lisinopril 10 MG TAB PO SCH (09:15)
[2018-10-11] MEDS: metFORMIN 500 MG TAB PO SCH (09:15)
[2018-10-11] MEDS: Naproxen 500 MG TAB PO SCH ×2 (09:15→20:35)
[2018-10-11] MEDS: Cyclobenzaprine 10 MG TAB PO SCH ×3 (09:16→20:35)
[2018-10-11] MEDS: Amlodipine 10 MG TAB PO SCH (09:16)
[2018-10-11] MEDS: Clopidogrel Bisulfate 75 MG TAB PO SCH (09:16)
[2018-10-11] MEDS: Aspirin 81 mg Enteric Coated Tablet PO SCH (09:16)
[2018-10-11] MEDS: Enoxaparin Sodium 40 MG/0.4 ML SYRINGE SC SCH (09:17)
--- NOTE | 2018-10-11 10:36 | PRG ---
DATE OF SERVICE: 10/11/2018 Ms. Esquivel is a 63-year-old black female, who has had a lacunar infarct resulting in some right-sided facial droopiness and right-sided partial hemiparesis. She is clinically stable. She has been seen by the Neurology Service, who has recommended that we add Plavix to the patient's aspirin regimen. She is already on her atorvastatin. We will continue to follow. Clinically, she is stable and we are awaiting a rehab placement. Job ID: [id number]
[2018-10-11] MEDS: HumaLOG 300 UNITS/3 ML VIAL SC PRN (12:05)
--- NOTE | 2018-10-11 16:00 | EKG ---
Test Reason : STROKE ALERT Blood Pressure : / mmHG Vent. Rate : 078 BPM Atrial Rate : 078 BPM P-R Int : 108 ms QRS Dur : 074 ms QT Int : 410 ms P-R-T Axes : 017 -56 057 degrees QTc Int : 467 ms Poor data quality, interpretation may be adversely affected Sinus rhythm with short WI Left anterior fascicular block Inferior-posterior infarct , age undetermined Abnormal ECG Confirmed by LIZETH LOWRY ([id number]), story editor MONIQUE CAREY ([id number]) on 10/11/2018 3:59:53 PM Referred By: Confirmed By:LIZETH LOWRY
[2018-10-11] MEDS: Nicotine 14 MG PATCH TD SCH (18:27)
[2018-10-11] MEDS: Morphine ER 15 MG TAB PO PRN (20:35)
[2018-10-11] MEDS: Atorvastatin Calcium 40 MG TAB PO SCH (20:35)
--- NOTE | 2018-10-12 07:43 | PDOC.FM ---
- Subjective Subjective: Pt resting in bed. Denies any acute events overnight. Pt denies any changes in symptoms. Pt denies any chest pain or SOB. Reports pain being well controlled at this time. - Objective MAR Reviewed: Yes Vital Signs & Weight: Vital Signs (12 hours) Temp Pulse Resp BP Pulse Ox 10/12/18 04:36 98.1 F 80 16 139/76 99 10/11/18 23:16 98.4 F 84 12 117/65 98 10/11/18 20:45 100 Weight Weight 58.922 kg I&O: 10/11/18 10/12/18 10/13/18 06:59 06:59 06:59 Intake Total 1100 633 Balance 1100 633 Result Diagrams: 10/08/18 04:40 10/11/18 07:16 EKG Reviewed by me: Yes (Sinus rhytym ) Radiology Reviewed by me: Yes (No new imaging to review) Phys Exam - Physical Examination Constitutional: NAD HEENT: PERRLA, moist MMs, oral pharynx no lesions Neck: no nodes, no JVD, supple, full ROM Respiratory: no wheezing, no rhonchi Some mild rales noted bilaterally Cardiovascular: RRR, no significant murmur, no rub Gastrointestinal: soft, non-tender, positive bowel sounds Musculoskeletal: no edema, pulses present Strenght 3/5 on the R. side. R. facial droop with some slurred speech. Moves right arm and legs slower Lymphatic: no nodes Psychiatric: normal affect, A&O x 3 Skin: no rash, normal turgor, cap refill <2 seconds Dx/Plan (1) Stroke Code(s): I63.9 - CEREBRAL INFARCTION, UNSPECIFIED Status: Acute (2) CAD (coronary artery disease) Code(s): I25.10 - ATHSCL HEART DISEASE OF [place] CORONARY ARTERY W/O ANG PCTRS Status: Acute (3) DM type 2 (diabetes mellitus, type 2) Status: Chronic Qualifiers: Diabetes mellitus long term care phlebotomist insulin use: without long term care phlebotomist use Diabetes mellitus complication status: without complication Qualified Code(s): E11.9 - Type 2 diabetes mellitus without complications (4) Dyslipidemia Code(s): E78.5 - HYPERLIPIDEMIA, UNSPECIFIED Status: Chronic (5) GERD (gastroesophageal reflux disease) Code(s): K21.9 - GASTRO-ESOPHAGEAL REFLUX DISEASE WITHOUT ESOPHAGITIS Status: Chronic Qualifiers: Esophagitis presence: without esophagitis Qualified Code(s): K21.9 - Gastro -esophageal reflux disease without esophagitis (6) Multiple myeloma Code(s): C90.00 - MULTIPLE MYELOMA NOT HAVING ACHIEVED REMISSION Status: Chronic Qualifiers: Multiple myeloma remission status: unspecified Qualified Code(s): C90.00 - Multiple myeloma not having achieved remission (7) Hypertensive urgency Code(s): I16.0 - HYPERTENSIVE URGENCY Status: Resolved - Plan Plan: CVA - MRI shows acute focal infarction of L. periventricular white matter. Pt having R. sided related weakness and facial droop. - CTA head and neck neg for acute hemorrhagic stroke. Shows some changes related to Multiple myeloma -Neurology- Deondre consulted- follow recs. - TPA risks/benefits/indication discussed by ED physician with pt and family- declined - ASA given, Plavix continue daily, atorvastatin 80mg - TSH- normal -Cholesterol 210 elevated. on statin - neuro checks -Rehab team consulted. Pt waiting on Rehab bed. Pt has been approved HTN - continue home meds. BP stable. Increased amlodipine to 10 mg yesterday. - hydralazine/Labetolol prn to keep BP>220/110 CAD - aware, no CP at this time - EKG, morphine, nitro for CP DMII - monitor -continue home medications -Mild SSI, Accuchecks ACHS Multiple myeloma - aware, monitor CBC -possible cause of weakness. -continue home meds GERD - aware, continue home meds Tobacco use - counseled on cessation.
[2018-10-12] MEDS: Enoxaparin Sodium 40 MG/0.4 ML SYRINGE SC SCH (09:27)
[2018-10-12] MEDS: Lisinopril 10 MG TAB PO SCH (09:28)
[2018-10-12] MEDS: Naproxen 500 MG TAB PO SCH ×2 (09:28→22:11)
[2018-10-12] MEDS: Morphine ER 15 MG TAB PO PRN (09:29)
[2018-10-12] MEDS: Clopidogrel Bisulfate 75 MG TAB PO SCH (09:30)
[2018-10-12] MEDS: metFORMIN 500 MG TAB PO SCH (09:30)
[2018-10-12] MEDS: Cyclobenzaprine 10 MG TAB PO SCH ×3 (09:30→22:11)
[2018-10-12] MEDS: Aspirin 81 mg Enteric Coated Tablet PO SCH (09:30)
[2018-10-12] MEDS: Amlodipine 10 MG TAB PO SCH (09:31)
[2018-10-12] MEDS: HumaLOG 300 UNITS/3 ML VIAL SC PRN (11:03)
--- NOTE | 2018-10-12 11:28 | PRG ---
DATE OF SERVICE: Ms. Esquivel is in a significant amount of pain this morning in her back. She is currently receiving her morphine. From a neurological and clinical standpoint, she is stable and we are awaiting placement. Job ID: [id number]
[2018-10-12] MEDS: Morphine 2 MG/ML SYRINGE SLOW IVP PRN (12:54)
[2018-10-12] MEDS: Nicotine 14 MG PATCH TD SCH (18:24)
[2018-10-12] MEDS ORDERED: Pregabalin 50 MG CAP PO SCH (18:30)
[2018-10-12] MEDS: Atorvastatin Calcium 40 MG TAB PO SCH (22:11)
--- NOTE | 2018-10-13 06:23 | PDOC.FM ---
- Subjective Subjective: 63 yo f with MM, DM, type 2, HTN who initially presented with right sided arm and leg weakness and left facial droop and found to have a left periventricular infarct, now hospital day 6. O/N: No acute events. Denied complaints this morning. Pending rehab bed. She has been approved. - Objective MAR Reviewed: Yes Vital Signs & Weight: Vital Signs (12 hours) Temp Pulse Resp BP Pulse Ox 10/13/18 04:01 97.8 F 81 18 144/90 H 96 10/13/18 00:02 97.6 F 83 19 134/84 96 10/12/18 20:50 98 10/12/18 20:00 97.7 F 85 18 112/78 98 Weight Weight 58.922 kg I&O: 10/11/18 10/12/18 10/13/18 06:59 06:59 06:59 Intake Total 1100 633 792 Balance 1100 633 792 Result Diagrams: 10/08/18 04:40 10/11/18 07:16 Phys Exam - Physical Examination Constitutional: NAD HEENT: PERRLA, moist MMs Neck: no JVD Respiratory: no wheezing, no rales Cardiovascular: RRR, no significant murmur Gastrointestinal: soft, non-tender, no distention Musculoskeletal: no edema, pulses present 3/5 right arm, right leg, decreased seed potato arranger strength right arm, left facial droop; EOMI, sensation to light touch intact throughout Skin: no rash, cap refill <2 seconds Dx/Plan (1) CVA (cerebral vascular accident) Code(s): I63.9 - CEREBRAL INFARCTION, UNSPECIFIED Status: Acute (2) Diabetes type 2, controlled Code(s): E11.9 - TYPE 2 DIABETES MELLITUS WITHOUT COMPLICATIONS Status: Acute (3) CAD (coronary artery disease) Code(s): I25.10 - ATHSCL HEART DISEASE OF [place] CORONARY ARTERY W/O ANG PCTRS Status: Acute (4) GERD (gastroesophageal reflux disease) Code(s): K21.9 - GASTRO-ESOPHAGEAL REFLUX DISEASE WITHOUT ESOPHAGITIS Status: Chronic Qualifiers: Esophagitis presence: without esophagitis Qualified Code(s): K21.9 - Gastro -esophageal reflux disease without esophagitis (5) Multiple myeloma Code(s): C90.00 - MULTIPLE MYELOMA NOT HAVING ACHIEVED REMISSION Status: Chronic Qualifiers: Multiple myeloma remission status: unspecified Qualified Code(s): C90.00 - Multiple myeloma not having achieved remission (6) Thrombocytopenia Code(s): D69.6 - THROMBOCYTOPENIA, UNSPECIFIED Status: Chronic - Plan Plan: CVA - Focal infarction of L. periventricular white matter. Deficits include right arm and leg weakness aproximately 3/5 and left facial droop. - Neurology- Maraist consulted - TPA risks/benefits/indication discussed by ED physician with pt and family- declined - Continue aspirin 81mg, Plavix 75mg, and Atorvastatin 80mg daily - TSH normal - Pt waiting on Rehab bed. Pt has been approved - Echo: diastolic dysfunction, trace MR and TR HTN - Continue amlodipine 10 mg daily and Lisinopril 10mg daily - hydralazine/Labetolol prn CAD - aware, continue high intensity statin DMII - continue metformin 1000mg daily, consider increasing to 100mg BID outpatient - Mild SSI, Accuchecks ACHS - hba1c 6.1 Multiple myeloma - aware, monitor CBC - naproxen, flexeril prn mild to moderate pain - morphine sulfate prn severe pain GERD - Continue pantoprazole daily Thrombocytopenia - aware. Continue to monitor. Dispo: pending bed availability at [facility] DVT: lovenox Diet: heart healthy, low carb Fluids: SL Addendum - Attending - Attending Attestation Date/Time: 10/13/18 1120 I personally evaluated the patient and discussed the management with Dr. Mark. I agree with and repeated the History, Examination, Assessment and Plan documented above with any addition or exceptions noted below.
[2018-10-13] MEDS ORDERED: Pregabalin 50 MG CAP PO SCH ×2 (09:15→21:00)
[2018-10-13] MEDS: Amlodipine 10 MG TAB PO SCH (09:20)
[2018-10-13] MEDS: Naproxen 500 MG TAB PO SCH (09:21)
[2018-10-13] MEDS: Lisinopril 10 MG TAB PO SCH (09:21)
[2018-10-13] MEDS: Morphine ER 15 MG TAB PO PRN (09:22)
[2018-10-13] MEDS: Cyclobenzaprine 10 MG TAB PO SCH ×2 (09:23→14:49)
[2018-10-13] MEDS: metFORMIN 500 MG TAB PO SCH (09:23)
[2018-10-13] MEDS: Aspirin 81 mg Enteric Coated Tablet PO SCH (09:23)
[2018-10-13] MEDS: Clopidogrel Bisulfate 75 MG TAB PO SCH (09:23)
[2018-10-13] MEDS: Enoxaparin Sodium 40 MG/0.4 ML SYRINGE SC SCH (09:24)
[2018-10-13 11:52] VITALS: TEMP 97.9
[2018-10-13] MEDS: HumaLOG 300 UNITS/3 ML VIAL SC PRN (14:48)
[2018-10-13 15:27] VITALS: BP 119/84
== END 2018-10-13 17:38 | DRG 65 ==
LOC: ERS 14:33 → 2SE 17:49
PROVIDERS: ADMIT Student in an Organized Health Care Education/Training Program; ATTEND Student in an Organized Health Care Education/Training Program
DX: I63.9 Cerebral infarction, unspecified (principal); G81.91 Hemiplegia, unspecified affecting right dominant side; R29.810 Facial weakness; I25.10 Atherosclerotic heart disease of native coronary artery without angina pectoris; K21.9 Gastro-esophageal reflux disease without esophagitis; I10 Essential (primary) hypertension; E11.9 Type 2 diabetes mellitus without complications; F17.210 Nicotine dependence, cigarettes, uncomplicated; I16.0 Hypertensive urgency; D69.6 Thrombocytopenia, unspecified; Z85.79 Personal history of other malignant neoplasms of lymphoid, hematopoietic and related tissues; Z95.5 Presence of coronary angioplasty implant and graft
CPT/HCPCS: 36415; 36416; 70450; 70496; 70498; 70551; 80048; 80053; 80061; 81003; 81015; 82550; 83036; 84443; 84484; 85025; 85610; 85730; 93005; 93306; 96374; J1642; J1650; J1885; J2270; J3490; Q9966

== ENCOUNTER 2018-11-09 12:15 | Observation (INO) | payer MEDICARE, MEDICAID ==
--- NOTE | 2018-11-09 14:20 | RAD ---
TWO VIEWS OF THE CHEST: COMPARISON: 12/09/2011. HISTORY: Chest pain that started this morning. Recent stroke. FINDINGS: Two views of the chest show a normal-size cardiomediastinal silhouette. There is a right-sided MediP ort with its tip in the superior vena cava. There is no evidence of consolidation, mass, or pleural effusion. A stent is seen projecting over the heart on the lateral radiograph. IMPRESSION: No evidence of acute cardiopulmonary disease. POS: C
[2018-11-09 14:46] LABS: #Lymphocytes 1.9 thou/uL (1.20-3.40); #Monocytes 0.9 thou/uL (0.11-0.59); #Neutrophils 4.9 thou/uL (1.40-6.50); %Basophils 0.5 % (0.0-1.0); %Eosinophils 0.4 % (0.0-10.0); %Lymphocytes 24.6 % (21.0-51.0); %Monocytes 11.6 % (0.0-10.0); %Neutrophils 62.9 % (42.0-75.0); Mean Corpuscular HGB CONC 32.1 g/dL (32.0-36.0); Platelet Count 174 thou/uL (130-400); RBC Distribution Width 11.9 % (11.5-14.5); Red Blood Cell (RBC) Count 4.12 mill/uL (4.20-5.40); White Blood Cell (WBC) Count 7.8 thou/uL (4.8-10.8)
[2018-11-09 15:03] LABS: ALT (SGPT) 62 U/L (8-55); AST (SGOT) 48 U/L (5-34); Albumin 4.5 g/dL (3.4-4.8); Alkaline Phosphatase 119 U/L (40-150); Anion Gap 18 mmol/L (10-20); BUN (Urea Nitrogen) 11 mg/dL (9.8-20.1); Bilirubin, Total 0.4 mg/dL (0.2-1.2); CK (CPK) 41 U/L (29-168); Calc. Creatinine Clearance 0 mL/min (70-130); Calcium 10.5 mg/dL (7.8-10.44); Carbon Dioxide 17 mmol/L (23-31); Chloride 112 mmol/L (98-107); Estimated GFR-MDRD Greater than 90; Glucose 96 mg/dL (80-115); Potassium 3.9 mmol/L (3.5-5.1); Protein, Total 7.5 g/dL (6.0-8.3); Sodium 143 mmol/L (136-145)
[2018-11-09] MEDS ORDERED: Aspirin Chewable 81 MG TAB ONE (15:37)
[2018-11-09] MEDS ORDERED: Morphine 4 MG/ML VIAL ONE (17:55)
--- NOTE | 2018-11-09 19:00 | PDOC.FPRHP ---
- History of Present Illness Chief Complaint: chest pain History of Present Illness: The patient is a 63YOF with a PMH significant for CAD s/p stent placement, a recent L-sided CVA w/ residual R-sided weakness, HLD, HTN, and DMII who presented to the ED with a CC of central chest pain that began this morning after she woke up. The patient reports that the pain is a constant, pressure- like sensation that began upon waking up this morning and got progressively worse over the course of the day. She reports radiation into her back and rates it at an 8/10 in severity. She denies any exacerbating or relieving factors but did not try taking anything at home. The patient does report some associated SOB and diaphoresis but denies any N/V or lightheadedness/syncope. She states she has never felt pain like this before. ED Course: 4mg IV morphine & 324mg ASA - Allergies/Adverse Reactions Allergies Allergy/AdvReac Type Severity Reaction Status Date / Time No Known Allergies Allergy Verified 11/10/18 05:09 - Home Medications Medication Instructions Recorded Confirmed Type Lisinopril [Zestril] 10 mg PO DAILY #30 tab 05/05/17 10/07/18 Rx Cyclobenzaprine [Flexeril] 10 mg PO TID 10/07/18 10/07/18 History Naproxen 500 mg PO BID 10/07/18 10/07/18 History Pantoprazole [Protonix] 40 mg PO DAILY 10/07/18 10/07/18 History metFORMIN [Glucophage] 1,000 mg PO DAILY 10/08/18 10/08/18 History Acetaminophen [Tylenol Regular 650 mg PO Q4H PRN tab 10/13/18 Rx Strength] Amlodipine [Norvasc] 10 mg PO DAILY tab 10/13/18 Rx Aspirin [Ecotrin Low Strength] 81 mg PO DAILY tab 10/13/18 Rx Atorvastatin Calcium [Lipitor] 80 mg PO HS tab 10/13/18 Rx Clopidogrel Bisulfate [Plavix] 75 mg PO DAILY tab 10/13/18 Rx Morphine ER [MS Contin] 15 mg PO Q8HR PRN tab 10/13/18 Rx Pregabalin [Lyrica] 50 mg PO BID cap 10/13/18 Rx - History PMHx: recent L-sided CVA w/ residual R-sided weakness, CAD s/p stent placement, GERD, HTN, HLD, DMII, multiple myeloma, macrocytosis, paroxysmal a fib, chronic back pain PSHx: cholecystectomy, B/L tubal ligation, R knee surgery, R inguinal hernia repair, hemorroidectomy, LHC in 2016, L breast cystectomy FHx: Mother - [place] Social: Current smoker smoking 4-5 cigs/day. ~50 pack year smoking history. Former heavy EtOH user. Quit ~ 10 years ago but drank about 1/2 pint/day for 10- 15 years. No drug use. - Review of Systems General: reports: fatigue. denies: fever/chills Eyes: reports: vision changes (been ongoing since before chest pain began). denies: eye pain ENT: reports: nasal congestion, other (no sore throat) Respiratory: reports: cough, shortness of breath Cardiovascular: reports: chest pain. denies: edema Gastrointestinal: reports: diarrhea. denies: nausea, vomiting, constipation Genitourinary: reports: other (+ urinary frequency). denies: dysuria Skin: denies: rashes, lesions Musculoskeletal: denies: pain, swelling Neurological: reports: weakness. denies: numbness, syncope Psychological: denies: anxiety, depression - Vital signs BP: 148/106 HR: 87 RR: 18 Tmax: 98.6F Pox: 97% on RA Wt: 70.31 kg - Physical Exam Constitutional: NAD, awake, alert and oriented, well developed HEENT: normocephalic and atraumatic, grossly normal vision, grossly normal hearing Neck: supple, FROM Chest: other (TTP in center of chest) Heart: RRR, normal S1/S2 Lungs: no respiratory distress, good air movement, no rales/rhonchi, no retractions, other (end-expiratory wheezing heard throughout) Abdomen: soft, bowel sounds present, other (TTP throughout with no guarding or rebound) Musculoskeletal: normal structure, ROM grossly normal Neurological: CN II-XII intact (grossly), other (3/5 strength in RUE 2/2 recent CVA, otherwise 5/5 strength throughout) Skin: no rash/lesions, good turgor Heme/Lymphatic: no unusual bruising or bleeding, no purpura, no petechia Psychiatric: intact recent and remote memory, other (depressed affect) FMR H&P: Results - Labs Result Diagrams: 11/09/18 14:31 11/10/18 03:15 Lab results: WBC 7.8 thou/uL (4.8-10.8) 11/09/18 14:31 Hgb 14.0 g/dL (12.0-16.0) 11/09/18 14:31 Hct 43.7 % (36.0-47.0) 11/09/18 14:31 MCV 106.0 fL (78.0-98.0) H 11/09/18 14:31 Plt Count 174 thou/uL (130-400) 11/09/18 14:31 Neutrophils % 62.9 % (42.0-75.0) 11/09/18 14:31 Sodium 143 mmol/L (136-145) 11/09/18 14:31 Potassium 3.9 mmol/L (3.5-5.1) 11/09/18 14:31 Chloride 112 mmol/L (98-107) H 11/09/18 14:31 Carbon Dioxide 17 mmol/L (23-31) L 11/09/18 14:31 BUN 11 mg/dL (9.8-20.1) 11/09/18 14:31 Creatinine 0.76 mg/dL (0.6-1.1) 11/09/18 14:31 Glucose 96 mg/dL (80-115) 11/09/18 14:31 Calcium 10.5 mg/dL (7.8-10.44) H 11/09/18 14:31 Total Bilirubin 0.4 mg/dL (0.2-1.2) 11/09/18 14:31 AST 48 U/L (5-34) H 11/09/18 14:31 ALT 62 U/L (8-55) H 11/09/18 14:31 Alkaline Phosphatase 119 U/L (40-150) 11/09/18 14:31 Creatine Kinase 41 U/L (29-168) 11/09/18 14:31 Serum Total Protein 7.5 g/dL (6.0-8.3) 11/09/18 14:31 Albumin 4.5 g/dL (3.4-4.8) 11/09/18 14:31 - EKG Interpretation EKG: sinus tachy - Radiology Interpretation Chest x-ray Status: report reviewed by me (no evidence of acute cardiopulmonary disease) FMR H&P: A/P - Problem List (1) Paroxysmal atrial fibrillation Current Visit: Yes Status: Chronic Code(s): I48.0 - PAROXYSMAL ATRIAL FIBRILLATION (2) Macrocytic anemia Current Visit: Yes Status: Chronic Code(s): D53.9 - NUTRITIONAL ANEMIA, UNSPECIFIED (3) Tobacco use Current Visit: Yes Status: Chronic Code(s): Z72.0 - TOBACCO USE (4) COPD (chronic obstructive pulmonary disease) Current Visit: Yes Status: Suspected (5) Atypical chest pain Current Visit: No Status: Acute Code(s): R07.89 - OTHER CHEST PAIN (6) CAD (coronary artery disease) Current Visit: No Status: Chronic Code(s): I25.10 - ATHSCL HEART DISEASE OF [place] CORONARY ARTERY W/O ANG PCTRS (7) CVA (cerebral vascular accident) Current Visit: No Status: Chronic Code(s): I63.9 - CEREBRAL INFARCTION, UNSPECIFIED Qualifiers: Laterality of affected vessel: left (8) Diabetes type 2, controlled Current Visit: No Status: Chronic Code(s): E11.9 - TYPE 2 DIABETES MELLITUS WITHOUT COMPLICATIONS Qualifiers: Diabetes mellitus care home insulin use: without brine tank operator use (9) Chronic pain due to neoplasm Current Visit: No Status: Chronic Code(s): G89.3 - NEOPLASM RELATED PAIN ( ACUTE) (CHRONIC) (10) GERD (gastroesophageal reflux disease) Current Visit: No Status: Chronic Code(s): K21.9 - GASTRO-ESOPHAGEAL REFLUX DISEASE WITHOUT ESOPHAGITIS Qualifiers: Esophagitis presence: without esophagitis Qualified Code(s): K21.9 - Gastro -esophageal reflux disease without esophagitis (11) Hypertension Current Visit: No Status: Chronic Code(s): I10 - ESSENTIAL (PRIMARY) HYPERTENSION (12) Multiple myeloma Current Visit: No Status: Chronic Code(s): C90.00 - MULTIPLE MYELOMA NOT HAVING ACHIEVED REMISSION Qualifiers: Multiple myeloma remission status: unspecified Qualified Code(s): C90.00 - Multiple myeloma not having achieved remission - Plan Atypical chest pain: - Patient reports 8/10 central chest pressure that radiates into her back that began earlier this AM. However, reproducible on exam but does have known CAD and a Heart score of 5 based on her history and risk factors. EKG showed only sinus tach but patient was in NSR on exam. Initial troponin negative. Per chart review last stress test was in December of 2017 and was normal. Has not followed up with cardiology. Will therefore make NPO after midnight with plans for an AM stress test. - K WNLs and TSH ~ 1 month ago also NL. Mg pending. - Also endorsed abdominal TTP on exam and has a known h/o GERD so will also try a GI cocktail for pain relief & check a lipase as well since patient reported radiation into back. - Will continue PRN nitro and tylenol for pain control & continue trend trops overnight. CAD s/p stent placement: - Aware, will resume home meds. paroxysmal atrial fibrillation: - Aware, will hold AM BB for stress test but will resume afterwards. Suspected COPD: - Patient denies any h/o COPD but has an ~50 pack year smoking history & was diffusely wheezing on exam. - Will give a NHI Duoneb on the floor and continue PRN Q4H for wheezing. Will also consider starting on QD inhaled meds for COPD maintenance. HTN: - Aware, will resume home meds w/ exception of AM BB for stress test. HLD: - Aware, total cholesterol of 210 last month. will resume home 80mg atorvastatin dose. DMII: - Aware, well controlled with most recent A1c last month of 6.1. Will resume home meds. ACHS accuchecks & mild SSI. GERD: - Aware, will resume home meds. macrocytic anemia/macrocytosis: - Aware, Hgb WNLs on presentation. multiple myeloma: - Aware, patient follows with Dr. Almendarez & has a port in place. Will continue PRN tylenol for pain control and resume NSAIDS once cleared from cardiac standpoint. h/o CVA: - Aware, will resume home ASA, statin, & plavix. chronic back pain: - Aware, will continue PRN tylenol for pain control. tobacco use: - Aware, will encourage cessation. Dispo: Will admit to tele obs overnight for AM stress test since just under 1 year since last one and patient has poor f/u w/ cards. ABx: none GI PPX: protonix VTE PPX: lovenox IVFs: SL CODE STATUS: FULL CODE FMR H&P: Upper Level - Pertinent history 63 yo female here for chest pressure. Patient is poor historian and her story changes Started this morning midsternal, 04/11. Assoc SOB and nausea. Did not take anything for pain. She does have a history of CAD s/p stents in 2016 in [place], reports she does not follow up with cardiology. She is able to reproduce the pain with palpation. Hx also of DMII, HTN, COPD, paroxysmal afib, CVA of left perventricular white matter with residual right sided deficits in Oct 2018. No acute symptoms or worsening of deficits since that time. Smokes 4-5 cigarettes a day. Quit drinking EtOH > 5 years. In the ER she received morphine and aspirin. Stress test December 2017, normal Oct 2018 ECHO showing EF of 60-65% EGD and colonoscopy in December [address] Mejia showing left sided diverticulosis , otherwise unremarkable - Pertinent findings CXR: no acute cardiopulmonary disease Troponin: 0.011 CK: 41 AST: 48 ALT: 62 128/87 HR: 95 RR: 20 98% on RA TEMP: 98.7 GEN: NAD CARD: RRR, no mgr; pain reproducible to palpation PULM: diffusely wheezing EXT: no cyanosis or edema ABD: diffusely tender to palpation NEURO: 3/5 weakness in RUE - Plan Date/Time: 11/09/181858 I, Kiko Mcconnell DO, have evaluated this patient and agree with findings/plan as outlined by internal sales resident. Pertinent changes/additions are listed here. #atypical chest pain -trops negative, EKG unremarkable -continue trending trops -patient was negative for stress about 10 months ago -pain is reproducible with palpation -along with her history of GERD, we will give a GI cocktail to see if that helps -Will also get a lipase -admit to tele for futher evaluation #Hx of CAD s/p stent #paroxysmal afib #multiple myeloma #DMII #HTN #COPD Addendum - Attending - Attending Attestation Date/Time: 11/09/181936 I personally evaluated the patient and discussed the management with Dr. Tiwari and Dr. Mcconnell I agree with the History, Examination, Assessment and Plan documented above with any addition or exceptions noted below. 63 yo female with hx of CAD sp stent x3, left periventricular CVA, multiple myloma, HTN, HLD, T2DM presents to ER for evaluation of atypical chest pain. Patient reports pain present all day. Unchanging. Nonprogressive but stable. Located mid-sternum. Radiates to back. Associated with occasional SOB and diaphoresis. Initially started upon awakening. Reproducible with palpation. Notes a recent cough. Denies noting a decline in functional status other than what is associated with recent CVA. VS reviewed. Imaging reviewed. Labs reviewed. NAD on exam. RRR. No murmurs. Chest TTP along sternum. CTA bilaterally. No W/C/R. NT abdomen. BS present. 1. Atypical CP rule out ASC: Trop Negative. EKG without ST changes. Trend trops. Place on tele. December 2017 stress negative. Due to risk will repeat in AM. Will need cards follow up inpt vs outpt. Reproducible on exam with history of cough. Notes similar discomfort with previous stent placement. Has not seen cards since that time. ASA, statin, BB, ACEI. Hx of I/III diastolic dysfuntion. LVEF 60 to 65%. ECHO 10/2018. Monitor all other chronic conditions. Adjust home meds as needed. Yohana
[2018-11-09 19:47] LABS: Magnesium 1.6 mg/dL (1.6-2.6)
[2018-11-09] MEDS ORDERED: Dextrose 5% in Water 1,000 ML IV PRN (19:53)
[2018-11-09] MEDS ORDERED: Acetaminophen 325 MG TAB PO PRN (19:53)
[2018-11-09] MEDS ORDERED: Ondansetron ODT 4 MG TAB PO PRN (19:53)
[2018-11-09] MEDS ORDERED: Nitroglycerin 0.4 MG TAB (25 Tab Bottle) PO PRN (19:53)
[2018-11-09] MEDS ORDERED: Lidocaine 2% Viscous Solution 10 ML, Aluminum & Magnesium Hydroxide 30 ML SSW SCH (19:53)
[2018-11-09] MEDS ORDERED: HumaLOG 300 UNITS/3 ML VIAL SC PRN ×2 (19:53)
[2018-11-09] MEDS ORDERED: Dextrose 50% Abboject 50 ML SYRINGE SLOW IVP PRN (19:53)
[2018-11-09] MEDS ORDERED: Atorvastatin Calcium 40 MG TAB PO SCH (21:00)
[2018-11-09] MEDS ORDERED: Mag-Al 1200 mg/1200 mg/30 ML UDCUP ONE (21:25)
[2018-11-09] MEDS ORDERED: Cyclobenzaprine 10 MG TAB ONE (21:25)
[2018-11-09] MEDS ORDERED: Lidocaine Viscous Sol 2% 15 ml UD Cup ONE (21:25)
[2018-11-09] MEDS: Cyclobenzaprine 10 MG TAB PO SCH (21:46)
[2018-11-09] MEDS: Pregabalin 50 MG CAP PO SCH (21:53)
[2018-11-10 03:58] LABS: Anion Gap 15 mmol/L (10-20); BUN (Urea Nitrogen) 12 mg/dL (9.8-20.1); Calc. Creatinine Clearance 83 mL/min (70-130); Calcium 9.7 mg/dL (7.8-10.44); Carbon Dioxide 18 mmol/L (23-31); Chloride 111 mmol/L (98-107); Estimated GFR-MDRD Greater than 90; Glucose 92 mg/dL (80-115); Potassium 3.5 mmol/L (3.5-5.1); Sodium 140 mmol/L (136-145)
[2018-11-10] MEDS ORDERED: Magnesium 2 GM/50 ML 1 GM in Premix Bag 1 BAG IVPB SCH (05:30)
--- NOTE | 2018-11-10 06:27 | PDOC.FM ---
- Subjective Subjective: No overnight events. Still having chest pain that radiates to back, although not as severe as initially. She reports shortness of breath. - Objective MAR Reviewed: Yes Vital Signs & Weight: Vital Signs (12 hours) Temp Pulse Resp BP Pulse Ox 11/10/18 00:47 98.6 F 80 20 131/79 99 11/09/18 23:08 98.6 F 86 18 148/95 H 96 11/09/18 21:52 96 11/09/18 21:51 16 96 11/09/18 21:44 98.3 F 97 18 153/93 H 99 Weight Weight 70.3 kg Result Diagrams: 11/09/18 14:31 11/10/18 03:15 Phys Exam - Physical Examination Constitutional: NAD HEENT: moist MMs Neck: supple Respiratory: no wheezing, clear to auscultation bilateral Cardiovascular: RRR, no significant murmur chest wall tenderness with auscultation Gastrointestinal: soft, non-tender, positive bowel sounds Musculoskeletal: no edema Neurological: moves all 4 limbs Psychiatric: normal affect, A&O x 3 Skin: cap refill <2 seconds Dx/Plan (1) Atypical chest pain Code(s): R07.89 - OTHER CHEST PAIN Status: Acute (2) History of CVA (cerebrovascular accident) Code(s): Z86.73 - PRSNL HX OF TIA (TIA), AND CEREB INFRC W/O RESID DEFICITS Status: Chronic (3) Paroxysmal atrial fibrillation Code(s): I48.0 - PAROXYSMAL ATRIAL FIBRILLATION Status: Chronic (4) Tobacco use Code(s): Z72.0 - TOBACCO USE Status: Chronic (5) COPD (chronic obstructive pulmonary disease) Status: Suspected (6) CAD (coronary artery disease) Code(s): I25.10 - ATHSCL HEART DISEASE OF [place] CORONARY ARTERY W/O ANG PCTRS Status: Chronic (7) Diabetes type 2, controlled Code(s): E11.9 - TYPE 2 DIABETES MELLITUS WITHOUT COMPLICATIONS Status: Chronic Qualifiers: Diabetes mellitus correction insulin use: without bedspring assembler use (8) Back pain Code(s): M54.9 - DORSALGIA, UNSPECIFIED Status: Acute (9) Dyslipidemia Code(s): E78.5 - HYPERLIPIDEMIA, UNSPECIFIED Status: Chronic (10) GERD (gastroesophageal reflux disease) Code(s): K21.9 - GASTRO-ESOPHAGEAL REFLUX DISEASE WITHOUT ESOPHAGITIS Status: Chronic Qualifiers: Esophagitis presence: without esophagitis Qualified Code(s): K21.9 - Gastro -esophageal reflux disease without esophagitis (11) Hypertension Code(s): I10 - ESSENTIAL (PRIMARY) HYPERTENSION Status: Chronic (12) Multiple myeloma Code(s): C90.00 - MULTIPLE MYELOMA NOT HAVING ACHIEVED REMISSION Status: Chronic Qualifiers: Multiple myeloma remission status: unspecified Qualified Code(s): C90.00 - Multiple myeloma not having achieved remission - Plan Plan: Atypical chest pain - Know hx of CAD, HEART: 5 - Last stress 12/2017: nml. No follow up with cards - Trops neg x2. EKG sinus tach - Lipase and electrolytes nml - Nitro PRN and tylenol for pain - NPO for stress today CAD s/p stent placement - Continue home meds Paroxysmal atrial fibrillation - Hold AM BB for stress Suspected COPD - 50 pack year smoking hx & diffuse wheezing initially on exam - Mara duoneb and PRN - Consider outpt spirometry HTN - Continue home meds. Hold BB HLD - Continue home Atorvastatin 80mg DMII - A1c 10/2018: 6.1 - Continue home meds - ACHS accuchecks & mild SSI - Hypoglycemic protocol GERD - Continue home meds Macrocytic anemia/macrocytosis - Initial Hgb 14 Multiple myeloma - Sees Dr. Almendarez & has a port in place h/o CVA - Continue home ASA, statin, & plavix Tobacco use - Encourage Cessation Code Status: FULL DVT ppx: Lovenox PCP: JEROME (Ly)
[2018-11-10 07:27] VITALS: BMI 23.6
[2018-11-10] MEDS: Cyclobenzaprine 10 MG TAB PO SCH ×3 (08:40→14:22)
[2018-11-10] MEDS: Amlodipine 10 MG TAB PO SCH ×2 (08:40→11:52)
[2018-11-10] MEDS: Clopidogrel Bisulfate 75 MG TAB PO SCH ×2 (08:40→11:52)
[2018-11-10] MEDS: Pregabalin 50 MG CAP PO SCH ×2 (08:41→11:52)
[2018-11-10] MEDS: Lisinopril 10 MG TAB PO SCH ×2 (08:41→11:51)
[2018-11-10] MEDS ORDERED: Aspirin 81 mg Enteric Coated Tablet PO SCH (09:00)
[2018-11-10] MEDS ORDERED: Enoxaparin Sodium 40 MG/0.4 ML SYRINGE SC SCH (09:00)
[2018-11-10] MEDS ORDERED: metFORMIN 500 MG TAB PO SCH (09:00)
--- NOTE | 2018-11-10 12:02 | PRG ---
DATE OF SERVICE: 11/10/2018 SUBJECTIVE: Ms. Esquivel is a 63-year-old black female patient, who is status post stent placement 2 years ago in [place], [place] for coronary artery disease. She presented with some chest discomfort radiating to her back, that woke her from sleep last night. She is currently undergoing a stress Myoview exam, and further plan will depend on the results of this. Her initial troponin is less than 0.010. Her electrolytes reveal a sodium of 140, potassium of 3.5, chloride 111, bicarb is 18, BUN is 12, creatinine 0.75. Her CBC reveals an MCV of 106, which is elevated. She is not anemic. I would recommend we check B12 and folate levels on her. If her stress Myoview is negative, she can be discharged. If positive, she will need heart catheterization. Job ID: [id number]
[2018-11-10] MEDS ORDERED: Morphine IR Tab 15 MG TAB PO SCH (12:30)
--- NOTE | 2018-11-10 14:58 | NM ---
MYOCARDIAL PERFUSION EVALUATION: INDICATIONS: History of chest pain. COMPARISON: 01/05/2018 RADIOPHARMACEUTICAL: Technetium 99m sestamibi 28.7 millicuries IV with stress. Technetium 99m sestamibi 10.7 millicuries IV with rest. FINDINGS: No reversible myocardial perfusion defect is evident. There is normal wall motion and thickening. E stimated LVEF is 67%. IMPRESSION: Normal myocardial perfusion evaluation. POS: ADRIAN
[2018-11-10 15:53] VITALS: BP 127/75; TEMP 98
[2018-11-10] MEDS ORDERED: ADENOSINE 60 MG/20 ML VIAL ONE (16:04)
[2018-11-10 17:05] LABS: Folate (Folic Acid) 17.1 ng/mL (7.0-31.4)
--- NOTE | 2018-11-11 07:39 | DIS ---
DATE OF ADMISSION: 11/09/2018 DATE OF DISCHARGE: 11/10/2018 RESIDENT: Kenzie Raymundo MD, PGY-1. ADMITTING ATTENDING: Candis Zeng MD. DISCHARGE ATTENDING: Manny Mina MD. CONSULTS: None. PROCEDURES: 1. Chest x-ray, no evidence of acute cardiopulmonary disease. 2. Nuclear stress test, normal myocardial perfusion. PRIMARY DIAGNOSES: 1. Atypical chest pain. 2. Coronary artery disease, status post stent placement. SECONDARY DIAGNOSES: 1. Paroxysmal atrial fibrillation. 2. Suspected chronic obstructive pulmonary disease. 3. Hypertension. 4. Hyperlipidemia. 5. Type 2 diabetes. 6. Gastroesophageal reflux disease. 7. Microcytic anemia and macrocytosis. 8. Multiple myeloma. 9. History of CVA. 10. Tobacco abuse. DISCHARGE MEDICATIONS: 1. Amlodipine 10 mg daily. 2. Aspirin 81 mg daily. 3. Atorvastatin 80 mg at bedtime. 4. Plavix 75 mg daily. 5. Flexeril 10 mg t.i.d. 6. Lisinopril 10 mg daily. 7. Metformin 1000 mg daily. 8. Pantoprazole 40 mg daily. 9. Lyrica 50 mg b.i.d. 10. MS Contin 15 mg q.4 hours p.r.n. 11. Naproxen 500 mg b.i.d. 12. Oxybutynin chloride 5 mg t.i.d. HISTORY OF PRESENT ILLNESS/HOSPITAL COURSE: Ms. Esquivel is a 63-year-old female with past medical history significant for CAD, status post stent placement and recent left-sided CVA with residual right-sided weakness 1 month ago, hyperlipidemia, hypertension, and type 2 diabetes, who presented with pressure-like chest pain radiating to her back with no exacerbating or relieving factors. It was associated with shortness of breath and diuresis. She was given 4 mg IV morphine and 324 mg aspirin. Labs were notable for negative troponin x2. Lipase 55. EKG showed no ST-segment changes. She had a HeartScore of 5. Stress test was negative. She does have a suspected history of COPD initially on presentation, she had diffuse wheezing that improved with DuoNeb. She has a 60-pack year smoking history. Scheduled DuoNebs were given inpatient. Consider outpatient spirometry. In regard to her chronic medical conditions of CAD, paroxysmal atrial fibrillation, hypertension, hyperlipidemia, GERD, and multiple myeloma, she was continued on home medication. With the exception of her beta remi which was held for stress test. Given her multiple myeloma, she sees Dr. Almendarez as outpatient. She has a port in place. Type 2 diabetes, A1c done in October 2018 was 6.1%. Home medications were continued and before meals and bedtime Accu-Cheks with sliding scale in place. DISPOSITION: Stable. DISCHARGE INSTRUCTIONS: 1. Location: Home. 2. Diet: Heart healthy. 3. Activity: No restrictions. 4. Followup: Follow up with Dr. Mcpherson at [facility] within 7 days. Job ID: [id number] MTDD
--- NOTE | 2018-11-15 17:11 | EKG ---
Test Reason : Blood Pressure : / mmHG Vent. Rate : 101 BPM Atrial Rate : 101 BPM P-R Int : 140 ms QRS Dur : 068 ms QT Int : 344 ms P-R-T Axes : 055 -51 062 degrees QTc Int : 446 ms Sinus tachycardia Possible Left atrial enlargement Low voltage QRS Left anterior fascicular block Abnormal ECG Confirmed by KYLE MEDRANO, HALLEY ([id number]), purchasing expeditor BRIDGET MICHELLE ([id number]) on 11/15/2018 5:11:11 PM Referred By: Confirmed By:HALLEY WRIGHT MD
== END 2018-11-10 20:00 | disposition home or self-care (01) ==
LOC: ERS 12:15 → ERHOLD 18:52 → 2SW 11-10 04:12
PROVIDERS: ADMIT Student in an Organized Health Care Education/Training Program; ATTEND Student in an Organized Health Care Education/Training Program
DX: R07.89 Other chest pain (principal); I25.10 Atherosclerotic heart disease of native coronary artery without angina pectoris; I10 Essential (primary) hypertension; E78.5 Hyperlipidemia, unspecified; E11.9 Type 2 diabetes mellitus without complications; K21.9 Gastro-esophageal reflux disease without esophagitis; D53.9 Nutritional anemia, unspecified; D75.89 Other specified diseases of blood and blood-forming organs; C90.00 Multiple myeloma not having achieved remission; G89.29 Other chronic pain; M54.9 Dorsalgia, unspecified; F17.210 Nicotine dependence, cigarettes, uncomplicated; Z79.82 Long term (current) use of aspirin; Z79.84 Long term (current) use of oral hypoglycemic drugs; Z79.899 Other long term (current) drug therapy; Z86.73 Personal history of transient ischemic attack (TIA), and cerebral infarction without residual deficits; Z95.5 Presence of coronary angioplasty implant and graft
CPT/HCPCS: 71046; 78452; 80048; 80053; 82550; 82607; 82746; 82962 ×2; 83690; 83735 ×2; 84484 ×2; 85025; 93005; 93017; 94640; 94760 ×3; 96374; 96375; 99285; A9500; G0378 ×2; 36415; 36416; J0153; J2270; J3475; J7620

== ENCOUNTER 2018-11-18 08:17 | Day surgery (SDC) | payer MEDICARE, MEDICAID ==
[2018-11-17 14:20] VITALS: BMI 24.1
[2018-11-18 08:42] LABS: Prothrombin Time 13.4 SEC (12.0-14.7)
[2018-11-18 08:43] LABS: PTT 30.5 SEC (22.9-36.1)
[2018-11-18 11:12] VITALS: BP 148/93; TEMP 98.5
--- NOTE | 2018-11-18 12:11 | CT ---
CT GUIDED BONE MARROW ASPIRATE: HISTORY: History of secondary malignant neoplasm of the bone marrow. TECHNIQUE: Informed consent was obtained. Pre-procedure CT images were obtained for guidance purposes. The sit e overlying the left iliac bone was marked. The site was prepped and draped in the usual sterile fas hion. Buffered 1% Lidocaine was administered to the overlying subcutaneous tissues. The patient und erwent conscious sedation under the guidance of the radiology nurse. The patient received 50 mcg of IV fentanyl and 1 mg of IV Versed. The bone marrow trocar needle was guided down to the left iliac bone. The bone marrow aspirate needl e was then guided into the marrow space, utilizing a motorized bone drill, and 2 mL of bone marrow as pirate was initially obtained with the first aspirate attempt. Following this, an additional 6 mL of bone aspirate was obtained. The dental technician was onsite to verify adequacy of sampling. Followin g this, a 2 cm bone marrow biopsy of trabecular bone was obtained from the left iliac bone. The need le was removed. Pressure was held at the biopsy site until hemostasis was obtained. The patient chante erated the biopsy without difficulty. IMPRESSION: Successful CT guided left iliac bone biopsy and bone marrow aspirate. POS: ADRIAN
== END 2018-11-18 12:09 | disposition home or self-care (01) ==
LOC: CT 08:17
PROVIDERS: ATTEND Internal Medicine Hematology & Oncology
PROC: 07DR3ZX Extraction of Iliac Bone Marrow, Percutaneous Approach, Diagnostic (ICD-10-PCS; principal; 2018-11-18)
DX: C90.00 Multiple myeloma not having achieved remission (principal); C79.52 Secondary malignant neoplasm of bone marrow; I48.0 Paroxysmal atrial fibrillation; E11.9 Type 2 diabetes mellitus without complications; E78.5 Hyperlipidemia, unspecified; I25.10 Atherosclerotic heart disease of native coronary artery without angina pectoris; Z95.5 Presence of coronary angioplasty implant and graft; F32.9 Major depressive disorder, single episode, unspecified; F17.210 Nicotine dependence, cigarettes, uncomplicated; K21.9 Gastro-esophageal reflux disease without esophagitis; Z86.73 Personal history of transient ischemic attack (TIA), and cerebral infarction without residual deficits; Z79.84 Long term (current) use of oral hypoglycemic drugs; Z79.899 Other long term (current) drug therapy
CPT/HCPCS: 20225; 36415; 77012; 85097; 85610; 85730; 88184; 88237; 88264; 88280; 88305; 88311; 88313; 88341; 88342; 88365

== ENCOUNTER 2018-11-25 17:41 | Emergency (ER) | payer MEDICARE, MEDICAID ==
[~2018-11-25 17:41] MED LIST changes: +Fentanyl 100 MCG/2 ML VIAL ONE; -ISOVUE-370 76%-LOCM 1 ML ONE; +Lidocaine 1% PF 5 ML VIAL ONE; +Midazolam HCl 2 mg/2 ml Vial ONE; +Sodium Bicarbonate 2.5 MEQ/5 ML VIAL ONE; +Sodium Chloride 0.9% 10 ML ONE; +Sodium Chloride 0.9% 20 ML ONE
[2018-11-25] MEDS ORDERED: Morphine 10 MG/ML VIAL ONE (19:06)
== END 2018-11-25 19:33 | disposition home or self-care (01) ==
LOC: ERS 17:41
DX: I10 Essential (primary) hypertension (principal); M25.531 Pain in right wrist; E11.9 Type 2 diabetes mellitus without complications; F17.210 Nicotine dependence, cigarettes, uncomplicated; I25.10 Atherosclerotic heart disease of native coronary artery without angina pectoris; K21.9 Gastro-esophageal reflux disease without esophagitis; Z86.73 Personal history of transient ischemic attack (TIA), and cerebral infarction without residual deficits; Z85.79 Personal history of other malignant neoplasms of lymphoid, hematopoietic and related tissues; Z79.84 Long term (current) use of oral hypoglycemic drugs; Z79.899 Other long term (current) drug therapy
CPT/HCPCS: 93005; 96372; J1642; J2001; J2270; J3010

== ENCOUNTER 2018-12-02 09:52 | Day surgery (SDC) | payer MEDICARE, MEDICAID ==
[~2018-12-02 09:52] MED LIST changes: +Acetaminophen 500 MG TAB PO SCH; +DARATUMUMAB IV SCH; +Dexamethasone 20 MG in Sodium Chloride 0.9% 50 ML IVPB SCH; -Fentanyl 100 MCG/2 ML VIAL ONE; -Lidocaine 1% PF 5 ML VIAL ONE; -Midazolam HCl 2 mg/2 ml Vial ONE; +SODIUM CHLORIDE 0.9% IV SCH; -Sodium Bicarbonate 2.5 MEQ/5 ML VIAL ONE; -Sodium Chloride 0.9% 10 ML ONE; -Sodium Chloride 0.9% 20 ML ONE; +diphenhydrAMINE 50 MG in Sodium Chloride 0.9% 50 ML IVPB SCH
[2018-12-02] MEDS ORDERED: Sodium Chloride 0.9% 30 ML ONE (10:01)
[2018-12-02] MEDS ORDERED: DARATUMUMAB IV SCH ×2 (10:15→10:30)
[2018-12-02] MEDS ORDERED: Dexamethasone Sod Phosphate 20 MG in Sodium Chloride 0.9% 50 ML IVPB SCH (10:15)
[2018-12-02] MEDS ORDERED: diphenhydrAMINE 50 MG in Sodium Chloride 0.9% 50 ML IVPB SCH (10:15)
[2018-12-02] MEDS ORDERED: SODIUM CHLORIDE 0.9% IV SCH ×2 (10:15→10:30)
[2018-12-02] MEDS ORDERED: Acetaminophen 500 MG TAB PO SCH (10:15)
[2018-12-02 10:16] VITALS: BP 197/97; TEMP 98.6
[2018-12-02] MEDS ORDERED: PROVENTIL INHALER 6.7 G (200 INHALATIONS) INH PRN (13:13)
[2018-12-02] MEDS ORDERED: Famotidine/PF 20 mg/2ml Vial SLOW IVP SCH (13:15)
== END 2018-12-02 17:16 | disposition home or self-care (01) ==
LOC: ONC/OP 09:52
PROVIDERS: ATTEND Internal Medicine Hematology & Oncology
DX: Z51.12 Encounter for antineoplastic immunotherapy (principal); C79.52 Secondary malignant neoplasm of bone marrow; C90.00 Multiple myeloma not having achieved remission
CPT/HCPCS: 96375; 96413; 96415; J1100; J1200; J1642; J7050; J9145

== ENCOUNTER 2018-12-30 09:56 | Day surgery (SDC) | payer MEDICARE, MEDICAID ==
[2018-12-30] MEDS ORDERED: Sodium Chloride 0.9% 20 ML ONE (10:00)
[2018-12-30] MEDS ORDERED: diphenhydrAMINE 50 MG/ML VIAL IVP PRN (10:05)
[2018-12-30] MEDS ORDERED: Famotidine/PF 20 mg/2ml Vial SLOW IVP SCH (10:15)
[2018-12-30 10:28] VITALS: BP 150/79; TEMP 98.6
[2018-12-30] MEDS ORDERED: SODIUM CHLORIDE 0.9% IV SCH (10:45)
[2018-12-30] MEDS ORDERED: DARATUMUMAB IV SCH (10:45)
== END 2018-12-30 15:03 | disposition home or self-care (01) ==
LOC: ONC/OP 09:56
PROVIDERS: ATTEND Internal Medicine Hematology & Oncology
DX: Z51.12 Encounter for antineoplastic immunotherapy (principal); C79.52 Secondary malignant neoplasm of bone marrow; C90.00 Multiple myeloma not having achieved remission
CPT/HCPCS: 80053; 82248; 83615; 84100; 84550; 96375; 96413; 96415; J1100; J1200; J1642; J7050; J9145; S0028

== ENCOUNTER → 2019-01-27 | Day surgery (SDC) | payer MEDICARE, MEDICAID ==
[~2019-01-27] MED LIST changes: +Famotidine/PF 20 mg/2ml Vial SLOW IVP SCH; +Morphine IR Tab 15 MG TAB PO SCH; +Sodium Chloride 0.9% 30 ML ONE
[2019-01-27 11:13] VITALS: BP 144/84; TEMP 97.8
== END ==
LOC: ONC/OP 11:02
PROVIDERS: ATTEND Internal Medicine Hematology & Oncology
DX: Z51.12 Encounter for antineoplastic immunotherapy (principal); C79.52 Secondary malignant neoplasm of bone marrow; C90.00 Multiple myeloma not having achieved remission
CPT/HCPCS: 36415; 80053; 82248; 83615; 84100; 84550; 96375; 96413; 96415; J1100; J1200; J1642; J7050; J9145; S0028

== ENCOUNTER 2019-02-25 10:18 | Day surgery (SDC) | payer MEDICARE, MEDICAID ==
[~2019-02-25 10:18] MED LIST changes: -Famotidine/PF 20 mg/2ml Vial SLOW IVP SCH; -Morphine IR Tab 15 MG TAB PO SCH; -Sodium Chloride 0.9% 30 ML ONE
[2019-02-25] MEDS ORDERED: Sodium Chloride 0.9% 20 ML ONE (10:24)
[2019-02-25 10:31] VITALS: BP 120/68; TEMP 98.5
[2019-02-25] MEDS ORDERED: Famotidine/PF 20 mg/2ml Vial SLOW IVP SCH (10:45)
== END 2019-02-25 15:26 | disposition home or self-care (01) ==
LOC: ONC/OP 10:18
PROVIDERS: ATTEND Internal Medicine Hematology & Oncology
DX: Z51.11 Encounter for antineoplastic chemotherapy (principal); C79.52 Secondary malignant neoplasm of bone marrow; C90.00 Multiple myeloma not having achieved remission
CPT/HCPCS: 36415; 80053; 82248; 83615; 84100; 84550; 96375; 96413; J1100; J1200; J1642; J7050; J9145; S0028

== ENCOUNTER 2019-03-24 11:07 | Day surgery (SDC) | payer MEDICARE, MEDICAID ==
[~2019-03-24 11:07] MED LIST changes: +Famotidine/PF 20 mg/2ml Vial SLOW IVP SCH
[2019-03-24] MEDS ORDERED: Sodium Chloride 0.9% 20 ML ONE (11:20)
[2019-03-24 16:44] VITALS: BP 130/90; TEMP 98.4
== END 2019-03-24 16:45 | disposition home or self-care (01) ==
LOC: ONC/OP 11:07
PROVIDERS: ATTEND Internal Medicine Hematology & Oncology
DX: Z51.12 Encounter for antineoplastic immunotherapy (principal); C90.00 Multiple myeloma not having achieved remission; C79.52 Secondary malignant neoplasm of bone marrow
CPT/HCPCS: 36415; 80053; 82248; 83615; 84100; 84550; 96375; 96413; 96415; J1100; J1200; J1642; J7050; J9145; S0028

== ENCOUNTER 2019-04-30 11:35 | Day surgery (SDC) | payer MEDICARE, MEDICAID ==
[2019-04-30] MEDS ORDERED: Sodium Chloride 0.9% 40 ML ONE (11:51)
[2019-04-30 17:27] VITALS: BP 165/79
== END 2019-04-30 17:45 | disposition home or self-care (01) ==
LOC: ONC/OP 11:35
PROVIDERS: ATTEND Internal Medicine Hematology & Oncology
DX: C79.52 Secondary malignant neoplasm of bone marrow (principal); C90.00 Multiple myeloma not having achieved remission
CPT/HCPCS: 36415; 80053; 82248; 83615; 84100; 84550; 96375; 96413; J1100; J1200; J1642; J7050; J9145; S0028

== ENCOUNTER 2019-05-26 10:59 | Day surgery (SDC) | payer MEDICARE, MEDICAID ==
[~2019-05-26 10:59] MED LIST changes: -DARATUMUMAB IV SCH; +DARATUMUMAB IVPB SCH; -Dexamethasone 20 MG in Sodium Chloride 0.9% 50 ML IVPB SCH; +Dexamethasone Sod Phosphate 20 MG in Sodium Chloride 0.9% 50 ML IVPB SCH; -SODIUM CHLORIDE 0.9% IV SCH; +SODIUM CHLORIDE 0.9% IVPB SCH
[2019-05-26] MEDS ORDERED: Sodium Chloride 0.9% 20 ML ONE (11:17)
[2019-05-26 12:10] VITALS: BP 126/70; TEMP 97.7
== END 2019-05-26 15:20 | disposition home or self-care (01) ==
LOC: ONC/OP 10:59
PROVIDERS: ATTEND Internal Medicine Hematology & Oncology
DX: Z51.12 Encounter for antineoplastic immunotherapy (principal); C79.52 Secondary malignant neoplasm of bone marrow; C90.00 Multiple myeloma not having achieved remission
CPT/HCPCS: 36415; 80053; 82248; 83615; 84100; 84550; 96375; 96413; 96415; J1100; J1200; J1642; J7050; J9145; S0028

== ENCOUNTER 2019-06-19 08:49 | Day surgery (SDC) | payer MEDICARE, MEDICAID ==
[2019-06-15 13:06] VITALS: BMI 24.8
[~2019-06-19 08:49] MED LIST changes: -Acetaminophen 500 MG TAB PO SCH; -DARATUMUMAB IVPB SCH; -Dexamethasone Sod Phosphate 20 MG in Sodium Chloride 0.9% 50 ML IVPB SCH; +FLU VACC TS2019-20(65YR UP)/PF 180 MCG/0.5 ML SYRINGE IM ONE; -Famotidine/PF 20 mg/2ml Vial SLOW IVP SCH; +Prevnar 13-Val Conj/PF 0.5 ML SYRINGE IM ONE; -SODIUM CHLORIDE 0.9% IVPB SCH; -diphenhydrAMINE 50 MG in Sodium Chloride 0.9% 50 ML IVPB SCH
[2019-06-19 09:26] LABS: INR-International Normal Ratio 1.1; Prothrombin Time 13.7 SEC (12.0-14.7)
[2019-06-19] MEDS ORDERED: Midazolam HCl 2 mg/2 ml Vial ONE (10:13)
[2019-06-19] MEDS ORDERED: Fentanyl 100 MCG/2 ML VIAL ONE (10:13)
[2019-06-19] MEDS ORDERED: Sodium Bicarbonate 2.5 MEQ/5 ML VIAL ONE (10:13)
--- NOTE | 2019-06-19 11:12 | CT ---
CT-guided bone marrow biopsy and aspiration Conscious sedation: At least 20 minutes were spent with the patient for conscious sedation. HISTORY: Multiple myeloma. Restaging. FINDINGS: After explaining the procedure and answering all questions, limited CT of the pelvis was pe rformed. Sterile technique, buffered local anesthesia, CT guidance, conscious sedation, and a posterior approach were used to carefully advance an 11-gauge bone biopsy needle to the cortex at the posterior aspect of the right iliac bone. Position was confirmed with CT. Blood aspirate was obtained and submitted to laboratory for evaluation. 11-gauge core bone marrow biopsy was then obtained and submitted to pathology personnel for processin g. Postprocedure imaging shows no evidence of complication. Patient tolerated the procedure well and was returned to the holding area in good condition for further monitoring. IMPRESSION: Technically successful CT-guided bone marrow biopsy. Pathology is pending.
[2019-06-19 13:40] VITALS: BP 126/74; TEMP 97.8
== END 2019-06-19 13:30 | disposition home or self-care (01) ==
LOC: CT 08:49
PROVIDERS: ATTEND Internal Medicine Hematology & Oncology
PROC: 07DR3ZX Extraction of Iliac Bone Marrow, Percutaneous Approach, Diagnostic (ICD-10-PCS; principal; 2019-06-19)
DX: C90.00 Multiple myeloma not having achieved remission (principal); M19.90 Unspecified osteoarthritis, unspecified site; E11.9 Type 2 diabetes mellitus without complications; G89.29 Other chronic pain; K21.9 Gastro-esophageal reflux disease without esophagitis; I25.10 Atherosclerotic heart disease of native coronary artery without angina pectoris; I10 Essential (primary) hypertension; F32.9 Major depressive disorder, single episode, unspecified; F17.210 Nicotine dependence, cigarettes, uncomplicated; I69.331 Monoplegia of upper limb following cerebral infarction affecting right dominant side; Z79.84 Long term (current) use of oral hypoglycemic drugs; Z79.891 Long term (current) use of opiate analgesic; Z79.899 Other long term (current) drug therapy
CPT/HCPCS: 20225; 36415; 77012; 85610; 85730; 88184; 88237; 88264; 88280; J1642; J2250; J3010

== ENCOUNTER 2019-06-23 11:46 | Day surgery (SDC) | payer MEDICARE, MEDICAID ==
[~2019-06-23 11:46] MED LIST changes: +Acetaminophen 500 MG TAB PO SCH; +DARATUMUMAB IVPB SCH; +Dexamethasone Sod Phosphate 20 MG in Sodium Chloride 0.9% 50 ML IVPB SCH; -FLU VACC TS2019-20(65YR UP)/PF 180 MCG/0.5 ML SYRINGE IM ONE; +Famotidine/PF 20 mg/2ml Vial SLOW IVP SCH; -Prevnar 13-Val Conj/PF 0.5 ML SYRINGE IM ONE; +SODIUM CHLORIDE 0.9% IVPB SCH; +diphenhydrAMINE 50 MG in Sodium Chloride 0.9% 50 ML IVPB SCH
[2019-06-23] MEDS ORDERED: Sodium Chloride 0.9% 40 ML ONE (12:05)
[2019-06-23 13:48] VITALS: BP 115/62; TEMP 98.4
== END 2019-06-23 17:19 | disposition home or self-care (01) ==
LOC: ONC/OP 11:46
PROVIDERS: ATTEND Internal Medicine Hematology & Oncology
DX: Z51.12 Encounter for antineoplastic immunotherapy (principal); C79.52 Secondary malignant neoplasm of bone marrow; C90.00 Multiple myeloma not having achieved remission; D50.9 Iron deficiency anemia, unspecified
CPT/HCPCS: 36415; 80053; 82248; 83615; 84100; 84550; 96375; 96413; 96415; J1100; J1200; J1642; J7050; J9145; S0028

== ENCOUNTER 2019-07-21 11:23 | Day surgery (SDC) | payer MEDICARE, MEDICAID ==
[2019-07-21] MEDS ORDERED: Sodium Chloride 0.9% 20 ML ONE (11:25)
[2019-07-21 12:10] VITALS: BP 140/69; TEMP 98.8
== END 2019-07-21 16:02 | disposition home or self-care (01) ==
LOC: ONC/OP 11:23
PROVIDERS: ATTEND Internal Medicine Hematology & Oncology
DX: Z51.12 Encounter for antineoplastic immunotherapy (principal); C79.52 Secondary malignant neoplasm of bone marrow; C90.00 Multiple myeloma not having achieved remission
CPT/HCPCS: 36415; 80053; 82248; 83615; 84100; 84550; 96375; 96413; 96415; J1100; J1200; J1642; J7050; J9145; S0028

== ENCOUNTER 2019-08-18 11:32 | Day surgery (SDC) | payer MEDICARE, MEDICAID ==
[~2019-08-18 11:32] MED LIST changes: +Acetaminophen 500 MG TAB PO PRN; -Acetaminophen 500 MG TAB PO SCH; +Dexamethasone 20 MG in Sodium Chloride 0.9% 50 ML IVPB SCH
[2019-08-18] MEDS ORDERED: Sodium Chloride 0.9% 30 ML ONE (12:01)
[2019-08-18 13:56] VITALS: BP 134/66; TEMP 98.3
== END 2019-08-18 16:31 | disposition home or self-care (01) ==
LOC: ONC/OP 11:32
PROVIDERS: ATTEND Internal Medicine Hematology & Oncology
DX: Z51.12 Encounter for antineoplastic immunotherapy (principal); C79.52 Secondary malignant neoplasm of bone marrow; C90.00 Multiple myeloma not having achieved remission; D50.9 Iron deficiency anemia, unspecified
CPT/HCPCS: 36415; 80053; 82248; 83615; 84100; 84550; 96375; 96413; 96415; J1100; J1200; J1642; J7050; J9145; S0028

== ENCOUNTER 2019-09-21 11:31 | Day surgery (SDC) | payer MEDICARE, OTHER ==
[2019-09-21] MEDS ORDERED: diphenhydrAMINE 50 MG in Sodium Chloride 0.9% 50 ML IVPB PRN (12:03)
[2019-09-21] MEDS ORDERED: Acetaminophen 500 MG TAB PO PRN (12:04)
[2019-09-21 12:14] VITALS: TEMP 98
[2019-09-21] MEDS ORDERED: Dexamethasone Sod Phosphate 20 MG in Sodium Chloride 0.9% 50 ML IVPB SCH (12:15)
[2019-09-21] MEDS ORDERED: Famotidine/PF 20 mg/2ml Vial SLOW IVP SCH (12:15)
[2019-09-21] MEDS ORDERED: SODIUM CHLORIDE 0.9% IV SCH ×2 (12:15)
[2019-09-21] MEDS ORDERED: DARATUMUMAB IV SCH ×2 (12:15)
[2019-09-21 16:27] VITALS: BP 156/86
== END 2019-09-21 16:46 | disposition home or self-care (01) ==
LOC: ONC/OP 11:31
PROVIDERS: ATTEND Internal Medicine Hematology & Oncology
DX: Z51.12 Encounter for antineoplastic immunotherapy (principal); C79.52 Secondary malignant neoplasm of bone marrow; C90.00 Multiple myeloma not having achieved remission; D50.9 Iron deficiency anemia, unspecified
CPT/HCPCS: 36415; 80053; 82248; 83615; 84100; 84550; 96375; 96413; 96417; J1100; J1200; J7050; J9145

== ENCOUNTER 2019-10-19 11:34 | Day surgery (SDC) | payer MEDICARE, OTHER ==
[~2019-10-19 11:34] MED LIST changes: +DARATUMUMAB IV SCH; -DARATUMUMAB IVPB SCH; -Dexamethasone 20 MG in Sodium Chloride 0.9% 50 ML IVPB SCH; +SODIUM CHLORIDE 0.9% IV SCH; -SODIUM CHLORIDE 0.9% IVPB SCH; +diphenhydrAMINE 50 MG in Sodium Chloride 0.9% 50 ML IVPB PRN; -diphenhydrAMINE 50 MG in Sodium Chloride 0.9% 50 ML IVPB SCH
[2019-10-19] MEDS ORDERED: Sodium Chloride 0.9% 20 ML ONE (12:01)
[2019-10-19 13:10] VITALS: BP 134/90; TEMP 98.7
== END 2019-10-19 17:50 | disposition home or self-care (01) ==
LOC: ONC/OP 11:34
PROVIDERS: ATTEND Internal Medicine Hematology & Oncology
DX: Z51.12 Encounter for antineoplastic immunotherapy (principal); C79.52 Secondary malignant neoplasm of bone marrow; C90.00 Multiple myeloma not having achieved remission; D50.9 Iron deficiency anemia, unspecified
CPT/HCPCS: 36415; 80053; 82248; 83615; 84100; 84550; 96367; 96375; 96413; 96415; J1100; J1200; J1642; J7050; J9145; S0028

== ENCOUNTER 2019-11-25 11:24 | Day surgery (SDC) | payer MEDICARE, MEDICAID ==
[2019-11-25] MEDS ORDERED: Sodium Chloride 0.9% 20 ML ONE (12:17)
[2019-11-25 12:37] VITALS: TEMP 98.2
[2019-11-25] MEDS ORDERED: cloNIDine 0.2 MG TAB PO SCH (13:15)
[2019-11-25 14:17] VITALS: BP 168/70
== END 2019-11-25 16:43 | disposition home or self-care (01) ==
LOC: ONC/OP 11:24
PROVIDERS: ATTEND Internal Medicine Hematology & Oncology
DX: Z51.12 Encounter for antineoplastic immunotherapy (principal); C79.52 Secondary malignant neoplasm of bone marrow; C90.00 Multiple myeloma not having achieved remission; D50.9 Iron deficiency anemia, unspecified
CPT/HCPCS: 36415; 80053; 82248; 83615; 84100; 84550; 96375; 96413; 96415; J1100; J1200; J1642; J7050; J9145; S0028

== ENCOUNTER 2019-12-23 09:26 | Day surgery (SDC) | payer MEDICARE, MEDICAID ==
[~2019-12-23 09:26] MED LIST changes: -Acetaminophen 500 MG TAB PO PRN; +Acetaminophen 500 MG TAB PO SCH; -diphenhydrAMINE 50 MG in Sodium Chloride 0.9% 50 ML IVPB PRN; +diphenhydrAMINE 50 MG in Sodium Chloride 0.9% 50 ML IVPB SCH
[2019-12-23 14:17] VITALS: BP 154/76; TEMP 97.3
== END 2019-12-23 14:28 | disposition home or self-care (01) ==
LOC: ONC/OP 09:26
PROVIDERS: ATTEND Internal Medicine Hematology & Oncology
DX: Z51.12 Encounter for antineoplastic immunotherapy (principal); C79.52 Secondary malignant neoplasm of bone marrow; C90.00 Multiple myeloma not having achieved remission; D50.9 Iron deficiency anemia, unspecified
CPT/HCPCS: 36415; 80053; 82248; 83615; 84100; 84550; 96413; 96415; J1100; J1200; J7030; J9145; S0028

== ENCOUNTER 2020-01-13 08:58 | Day surgery (SDC) | payer MEDICARE, MEDICAID ==
[2020-01-12 09:22] VITALS: BMI 25.2
[2020-01-13 09:17] LABS: INR-International Normal Ratio 0.9; PTT 30.9 SEC (22.9-36.1); Prothrombin Time 12.4 sec (12.0-14.7)
[2020-01-13] MEDS ORDERED: Prevnar 13-Val Conj/PF 0.5 ML SYRINGE IM ONE (09:30)
[2020-01-13 09:37] LABS: Band 1 % (5-11); Hemoglobin 14.4 g/dL (12.0-16.0); Lymphocytes 58 % (21-51); MDiff Complete? YES; Macrocytosis SLIGHT = 6-15 cells (100X) (0-5/hpf); Mean Corpuscular HGB CONC 32.7 g/dL (32.0-36.0); Mean Corpuscular Hemoglobin 34.7 pg (27.0-31.0); Mean Platelet Volume 9.4 fL (7.4-10.4); Monocytes 11 % (0-10); Neutrophil 30 % (42-75); Platelet Count 115 thou/uL (130-400); Platelet Morphology Comment Appears Decreased; Red Blood Cell (RBC) Count 4.14 mill/uL (4.20-5.40); White Blood Cell (WBC) Count 5.9 thou/uL (4.8-10.8)
[2020-01-13] MEDS ORDERED: Sodium Bicarbonate 2.5 MEQ/5 ML VIAL ONE (10:12)
[2020-01-13 11:13] VITALS: BP 196/90; TEMP 98
--- NOTE | 2020-01-13 11:49 | CT ---
CT GUIDED RIGHT ILIAC BONE MARROW ASPIRATION AND BIOPSY: CLINICAL HISTORY: Multiple myeloma, anemia.. PROCEDURE: The procedure including the risks and complications were explained to the patient, and informed conse nt was obtained. The patient was placed on the CT scan table in the prone position. Noncontrasted CT images were obtained through the pelvis. An area was marked overlying the RIGHT reyna c bone, and the area was meticulously prepped and draped in usual sterile fashion. The skin and subcutaneous tissues were infiltrated with buffered 1% lidocaine for local anesthesia. After a small skin incision was made, an 11-gauge needle was advanced and positioning was confirmed w ith axial CT images. Approximately 9 milliliters of bone marrow aspirate was obtained. The needle was then further advanced, and a bone marrow biopsy was performed. The needle was removed, and hemost asis was achieved with direct pressure. The patient tolerated the procedure well and without immediate complication. The patient was transported to radiology nurses holding area for further fabian toring prior to discharge. IMPRESSION: Technically successful percutaneous bone marrow aspiration and biopsy. Pathology results are pending.
== END 2020-01-13 12:25 | disposition home or self-care (01) ==
LOC: CT 08:58
PROVIDERS: ATTEND Internal Medicine Hematology & Oncology
PROC: 07DR3ZX Extraction of Iliac Bone Marrow, Percutaneous Approach, Diagnostic (ICD-10-PCS; principal; 2020-01-13)
DX: C90.00 Multiple myeloma not having achieved remission (principal); D64.9 Anemia, unspecified; E11.9 Type 2 diabetes mellitus without complications; I10 Essential (primary) hypertension; K21.9 Gastro-esophageal reflux disease without esophagitis; I25.10 Atherosclerotic heart disease of native coronary artery without angina pectoris; F32.9 Major depressive disorder, single episode, unspecified; F17.210 Nicotine dependence, cigarettes, uncomplicated; Z79.899 Other long term (current) drug therapy; Z88.8 Allergy status to other drugs, medicaments and biological substances; Z86.73 Personal history of transient ischemic attack (TIA), and cerebral infarction without residual deficits; Z95.5 Presence of coronary angioplasty implant and graft; Z79.84 Long term (current) use of oral hypoglycemic drugs
CPT/HCPCS: 20225; 36415; 77002; 85025; 85097; 85610; 85730; 88184; 88237; 88264; 88280; 88305; 88311; 88313; 88341; 88342; 88365; 88374

== ENCOUNTER 2020-02-18 09:06 | Outpatient (CLI) | payer MEDICARE, MEDICAID ==
--- NOTE | 2020-02-18 11:52 | PET ---
Exam: PET scan with CT attenuation correction HISTORY: Multiple myeloma, not having achieved remission. Osseous metastases. COMPARISON: None. TECHNIQUE: PET scan with CT attenuation correction is performed from the base of the brain to the pro ximal thighs following the intravenous administration of 10.3 mCi of [id number]. FINDINGS: Head and neck: No abnormal FDG localization. Chest: No abnormal FDG localization. CT used for attenuation correction demonstrates dependent atelec tatic changes and scarring. Nonspecific groundglass opacities may represent a component of edema. Noncalcified, nonhypermetabolic nodule in the right upper lobe measuring 0.5 cm is below imaging thre shold criteria for PET imaging. Comparison made with a CT angiogram of the chest 01/04/2018 demonstrates the nodule to be present and is unchanged in size suggesting 2 years of stability. Abdomen/Pelvis: No abnormal FDG localization. Physiologic distribution of radiotracer is identified. Osseous structures: There is evidence of remote compression fractures at L1 and L4. CT used for atten uation correction demonstrates heterogeneous trabeculation involving bilateral ischium and iliac wings. There is no evidence of FDG avidity. IMPRESSION: No evidence of osseous metastases. Transcribed Date/Time: 02/18/2020 12:38 PM
== END 2020-02-18 09:07 | disposition home or self-care (01) ==
LOC: PET 09:06
PROVIDERS: ATTEND Internal Medicine Hematology & Oncology
DX: C90.00 Multiple myeloma not having achieved remission (principal); C79.51 Secondary malignant neoplasm of bone
CPT/HCPCS: 78815; A9552

== ENCOUNTER 2020-02-26 13:41 | Outpatient (CLI) | payer MEDICARE, MEDICAID | END 2020-02-26 13:42 | disposition home or self-care (01) | LOC: ULT 13:41 | PROVIDERS: ATTEND Internal Medicine Hematology & Oncology | DX: Z51.11 Encounter for antineoplastic chemotherapy (principal); C90.00 Multiple myeloma not having achieved remission; D50.9 Iron deficiency anemia, unspecified; I08.1 Rheumatic disorders of both mitral and tricuspid valves; Z79.899 Other long term (current) drug therapy | CPT/HCPCS: 93306 ==

== ENCOUNTER 2020-03-15 09:43 | Day surgery (SDC) | payer MEDICARE, MEDICAID ==
[~2020-03-15 09:43] MED LIST changes: -Acetaminophen 500 MG TAB PO SCH; +CARFILZOMIB IV SCH; -DARATUMUMAB IV SCH; +DEXTROSE 5% IV SCH; -Dexamethasone Sod Phosphate 20 MG in Sodium Chloride 0.9% 50 ML IVPB SCH; -Famotidine/PF 20 mg/2ml Vial SLOW IVP SCH; +Ondansetron 2MG/ML MDV 10 MG in Sodium Chloride 0.9% 50 ML IVP SCH; -SODIUM CHLORIDE 0.9% IV SCH; +WATER IV SCH; -diphenhydrAMINE 50 MG in Sodium Chloride 0.9% 50 ML IVPB SCH
[2020-03-15] MEDS ORDERED: Sodium Chloride 0.9% 20 ML ONE (10:40)
== END 2020-03-15 12:14 | disposition home or self-care (01) ==
LOC: ONC/OP 09:43
PROVIDERS: ATTEND Internal Medicine Hematology & Oncology
DX: Z51.11 Encounter for antineoplastic chemotherapy (principal); C90.00 Multiple myeloma not having achieved remission; C79.52 Secondary malignant neoplasm of bone marrow; D50.9 Iron deficiency anemia, unspecified; Z88.8 Allergy status to other drugs, medicaments and biological substances
CPT/HCPCS: 36415; 80053; 82248; 83615; 83883; 84100; 84165; 84550; 96375; 96413; J1100; J1642; J2405; J9047

== ENCOUNTER 2020-03-22 10:07 | Day surgery (SDC) | payer MEDICARE, MEDICAID ==
[~2020-03-22 10:07] MED LIST changes: -CARFILZOMIB IV SCH; +CARFILZOMIB IVPB SCH; -DEXTROSE 5% IV SCH; +DEXTROSE 5% IVPB SCH; -Ondansetron 2MG/ML MDV 10 MG in Sodium Chloride 0.9% 50 ML IVP SCH; +Ondansetron 2MG/ML MDV 10 MG in Sodium Chloride 0.9% 50 ML IVPB SCH; +Ondansetron HCl/PF 10 MG in Sodium Chloride 0.9% 50 ML IVPB SCH; -WATER IV SCH; +WATER IVPB SCH
[2020-03-22 10:38] VITALS: BP 180/88; TEMP 97.8
== END 2020-03-22 13:23 | disposition home or self-care (01) ==
LOC: ONC/OP 10:07
PROVIDERS: ATTEND Internal Medicine Hematology & Oncology
DX: Z51.11 Encounter for antineoplastic chemotherapy (principal); C90.00 Multiple myeloma not having achieved remission; C79.52 Secondary malignant neoplasm of bone marrow; D50.9 Iron deficiency anemia, unspecified; Z88.8 Allergy status to other drugs, medicaments and biological substances
CPT/HCPCS: 96375; 99211; G0463; J1100; J2405; J9047

== ENCOUNTER 2020-03-29 09:58 | Day surgery (SDC) | payer MEDICARE, MEDICAID ==
[~2020-03-29 09:58] MED LIST changes: +CARFILZOMIB IV SCH; +DEXAMETHASONE IVPB SCH; +DEXAMETHASONE SOD PHOSPHATE IVPB SCH; +DEXTROSE 5% IV SCH; +ONDANSETRON HCL IVPB SCH; +ONDANSETRON IVPB SCH; -Ondansetron 2MG/ML MDV 10 MG in Sodium Chloride 0.9% 50 ML IVPB SCH; -Ondansetron HCl/PF 10 MG in Sodium Chloride 0.9% 50 ML IVPB SCH; +WATER IV SCH; +[UNRECOGNIZED DRUG - OTHER] IVPB SCH
[2020-03-29] MEDS ORDERED: Sodium Chloride 0.9% 20 ML ONE (10:22)
== END 2020-03-29 12:51 | disposition home or self-care (01) ==
LOC: ONC/OP 09:58
PROVIDERS: ATTEND Internal Medicine Hematology & Oncology
DX: Z51.11 Encounter for antineoplastic chemotherapy (principal); C90.00 Multiple myeloma not having achieved remission; C79.52 Secondary malignant neoplasm of bone marrow; D50.9 Iron deficiency anemia, unspecified; Z88.8 Allergy status to other drugs, medicaments and biological substances
CPT/HCPCS: 96375; 96413; J1100; J1642; J2405; J9047

== ENCOUNTER 2020-04-28 10:53 | Day surgery (SDC) | payer MEDICARE, MEDICAID ==
[~2020-04-28 10:53] MED LIST changes: -CARFILZOMIB IV SCH; -DEXAMETHASONE IVPB SCH; -DEXTROSE 5% IV SCH; -ONDANSETRON HCL IVPB SCH; -WATER IV SCH
[2020-04-28] MEDS ORDERED: Sodium Chloride 0.9% 20 ML ONE (11:00)
== END 2020-04-28 12:44 | disposition home or self-care (01) ==
LOC: ONC/OP 10:53
PROVIDERS: ATTEND Internal Medicine Hematology & Oncology
DX: Z51.11 Encounter for antineoplastic chemotherapy (principal); C90.00 Multiple myeloma not having achieved remission; C79.52 Secondary malignant neoplasm of bone marrow; D50.9 Iron deficiency anemia, unspecified
CPT/HCPCS: 96375; 96413; J1100; J1642; J2405; J9047

== ENCOUNTER 2020-05-12 10:31 | Day surgery (SDC) | payer MEDICARE, MEDICAID ==
[2020-05-12 11:38] VITALS: BP 188/97; TEMP 98.8
[2020-05-12] MEDS ORDERED: Sodium Chloride 0.9% 20 ML ONE (12:08)
== END 2020-05-12 12:54 | disposition home or self-care (01) ==
LOC: ONC/OP 10:31
PROVIDERS: ATTEND Internal Medicine Hematology & Oncology
DX: Z51.12 Encounter for antineoplastic immunotherapy (principal); C79.52 Secondary malignant neoplasm of bone marrow; C90.00 Multiple myeloma not having achieved remission; D50.9 Iron deficiency anemia, unspecified; Z88.8 Allergy status to other drugs, medicaments and biological substances
CPT/HCPCS: 36415; 80053; 82248; 83615; 83883; 84100; 84165; 84550; 96375; 96413; J1100; J1642; J2405; J9047

== ENCOUNTER 2020-05-26 10:16 | Day surgery (SDC) | payer MEDICARE, MEDICAID ==
[~2020-05-26 10:16] MED LIST changes: +CARFILZOMIB IV SCH; -CARFILZOMIB IVPB SCH; +DEXTROSE 5% IV SCH; +Ondansetron HCl/PF 10 MG in Sodium Chloride 0.9% 50 ML IVPB SCH; +WATER IV SCH; -WATER IVPB SCH
[2020-05-26] MEDS ORDERED: Sodium Chloride 0.9% 20 ML ONE (10:27)
[2020-05-26 10:59] VITALS: BP 178/118; TEMP 98.4
== END 2020-05-26 13:20 | disposition home or self-care (01) ==
LOC: ONC/OP 10:16
PROVIDERS: ATTEND Internal Medicine Hematology & Oncology
DX: Z51.11 Encounter for antineoplastic chemotherapy (principal); C90.00 Multiple myeloma not having achieved remission; C79.52 Secondary malignant neoplasm of bone marrow; D50.9 Iron deficiency anemia, unspecified; Z88.8 Allergy status to other drugs, medicaments and biological substances
CPT/HCPCS: 96375; 96413; J1100; J1642; J2405; J9047

== ENCOUNTER 2020-06-02 10:36 | Day surgery (SDC) | payer MEDICARE, MEDICAID ==
[~2020-06-02 10:36] MED LIST changes: -CARFILZOMIB IV SCH; +CARFILZOMIB IVPB SCH; -DEXTROSE 5% IV SCH; -Ondansetron HCl/PF 10 MG in Sodium Chloride 0.9% 50 ML IVPB SCH; -WATER IV SCH; +WATER IVPB SCH
[2020-06-02] MEDS ORDERED: Sodium Chloride 0.9% 20 ML ONE (10:57)
== END 2020-06-02 11:49 | disposition home or self-care (01) ==
LOC: ONC/OP 10:36
PROVIDERS: ATTEND Internal Medicine Hematology & Oncology
DX: Z51.12 Encounter for antineoplastic immunotherapy (principal); C90.00 Multiple myeloma not having achieved remission; C79.52 Secondary malignant neoplasm of bone marrow; D50.9 Iron deficiency anemia, unspecified; Z88.8 Allergy status to other drugs, medicaments and biological substances
CPT/HCPCS: 99211; G0463; J1100; J1642; J2405; J9047

== ENCOUNTER 2020-06-13 12:37 | Day surgery (SDC) | payer MEDICARE, MEDICAID ==
[~2020-06-13 12:37] MED LIST changes: +CARFILZOMIB IV SCH; -CARFILZOMIB IVPB SCH; +DEXTROSE 5% IV SCH; +WATER IV SCH; -WATER IVPB SCH
[2020-06-13] MEDS ORDERED: Sodium Chloride 0.9% 20 ML ONE (12:52)
[2020-06-13 13:00] VITALS: BP 189/84; TEMP 98.7
== END 2020-06-13 14:34 | disposition home or self-care (01) ==
LOC: ONC/OP 12:37
PROVIDERS: ATTEND Internal Medicine Hematology & Oncology
DX: Z51.12 Encounter for antineoplastic immunotherapy (principal); C90.00 Multiple myeloma not having achieved remission; C79.52 Secondary malignant neoplasm of bone marrow; D50.9 Iron deficiency anemia, unspecified; Z88.8 Allergy status to other drugs, medicaments and biological substances
CPT/HCPCS: 36415; 80053; 82248; 83615; 84100; 84550; 96375; 96413; J1100; J1642; J2405; J9047

== ENCOUNTER 2020-06-18 23:11 | Inpatient (IN) | payer MEDICARE, MEDICAID ==
[2020-06-19] MEDS ORDERED: Acetaminophen 325 MG TAB PO PRN (00:15)
[2020-06-19] MEDS ORDERED: Ondansetron ODT 4 MG TAB PO PRN (00:15)
[2020-06-19] MEDS ORDERED: Ondansetron PF 4 MG/2 ML Vial IVP PRN (00:15)
[2020-06-19] MEDS ORDERED: Senokot S 8.6-50 MG TAB PO PRN (00:19)
[2020-06-19] MEDS ORDERED: Diphenoxylate HCl/Atropine Tablet PO PRN (00:23)
[2020-06-19] MEDS ORDERED: Prochlorperazine Maleate 5 MG TAB PO PRN (00:32)
--- NOTE | 2020-06-19 00:36 | PDOC.FPRHP ---
- History of Present Illness Chief Complaint: Chest pain and back pain History of Present Illness: Patient is a 65 yo female with PMH of who presents as a direct admit from [facility]. Per the patient, she began experiencing chest pain and back pain a couple of days ago. The pain has gradually gotten worse and today the patient became very diaphoretic and the pain was unbearable. She then had her son take her to the ED where she was found to be in Afib with RVR. Per checkout, Patient was started on Dilt drip at [facility] and converted to NS rhythm. Dilt drip was not continued upon transfer. Patient was also hypotensive, tachycardic, and short of breath at [facility]. She was given broad spectrum antibiotics Vanc and Cefepime at [facility]. Patient was sent with ED records; however, these records belonged to the wrong patient. Attempting to obtain correct ED records at this time. ED Course: S/P Dilt, Vanv, Cefepime Attempting to obtain correct ED records - Allergies/Adverse Reactions Allergies Allergy/AdvReac Type Severity Reaction Status Date / Time daratumumab [From Darzalex] AdvReac Verified 01/12/20 08:53 - Home Medications Medication Instructions Recorded Confirmed Type metFORMIN [Glucophage] 1,000 mg PO DAILY 10/08/18 06/19/20 History Atorvastatin Calcium [Lipitor] 80 mg PO HS tab 10/13/18 06/19/20 Rx Morphine ER [MS Contin] 15 mg PO Q4HR PRN 11/10/18 06/19/20 History Diphenoxylate HCl/Atropine 2 tab PO QID PRN 06/15/19 06/19/20 History [Lomotil] Morphine ER [MS Contin] 30 mg PO DAILY 06/15/19 06/19/20 History Prochlorperazine Maleate 10 mg PO Q6HR PRN 06/15/19 06/19/20 History [Compazine] Carvedilol [Coreg] 6.25 mg PO BID-WM 30 Days #60 tab 05/10/20 06/19/20 Rx Lisinopril [Zestril] 20 mg PO DAILY 30 Days #30 tab 05/10/20 06/19/20 Rx - History PMHx: multiple myeloma, DM2, HTN, Thrombocytopenia, L1 burst fx, paraoxysmal Afib, and depression PSHx: Bilateral tubal ligation, hemorrhoidectomy, right inguinal hernia repair, Right knee surgery, removal of cyst from left breast, Cholecystectomy FHx: HTN, DM in sister and mother; uterine cancer in sister Social: denies t/a/d - Review of Systems General: reports: fatigue. denies: fever/chills Eyes: denies: vision changes ENT: denies: nasal congestion, rhinorrhea Respiratory: reports: cough, shortness of breath Cardiovascular: reports: chest pain. denies: palpitation, edema Gastrointestinal: reports: nausea, diarrhea, constipation, abdominal pain Genitourinary: denies: dysuria, polyuria Skin: denies: rashes, lesions Musculoskeletal: reports: pain. denies: tenderness, swelling Neurological: reports: weakness. denies: numbness Psychological: denies: anxiety, depression - Vital signs BP: 130/89 HR: 78 RR: 20 Tmax: 98 Pox: 100% on RA Wt: 63 kg - Physical Exam Constitutional: NAD, awake, alert and oriented HEENT: normocephalic and atraumatic, EOMI Neck: supple, FROM -Chest: Diffusely tender to palpation Heart: RRR, normal S1/S2 Lungs: CTAB, no respiratory distress Abdomen: soft, non-tender, bowel sounds present, no masses/distention Musculoskeletal: normal structure, normal tone Neurological: no focal deficit, CN II-XII intact Skin: no rash/lesions, good turgor, no jaundice Heme/Lymphatic: no unusual bruising or bleeding, no purpura, no petechia Psychiatric: normal mood and affect, good judgment and insight, intact recent an d remote memory FMR H&P: Results - Labs Result Diagrams: 06/19/20 04:45 06/19/20 04:45 FMR H&P: A/P - Problem List (1) Atypical chest pain Current Visit: Yes Status: Acute Code(s): R07.89 - OTHER CHEST PAIN (2) DM type 2 (diabetes mellitus, type 2) Current Visit: No Status: Chronic (3) Hypertension Current Visit: No Status: Chronic Code(s): I10 - ESSENTIAL (PRIMARY) HYPERTENSION (4) Multiple myeloma Current Visit: No Status: Chronic Code(s): C90.00 - MULTIPLE MYELOMA NOT HAVING ACHIEVED REMISSION Qualifiers: Multiple myeloma remission status: unspecified Qualified Code(s): C90.00 - Multiple myeloma not having achieved remission (5) Atrial fibrillation with rapid ventricular response Current Visit: Yes Status: Acute Code(s): I48.91 - UNSPECIFIED ATRIAL FIBRILLATION (6) Thrombocytopenia Current Visit: Yes Status: Chronic Code(s): D69.6 - THROMBOCYTOPENIA, UNSPECIFIED - Plan Afib with RVR - s/p cardizem at [facility], attempting to obtain records from [facility] as records sent with patient belonged to the a different patient - hx of paroxysmal Afib - since arrival to [facility], patient has been in SR - will continue to monitor on tele and treat as needed - not on anticoagulation due to thrombocytopenia - continue home Coreg Chest pain, atypical - reproducible with chest palpation, does not radiate, not worse with exertion, not relieved by rest - likely 2/2 to metastatic multiple myeloma - will obtain EKG, troponin, and chest xray - continue to monitor on tele Metastatic Multiple Myeloma - chest and back pain that patient is experiencing is likely 2/2 to MM - known burst fractures - will continue patient on home MS Contin - will add 4mg IV morphine prn for severe pain - will contact patient's oncologist Dr. Almendarez in the morning Hypotension, Tachycardia, SOB; resolved - given broad spectrum antibiotics (vanc and cefepime) at [facility] for possible infection - likely 2/2 to Afib with RVR, no infectious source identified - vitals since admission have been stable - WBC: 9.0, afebrile - will continue to monitor and treat if indicated Thrombocytopenia - hx of thrombocytopenia - Plt: 13 - will continue to monitor - will hold anticoagulation HTN - hypotension at outside facility has resolved - will continue home medication and continue to monitor DM2 - will hold home metformin - SSI ordered - Hypoglycemia protocol in place PCP: Yana Code: FULL IVF: LR @ 100 mls/hr Diet: CC PPx: SCDs only due to thrombocytopenia Dispo: will admit to tele for further observation; likely LOS < 48 hrs. FMR H&P: Upper Level - Plan Date/Time: 06/19/20 0033 Uriah Slater DO, have evaluated this patient and agree with findings/plan as outlined by diversity intern resident. Pertinent changes/additions are listed here. This is a 65 yo female with a pmh of multiple myelmoma, chronic thr ombocytopenia, DM2, Depression, HTN, and paroxysmal atrial fibrillation who presents to the hospital from [facility] ER with a cc of chest pain and palpiations. She states her symptoms started over the last few days and worsened acutely today. She reports associated SOB, dizziness, and fatigue. She denies fevers, chills, cough, nausea, or vomiting. She has a history of paroxysmal afib but is currently not taking any medication for this. When she presented to the ER, she was found to be in RVR per check out. She was started on a diltiazem drip in the ER however converted spontaneously to NSR before transport and the drip was stopped. In addition, she was found to be hypotensive at the time and there was some concern for sepsis. She was therefore, started on broad spectrum abx. Currently she is complaining of some chest pain and mild SOB. We are awaiting records from [facility] as their EMR is reportedly down. Objective: Vitals: BP 130/89, HR 72, RR 20, Temp 98.0, SpO2 100% RA, Wt. 63 kg General: NAD HEENT: AT/NC Cardio: RRR, no murmurs Respiratory: CTAB Abdomen: Diffuse tenderness, BS+, no rebound, non-surgical abdomen A/P: Afib with RVR, resolved -Admit to Tele obs -Pt is off diltiazem, will monitor -Continue home Coreg -This was likely the reason for her initial symptoms and hypotension. I do not believe we need to continue abx at this time as there does not appear to be a source and her vital signs improved once she was in sinus rhythm -EKG shows sinus rhythm without ST elevations or depressions Multiple myeloma -Continue home pain medications -Will touch base with Dr. Almendarez in the AM Thrombocytopenia -Will monitor, no active bleeding at this time -Consider platelet transfusion if pt becomes symptomatic -Pt is on no anticoagulation for her afib given her platelet count See diversity intern note for further information Code: Full Prophylaxis: SCDs Family: None at bedside Fluids: LR 100ml/hr Diet: CC Disposition: DC in 1-2 days PCP: Dr. Millan Addendum - Attending - Attending Attestation Date/Time: 06/19/20 1260 I personally evaluated the patient and discussed the management with Dr. Gutiérrez I agree with the History, Examination, Assessment and Plan documented above with any addition or exceptions noted below. Patient undergoing chemo. Patient with severe back pain rec re-imaging of spine if non recent and consider back brace and bisphosphonates if back pain felt to be related to MM. Consult Palliative and pain management. Start scheduled narcotics and bowel regimen for this patient. Hold metformin due to relative dehydration poor po intake and GI upset. Adjuvant NSAID and VTE anticoagulation re restricted by thrombocytopenia.
[2020-06-19] MEDS: Lactated Ringer's 1,000 ML IV SCH ×2 (01:26→11:53)
[2020-06-19] MEDS: Morphine 4 MG/ML VIAL SLOW IVP PRN ×5 (01:26→19:39)
[2020-06-19 01:39] LABS: Reflex for Review?? NO
[2020-06-19 01:47] LABS: Platelet Count 13 thou/uL (130-400)
[2020-06-19 01:53] LABS: ALT (SGPT) 40 U/L (8-55); AST (SGOT) 28 U/L (5-34); Albumin 2.9 g/dL (3.4-4.8); Alkaline Phosphatase 53 U/L (40-110); Anion Gap 13 mmol/L (10-20); BUN (Urea Nitrogen) 22 mg/dL (9.8-20.1); Bilirubin, Total 0.8 mg/dL (0.2-1.2); Calc. Creatinine Clearance 0 mL/min (70-130); Calcium 7.6 mg/dL (7.8-10.44); Carbon Dioxide 16 mmol/L (23-31); Chloride 112 mmol/L (98-107); Estimated GFR-MDRD 84; Globulin 2.1 g/dL (2.4-3.5); Glucose 139 mg/dL (80-115); Potassium 3.5 mmol/L (3.5-5.1); Sodium 137 mmol/L (136-145)
[2020-06-19 01:55] LABS: #Neutrophils 4.9 thou/uL (1.40-6.50); %Basophils 0.2 % (0.0-1.0); %Eosinophils 0.3 % (0.0-10.0); %Lymphocytes 33.8 % (21.0-51.0); %Monocytes 11.6 % (0.0-10.0); %Neutrophils 54.1 % (42.0-75.0); Large Platelets SLIGHT; MDiff Complete? YES; Mean Corpuscular HGB CONC 34.8 g/dL (32.0-36.0); Mean Corpuscular Hemoglobin 35.6 pg (27.0-31.0); Mean Platelet Volume 16.8 fL (7.4-10.4); Platelet Morphology Comment Appears Decreased; RBC Distribution Width 12.1 % (11.5-14.5); Red Blood Cell (RBC) Count 3.67 mill/uL (4.20-5.40)
[2020-06-19] MEDS ORDERED: Dextrose 5% in Water 1,000 ML IV PRN (02:56)
[2020-06-19] MEDS ORDERED: Dextrose 50% Abboject 50 ML SYRINGE SLOW IVP PRN (02:56)
[2020-06-19 05:10] LABS: #Lymphocytes 2.6 thou/uL (1.20-3.40); #Monocytes 0.8 thou/uL (0.11-0.59); %Basophils 0.2 % (0.0-1.0); %Eosinophils 0.3 % (0.0-10.0); %Lymphocytes 35.1 % (21.0-51.0); %Neutrophils 53.5 % (42.0-75.0); Hemoglobin 12.6 g/dL (12.0-16.0); Mean Corpuscular HGB CONC 34.8 g/dL (32.0-36.0); Mean Corpuscular Hemoglobin 35.1 pg (27.0-31.0); Mean Platelet Volume 15.9 fL (7.4-10.4); Platelet Count 15 thou/uL (130-400); Red Blood Cell (RBC) Count 3.59 mill/uL (4.20-5.40); White Blood Cell (WBC) Count 7.5 thou/uL (4.8-10.8)
[2020-06-19 05:31] LABS: ALT (SGPT) 39 U/L (8-55); AST (SGOT) 27 U/L (5-34); Albumin 2.9 g/dL (3.4-4.8); Alkaline Phosphatase 56 U/L (40-110); Anion Gap 12 mmol/L (10-20); BUN (Urea Nitrogen) 21 mg/dL (9.8-20.1); Bilirubin, Total 0.7 mg/dL (0.2-1.2); Calc. Creatinine Clearance 65 mL/min (70-130); Calcium 7.9 mg/dL (7.8-10.44); Carbon Dioxide 18 mmol/L (23-31); Chloride 111 mmol/L (98-107); Estimated GFR-MDRD 82; Glucose 140 mg/dL (80-115); Potassium 3.5 mmol/L (3.5-5.1); Protein, Total 4.9 g/dL (6.0-8.3); Sodium 137 mmol/L (136-145)
[2020-06-19] MEDS ORDERED: Morphine ER 15 MG TAB PO SCH ×2 (06:00→08:41)
[2020-06-19] MEDS: Lisinopril 20 MG TAB PO SCH (08:26)
[2020-06-19] MEDS: Carvedilol 6.25 MG TAB PO SCH ×2 (08:26→17:01)
--- NOTE | 2020-06-19 08:39 | PDOC.BPN ---
- Brief Progress Note Talked with Dr. Miller about the patient who stated that her platelets in office have been as low at 50K but not as they are now. He thinks that her platelets are treatment related. Recommended 1 unit of platelets to be transfused especially due to poor follow up with their office from [facility]. In regards to her back pain, he states she is on ms contin 30mg q8hr and 15mg PRN in which he recommends getting pain management on board if it is uncontrolled with this regimen. She has a f/u appointment tomorrow morning for treatment and states he can address her pain as well. No consult for now unless she stays hospitalized longer than 24 more hours.
[2020-06-19] MEDS ORDERED: Morphine ER 30 MG TAB PO SCH (09:00)
[2020-06-19] MEDS ORDERED: FLU VACC QS2020-21(65YR UP)/PF 240 MCG/0.7 ML SYRINGE IM ONE (09:00)
--- NOTE | 2020-06-19 10:37 | RAD ---
PORTABLE CHEST: DATE: 06/19/2020. PROVIDED CLINICAL HISTORY: Chest pain. FINDINGS: Comparison 05/08/2020. Cardiac and mediastinal silhouette is unchanged in appearance. Vascular calcif ication and right-sided implanted port are again noted. There is no focal consolidation, pleural flu id, or pneumothorax apparent. IMPRESSION: No evidence for an acute cardiopulmonary process. POS: [facility]
[2020-06-19 10:48] LABS: Troponin I 0.078 ng/mL (< 0.028)
[2020-06-19] MEDS: HumaLOG 300 UNITS/3 ML VIAL SC PRN (12:17)
[2020-06-19] MEDS: Morphine ER 30 MG TAB PO SCH ×2 (14:44→22:53)
[2020-06-19] MEDS: Labetalol HCl 100 MG/20 ML VIAL SLOW IVP PRN ×2 (17:00→20:50)
[2020-06-19] MEDS: Atorvastatin Calcium 40 MG TAB PO SCH (20:29)
[2020-06-19] MEDS ORDERED: Morphine ER 15 MG TAB PO PRN (20:40)
[2020-06-19] MEDS ORDERED: Carvedilol 6.25 MG TAB PO SCH (21:15)
[2020-06-20] MEDS: Morphine 4 MG/ML VIAL SLOW IVP PRN ×4 (00:32→11:04)
[2020-06-20] MEDS: hydrALAZINE 25 MG TAB PO PRN ×4 (02:44→22:06)
[2020-06-20 05:05] LABS: ALT (SGPT) 40 U/L (8-55); AST (SGOT) 38 U/L (5-34); Albumin 2.8 g/dL (3.4-4.8); Alkaline Phosphatase 58 U/L (40-110); Anion Gap 12 mmol/L (10-20); BUN (Urea Nitrogen) 16 mg/dL (9.8-20.1); Bilirubin, Total 0.7 mg/dL (0.2-1.2); Calc. Creatinine Clearance 59 mL/min (70-130); Calcium 8.3 mg/dL (7.8-10.44); Carbon Dioxide 20 mmol/L (23-31); Chloride 110 mmol/L (98-107); Estimated GFR-MDRD 73; Globulin 2.2 g/dL (2.4-3.5); Glucose 123 mg/dL (80-115); Potassium 3.5 mmol/L (3.5-5.1); Sodium 138 mmol/L (136-145)
[2020-06-20 05:27] LABS: Hemoglobin 10.8 g/dL (12.0-16.0); Mean Corpuscular Hemoglobin 35.7 pg (27.0-31.0); Mean Platelet Volume 9.2 fL (7.4-10.4); Platelet Count 67 thou/uL (130-400); RBC Distribution Width 12.1 % (11.5-14.5); Red Blood Cell (RBC) Count 3.02 mill/uL (4.20-5.40); White Blood Cell (WBC) Count 3.9 thou/uL (4.8-10.8)
[2020-06-20 05:28] LABS: Hypochromia SLIGHT = 6-15 cells (100X) (0-5/hpf); Lymphocytes 54 % (21-51); MDiff Complete? YES; Macrocytosis SLIGHT = 6-15 cells (100X) (0-5/hpf); Monocytes 8 % (0-10); Neutrophil 38 % (42-75); Platelet Morphology Comment Appears Decreased
[2020-06-20] MEDS: Morphine ER 30 MG TAB PO SCH ×3 (05:38→22:04)
--- NOTE | 2020-06-20 06:06 | PDOC.FM ---
- Subjective Subjective: Og(katherine Esquivel is not doing well this morning. She says she is having a lot of back pain and she is not feeling well. She endorses centralized CP that worsens with palpation, as well as SOB. She says neither of these are normal for her but all her sxs started at the same time a few days ago. - Objective Vital Signs & Weight: Vital Signs (12 hours) Temp Pulse Pulse Resp BP BP BP 06/20/20 04:00 98.8 F 65 12 127/68 06/20/20 03:25 98.5 F 63 14 159/67 H 06/20/20 03:05 98.7 F 60 14 165/74 H 06/20/20 02:44 60 207/81 H 06/20/20 02:39 98.6 F 60 14 207/81 H 06/20/20 00:26 98.7 F 62 14 181/77 H 06/19/20 22:52 187/81 H 06/19/20 22:51 98.2 F 66 14 187/81 H 06/19/20 20:50 63 204/88 H 06/19/20 20:46 204/88 H 06/19/20 20:30 195/90 H 06/19/20 19:50 99.2 F 60 14 182/80 H 06/19/20 18:25 144/98 H Pulse Ox 06/20/20 04:00 98 06/20/20 03:25 06/20/20 03:05 06/20/20 02:44 06/20/20 02:39 06/20/20 00:26 06/19/20 22:52 06/19/20 22:51 98 06/19/20 20:50 06/19/20 20:46 06/19/20 20:30 06/19/20 19:50 99 06/19/20 18:25 Weight Weight 63.8 kg I&O: 06/18/20 06/19/20 06/20/20 06:59 06:59 06:59 Intake Total 504 2543 Output Total 300 1950 Balance 204 593 Result Diagrams: 06/20/20 04:11 06/20/20 04:11 Phys Exam - Physical Examination Constitutional: NAD (sitting up comfortably in bed, eating breakfast) Neck: supple Respiratory: clear to auscultation bilateral Poor air movement Cardiovascular: RRR (difficult to auscultate) Gastrointestinal: soft, non-tender, positive bowel sounds Musculoskeletal: no edema, pulses present Neurological: non-focal Skin: no rash Dx/Plan - Plan Plan: Afib with RVR - s/p cardizem at [facility], attempting to obtain records from [facility] - hx of paroxysmal Afib but has been in NSR since arrival - will continue to monitor on tele and treat as needed Tele shows inverted T waves and peaked p waves - not on anticoagulation due to thrombocytopenia - continue home Coreg Chest pain, atypical - reproducible with chest palpation, does not radiate, not worse with exertion, not relieved by rest - likely 2/2 to metastatic multiple myeloma - Trops indeterminate, CXR nml - continue to monitor on tele Metastatic Multiple Myeloma - Likely the cause of chest and back pain Known burst fractures - will continue patient on home MS Contin - will add 4mg IV morphine prn for severe pain - will contact patient's oncologist Dr. Almendarez today to discuss pain management Hypotension, Tachycardia, SOB; resolved - given broad spectrum antibiotics (vanc and cefepime) at [facility] for possible infection - likely 2/2 to Afib with RVR, no infectious source identified - vitals since admission have been stable - Afebrile, no elevated white count - will continue to monitor and treat if indicated Thrombocytopenia - hx of thrombocytopenia likely 2/2 MM tx, typically ~50 in outpt setting - will hold anticoagulation d/t plts below 20 - will continue to monitor DM2 - will hold home metformin - SSI ordered - Hypoglycemia protocol in place PCP: Yana Code: FULL IVF: LR @ 100 mls/hr Diet: CC PPx: SCDs only, due to thrombocytopenia Dispo: will admit to tele for further observation; likely LOS < 48 hrs.
[2020-06-20] MEDS: Carvedilol 6.25 MG TAB PO SCH ×2 (08:18→16:14)
[2020-06-20] MEDS: Lisinopril 20 MG TAB PO SCH (08:18)
[2020-06-20] MEDS: Labetalol HCl 100 MG/20 ML VIAL SLOW IVP PRN (13:52)
[2020-06-20 14:18] VITALS: BMI 24.9
[2020-06-20] MEDS ORDERED: Morphine IR 10 MG/5 ML UDCUP PO PRN (15:38)
[2020-06-20] MEDS: Morphine IR Tab 15 MG TAB PO PRN ×2 (18:10→23:29)
[2020-06-20] MEDS: Atorvastatin Calcium 40 MG TAB PO SCH (22:03)
[2020-06-21] MEDS: Morphine IR Tab 15 MG TAB PO PRN ×6 (01:26→17:46)
[2020-06-21] MEDS: hydrALAZINE 25 MG TAB PO PRN (03:46)
[2020-06-21 05:07] LABS: ALT (SGPT) 48 U/L (8-55); AST (SGOT) 53 U/L (5-34); Alkaline Phosphatase 61 U/L (40-110); Anion Gap 14 mmol/L (10-20); BUN (Urea Nitrogen) 11 mg/dL (9.8-20.1); Bilirubin, Total 0.7 mg/dL (0.2-1.2); Calc. Creatinine Clearance 72 mL/min (70-130); Calcium 8.3 mg/dL (7.8-10.44); Carbon Dioxide 18 mmol/L (23-31); Chloride 110 mmol/L (98-107); Estimated GFR-MDRD Greater than 90; Globulin 2.2 g/dL (2.4-3.5); Glucose 101 mg/dL (80-115); Potassium 3.8 mmol/L (3.5-5.1); Protein, Total 5.2 g/dL (6.0-8.3); Sodium 138 mmol/L (136-145)
[2020-06-21] MEDS: Morphine ER 30 MG TAB PO SCH ×3 (05:55→20:49)
--- NOTE | 2020-06-21 06:02 | PDOC.FM ---
- Subjective Subjective: Og(katherine Esquivel continues to complain of significant back pain but denies any other sxs. She has continued to stay out of AFib during her stay. I spoke to her son today in the room, who had questions about what the AFib means. I was also able to verify through him that she was initially on Plavix but has not been on it for months because they ran out and the MM took precedence. I explained the necessity of having her on anticoagulation and discussed starting her on it again. At this point, we are just managing her pain control since she has continued to be in NSR. - Objective Vital Signs & Weight: Vital Signs (12 hours) Temp Pulse Resp BP BP BP Pulse Ox 06/21/20 04:00 98.9 F 63 16 181/86 H 99 06/21/20 03:46 63 181/86 H 06/21/20 00:00 98.8 F 66 18 204/86 H 98 06/20/20 22:06 65 218/100 H 06/20/20 20:00 98.9 F 65 18 218/100 H 99 Weight Admit Weight 63.6 kg Weight 63.8 kg I&O: 06/19/20 06/20/20 06/21/20 06:59 06:59 06:59 Intake Total 504 2543 Output Total 300 1950 Balance 204 593 Result Diagrams: 06/21/20 06:05 06/21/20 04:21 Phys Exam - Physical Examination In acute distress d/t pain Awake, alert Neck: supple Respiratory: no wheezing, clear to auscultation bilateral Cardiovascular: RRR, no significant murmur Gastrointestinal: soft, non-tender, no distention, positive bowel sounds Musculoskeletal: no edema Neurological: non-focal, moves all 4 limbs Very depressed affect, unchanged Skin: no rash Dx/Plan - Plan Plan: Afib with RVR - s/p cardizem at [facility] - hx of paroxysmal Afib but has been in NSR since arrival - will continue to monitor on tele and treat as needed Tele shows inverted T waves and peaked p waves - not on anticoagulation. Dr. Almendarez has approved restarting anticoag from a plt count standpoint -need to look into anticoag for AFib v for stroke and discuss effect(s) on MM - continue home Coreg Chest pain, atypical - reproducible with chest palpation, does not radiate, not worse with exertion, not relieved by rest - likely 2/2 to metastatic multiple myeloma - Trops indeterminate, CXR nml - continue to monitor on tele Metastatic Multiple Myeloma - Likely the cause of chest and back pain Known burst fractures - will continue patient on home MS Contin - will encourage nurse to make prn dosing available since she has not been receiving it very frequently -will start Gabapentin -Consult Dr. Almendarez Appreciate recs regarding anticoag for AFib v hx of CVA Will ask if chemo is therapeutic or palliative Will ask about possibility of adding Decadron for pain control HTN - On home Coreg and Lisinopril - Increasing Lisinopril to 40mg and adding Amlodipine 5mg - Continue to monitor Thrombocytopenia - hx of thrombocytopenia likely 2/2 MM tx, typically ~50 in outpt setting - will hold anticoagulation d/t plts below 20 - will continue to monitor DM2 - will hold home metformin - SSI ordered - Hypoglycemia protocol in place Hx of CVA - Oct 2019 per hospital records - On Plavix until a few months ago when they ran out and did not refill - Will discuss risk of bleed v stroke with patient Hypotension, Tachycardia, SOB; resolved - given broad spectrum antibiotics (vanc and cefepime) at [facility] for possible infection - likely 2/2 to Afib with RVR, no infectious source identified - vitals since admission have been stable - Afebrile, no elevated white count - will continue to monitor and treat if indicated PCP: Yana Code: FULL IVF: SL Diet: CC PPx: Plavix Dispo: will admit to tele for further observation. Discharge pending BP and pain control.
[2020-06-21 06:49] LABS: Hemoglobin 11.7 g/dL (12.0-16.0); Mean Corpuscular HGB CONC 34.4 g/dL (32.0-36.0); Mean Platelet Volume 10.6 fL (7.4-10.4); Platelet Count 64 thou/uL (130-400); RBC Distribution Width 11.9 % (11.5-14.5); Red Blood Cell (RBC) Count 3.34 mill/uL (4.20-5.40)
[2020-06-21 07:40] LABS: Band 1 % (5-11); Eosinophils 1 % (0-10); Lymphocytes 32 % (21-51); MDiff Complete? YES; Monocytes 17 % (0-10); Neutrophil 48 % (42-75); Platelet Morphology Comment Appears Decreased; Polychromasia SLIGHT = 2-3 cells (100X) (0-2/hpf); Reactive Lymphocytes 1 % (0-10)
[2020-06-21] MEDS: Carvedilol 6.25 MG TAB PO SCH ×2 (08:54→17:46)
[2020-06-21] MEDS: Lisinopril 20 MG TAB PO SCH ×2 (08:54→09:48)
[2020-06-21] MEDS: Amlodipine 5 MG TAB PO SCH (09:49)
[2020-06-21] MEDS: Atorvastatin Calcium 40 MG TAB PO SCH (20:49)
[2020-06-21] MEDS: Gabapentin 300 MG CAP PO SCH (20:49)
[2020-06-22] MEDS: Morphine IR Tab 15 MG TAB PO PRN ×3 (02:38→17:55)
[2020-06-22] MEDS: hydrALAZINE 25 MG TAB PO PRN (02:45)
[2020-06-22] MEDS: Morphine ER 30 MG TAB PO SCH ×2 (06:10→13:17)
--- NOTE | 2020-06-22 06:15 | PDOC.FM ---
- Subjective Subjective: Ms. Alvin (r) is doing well this morning. She continues to complain of back pain rated at 7/10 but she looks calmer and in less distress despite having just gotten OOB. I discussed restarting her Plavix with the risk/benefit of bleeding v stroke and she has agreed to restart it as she does not remember having complications on it before and she was never supposed to stop it initially. - Objective Vital Signs & Weight: Vital Signs (12 hours) Temp Pulse Resp BP BP BP Pulse Ox 06/22/20 04:00 98.7 F 75 16 140/87 97 06/22/20 02:45 72 181/86 H 06/22/20 00:00 14 06/21/20 20:00 98.1 F 66 12 156/75 H 99 Weight Admit Weight 63.6 kg Weight 63.8 kg I&O: 06/20/20 06/21/20 06/22/20 06:59 06:59 06:59 Intake Total 2543 960 Output Total 1950 450 Balance 593 510 Result Diagrams: 06/22/20 05:52 06/21/20 04:21 Phys Exam - Physical Examination Constitutional: NAD (awake, alert) Neck: supple Respiratory: no wheezing, no rales, clear to auscultation bilateral Cardiovascular: RRR, no significant murmur Tele has continued to show NSR Gastrointestinal: soft, no distention Musculoskeletal: no edema, pulses present (1+ radial and dp b/l) Neurological: non-focal, moves all 4 limbs Psychiatric: normal affect Skin: no rash Dx/Plan - Plan Plan: Afib with RVR - Has been in NSR since arrival from [facility] - Continue home Coreg - Tele shows inverted T waves and peaked p waves, unchanged - Dr. Almendarez has approved restarting anticoag from a plt count standpoint Recommended restarting Plavix Metastatic Multiple Myeloma - Likely the cause of chest and back pain Known burst fractures - will continue patient on home MS Contin - increased dose of prn MS IR from her home dose. Will monitor efficacy - Started Gabapentin - Consult Dr. Almendarez: chemo is therapeutic; pt receives Decadron once a week HTN - Increased home Coreg - Increased Lisinopril to 40mg - Added Amlodipine 5mg - Continue to monitor and adjust therapy as appropriate Thrombocytopenia - hx of thrombocytopenia likely 2/2 MM tx, typically ~50 in outpt setting - will continue to monitor DM2 - will hold home metformin - SSI ordered - Hypoglycemia protocol in place - ACHS checks Hx of CVA - Oct 2019 per hospital records - On Plavix until a few months ago when they ran out and did not refill - Dr. Almendarez approved restarting Plavix Hypotension, Tachycardia, SOB; resolved PCP: Yana Code: FULL IVF: SL Diet: CC PPx: Plavix Dispo: will admit to tele for further observation. Discharge pending BP and pain control.
[2020-06-22 06:21] LABS: Eosinophils 2 % (0-10); Hemoglobin 11.9 g/dL (12.0-16.0); Hypochromia SLIGHT = 6-15 cells (100X) (0-5/hpf); Lymphocytes 25 % (21-51); MDiff Complete? YES; Mean Corpuscular HGB CONC 33.2 g/dL (32.0-36.0); Mean Corpuscular Hemoglobin 34.2 pg (27.0-31.0); Mean Platelet Volume 10.6 fL (7.4-10.4); Monocytes 4 % (0-10); Neutrophil 69 % (42-75); Platelet Count 65 thou/uL (130-400); Platelet Morphology Comment Appears Decreased; RBC Distribution Width 11.9 % (11.5-14.5); Red Blood Cell (RBC) Count 3.49 mill/uL (4.20-5.40); White Blood Cell (WBC) Count 7.6 thou/uL (4.8-10.8)
[2020-06-22] MEDS: Lisinopril 20 MG TAB PO SCH (08:22)
[2020-06-22] MEDS: Gabapentin 300 MG CAP PO SCH (08:23)
[2020-06-22] MEDS: Carvedilol 6.25 MG TAB PO SCH ×2 (08:23→17:55)
[2020-06-22] MEDS: Amlodipine 5 MG TAB PO SCH (08:23)
[2020-06-22] MEDS ORDERED: Clopidogrel Bisulfate 75 MG TAB PO SCH (09:00)
[2020-06-22] MEDS: HumaLOG 300 UNITS/3 ML VIAL SC PRN (13:19)
[2020-06-22 17:03] VITALS: BP 180/80; TEMP 98.5
--- NOTE | 2020-06-23 14:48 | DIS ---
DATE OF ADMISSION: 06/20/2020 DATE OF DISCHARGE: 06/22/2020 RESIDENT: Abigail Estrada MD. ADMITTING ATTENDING: Pradeep Roach MD. DISCHARGE ATTENDING: Stevie Ann MD. CONSULTS: Oncology (Dr. Miller/Dr. Almendarez) 06/19/2020. PROCEDURES: None. PRIMARY DIAGNOSES: Atrial fibrillation with RVR, atypical chest pain, thrombocytopenia. SECONDARY DIAGNOSES: Multiple myeloma with L1 burst fracture, paroxysmal atrial fibrillation, thrombocytopenia, type 2 diabetes, hypertension, depression. DISCHARGE MEDICATIONS: New medications: 1. Hydralazine 25 mg p.o. q.4h p.r.n. 2. Carvedilol 12.5 mg p.o. b.i.d., WM, increased from previous dose. 3. Morphine IR 30 mg p.o. q.2h p.r.n., increased from previous dose. 4. Amlodipine 5 mg p.o. daily. 5. Plavix 75 mg p.o. daily. 6. Lisinopril 40 mg p.o. daily, increased from previous dose. 7. Morphine ER 30 mg q.8h. 8. Metformin 1000 mg p.o. daily. 9. Atorvastatin 80 mg p.o. at bedtime. 10. Compazine 10 mg p.o. q.6h p.r.n. 11. Lomotil 2 tabs p.o. q.i.d. p.r.n. Discontinued medications: 1. Morphine ER 15 mg p.o. q.4h p.r.n. 2. Coreg 6.25 mg p.o. b.i.d., WM. 3. Lisinopril 20 mg p.o. daily. HISTORY OF PRESENT ILLNESS/HOSPITAL COURSE: This is a 65-year-old female who presented as a direct admit from [facility] lidia Siegel for atrial fibrillation with RVR that returned to normal sinus rhythm after administration of diltiazem drip, which was not continued upon transfer. She had began experiencing chest pain and back pain a few days prior and the pain had increased until the patient was diaphoretic. They had concern for sepsis, so she was given vancomycin and cefepime, which were not continued. She was admitted to the telemetry floor and remained in normal sinus rhythm for the entirety of her stay. Her chest pain was suspected to be secondary to her multiple myeloma due to the fact it was reproducible with palpation, did not radiate, and was not worse with exertion or relieved by rest. On arrival, her platelets were found to be 15,000. Oncology was consulted, which said that her platelets tend to be about 50,000 in the outpatient setting, and they felt that this decrease was likely secondary to her chemotherapy. As such, she was transfused 1 unit of platelets, which increased them to the mid 60s, where they remained stable for the rest of her stay. Ultimately, her care consisted of blood pressure and pain management. In both cases, her home regimen had to be increased. There was a substantial communication with Dr. Almendarez regarding the pain regimen changes. It was also discovered the patient had stopped taking Plavix which she was prescribed after having a stroke in October of 2018. She was also not on anticoagulation for her atrial fibrillation. After discussing with Dr. Almendarez and her nurse practitioner, Katelynn Mcguire, it was determined that putting her back on Plavix was more important than anticoagulating her for AFib, so this was restarted. DISPOSITION: Stable. DISCHARGE INSTRUCTIONS: 1. Location: Home. 2. Diet: Carb conscious, 2000 calories. 3. Activity: As tolerated. 4. Followup: Patient encouraged to follow up with her PCP, Dr. Dee Millan within 7-10 days, for continued management of her hypertension. Patient also encouraged to follow up with her oncologist, Dr. Almendarez, for continued management of her thrombocytopenia, multiple myeloma, and pain. Job ID: [id number]
--- NOTE | 2020-06-24 13:22 | EKG ---
Test Reason : Blood Pressure : / mmHG Vent. Rate : 066 BPM Atrial Rate : 066 BPM P-R Int : 146 ms QRS Dur : 074 ms QT Int : 438 ms P-R-T Axes : 046 -38 -88 degrees QTc Int : 459 ms Normal sinus rhythm Left axis deviation Abnormal ECG No previous ECGs available Confirmed by DR. Herrera FUENTES ([id number]) on 06/24/2020 1:22:35 PM Referred By: TRE Confirmed By:DR. Herrera FUENTES
== END 2020-06-22 17:56 | disposition home or self-care (01) | DRG 948 ==
LOC: INTOOBSV 23:11 → 2NO 23:11 → OBSVTOIN 06-20 09:08
PROVIDERS: ADMIT Family Medicine; ATTEND Family Medicine
DX: G89.3 Neoplasm related pain (acute) (chronic) (principal); C90.00 Multiple myeloma not having achieved remission; I10 Essential (primary) hypertension; D69.6 Thrombocytopenia, unspecified; I48.0 Paroxysmal atrial fibrillation; E11.9 Type 2 diabetes mellitus without complications; F32.9 Major depressive disorder, single episode, unspecified; E86.0 Dehydration; Z88.8 Allergy status to other drugs, medicaments and biological substances; Z79.84 Long term (current) use of oral hypoglycemic drugs; Z79.899 Other long term (current) drug therapy; Z98.51 Tubal ligation status; Z90.49 Acquired absence of other specified parts of digestive tract
CPT/HCPCS: 36415; 36416; 36430; 71045; 80053; 84484; 85025; 86850; 86900; 86901; 93005; 93010; 96374; G0378; J1642; J2270; J2405; P9035

== ENCOUNTER 2020-06-27 13:47 | Day surgery (SDC) | payer MEDICARE, MEDICAID ==
[2020-06-27] MEDS ORDERED: Sodium Chloride 0.9% 20 ML ONE (13:53)
[2020-06-27 15:25] VITALS: BP 189/91; TEMP 98.6
== END 2020-06-27 15:34 | disposition home or self-care (01) ==
LOC: ONC/OP 13:47
PROVIDERS: ATTEND Internal Medicine Hematology & Oncology
DX: Z51.11 Encounter for antineoplastic chemotherapy (principal); C90.00 Multiple myeloma not having achieved remission; C79.52 Secondary malignant neoplasm of bone marrow; D50.9 Iron deficiency anemia, unspecified; Z88.8 Allergy status to other drugs, medicaments and biological substances
CPT/HCPCS: 96375; 96413; J1100; J1642; J2405; J9047

== ENCOUNTER 2020-07-11 11:15 | Day surgery (SDC) | payer MEDICARE, MEDICAID ==
[2020-07-11] MEDS ORDERED: Sodium Chloride 0.9% 20 ML ONE (11:19)
[2020-07-11 12:02] VITALS: BP 146/82; TEMP 98.1
== END 2020-07-11 13:41 | disposition home or self-care (01) ==
LOC: ONC/OP 11:15
PROVIDERS: ATTEND Internal Medicine Hematology & Oncology
DX: Z51.11 Encounter for antineoplastic chemotherapy (principal); C90.00 Multiple myeloma not having achieved remission; C79.52 Secondary malignant neoplasm of bone marrow; D50.9 Iron deficiency anemia, unspecified; Z88.8 Allergy status to other drugs, medicaments and biological substances
CPT/HCPCS: 36415; 80053; 82248; 83615; 84100; 84165; 84550; 96375; 96413; J1100; J1642; J2405; J9047

== ENCOUNTER 2020-07-25 14:50 | Day surgery (SDC) | payer MEDICARE, MEDICAID ==
[~2020-07-25 14:50] MED LIST changes: -CARFILZOMIB IV SCH; +CARFILZOMIB IVPB SCH; -DEXTROSE 5% IV SCH; -WATER IV SCH; +WATER IVPB SCH
== END 2020-07-25 16:09 | disposition home or self-care (01) ==
LOC: ONC/OP 14:50
PROVIDERS: ATTEND Internal Medicine Hematology & Oncology
DX: Z51.11 Encounter for antineoplastic chemotherapy (principal); C90.00 Multiple myeloma not having achieved remission; C79.52 Secondary malignant neoplasm of bone marrow; D50.9 Iron deficiency anemia, unspecified; Z88.8 Allergy status to other drugs, medicaments and biological substances
CPT/HCPCS: 96375; 96413; J1100; J2405; J9047

== ENCOUNTER 2020-08-01 08:35 | Day surgery (SDC) | payer MEDICAID ==
[2020-07-27 12:16] VITALS: BMI 25.4
[2020-08-01 09:06] LABS: PTT 30.7 sec (22.9-36.1); Prothrombin Time 12.8 sec (12.0-14.7)
[2020-08-01] MEDS ORDERED: Sodium Chloride 0.9% 20 ML ONE (09:33)
[2020-08-01] MEDS ORDERED: Fentanyl 100 MCG/2 ML VIAL ONE ×2 (09:42→10:35)
[2020-08-01] MEDS ORDERED: Midazolam HCl 2 mg/2 ml Vial ONE (09:42)
[2020-08-01] MEDS ORDERED: Sodium Bicarbonate 2.5 MEQ/5 ML VIAL ONE (09:43)
--- NOTE | 2020-08-01 10:59 | CT ---
CT GUIDED BONE BIOPSY: HISTORY: Multiple myeloma. COMPARISON: 01/13/2020. CONSCIOUS SEDATION: 100 mcg of fentanyl intravenously. 45 minutes of observation. FINDINGS: Noncontrast CT was performed. The area over the left iliac bone was marked. Under CT guidance, bone m arrow biopsy was performed. 3 and 6 cc of marrow aspirate were collected and placed in perspective STIR images. Single core was obtained. Sample was adequate. TECHNIQUE: Consent was obtained to perform a CT-guided bone marrow biopsy. Left iliac bone was prepped and drape d in a sterile fashion. 1% lidocaine, buffered with sodium bicarbonate was used for local anesthesia. Under CT guidance, a 11-gauge needles advanced into the left iliac bone. A marrow aspirat e was performed. A 3 cc syringe and a 6 cc syringe were collected. Single core was obtained. Patient tolerated the procedure well. No immediate or postprocedure complications. IMPRESSION: Successful percutaneous bone marrow aspiration and biopsy. Pathologic results are pending. Transcribed Date/Time: 08/01/2020 11:37 AM
[2020-08-01 11:12] VITALS: BP 160/99; TEMP 98.2
--- NOTE | 2020-08-01 15:52 | CT ---
CT GUIDED BONE BIOPSY: HISTORY: Multiple myeloma. COMPARISON: 01/13/2020. CONSCIOUS SEDATION: 100 mcg of fentanyl intravenously. 45 minutes of observation. FINDINGS: Noncontrast CT was performed. The area over the left iliac bone was marked. Under CT guidance, bone m arrow biopsy was performed. 3 and 6 cc of marrow aspirate were collected and placed in perspective STIR images. Single core was obtained. Sample was adequate. TECHNIQUE: Consent was obtained to perform a CT-guided bone marrow biopsy. Left iliac bone was prepped and drape d in a sterile fashion. 1% lidocaine, buffered with sodium bicarbonate was used for local anesthesia. Under CT guidance, a 11-gauge needles advanced into the left iliac bone. A marrow aspirat e was performed. A 3 cc syringe and a 6 cc syringe were collected. Single core was obtained. Patient tolerated the procedure well. No immediate or postprocedure complications. IMPRESSION: Successful percutaneous bone marrow aspiration and biopsy. Pathologic results are pending. Transcribed Date/Time: 08/01/2020 3:52 PM
== END 2020-08-01 12:15 | disposition home or self-care (01) ==
LOC: CT 08:35
PROVIDERS: ATTEND Internal Medicine Hematology & Oncology
PROC: 07DR3ZX Extraction of Iliac Bone Marrow, Percutaneous Approach, Diagnostic (ICD-10-PCS; principal; 2020-08-01)
PROC: 079T3ZX Drainage of Bone Marrow, Percutaneous Approach, Diagnostic (ICD-10-PCS; principal; 2020-08-01)
DX: C90.00 Multiple myeloma not having achieved remission (principal); C79.52 Secondary malignant neoplasm of bone marrow; D50.9 Iron deficiency anemia, unspecified; E11.9 Type 2 diabetes mellitus without complications; I10 Essential (primary) hypertension; I25.10 Atherosclerotic heart disease of native coronary artery without angina pectoris; I48.91 Unspecified atrial fibrillation; F17.210 Nicotine dependence, cigarettes, uncomplicated; F32.9 Major depressive disorder, single episode, unspecified; Z86.73 Personal history of transient ischemic attack (TIA), and cerebral infarction without residual deficits; Z88.8 Allergy status to other drugs, medicaments and biological substances; Z95.5 Presence of coronary angioplasty implant and graft
CPT/HCPCS: 20225; 36415; 77002; 85097; 85610; 85730; 88184; 88185; 88237; 88305; 88311; 88313; 88342; 88365; 90471; 90732; G0009; J1642; J2250; J3010

== ENCOUNTER 2020-08-08 11:33 | Day surgery (SDC) | payer MEDICARE, MEDICAID ==
[~2020-08-08 11:33] MED LIST changes: +CARFILZOMIB IV SCH; -CARFILZOMIB IVPB SCH; +DEXAMETHASONE IVPB SCH; -DEXAMETHASONE SOD PHOSPHATE IVPB SCH; +DEXTROSE 5% IV SCH; +WATER IV SCH; -[UNRECOGNIZED DRUG - OTHER] IVPB SCH
[2020-08-08] MEDS ORDERED: Sodium Chloride 0.9% 20 ML ONE (11:36)
[2020-08-08] MEDS ORDERED: WATER IV SCH (11:45)
[2020-08-08] MEDS ORDERED: CARFILZOMIB IV SCH (11:45)
[2020-08-08] MEDS ORDERED: [UNRECOGNIZED DRUG - OTHER] IVPB SCH (11:45)
[2020-08-08] MEDS ORDERED: ONDANSETRON IVPB SCH (11:45)
[2020-08-08] MEDS ORDERED: DEXTROSE 5% IVPB SCH (11:45)
[2020-08-08] MEDS ORDERED: DEXTROSE 5% IV SCH (11:45)
[2020-08-08] MEDS ORDERED: DEXAMETHASONE SOD PHOSPHATE IVPB SCH (11:45)
[2020-08-08 12:27] VITALS: BP 151/88; TEMP 98.9
== END 2020-08-08 13:05 | disposition home or self-care (01) ==
LOC: ONC/OP 11:33
PROVIDERS: ATTEND Internal Medicine Hematology & Oncology
DX: Z51.11 Encounter for antineoplastic chemotherapy (principal); C90.00 Multiple myeloma not having achieved remission; C79.52 Secondary malignant neoplasm of bone marrow; D50.9 Iron deficiency anemia, unspecified; Z88.8 Allergy status to other drugs, medicaments and biological substances
CPT/HCPCS: 36415; 80053; 82248; 83615; 84100; 84550; 96375; 96413; J1100; J1642; J2405; J7070; J9047

== ENCOUNTER 2020-09-01 10:23 | Day surgery (SDC) | payer MEDICARE, MEDICAID ==
[2020-09-01] MEDS ORDERED: DEXTROSE 5% IV SCH (10:30)
[2020-09-01] MEDS ORDERED: CARFILZOMIB IV SCH (10:30)
[2020-09-01] MEDS ORDERED: WATER IV SCH (10:30)
[2020-09-01] MEDS ORDERED: [UNRECOGNIZED DRUG - OTHER] IVPB SCH (10:30)
[2020-09-01] MEDS ORDERED: DEXAMETHASONE SOD PHOSPHATE IVPB SCH (10:30)
[2020-09-01] MEDS ORDERED: DEXTROSE 5% IVPB SCH (10:30)
[2020-09-01] MEDS ORDERED: ONDANSETRON IVPB SCH (10:30)
[2020-09-01] MEDS ORDERED: Sodium Chloride 0.9% 20 ML ONE (11:44)
[2020-09-01] MEDS ORDERED: cloNIDine 0.2 MG TAB PO SCH (11:45)
[2020-09-01 11:49] VITALS: BP 205/100
== END 2020-09-01 16:01 | disposition home or self-care (01) ==
LOC: ONC/OP 10:23
PROVIDERS: ATTEND Internal Medicine Hematology & Oncology
DX: Z51.11 Encounter for antineoplastic chemotherapy (principal); C90.00 Multiple myeloma not having achieved remission; C79.52 Secondary malignant neoplasm of bone marrow; D50.9 Iron deficiency anemia, unspecified
CPT/HCPCS: 96375; 96413; J1100; J1642; J2405; J9047

== ENCOUNTER 2020-09-16 11:33 | Day surgery (SDC) | payer MEDICARE, MEDICAID ==
[~2020-09-16 11:33] MED LIST changes: -DEXAMETHASONE IVPB SCH; +DEXAMETHASONE SOD PHOSPHATE IVPB SCH; -WATER IVPB SCH; +[UNRECOGNIZED DRUG - OTHER] IVPB SCH
[2020-09-16] MEDS ORDERED: Sodium Chloride 0.9% 20 ML ONE (12:16)
== END 2020-09-16 13:24 | disposition home or self-care (01) ==
LOC: ONC/OP 11:33
PROVIDERS: ATTEND Internal Medicine Hematology & Oncology
DX: Z51.11 Encounter for antineoplastic chemotherapy (principal); C90.00 Multiple myeloma not having achieved remission; C79.52 Secondary malignant neoplasm of bone marrow; D50.9 Iron deficiency anemia, unspecified
CPT/HCPCS: 96375; 96413; J1100; J1642; J2405; J9047

== ENCOUNTER 2020-10-06 11:04 | Day surgery (SDC) | payer MEDICARE, MEDICAID ==
[2020-10-06 13:57] VITALS: BP 197/95; TEMP 98.5
== END 2020-10-06 14:02 | disposition home or self-care (01) ==
LOC: ONC/OP 11:04
PROVIDERS: ATTEND Internal Medicine Hematology & Oncology
DX: Z51.11 Encounter for antineoplastic chemotherapy (principal); C90.00 Multiple myeloma not having achieved remission; C79.52 Secondary malignant neoplasm of bone marrow; D50.9 Iron deficiency anemia, unspecified; Z88.8 Allergy status to other drugs, medicaments and biological substances
CPT/HCPCS: 96375; 96413; J1100; J2405; J9047

== ENCOUNTER 2020-11-03 09:24 | Day surgery (SDC) | payer MEDICARE, MEDICAID ==
[2020-11-03] MEDS ORDERED: Sodium Chloride 0.9% 20 ML ONE (09:30)
== END 2020-11-03 11:03 | disposition home or self-care (01) ==
LOC: ONC/OP 09:24
PROVIDERS: ATTEND Internal Medicine Hematology & Oncology
DX: Z51.11 Encounter for antineoplastic chemotherapy (principal); C90.00 Multiple myeloma not having achieved remission; C79.52 Secondary malignant neoplasm of bone marrow; D50.9 Iron deficiency anemia, unspecified; Z88.8 Allergy status to other drugs, medicaments and biological substances
CPT/HCPCS: 96375; 96413; J1100; J1642; J2405; J9047

== ENCOUNTER 2020-11-17 11:40 | Day surgery (SDC) | payer MEDICARE, MEDICAID | END 2020-11-17 13:31 | disposition home or self-care (01) | LOC: ONC/OP 11:40 | PROVIDERS: ATTEND Internal Medicine Hematology & Oncology | DX: Z51.11 Encounter for antineoplastic chemotherapy (principal); C90.00 Multiple myeloma not having achieved remission; C79.52 Secondary malignant neoplasm of bone marrow; D50.9 Iron deficiency anemia, unspecified; Z88.8 Allergy status to other drugs, medicaments and biological substances | CPT/HCPCS: 36415; 80053; 82248; 83615; 84100; 84165; 84550; 96375; 96413; J1100; J2405; J9047 ==

== ENCOUNTER 2020-12-01 10:56 | Day surgery (SDC) | payer MEDICARE, MEDICAID ==
[2020-12-01 11:07] VITALS: BP 168/78; TEMP 97.5
== END 2020-12-01 13:09 | disposition home or self-care (01) ==
LOC: ONC/OP 10:56
PROVIDERS: ATTEND Internal Medicine Hematology & Oncology
DX: Z51.11 Encounter for antineoplastic chemotherapy (principal); C90.00 Multiple myeloma not having achieved remission; C79.52 Secondary malignant neoplasm of bone marrow; D50.9 Iron deficiency anemia, unspecified; Z88.8 Allergy status to other drugs, medicaments and biological substances
CPT/HCPCS: 96375; 96413; J1100; J2405; J9047

== ENCOUNTER 2020-12-06 09:35 | Inpatient (IN) | payer MEDICARE, MEDICAID ==
[2020-12-06 19:44] VITALS: BMI 22.9
[2020-12-06] MEDS ORDERED: Dextrose 50% Abboject 50 ML SYRINGE SLOW IVP PRN (21:06)
[2020-12-06] MEDS ORDERED: Dextrose 5% in Water 1,000 ML IV PRN (21:06)
[2020-12-06] MEDS ORDERED: hydrALAZINE 20 MG/ML VIAL SLOW IVP PRN (21:09)
[2020-12-06] MEDS: Ondansetron PF 4 MG/2 ML Vial IVP PRN (21:44)
[2020-12-06] MEDS ORDERED: hydrALAZINE 20 MG/ML VIAL SLOW IVP SCH (22:00)
[2020-12-06] MEDS: Sodium Chloride 0.9% 1,000 ML IV SCH (22:06)
[2020-12-06] MEDS: Cefepime 1 GM in Sodium Chloride 0.9% 100 ML IVPB SCH (22:06)
[2020-12-06 22:10] LABS: Lactic Acid 0.8 mmol/L (0.5-2.2)
[2020-12-06 22:27] LABS: Hemoglobin 14.3 g/dL (12.0-16.0); Mean Corpuscular Hemoglobin 33.6 pg (27.0-31.0); Mean Corpuscular Volume 98.8 fL (78.0-98.0); Platelet Count 5 thou/uL (130-400); RBC Distribution Width 13.1 % (11.5-14.5); Red Blood Cell (RBC) Count 4.25 mill/uL (4.20-5.40); White Blood Cell (WBC) Count 15.9 thou/uL (4.8-10.8)
[2020-12-06 22:29] LABS: Band 2 % (5-11); Lymphocytes 22 % (21-51); MDiff Complete? YES; Monocytes 1 % (0-10); Neutrophil 74 % (42-75); Platelet Morphology Comment Appears Decreased; RBC Morphology Normal; Reactive Lymphocytes 1 % (0-10); Reflex for Review?? YES
[2020-12-06 22:30] LABS: Mean Platelet Volume 19.3 fL (7.4-10.4)
[2020-12-06 22:56] LABS: Anion Gap 17 mmol/L (10-20); BUN (Urea Nitrogen) 56 mg/dL (9.8-20.1); Calc. Creatinine Clearance 29 mL/min (70-130); Calcium 7.3 mg/dL (7.8-10.44); Carbon Dioxide 16 mmol/L (23-31); Chloride 105 mmol/L (98-107); Glucose 151 mg/dL (80-115); Magnesium 2.2 mg/dL (1.6-2.6); Potassium 3.3 mmol/L (3.5-5.1); Sodium 135 mmol/L (136-145)
[2020-12-06] MEDS ORDERED: Potassium Bicarbonate/Cit Ac 20 MEQ TAB PO SCH (23:45)
[2020-12-07] MEDS ORDERED: Potassium Chloride 20 MEQ in Premix Bag 1 BAG IVPB SCH (01:00)
[2020-12-07] MEDS: Pantoprazole 40 MG VIAL IVP SCH ×2 (01:00→20:44)
[2020-12-07 03:11] LABS: #Lymphocytes 0.9 thou/uL (1.20-3.40); #Monocytes 1.8 thou/uL (0.11-0.59); #Neutrophils 11.5 thou/uL (1.40-6.50); %Basophils 0.1 % (0.0-1.0); %Eosinophils 0.1 % (0.0-10.0); %Lymphocytes 6.2 % (21.0-51.0); %Monocytes 12.9 % (0.0-10.0); %Neutrophils 80.7 % (42.0-75.0); Mean Corpuscular HGB CONC 34.7 g/dL (32.0-36.0); Mean Corpuscular Volume 98.2 fL (78.0-98.0); Mean Platelet Volume 5.7 fL (7.4-10.4); Platelet Count 58 thou/uL (130-400); RBC Distribution Width 13.1 % (11.5-14.5); Red Blood Cell (RBC) Count 3.81 mill/uL (4.20-5.40); White Blood Cell (WBC) Count 14.3 thou/uL (4.8-10.8)
[2020-12-07 03:52] LABS: Anion Gap 16 mmol/L (10-20); BUN (Urea Nitrogen) 51 mg/dL (9.8-20.1); Calc. Creatinine Clearance 34 mL/min (70-130); Calcium 7.1 mg/dL (7.8-10.44); Carbon Dioxide 16 mmol/L (23-31); Chloride 108 mmol/L (98-107); Glucose 152 mg/dL (80-115); Potassium 3.7 mmol/L (3.5-5.1); Sodium 136 mmol/L (136-145)
[2020-12-07 03:53] LABS: ALT (SGPT) 21 U/L (8-55); AST (SGOT) 30 U/L (5-34); Albumin 3.2 g/dL (3.4-4.8); Alkaline Phosphatase 64 U/L (40-110); Bilirubin, Total 2.1 mg/dL (0.2-1.2); Protein, Total 5.5 g/dL (5.8-8.1)
[2020-12-07 06:02] LABS: SARS-CoV-2 PCR by NAA Not Detected (NotDetected)
[2020-12-07] MEDS: Cefepime 1 GM in Sodium Chloride 0.9% 100 ML IVPB SCH ×2 (09:21→20:42)
[2020-12-07] MEDS: Acetaminophen 325 MG TAB PO PRN ×2 (09:21→18:05)
[2020-12-07] MEDS: Sodium Chloride 0.9% 1,000 ML IV SCH ×2 (10:32→23:57)
[2020-12-07] MEDS ORDERED: hydrALAZINE 25 MG TAB PO PRN (12:02)
[2020-12-07] MEDS: Vancomycin HCl 25 MG/ML Oral PO SCH ×3 (12:11→23:58)
[2020-12-07] MEDS ORDERED: Amlodipine 5 MG TAB PO SCH (12:15)
[2020-12-07] MEDS: Carvedilol 6.25 MG TAB PO SCH (18:05)
[2020-12-08 04:03] LABS: Hemoglobin 11.4 g/dL (12.0-16.0); Mean Corpuscular HGB CONC 33.5 g/dL (32.0-36.0); Mean Corpuscular Hemoglobin 33.1 pg (27.0-31.0); Mean Corpuscular Volume 98.9 fL (78.0-98.0); Platelet Count 22 thou/uL (130-400); RBC Distribution Width 13.3 % (11.5-14.5); Red Blood Cell (RBC) Count 3.43 mill/uL (4.20-5.40); White Blood Cell (WBC) Count 7.1 thou/uL (4.8-10.8)
[2020-12-08 04:20] LABS: Anion Gap 12 mmol/L (10-20); BUN (Urea Nitrogen) 31 mg/dL (9.8-20.1); Calc. Creatinine Clearance 52 mL/min (70-130); Calcium 6.7 mg/dL (7.8-10.44); Carbon Dioxide 18 mmol/L (23-31); Chloride 107 mmol/L (98-107); Glucose 119 mg/dL (80-115); Magnesium 1.7 mg/dL (1.6-2.6); Potassium 3.1 mmol/L (3.5-5.1); Sodium 134 mmol/L (136-145)
[2020-12-08 04:24] LABS: Band 1 % (5-11); Lymphocytes 13 % (21-51); MDiff Complete? YES; Monocytes 14 % (0-10); Neutrophil 72 % (42-75); Platelet Morphology Comment Appears Decreased
[2020-12-08] MEDS ORDERED: Electrolyte Replacement Protocol 1 EACH FS PRN (05:09)
[2020-12-08] MEDS ORDERED: Potassium Chloride 20 MEQ TAB PO SCH (05:15)
[2020-12-08] MEDS ORDERED: Magnesium 2 GM/50 ML 2 GM in Premix Bag 1 BAG IVPB SCH (05:15)
[2020-12-08] MEDS: Vancomycin HCl 25 MG/ML Oral PO SCH ×4 (05:32→23:15)
[2020-12-08] MEDS ORDERED: Potassium Chloride 40 MEQ in Premix Bag 1 BAG IVPB SCH ×2 (06:00→10:00)
[2020-12-08] MEDS: Amlodipine 5 MG TAB PO SCH (08:52)
[2020-12-08] MEDS: Carvedilol 6.25 MG TAB PO SCH ×2 (08:52→18:10)
[2020-12-08] MEDS ORDERED: Lisinopril 20 MG TAB PO SCH ×2 (09:00→10:00)
[2020-12-08] MEDS ORDERED: Morphine 2 MG/ML VIAL SLOW IVP PRN (09:49)
[2020-12-08] MEDS: Cefepime 1 GM in Sodium Chloride 0.9% 100 ML IVPB SCH ×2 (10:05→21:42)
[2020-12-08] MEDS: Acetaminophen 325 MG TAB PO PRN ×2 (10:12→14:35)
[2020-12-08] MEDS: Sodium Chloride 0.9% 1,000 ML IV SCH (14:36)
[2020-12-08] MEDS: Morphine 4 MG/ML VIAL SLOW IVP PRN (18:10)
[2020-12-08] MEDS: Pantoprazole 40 MG VIAL IVP SCH (23:08)
[2020-12-09] MEDS: Morphine 4 MG/ML VIAL SLOW IVP PRN ×5 (00:10→21:17)
[2020-12-09] MEDS: Sodium Chloride 0.9% 1,000 ML IV SCH ×2 (04:29→18:45)
[2020-12-09] MEDS: Vancomycin HCl 25 MG/ML Oral PO SCH ×3 (05:56→18:45)
[2020-12-09 06:25] LABS: #Lymphocytes 1.2 thou/uL (1.20-3.40); #Monocytes 0.7 thou/uL (0.11-0.59); #Neutrophils 3.8 thou/uL (1.40-6.50); %Basophils 0.1 % (0.0-1.0); %Eosinophils 0.8 % (0.0-10.0); %Lymphocytes 20.8 % (21.0-51.0); %Monocytes 12.9 % (0.0-10.0); %Neutrophils 65.4 % (42.0-75.0); Hemoglobin 10.4 g/dL (12.0-16.0); Mean Corpuscular HGB CONC 34.1 g/dL (32.0-36.0); Mean Corpuscular Hemoglobin 33.7 pg (27.0-31.0); Mean Platelet Volume 16.8 fL (7.4-10.4); Platelet Count 23 thou/uL (130-400); RBC Distribution Width 13.4 % (11.5-14.5); Red Blood Cell (RBC) Count 3.08 mill/uL (4.20-5.40); White Blood Cell (WBC) Count 5.8 thou/uL (4.8-10.8)
[2020-12-09 06:37] LABS: Anion Gap 10 mmol/L (10-20); BUN (Urea Nitrogen) 20 mg/dL (9.8-20.1); Calc. Creatinine Clearance 66 mL/min (70-130); Calcium 6.4 mg/dL (7.8-10.44); Carbon Dioxide 17 mmol/L (23-31); Chloride 105 mmol/L (98-107); Glucose 95 mg/dL (80-115); Magnesium 1.8 mg/dL (1.6-2.6); Potassium 3.5 mmol/L (3.5-5.1); Sodium 128 mmol/L (136-145)
[2020-12-09] MEDS ORDERED: Magnesium 2 GM/50 ML 2 GM in Premix Bag 1 BAG IVPB SCH (07:30)
[2020-12-09] MEDS ORDERED: Potassium Chloride 20 MEQ TAB PO SCH (07:30)
[2020-12-09] MEDS: Ondansetron PF 4 MG/2 ML Vial IVP PRN (09:03)
[2020-12-09] MEDS: Lisinopril 20 MG TAB PO SCH (09:04)
[2020-12-09] MEDS: Amlodipine 5 MG TAB PO SCH (09:04)
[2020-12-09] MEDS: Carvedilol 6.25 MG TAB PO SCH ×2 (09:04→17:16)
[2020-12-09] MEDS: HumaLOG 300 UNITS/3 ML VIAL SC PRN (13:30)
[2020-12-09] MEDS: Cefepime 1 GM in Sodium Chloride 0.9% 100 ML IVPB SCH ×2 (13:34→21:17)
[2020-12-09] MEDS: Scopolamine 1.5 mg/72 hour Patch TD SCH (17:17)
[2020-12-09] MEDS: Pantoprazole 40 MG VIAL IVP SCH (21:18)
[2020-12-10] MEDS: Vancomycin HCl 25 MG/ML Oral PO SCH ×4 (00:01→17:08)
[2020-12-10] MEDS: Morphine 4 MG/ML VIAL SLOW IVP PRN ×4 (02:23→20:23)
[2020-12-10] MEDS: Sodium Chloride 0.9% 1,000 ML IV SCH ×2 (05:36→20:19)
[2020-12-10 06:05] LABS: #Eosinphils 0.1 thou/uL (0.0-0.7); #Lymphocytes 1.1 thou/uL (1.20-3.40); #Monocytes 0.7 thou/uL (0.11-0.59); #Neutrophils 2.8 thou/uL (1.40-6.50); %Basophils 0.5 % (0.0-1.0); %Eosinophils 1.3 % (0.0-10.0); %Lymphocytes 24.2 % (21.0-51.0); %Monocytes 14.4 % (0.0-10.0); %Neutrophils 59.7 % (42.0-75.0); Mean Corpuscular Hemoglobin 34.6 pg (27.0-31.0); Mean Corpuscular Volume 98.9 fL (78.0-98.0); Mean Platelet Volume 14.8 fL (7.4-10.4); Platelet Count 36 thou/uL (130-400); RBC Distribution Width 13.2 % (11.5-14.5); Red Blood Cell (RBC) Count 2.88 mill/uL (4.20-5.40); White Blood Cell (WBC) Count 4.7 thou/uL (4.8-10.8)
[2020-12-10 06:34] LABS: Anion Gap 13 mmol/L (10-20); BUN (Urea Nitrogen) 15 mg/dL (9.8-20.1); Calc. Creatinine Clearance 64 mL/min (70-130); Calcium 6.6 mg/dL (7.8-10.44); Carbon Dioxide 14 mmol/L (23-31); Chloride 108 mmol/L (98-107); Glucose 111 mg/dL (80-115); Magnesium 1.8 mg/dL (1.6-2.6); Potassium 3.8 mmol/L (3.5-5.1); Sodium 131 mmol/L (136-145)
[2020-12-10] MEDS ORDERED: Magnesium 2 GM/50 ML 2 GM in Premix Bag 1 BAG IVPB SCH (06:45)
[2020-12-10] MEDS: Amlodipine 5 MG TAB PO SCH (08:56)
[2020-12-10] MEDS: Carvedilol 6.25 MG TAB PO SCH ×2 (08:56→17:09)
[2020-12-10] MEDS: Lisinopril 20 MG TAB PO SCH (08:56)
[2020-12-10] MEDS: Cefepime 1 GM in Sodium Chloride 0.9% 100 ML IVPB SCH ×2 (09:00→22:02)
[2020-12-10] MEDS: HumaLOG 300 UNITS/3 ML VIAL SC PRN (13:04)
[2020-12-10] MEDS: HYDROcodone/Acetaminophen 5/325 mg Tablet PO PRN (17:09)
[2020-12-10] MEDS: Morphine ER 15 MG TAB PO SCH (20:19)
[2020-12-10] MEDS: Pantoprazole 40 MG VIAL IVP SCH (22:02)
[2020-12-11] MEDS: Vancomycin HCl 25 MG/ML Oral PO SCH ×4 (00:21→17:56)
[2020-12-11] MEDS: HYDROcodone/Acetaminophen 5/325 mg Tablet PO PRN ×4 (02:50→17:57)
[2020-12-11 06:26] LABS: Anion Gap 12 mmol/L (10-20); BUN (Urea Nitrogen) 8 mg/dL (9.8-20.1); Calc. Creatinine Clearance 63 mL/min (70-130); Calcium 7.1 mg/dL (7.8-10.44); Carbon Dioxide 14 mmol/L (23-31); Chloride 114 mmol/L (98-107); Glucose 137 mg/dL (80-115); Potassium 4.1 mmol/L (3.5-5.1); Sodium 136 mmol/L (136-145)
[2020-12-11] MEDS: Morphine ER 15 MG TAB PO SCH (08:09)
[2020-12-11] MEDS: Carvedilol 6.25 MG TAB PO SCH ×2 (08:11→17:56)
[2020-12-11] MEDS: Amlodipine 5 MG TAB PO SCH (08:12)
[2020-12-11] MEDS: Lisinopril 20 MG TAB PO SCH (08:12)
[2020-12-11 08:28] LABS: Band 1 % (5-11); Hemoglobin 9.7 g/dL (12.0-16.0); Lymphocytes 25 % (21-51); MDiff Complete? YES; Mean Corpuscular HGB CONC 32.8 g/dL (32.0-36.0); Mean Corpuscular Hemoglobin 32.9 pg (27.0-31.0); Mean Platelet Volume 8.1 fL (7.4-10.4); Monocytes 8 % (0-10); Neutrophil 66 % (42-75); Platelet Count 49 thou/uL (130-400); Platelet Morphology Comment Appears Decreased; RBC Distribution Width 13.4 % (11.5-14.5); Red Blood Cell (RBC) Count 2.94 mill/uL (4.20-5.40); Schistocytes SLIGHT = 2-5 cells (100X) (0-1/hpf); White Blood Cell (WBC) Count 4.9 thou/uL (4.8-10.8)
[2020-12-11] MEDS: Cefepime 1 GM in Sodium Chloride 0.9% 100 ML IVPB SCH (09:12)
[2020-12-11] MEDS: HumaLOG 300 UNITS/3 ML VIAL SC PRN (12:33)
[2020-12-11] MEDS: Sodium Chloride 0.9% 1,000 ML IV SCH (12:42)
[2020-12-11] MEDS: diphenhydrAMINE 25 MG CAP PO PRN (14:28)
[2020-12-11] MEDS: Morphine 4 MG/ML VIAL SLOW IVP PRN (14:34)
[2020-12-11] MEDS: Morphine ER 30 MG TAB PO SCH (20:03)
[2020-12-11] MEDS: Pantoprazole 40 MG VIAL IVP SCH (20:05)
[2020-12-12] MEDS: Vancomycin HCl 25 MG/ML Oral PO SCH ×5 (00:33→23:45)
[2020-12-12] MEDS: HYDROcodone/Acetaminophen 5/325 mg Tablet PO PRN (00:37)
[2020-12-12] MEDS: Sodium Chloride 0.9% 1,000 ML IV SCH ×3 (03:01→23:53)
[2020-12-12] MEDS: Morphine 4 MG/ML VIAL SLOW IVP PRN ×2 (03:02→13:43)
[2020-12-12 04:10] LABS: Anion Gap 7 mmol/L (10-20); BUN (Urea Nitrogen) 8 mg/dL (9.8-20.1); Calc. Creatinine Clearance 62 mL/min (70-130); Carbon Dioxide 20 mmol/L (23-31); Glucose 136 mg/dL (80-115); Potassium 4.4 mmol/L (3.5-5.1); Sodium 136 mmol/L (136-145)
[2020-12-12 04:24] LABS: Calcium 6.9 mg/dL (7.8-10.44); Chloride 113 mmol/L (98-107)
[2020-12-12 04:30] LABS: #Eosinphils 0.1 thou/uL (0.0-0.7); #Lymphocytes 1.3 thou/uL (1.20-3.40); #Monocytes 0.7 thou/uL (0.11-0.59); #Neutrophils 3.4 thou/uL (1.40-6.50); %Basophils 0.3 % (0.0-1.0); %Eosinophils 1.2 % (0.0-10.0); %Lymphocytes 24.1 % (21.0-51.0); %Monocytes 13.2 % (0.0-10.0); %Neutrophils 61.2 % (42.0-75.0); Hemoglobin 8.5 g/dL (12.0-16.0); Mean Corpuscular Hemoglobin 34.3 pg (27.0-31.0); Mean Platelet Volume 7.7 fL (7.4-10.4); Platelet Count 62 thou/uL (130-400); Red Blood Cell (RBC) Count 2.46 mill/uL (4.20-5.40); White Blood Cell (WBC) Count 5.6 thou/uL (4.8-10.8)
[2020-12-12] MEDS: Amlodipine 5 MG TAB PO SCH (08:26)
[2020-12-12] MEDS: Carvedilol 6.25 MG TAB PO SCH ×3 (08:26→17:42)
[2020-12-12] MEDS: Morphine ER 30 MG TAB PO SCH ×2 (08:27→20:22)
[2020-12-12] MEDS: Lisinopril 20 MG TAB PO SCH (08:27)
[2020-12-12] MEDS: diphenhydrAMINE 25 MG CAP PO PRN (13:39)
[2020-12-12] MEDS: Scopolamine 1.5 mg/72 hour Patch TD SCH (14:51)
[2020-12-12] MEDS ORDERED: Morphine IR 10 MG/5 ML UDCUP PO PRN (16:07)
[2020-12-12] MEDS: Morphine IR 10 MG/5 ML UDCUP PO PRN (18:01)
[2020-12-12] MEDS: Pantoprazole 40 MG VIAL IVP SCH (20:21)
[2020-12-12] MEDS: DULoxetine 30 MG CAP PO SCH (20:23)
[2020-12-13] MEDS: Vancomycin HCl 25 MG/ML Oral PO SCH ×4 (05:22→23:16)
[2020-12-13] MEDS: Sodium Chloride 0.9% 1,000 ML IV SCH (05:23)
[2020-12-13] MEDS: Ondansetron PF 4 MG/2 ML Vial IVP PRN (05:48)
[2020-12-13 05:57] LABS: #Basophils 0.1 thou/uL (0.0-0.2); #Eosinphils 0.1 thou/uL (0.0-0.7); #Lymphocytes 1.6 thou/uL (1.20-3.40); #Monocytes 1.1 thou/uL (0.11-0.59); #Neutrophils 5.6 thou/uL (1.40-6.50); %Basophils 0.7 % (0.0-1.0); %Eosinophils 1.7 % (0.0-10.0); %Monocytes 12.4 % (0.0-10.0); %Neutrophils 66.2 % (42.0-75.0); Hemoglobin 9.6 g/dL (12.0-16.0); Mean Corpuscular HGB CONC 32.8 g/dL (32.0-36.0); Mean Corpuscular Hemoglobin 33.3 pg (27.0-31.0); Mean Platelet Volume 11.6 fL (7.4-10.4); Platelet Count 100 thou/uL (130-400); RBC Distribution Width 15.4 % (11.5-14.5); Red Blood Cell (RBC) Count 2.89 mill/uL (4.20-5.40); White Blood Cell (WBC) Count 8.5 thou/uL (4.8-10.8)
[2020-12-13 06:10] LABS: Anion Gap 15 mmol/L (10-20); BUN (Urea Nitrogen) 8 mg/dL (9.8-20.1); Calc. Creatinine Clearance 66 mL/min (70-130); Calcium 7.8 mg/dL (7.8-10.44); Carbon Dioxide 18 mmol/L (23-31); Chloride 110 mmol/L (98-107); Glucose 138 mg/dL (80-115); Potassium 4.7 mmol/L (3.5-5.1); Sodium 138 mmol/L (136-145)
[2020-12-13] MEDS: Morphine IR 10 MG/5 ML UDCUP PO PRN ×2 (06:11→19:51)
[2020-12-13] MEDS: Amlodipine 5 MG TAB PO SCH (09:32)
[2020-12-13] MEDS: Lisinopril 20 MG TAB PO SCH (09:32)
[2020-12-13] MEDS: Carvedilol 6.25 MG TAB PO SCH ×2 (09:33→19:06)
[2020-12-13] MEDS: Morphine ER 30 MG TAB PO SCH ×2 (09:33→20:58)
[2020-12-13] MEDS: DULoxetine 30 MG CAP PO SCH (20:58)
[2020-12-13] MEDS: Pantoprazole 40 MG VIAL IVP SCH (23:16)
[2020-12-14] MEDS: Vancomycin HCl 25 MG/ML Oral PO SCH ×2 (05:04→13:12)
[2020-12-14 05:26] LABS: #Basophils 0.1 thou/uL (0.0-0.2); #Eosinphils 0.1 thou/uL (0.0-0.7); #Lymphocytes 1.3 thou/uL (1.20-3.40); #Monocytes 0.7 thou/uL (0.11-0.59); #Neutrophils 4.2 thou/uL (1.40-6.50); %Eosinophils 1.2 % (0.0-10.0); %Lymphocytes 20.8 % (21.0-51.0); %Monocytes 10.6 % (0.0-10.0); %Neutrophils 66.4 % (42.0-75.0); Hemoglobin 8.9 g/dL (12.0-16.0); Mean Corpuscular HGB CONC 34.2 g/dL (32.0-36.0); Mean Corpuscular Hemoglobin 34.8 pg (27.0-31.0); Platelet Count 97 thou/uL (130-400); RBC Distribution Width 14.8 % (11.5-14.5); Red Blood Cell (RBC) Count 2.55 mill/uL (4.20-5.40); White Blood Cell (WBC) Count 6.4 thou/uL (4.8-10.8)
[2020-12-14 05:45] LABS: Anion Gap 11 mmol/L (10-20); BUN (Urea Nitrogen) 11 mg/dL (9.8-20.1); Calc. Creatinine Clearance 65 mL/min (70-130); Calcium 7.6 mg/dL (7.8-10.44); Carbon Dioxide 19 mmol/L (23-31); Chloride 107 mmol/L (98-107); Glucose 125 mg/dL (80-115); Potassium 4.6 mmol/L (3.5-5.1); Sodium 132 mmol/L (136-145)
[2020-12-14] MEDS: Carvedilol 6.25 MG TAB PO SCH (08:48)
[2020-12-14] MEDS: Morphine ER 30 MG TAB PO SCH (08:49)
[2020-12-14] MEDS: Amlodipine 5 MG TAB PO SCH (08:50)
[2020-12-14] MEDS: Lisinopril 20 MG TAB PO SCH (08:50)
[2020-12-14 08:51] VITALS: BP 178/82
[2020-12-14 09:46] VITALS: TEMP 98.5
[2020-12-14] MEDS: Morphine 4 MG/ML VIAL SLOW IVP PRN (10:08)
[2020-12-14] MEDS: HumaLOG 300 UNITS/3 ML VIAL SC PRN (11:27)
== END 2020-12-14 14:40 | disposition home or self-care (01) | DRG 871 ==
LOC: ONC 18:48
PROVIDERS: ADMIT Internal Medicine; ATTEND Internal Medicine
PROC: 30233R1 Transfusion of Nonautologous Platelets into Peripheral Vein, Percutaneous Approach (ICD-10-PCS; principal; 2020-12-06)
DX: A41.9 Sepsis, unspecified organism (principal); G93.41 Metabolic encephalopathy; A04.72 Enterocolitis due to Clostridium difficile, not specified as recurrent; C90.00 Multiple myeloma not having achieved remission; N39.0 Urinary tract infection, site not specified; N17.9 Acute kidney failure, unspecified; D61.818 Other pancytopenia; Z20.822 Contact with and (suspected) exposure to COVID-19; I25.10 Atherosclerotic heart disease of native coronary artery without angina pectoris; I48.0 Paroxysmal atrial fibrillation; I10 Essential (primary) hypertension; E11.9 Type 2 diabetes mellitus without complications; K21.9 Gastro-esophageal reflux disease without esophagitis; E87.6 Hypokalemia; D69.6 Thrombocytopenia, unspecified; E78.5 Hyperlipidemia, unspecified; G89.3 Neoplasm related pain (acute) (chronic); L29.9 Pruritus, unspecified; Z86.19 Personal history of other infectious and parasitic diseases; Z86.73 Personal history of transient ischemic attack (TIA), and cerebral infarction without residual deficits; Z92.21 Personal history of antineoplastic chemotherapy; Z88.8 Allergy status to other drugs, medicaments and biological substances; Z79.01 Long term (current) use of anticoagulants; Z79.84 Long term (current) use of oral hypoglycemic drugs; Z79.899 Other long term (current) drug therapy; Z95.5 Presence of coronary angioplasty implant and graft; Z90.49 Acquired absence of other specified parts of digestive tract; Z98.51 Tubal ligation status; R65.20 Severe sepsis without septic shock
CPT/HCPCS: 36415; 36416; 36430; 51701; 70450; 71045; 74176; 80048; 80053; 80076; 80306; 80307; 81003; 81015; 82274; 83605; 83690; 83735; 85025; 85060; 86850; 86900; 86901; 87040; 87086; 87324; 87449; 87493; 87635; 93005; 94760; 96365; 96366; 96367; 96368; C9113; J0360; J0692; J1642; J1815; J2270; J2405; J3370; J3475; J3480; J3490; P9035; Q0163; U0003; U0005

== ENCOUNTER 2021-01-12 10:21 | Day surgery (SDC) | payer MEDICARE, MEDICAID ==
[2021-01-12] MEDS ORDERED: Sodium Chloride 0.9% 20 ML ONE (10:22)
[2021-01-12 11:36] VITALS: BP 198/91; TEMP 98.5
== END 2021-01-12 12:12 | disposition home or self-care (01) ==
LOC: ONC/OP 10:21
PROVIDERS: ATTEND Internal Medicine Hematology & Oncology
DX: Z51.11 Encounter for antineoplastic chemotherapy (principal); C90.00 Multiple myeloma not having achieved remission; C79.52 Secondary malignant neoplasm of bone marrow; D50.9 Iron deficiency anemia, unspecified; Z88.8 Allergy status to other drugs, medicaments and biological substances
CPT/HCPCS: 36415; 80053; 82248; 83615; 84100; 84165; 84550; 96375; 96413; J1100; J1642; J2405; J9047

== ENCOUNTER 2021-02-03 09:20 | Outpatient (CLI) | payer MEDICARE, MEDICAID | END 2021-02-03 09:21 | disposition home or self-care (01) | LOC: PET 09:20 | PROVIDERS: ATTEND Internal Medicine Hematology & Oncology | DX: C90.00 Multiple myeloma not having achieved remission (principal); C79.52 Secondary malignant neoplasm of bone marrow | CPT/HCPCS: 78815; A9552 ==

== ENCOUNTER 2021-02-06 08:37 | Day surgery (SDC) | payer MEDICARE, MEDICAID ==
[2021-01-18 14:04] VITALS: BMI 24.8
[2021-02-06 09:00] LABS: INR-International Normal Ratio 0.9; PTT 30.5 sec (22.9-36.1); Prothrombin Time 12.1 sec (12.0-14.7)
[2021-02-06] MEDS ORDERED: Sodium Chloride 0.9% 10 ML ONE ×2 (09:16→11:39)
[2021-02-06] MEDS ORDERED: Fentanyl 100 MCG/2 ML VIAL ONE (09:17)
[2021-02-06] MEDS ORDERED: Sodium Bicarbonate 2.5 MEQ/5 ML VIAL ONE (09:17)
[2021-02-06 10:05] VITALS: BP 209/101; TEMP 98
== END 2021-02-06 12:20 | disposition home or self-care (01) ==
LOC: SDC 08:37
PROVIDERS: ATTEND Internal Medicine Hematology & Oncology
PROC: 07DR3ZX Extraction of Iliac Bone Marrow, Percutaneous Approach, Diagnostic (ICD-10-PCS; principal; 2021-02-06)
DX: C90.00 Multiple myeloma not having achieved remission (principal); C79.52 Secondary malignant neoplasm of bone marrow; D50.9 Iron deficiency anemia, unspecified; E11.9 Type 2 diabetes mellitus without complications; I10 Essential (primary) hypertension; I48.91 Unspecified atrial fibrillation; I25.10 Atherosclerotic heart disease of native coronary artery without angina pectoris; F17.210 Nicotine dependence, cigarettes, uncomplicated; F12.10 Cannabis abuse, uncomplicated; K21.9 Gastro-esophageal reflux disease without esophagitis; E78.5 Hyperlipidemia, unspecified; I69.331 Monoplegia of upper limb following cerebral infarction affecting right dominant side; Z79.2 Long term (current) use of antibiotics; Z79.84 Long term (current) use of oral hypoglycemic drugs; Z79.891 Long term (current) use of opiate analgesic; Z79.899 Other long term (current) drug therapy; Z88.8 Allergy status to other drugs, medicaments and biological substances; Z95.5 Presence of coronary angioplasty implant and graft
CPT/HCPCS: 20225; 36415; 77012; 85097; 85610; 85730; 88184; 88237; 88264; 88280; 88305; 88311; 88313; 88342; J1642; J3010

== ENCOUNTER 2021-03-13 08:24 | Day surgery (SDC) | payer MEDICARE, MEDICAID ==
[2021-03-13] MEDS ORDERED: CARFILZOMIB IVPB SCH (09:15)
[2021-03-13] MEDS ORDERED: DEXTROSE 5% IVPB SCH ×2 (09:15)
[2021-03-13] MEDS ORDERED: ONDANSETRON IVPB SCH (09:15)
[2021-03-13] MEDS ORDERED: DEXAMETHASONE SOD PHOSPHATE IVPB SCH (09:15)
[2021-03-13] MEDS ORDERED: WATER IVPB SCH (09:15)
[2021-03-13] MEDS ORDERED: [UNRECOGNIZED DRUG - OTHER] IVPB SCH (09:15)
[2021-03-13 09:33] VITALS: BP 151/74; TEMP 98.6
== END 2021-03-13 11:53 | disposition home or self-care (01) ==
LOC: ONC/OP 08:24
PROVIDERS: ATTEND Internal Medicine Hematology & Oncology
DX: Z51.11 Encounter for antineoplastic chemotherapy (principal); C90.00 Multiple myeloma not having achieved remission; C79.52 Secondary malignant neoplasm of bone marrow; D50.9 Iron deficiency anemia, unspecified; Z88.8 Allergy status to other drugs, medicaments and biological substances
CPT/HCPCS: 96375; 96413; J1100; J2405; J9047

== ENCOUNTER 2021-04-09 04:48 | Emergency (ER) | payer MEDICARE, MEDICAID ==
[2021-04-09] MEDS ORDERED: Ondansetron ODT 4 MG TAB ONE (05:02)
[2021-04-09] MEDS ORDERED: Ondansetron PF 4 MG/2 ML Vial ONE ×2 (05:05→06:05)
[2021-04-09] MEDS ORDERED: Morphine 4 MG/ML VIAL ONE ×2 (05:15→06:54)
[2021-04-09 05:18] LABS: #Eosinphils 0.1 thou/uL (0.0-0.7); #Lymphocytes 1.6 thou/uL (1.20-3.40); #Monocytes 1.4 thou/uL (0.11-0.59); #Neutrophils 8.1 thou/uL (1.40-6.50); %Basophils 0.2 % (0.0-1.0); %Eosinophils 0.8 % (0.0-10.0); %Lymphocytes 14.3 % (21.0-51.0); %Monocytes 12.7 % (0.0-10.0); %Neutrophils 71.9 % (42.0-75.0); Hemoglobin 14.7 g/dL (12.0-16.0); Mean Corpuscular HGB CONC 33.6 g/dL (32.0-36.0); Mean Corpuscular Hemoglobin 31.7 pg (27.0-31.0); Mean Corpuscular Volume 94.6 fL (78.0-98.0); Mean Platelet Volume 10.4 fL (7.4-10.4); Platelet Count 134 thou/uL (130-400); RBC Distribution Width 14.3 % (11.5-14.5); Red Blood Cell (RBC) Count 4.64 mill/uL (4.20-5.40); White Blood Cell (WBC) Count 11.3 thou/uL (4.8-10.8)
[2021-04-09 05:41] LABS: ALT (SGPT) 72 U/L (8-55); AST (SGOT) 181 U/L (5-34); Alkaline Phosphatase 274 U/L (40-110); Anion Gap 15 mmol/L (10-20); BUN (Urea Nitrogen) 7 mg/dL (9.8-20.1); Bilirubin, Total 1.9 mg/dL (0.2-1.2); Calc. Creatinine Clearance 0 mL/min (70-130); Carbon Dioxide 18 mmol/L (23-31); Chloride 105 mmol/L (98-107); Globulin 2.8 g/dL (2.4-3.5); Glucose 179 mg/dL (80-115); Lipase 49 U/L (8-78); Potassium 3.3 mmol/L (3.5-5.1); Protein, Total 6.8 g/dL (5.8-8.1); Sodium 135 mmol/L (136-145)
[2021-04-09] MEDS ORDERED: Promethazine HCl 25 MG/ML VIAL ONE (07:50)
[2021-04-09] MEDS ORDERED: Morphine 2 MG/ML VIAL ONE (07:50)
[2021-04-09 08:04] LABS: SARS-CoV-2 NAA Rapid Test DETECTED (NotDetected)
[2021-04-09] MEDS ORDERED: Iopamidol-370 76% 500 ML 1 ML ONE (10:43)
== END 2021-04-09 10:20 | disposition home or self-care (01) ==
LOC: ERS 04:48
DX: U07.1 COVID-19 (principal); K52.9 Noninfective gastroenteritis and colitis, unspecified; I25.10 Atherosclerotic heart disease of native coronary artery without angina pectoris; K21.9 Gastro-esophageal reflux disease without esophagitis; I10 Essential (primary) hypertension; E11.9 Type 2 diabetes mellitus without complications; Z85.79 Personal history of other malignant neoplasms of lymphoid, hematopoietic and related tissues; Z86.73 Personal history of transient ischemic attack (TIA), and cerebral infarction without residual deficits; F17.210 Nicotine dependence, cigarettes, uncomplicated
CPT/HCPCS: 0240U; 71045; 74177; 80053; 83690; 84484; 85025; 93005; J2270; 96365; 96366; 96372; 96375; 96376; J0500; J2405; J2550; Q0162

== ENCOUNTER 2021-05-08 10:38 | Inpatient (IN) | payer MEDICARE, MEDICAID ==
[2021-05-08 11:36] LABS: Bacteria/HPF 4+ HPF (None Seen); Bilirubin Negative (Negative); Blood, Urine Negative (Negative); Clarity Turbid (Clear); Glucose, Urine (Dipstick) Normal (Negative); Ketone, Urine Negative (Negative); Leukocyte 500 Leu/uL (Negative); Nitrite Negative (Negative); Protein, Urine (Dipstick) 70 mg/dL (Neg-Trace); RBC/HPF 0-3 HPF (0-3); Specific Gravity, Urine 1.018 (1.002-1.036); Squamous Epithelial 0-3 HPF (0-3); Urobilinogen Normal mg/dL (Less than 2); WBC/HPF Greater than 50 HPF (0-3); pH, Urine 5.5 (5.0-9.0)
[2021-05-08] MEDS ORDERED: cefTRIAXone\\ROCEPHIN 2 GM VIAL ONE (11:36)
[2021-05-08] MEDS ORDERED: Azithromycin 500 MG VIAL ONE (11:36)
[2021-05-08] MEDS ORDERED: Acetaminophen 650 MG Suppository ONE (11:49)
[2021-05-08 11:52] LABS: ALT (SGPT) 75 U/L (8-55); AST (SGOT) 185 U/L (5-34); Albumin 2.4 g/dL (3.4-4.8); Alkaline Phosphatase 352 U/L (40-110); Anion Gap 15 mmol/L (10-20); BUN (Urea Nitrogen) 63 mg/dL (9.8-20.1); Bilirubin, Total 1.4 mg/dL (0.2-1.2); Calc. Creatinine Clearance 0 mL/min (70-130); Calcium 7.6 mg/dL (7.8-10.44); Carbon Dioxide 18 mmol/L (23-31); Chloride 115 mmol/L (98-107); Globulin 2.9 g/dL (2.4-3.5); Glucose 84 mg/dL (80-115); Potassium 6.1 mmol/L (3.5-5.1); Protein, Total 5.3 g/dL (5.8-8.1); Sodium 142 mmol/L (136-145)
[2021-05-08 12:04] LABS: Anisocytosis SLIGHT = 6-15 cells (100X) (0-5/hpf); Band 2 % (5-11); Burr Cells SLIGHT = 2-5 cells (100X) (0-1/hpf); Hemoglobin 10.2 g/dL (12.0-16.0); Hypochromia SLIGHT = 6-15 cells (100X) (0-5/hpf); Lymphocytes 15 % (21-51); MDiff Complete? YES; Mean Corpuscular HGB CONC 33.5 g/dL (32.0-36.0); Mean Corpuscular Hemoglobin 33.7 pg (27.0-31.0); Mean Platelet Volume 13.1 fL (7.4-10.4); Monocytes 9 % (0-10); Neutrophil 74 % (42-75); Platelet Count 56 thou/uL (130-400); Platelet Morphology Comment Appears Decreased; Polychromasia SLIGHT = 2-3 cells (100X) (0-2/hpf); RBC Distribution Width 16.8 % (11.5-14.5); Red Blood Cell (RBC) Count 3.01 mill/uL (4.20-5.40); White Blood Cell (WBC) Count 10.1 thou/uL (4.8-10.8)
[2021-05-08 12:14] LABS: CKMB 1.2 ng/mL (0-6.6)
[2021-05-08] MEDS ORDERED: Aspirin 300 MG Suppository ONE (12:32)
[2021-05-08 13:13] LABS: SARS-CoV-2 NAA Rapid Test DETECTED (NotDetected)
[2021-05-08] MEDS ORDERED: Norepinephrine 8 MG/0.9% NS 250 ML ONE (13:21)
[2021-05-08] MEDS ORDERED: Acetaminophen 325 MG Suppository PR PRN (13:44)
[2021-05-08] MEDS ORDERED: Enoxaparin Sodium 40 MG/0.4 ML SYRINGE SC SCH (15:00)
[2021-05-08] MEDS ORDERED: Meropenem 1 GM in Sodium Chloride 0.9% 100 ML IVPB SCH (15:00)
[2021-05-08] MEDS ORDERED: MEROPENEM 1 GM/50 ML 1 GM in Premix Bag 1 BAG IVPB SCH (15:00)
[2021-05-08] MEDS: Lactated Ringer's 1,000 ML IV SCH ×2 (18:34→23:50)
[2021-05-08] MEDS ORDERED: Albuterol Sulfate 2.5 mg/3 ml Neb NEB SCH (19:15)
[2021-05-08] MEDS ORDERED: Dextrose 50% Abboject 50 ML SYRINGE SLOW IVP PRN (19:31)
[2021-05-08] MEDS ORDERED: Dextrose 5% in Water 1,000 ML IV PRN (19:31)
[2021-05-08 19:50] LABS: Anion Gap 17 mmol/L (10-20); BUN (Urea Nitrogen) 61 mg/dL (9.8-20.1); Calc. Creatinine Clearance 15 mL/min (70-130); Carbon Dioxide 15 mmol/L (23-31); Chloride 118 mmol/L (98-107); Glucose 104 mg/dL (80-115); Potassium 5.7 mmol/L (3.5-5.1); Sodium 144 mmol/L (136-145)
[2021-05-08] MEDS: Dexamethasone 10 MG/ML VIAL SLOW IVP SCH (20:04)
[2021-05-08] MEDS: Meropenem 500 MG in Sodium Chloride 0.9% 100 ML IVPB SCH (22:06)
[2021-05-08] MEDS: Clindamycin/D5W 600 MG in Premix Bag 1 BAG IVPB SCH (22:06)
[2021-05-09] MEDS ORDERED: Lactated Ringer's 500 ML IV PRN (01:41)
[2021-05-09] MEDS ORDERED: Norepinephrine 8 MG/0.9% NS 250 ML IVPB SCH (01:45)
[2021-05-09 02:40] LABS: Base Excess (BEa) -9.5 mEq/L (-2.0 to +3.0); CO2 Tension 33.6 mmHg (35.0-45.0); Calcium, Ionized (arterial) 1.05 mmol/L (1.12-1.30); Carboxyhemoglobin (COHb) 0.3 gm% (0.0-3.0); Hemoglobin (Hb) 9.4 g/dL (12.0-16.0); O2 Tension (PaO2), arterial 61.5 mmHg (> 80.0); Potassium - ABG Lab 5.53 mmol/L (3.70-5.30)
[2021-05-09 02:43] LABS: Puncture Site LRA
[2021-05-09 04:25] LABS: Band 15 % (5-11); Hemoglobin 8.6 g/dL (12.0-16.0); Hypochromia SLIGHT = 6-15 cells (100X) (0-5/hpf); Lymphocytes 8 % (21-51); MDiff Complete? YES; Macrocytosis SLIGHT = 6-15 cells (100X) (0-5/hpf); Mean Corpuscular HGB CONC 32.6 g/dL (32.0-36.0); Mean Corpuscular Hemoglobin 33.6 pg (27.0-31.0); Mean Platelet Volume 13.2 fL (7.4-10.4); Neutrophil 77 % (42-75); Platelet Count 41 thou/uL (130-400); Platelet Morphology Comment Appears Decreased; RBC Distribution Width 17.6 % (11.5-14.5); Red Blood Cell (RBC) Count 2.54 mill/uL (4.20-5.40); White Blood Cell (WBC) Count 11.5 thou/uL (4.8-10.8)
[2021-05-09 04:41] LABS: Anion Gap 17 mmol/L (10-20); BUN (Urea Nitrogen) 60 mg/dL (9.8-20.1); Calc. Creatinine Clearance 14 mL/min (70-130); Calcium 6.9 mg/dL (7.8-10.44); Carbon Dioxide 16 mmol/L (23-31); Chloride 115 mmol/L (98-107); Glucose 170 mg/dL (80-115); Potassium 5.6 mmol/L (3.5-5.1); Sodium 142 mmol/L (136-145)
[2021-05-09] MEDS: Clindamycin/D5W 600 MG in Premix Bag 1 BAG IVPB SCH ×3 (05:54→22:18)
[2021-05-09] MEDS ORDERED: Enoxaparin Sodium 40 MG/0.4 ML SYRINGE SC SCH (09:00)
[2021-05-09] MEDS: Dexamethasone 10 MG/ML VIAL SLOW IVP SCH ×2 (09:19→19:58)
[2021-05-09] MEDS: Latanoprost 0.005% Ophth Soln 2.5 ml Bottle EA EYE SCH (09:28)
[2021-05-09] MEDS: Lidocaine 5% Patch TD SCH (09:29)
[2021-05-09] MEDS: Lactated Ringer's 1,000 ML IV SCH ×2 (09:29→19:55)
[2021-05-09] MEDS: Meropenem 500 MG in Sodium Chloride 0.9% 100 ML IVPB SCH ×3 (11:00→22:18)
[2021-05-09] MEDS ORDERED: Vancomycin HCl 25 MG/ML Oral PO SCH (12:00)
[2021-05-09] MEDS ORDERED: Sodium Bicarbonate 150 MEQ in Dextrose 5% in Water 1,000 ML IV SCH (12:15)
[2021-05-09] MEDS: Vancomycin HCl 25 MG/ML Oral PO SCH ×2 (12:59→17:50)
[2021-05-09] MEDS: HumaLOG 300 UNITS/3 ML VIAL SC PRN ×3 (16:22→20:20)
[2021-05-09] MEDS: Apixaban 5 MG TAB PO SCH (19:55)
[2021-05-09] MEDS: Lidocaine Patch Removal TOP SCH (19:58)
[2021-05-10] MEDS: HumaLOG 300 UNITS/3 ML VIAL SC PRN ×3 (00:45→08:50)
[2021-05-10] MEDS: Vancomycin HCl 25 MG/ML Oral PO SCH ×5 (01:07→23:20)
[2021-05-10] MEDS: Clindamycin/D5W 600 MG in Premix Bag 1 BAG IVPB SCH ×3 (05:13→21:27)
[2021-05-10 05:14] LABS: Anion Gap 12 mmol/L (10-20); BUN (Urea Nitrogen) 56 mg/dL (9.8-20.1); Calc. Creatinine Clearance 18 mL/min (70-130); Calcium 6.7 mg/dL (7.8-10.44); Carbon Dioxide 23 mmol/L (23-31); Chloride 112 mmol/L (98-107); Glucose 194 mg/dL (80-115); Potassium 4.5 mmol/L (3.5-5.1); Sodium 142 mmol/L (136-145)
[2021-05-10] MEDS: Lactated Ringer's 1,000 ML IV SCH ×4 (05:14→23:21)
[2021-05-10] MEDS: Dexamethasone 10 MG/ML VIAL SLOW IVP SCH ×2 (08:48→21:27)
[2021-05-10] MEDS: Lidocaine 5% Patch TD SCH (08:48)
[2021-05-10] MEDS: Amiodarone 200 MG TAB PO SCH (08:49)
[2021-05-10] MEDS: Latanoprost 0.005% Ophth Soln 2.5 ml Bottle EA EYE SCH (08:55)
[2021-05-10] MEDS ORDERED: Lantus 1000 UNITS/10 ML VIAL SC SCH (09:00)
[2021-05-10 09:17] LABS: Hemoglobin 8.4 g/dL (12.0-16.0); Mean Corpuscular HGB CONC 32.7 g/dL (32.0-36.0); Mean Platelet Volume 12.8 fL (7.4-10.4); Platelet Count 39 thou/uL (130-400); RBC Distribution Width 17.6 % (11.5-14.5); Red Blood Cell (RBC) Count 2.53 mill/uL (4.20-5.40); White Blood Cell (WBC) Count 12.9 thou/uL (4.8-10.8)
[2021-05-10] MEDS: Apixaban 5 MG TAB PO SCH ×2 (09:46→21:27)
[2021-05-10] MEDS: Meropenem 500 MG in Sodium Chloride 0.9% 100 ML IVPB SCH ×2 (10:03→23:20)
[2021-05-10 10:15] LABS: Band 4 % (5-11); Bite Cells MODERATE= 6-15 cells (100X) (0-1/hpf); Eosinophils 1 % (0-10); Lymphocytes 3 % (21-51); MDiff Complete? YES; Monocytes 2 % (0-10); Neutrophil 90 % (42-75); Nucleated RBC 1 % (0); Platelet Morphology Comment Appears Decreased; Polychromasia SLIGHT = 2-3 cells (100X) (0-2/hpf); Schistocytes MODERATE= 6-15 cells (100X) (0-1/hpf)
[2021-05-10] MEDS: Lidocaine Patch Removal TOP SCH (21:27)
[2021-05-11] MEDS: HumaLOG 300 UNITS/3 ML VIAL SC PRN ×6 (00:29→23:19)
[2021-05-11 04:13] LABS: Band 3 % (5-11); Hemoglobin 9.2 g/dL (12.0-16.0); Hypochromia SLIGHT = 6-15 cells (100X) (0-5/hpf); Lymphocytes 1 % (21-51); MDiff Complete? YES; Mean Corpuscular HGB CONC 32.6 g/dL (32.0-36.0); Mean Corpuscular Hemoglobin 32.5 pg (27.0-31.0); Mean Corpuscular Volume 99.7 fL (78.0-98.0); Mean Platelet Volume 12.3 fL (7.4-10.4); Monocytes 5 % (0-10); Neutrophil 91 % (42-75); Nucleated RBC 3 % (0); Platelet Count 47 thou/uL (130-400); Platelet Morphology Comment Appears Decreased; RBC Distribution Width 17.6 % (11.5-14.5); Red Blood Cell (RBC) Count 2.82 mill/uL (4.20-5.40); White Blood Cell (WBC) Count 14.2 thou/uL (4.8-10.8)
[2021-05-11 04:14] LABS: Anion Gap 14 mmol/L (10-20); BUN (Urea Nitrogen) 53 mg/dL (9.8-20.1); Calc. Creatinine Clearance 26 mL/min (70-130); Calcium 7.4 mg/dL (7.8-10.44); Carbon Dioxide 22 mmol/L (23-31); Chloride 111 mmol/L (98-107); Glucose 197 mg/dL (80-115); Potassium 4.1 mmol/L (3.5-5.1); Sodium 143 mmol/L (136-145)
[2021-05-11] MEDS: Vancomycin HCl 25 MG/ML Oral PO SCH ×4 (05:00→23:19)
[2021-05-11] MEDS: Clindamycin/D5W 600 MG in Premix Bag 1 BAG IVPB SCH ×3 (05:00→21:27)
[2021-05-11] MEDS ORDERED: Lantus 1000 UNITS/10 ML VIAL SC SCH (07:59)
[2021-05-11] MEDS ORDERED: Famotidine 20 MG TAB PO SCH ×2 (10:15→21:00)
[2021-05-11] MEDS: Amlodipine 10 MG TAB PO SCH (10:23)
[2021-05-11] MEDS: Apixaban 5 MG TAB PO SCH ×2 (10:24→21:26)
[2021-05-11] MEDS: Amiodarone 200 MG TAB PO SCH (10:24)
[2021-05-11] MEDS: Latanoprost 0.005% Ophth Soln 2.5 ml Bottle EA EYE SCH (10:26)
[2021-05-11] MEDS: Lidocaine 5% Patch TD SCH (10:27)
[2021-05-11] MEDS: Meropenem 500 MG in Sodium Chloride 0.9% 100 ML IVPB SCH ×2 (10:29→23:19)
[2021-05-11] MEDS: Lactated Ringer's 1,000 ML IV SCH ×2 (10:33→21:26)
[2021-05-11] MEDS: Dexamethasone 10 MG/ML VIAL SLOW IVP SCH (10:35)
[2021-05-11] MEDS ORDERED: Lisinopril 10 MG TAB PO SCH (14:30)
[2021-05-11] MEDS: Dexamethasone 4 mg/ml Vial SLOW IVP SCH (21:24)
[2021-05-11] MEDS: hydrALAZINE 25 MG TAB PO SCH (21:26)
[2021-05-11] MEDS: Lidocaine Patch Removal TOP SCH (21:27)
[2021-05-12 05:11] LABS: Anion Gap 14 mmol/L (10-20); BUN (Urea Nitrogen) 42 mg/dL (9.8-20.1); Calc. Creatinine Clearance 36 mL/min (70-130); Carbon Dioxide 24 mmol/L (23-31); Chloride 113 mmol/L (98-107); Glucose 192 mg/dL (80-115); Potassium 3.7 mmol/L (3.5-5.1); Sodium 147 mmol/L (136-145)
[2021-05-12] MEDS: Vancomycin HCl 25 MG/ML Oral PO SCH ×3 (05:18→18:07)
[2021-05-12] MEDS: HumaLOG 300 UNITS/3 ML VIAL SC PRN ×4 (05:18→23:59)
[2021-05-12] MEDS: Clindamycin/D5W 600 MG in Premix Bag 1 BAG IVPB SCH ×3 (05:18→21:23)
[2021-05-12 05:35] LABS: Band 2 % (5-11); Burr Cells SLIGHT = 2-5 cells (100X) (0-1/hpf); Hemoglobin 10.2 g/dL (12.0-16.0); Lymphocytes 5 % (21-51); MDiff Complete? YES; Mean Corpuscular HGB CONC 31.9 g/dL (32.0-36.0); Mean Corpuscular Hemoglobin 31.9 pg (27.0-31.0); Mean Platelet Volume 13.3 fL (7.4-10.4); Monocytes 7 % (0-10); Neutrophil 86 % (42-75); Nucleated RBC 7 % (0); Platelet Count 60 thou/uL (130-400); Platelet Morphology Comment Appears Decreased; RBC Distribution Width 18.3 % (11.5-14.5); Red Blood Cell (RBC) Count 3.19 mill/uL (4.20-5.40); Schistocytes SLIGHT = 2-5 cells (100X) (0-1/hpf)
[2021-05-12] MEDS: Lactated Ringer's 1,000 ML IV SCH (06:20)
[2021-05-12] MEDS ORDERED: Lantus 1000 UNITS/10 ML VIAL SC SCH (09:00)
[2021-05-12] MEDS ORDERED: Furosemide 20 MG/2 ML VIAL SLOW IVP SCH (09:00)
[2021-05-12] MEDS ORDERED: Lisinopril 20 MG TAB PO SCH (09:00)
[2021-05-12] MEDS: hydrALAZINE 25 MG TAB PO SCH ×3 (10:02→22:31)
[2021-05-12] MEDS: Famotidine 20 MG TAB PO SCH (10:02)
[2021-05-12] MEDS: Lisinopril 20 MG TAB PO SCH (10:02)
[2021-05-12] MEDS: Amlodipine 10 MG TAB PO SCH (10:02)
[2021-05-12] MEDS: Amiodarone 200 MG TAB PO SCH (10:02)
[2021-05-12] MEDS: Dexamethasone 4 mg/ml Vial SLOW IVP SCH ×3 (10:03→21:24)
[2021-05-12] MEDS: Apixaban 5 MG TAB PO SCH ×2 (10:03→21:24)
[2021-05-12] MEDS: Lidocaine 5% Patch TD SCH (10:05)
[2021-05-12] MEDS: Latanoprost 0.005% Ophth Soln 2.5 ml Bottle EA EYE SCH (10:05)
[2021-05-12] MEDS: Dextrose 5%-Lactated Ringers 1,000 ML IV SCH ×2 (12:00→21:23)
[2021-05-12] MEDS: Meropenem 500 MG in Sodium Chloride 0.9% 100 ML IVPB SCH ×2 (12:20→22:00)
[2021-05-12] MEDS ORDERED: Metoprolol Tartrate 25 MG TAB PO SCH (14:00)
[2021-05-12] MEDS ORDERED: Amiodarone 200 MG TAB PO SCH (14:30)
[2021-05-12 14:59] VITALS: BMI 21.0
[2021-05-12] MEDS ORDERED: Metoprolol Tartrate 50 MG TAB PO SCH (18:00)
[2021-05-12] MEDS: Lidocaine Patch Removal TOP SCH (21:24)
[2021-05-12] MEDS ORDERED: Esmolol 2,500 MG/250 ML 250 ML IVPB SCH (23:15)
[2021-05-13 04:52] LABS: Band 2 % (5-11); Bite Cells MODERATE= 6-15 cells (100X) (0-1/hpf); Hemoglobin 10.8 g/dL (12.0-16.0); Lymphocytes 3 % (21-51); MDiff Complete? YES; Macrocytosis SLIGHT = 6-15 cells (100X) (0-5/hpf); Mean Corpuscular HGB CONC 33.7 g/dL (32.0-36.0); Mean Corpuscular Hemoglobin 33.6 pg (27.0-31.0); Mean Corpuscular Volume 99.7 fL (78.0-98.0); Mean Platelet Volume 12.5 fL (7.4-10.4); Metamyelocyte 1 % (0-0); Monocytes 7 % (0-10); Myelocyte 3 % (0-0); Neutrophil 84 % (42-75); Nucleated RBC 8 % (0); Platelet Count 65 thou/uL (130-400); Platelet Morphology Comment Appears Decreased; RBC Distribution Width 17.9 % (11.5-14.5); Red Blood Cell (RBC) Count 3.21 mill/uL (4.20-5.40); Schistocytes SLIGHT = 2-5 cells (100X) (0-1/hpf); White Blood Cell (WBC) Count 15.7 thou/uL (4.8-10.8)
[2021-05-13] MEDS: HumaLOG 300 UNITS/3 ML VIAL SC PRN ×4 (04:58→23:47)
[2021-05-13] MEDS: Dextrose 5%-Lactated Ringers 1,000 ML IV SCH ×2 (04:59→19:26)
[2021-05-13] MEDS: Clindamycin/D5W 600 MG in Premix Bag 1 BAG IVPB SCH ×2 (05:00→14:04)
[2021-05-13] MEDS: Acetaminophen 650 MG/20.3 ML UDCUP PO PRN ×2 (05:00)
[2021-05-13] MEDS: Vancomycin HCl 25 MG/ML Oral PO SCH ×5 (05:00→23:47)
[2021-05-13 06:00] LABS: BUN (Urea Nitrogen) 40 mg/dL (9.8-20.1); Calc. Creatinine Clearance 42 mL/min (70-130); Calcium 7.7 mg/dL (7.8-10.44); Carbon Dioxide 22 mmol/L (23-31); Chloride 111 mmol/L (98-107); Glucose 273 mg/dL (80-115); Sodium 146 mmol/L (136-145)
[2021-05-13 06:15] LABS: Potassium 2.8 mmol/L (3.5-5.1)
[2021-05-13 06:16] LABS: Anion Gap 16 mmol/L (10-20)
[2021-05-13] MEDS ORDERED: Potassium Chloride 40 MEQ in Premix Bag 1 BAG IVPB SCH (06:30)
[2021-05-13] MEDS: Amlodipine 10 MG TAB PO SCH (08:29)
[2021-05-13] MEDS: Famotidine 20 MG TAB PO SCH (08:29)
[2021-05-13] MEDS: Amiodarone 200 MG TAB PO SCH (08:29)
[2021-05-13] MEDS: Apixaban 5 MG TAB PO SCH ×2 (08:29→21:24)
[2021-05-13] MEDS: hydrALAZINE 25 MG TAB PO SCH ×3 (08:30→21:23)
[2021-05-13] MEDS: Lisinopril 20 MG TAB PO SCH (08:30)
[2021-05-13] MEDS: Dexamethasone 4 mg/ml Vial SLOW IVP SCH ×2 (08:30→21:24)
[2021-05-13] MEDS: Latanoprost 0.005% Ophth Soln 2.5 ml Bottle EA EYE SCH (08:30)
[2021-05-13] MEDS: Metoprolol Tartrate 50 MG TAB PO SCH ×2 (08:30→21:24)
[2021-05-13] MEDS: Lantus 1000 UNITS/10 ML VIAL SC SCH ×2 (08:31→21:31)
[2021-05-13] MEDS: Lidocaine 5% Patch TD SCH ×2 (08:31→22:28)
[2021-05-13] MEDS ORDERED: Lisinopril 20 MG TAB PO SCH (09:45)
[2021-05-13] MEDS ORDERED: hydrALAZINE 20 MG/ML VIAL ONE (09:54)
[2021-05-13] MEDS: Meropenem 500 MG in Sodium Chloride 0.9% 100 ML IVPB SCH ×2 (10:00→23:46)
[2021-05-13] MEDS: Lidocaine Patch Removal TOP SCH (22:28)
[2021-05-14] MEDS: Dextrose 5%-Lactated Ringers 1,000 ML IV SCH (05:11)
[2021-05-14] MEDS: Vancomycin HCl 25 MG/ML Oral PO SCH ×3 (06:24→18:09)
[2021-05-14 06:33] LABS: Anisocytosis SLIGHT = 6-15 cells (100X) (0-5/hpf); Band 2 % (5-11); Burr Cells SLIGHT = 2-5 cells (100X) (0-1/hpf); Hemoglobin 8.7 g/dL (12.0-16.0); Lymphocytes 13 % (21-51); MDiff Complete? YES; Macrocytosis SLIGHT = 6-15 cells (100X) (0-5/hpf); Mean Corpuscular Hemoglobin 34.1 pg (27.0-31.0); Mean Platelet Volume 12.9 fL (7.4-10.4); Monocytes 9 % (0-10); Myelocyte 2 % (0-0); Neutrophil 74 % (42-75); Nucleated RBC 25 % (0); Platelet Count 61 thou/uL (130-400); Platelet Morphology Comment Appears Decreased; Polychromasia SLIGHT = 2-3 cells (100X) (0-2/hpf); RBC Distribution Width 19.4 % (11.5-14.5); Red Blood Cell (RBC) Count 2.55 mill/uL (4.20-5.40); Schistocytes SLIGHT = 2-5 cells (100X) (0-1/hpf); White Blood Cell (WBC) Count 17.8 thou/uL (4.8-10.8)
[2021-05-14 07:00] LABS: Anion Gap 17 mmol/L (10-20); BUN (Urea Nitrogen) 41 mg/dL (9.8-20.1); Calc. Creatinine Clearance 51 mL/min (70-130); Calcium 7.6 mg/dL (7.8-10.44); Carbon Dioxide 17 mmol/L (23-31); Chloride 115 mmol/L (98-107); Glucose 163 mg/dL (80-115); Potassium 3.7 mmol/L (3.5-5.1); Sodium 145 mmol/L (136-145)
[2021-05-14] MEDS: Lactated Ringer's 1,000 ML IV SCH ×2 (08:38→18:10)
[2021-05-14] MEDS: Apixaban 5 MG TAB PO SCH (08:39)
[2021-05-14] MEDS: Famotidine 20 MG TAB PO SCH (08:39)
[2021-05-14] MEDS: Amlodipine 10 MG TAB PO SCH (08:39)
[2021-05-14] MEDS: hydrALAZINE 25 MG TAB PO SCH ×3 (08:39→20:40)
[2021-05-14] MEDS: Lantus 1000 UNITS/10 ML VIAL SC SCH ×2 (08:40→20:41)
[2021-05-14] MEDS: Lisinopril 20 MG TAB PO SCH (08:40)
[2021-05-14] MEDS: Amiodarone 200 MG TAB PO SCH (08:40)
[2021-05-14] MEDS: Metoprolol Tartrate 50 MG TAB PO SCH ×2 (08:40→20:41)
[2021-05-14] MEDS: Dexamethasone 4 mg/ml Vial SLOW IVP SCH (08:41)
[2021-05-14] MEDS: Meropenem 500 MG in Sodium Chloride 0.9% 100 ML IVPB SCH (11:33)
[2021-05-14] MEDS: Latanoprost 0.005% Ophth Soln 2.5 ml Bottle EA EYE SCH (12:28)
[2021-05-14] MEDS: Acetaminophen 650 MG/20.3 ML UDCUP PO PRN (20:40)
[2021-05-14] MEDS: Lidocaine Patch Removal TOP SCH (20:44)
[2021-05-15] MEDS: Meropenem 500 MG in Sodium Chloride 0.9% 100 ML IVPB SCH ×3 (00:17→23:30)
[2021-05-15] MEDS: Vancomycin HCl 25 MG/ML Oral PO SCH ×5 (01:17→23:31)
[2021-05-15] MEDS: Lactated Ringer's 1,000 ML IV SCH (05:07)
[2021-05-15 05:28] LABS: Hemoglobin 9.7 g/dL (12.0-16.0); Mean Corpuscular HGB CONC 32.9 g/dL (32.0-36.0); Mean Corpuscular Hemoglobin 33.8 pg (27.0-31.0); RBC Distribution Width 21.3 % (11.5-14.5); Red Blood Cell (RBC) Count 2.86 mill/uL (4.20-5.40)
[2021-05-15 05:40] LABS: Anion Gap 15 mmol/L (10-20); BUN (Urea Nitrogen) 46 mg/dL (9.8-20.1); Calc. Creatinine Clearance 55 mL/min (70-130); Calcium 7.6 mg/dL (7.8-10.44); Carbon Dioxide 19 mmol/L (23-31); Chloride 116 mmol/L (98-107); Glucose 113 mg/dL (80-115); Sodium 147 mmol/L (136-145)
[2021-05-15 05:52] LABS: Potassium 2.6 mmol/L (3.5-5.1)
[2021-05-15] MEDS ORDERED: Potassium Chloride 20 MEQ TAB PER TUBE SCH (06:00)
[2021-05-15 06:25] LABS: Band 3 % (5-11); Lymphocytes 5 % (21-51); MDiff Complete? YES; Mean Platelet Volume 14.7 fL (7.4-10.4); Metamyelocyte 1 % (0-0); Monocytes 9 % (0-10); Myelocyte 1 % (0-0); Neutrophil 81 % (42-75); Nucleated RBC 36 % (0); Platelet Count 78 thou/uL (130-400); Platelet Morphology Comment Appears Decreased; Polychromasia SLIGHT = 2-3 cells (100X) (0-2/hpf); Schistocytes SLIGHT = 2-5 cells (100X) (0-1/hpf); White Blood Cell (WBC) Count 18.1 thou/uL (4.8-10.8)
[2021-05-15] MEDS ORDERED: Potassium Chloride 20 MEQ in Premix Bag 1 BAG IVPB SCH (10:00)
[2021-05-15 11:16] LABS: Phosphorus 4.5 mg/dL (2.3-4.7)
[2021-05-15 11:18] LABS: Chloride 118 mmol/L (98-107); Sodium 150 mmol/L (136-145)
[2021-05-15 11:43] LABS: Calcium 7.7 mg/dL (7.8-10.44)
[2021-05-15 11:44] LABS: Glucose 71 mg/dL (80-115)
[2021-05-15] MEDS: Dexamethasone 4 mg/ml Vial SLOW IVP SCH (11:44)
[2021-05-15 11:45] LABS: Anion Gap 16 mmol/L (10-20); Carbon Dioxide 19 mmol/L (23-31)
[2021-05-15] MEDS: Lantus 1000 UNITS/10 ML VIAL SC SCH (11:46)
[2021-05-15 11:47] LABS: Calc. Creatinine Clearance 55 mL/min (70-130)
[2021-05-15 11:48] LABS: BUN (Urea Nitrogen) 46 mg/dL (9.8-20.1)
[2021-05-15 11:52] LABS: Potassium 2.7 mmol/L (3.5-5.1)
[2021-05-15] MEDS: Famotidine 20 MG TAB PO SCH (12:26)
[2021-05-15] MEDS: Lisinopril 20 MG TAB PO SCH (12:26)
[2021-05-15] MEDS: hydrALAZINE 25 MG TAB PO SCH ×3 (12:27→20:38)
[2021-05-15] MEDS: Amiodarone 200 MG TAB PO SCH (12:27)
[2021-05-15] MEDS: Amlodipine 10 MG TAB PO SCH (12:28)
[2021-05-15] MEDS: Metoprolol Tartrate 50 MG TAB PO SCH ×2 (12:28→20:38)
[2021-05-15] MEDS: Latanoprost 0.005% Ophth Soln 2.5 ml Bottle EA EYE SCH (12:29)
[2021-05-15] MEDS: Lidocaine 5% Patch TD SCH (12:29)
[2021-05-15] MEDS ORDERED: Morphine ER 30 MG TAB PO SCH (14:00)
[2021-05-15 14:33] LABS: Anion Gap 16 mmol/L (10-20); BUN (Urea Nitrogen) 49 mg/dL (9.8-20.1); Calc. Creatinine Clearance 55 mL/min (70-130); Calcium 7.8 mg/dL (7.8-10.44); Carbon Dioxide 19 mmol/L (23-31); Chloride 117 mmol/L (98-107); Sodium 149 mmol/L (136-145)
[2021-05-15 14:54] LABS: Glucose 59 mg/dL (80-115); Potassium 2.8 mmol/L (3.5-5.1)
[2021-05-15] MEDS ORDERED: Potassium Chloride 40 MEQ in Premix Bag 1 BAG IVPB SCH (15:00)
[2021-05-15] MEDS: Morphine IR 10 MG/5 ML UDCUP PER TUBE SCH ×2 (15:25→23:31)
[2021-05-15] MEDS: Lidocaine Patch Removal TOP SCH (20:38)
[2021-05-15 21:00] LABS: Anion Gap 14 mmol/L (10-20); BUN (Urea Nitrogen) 51 mg/dL (9.8-20.1); Calc. Creatinine Clearance 51 mL/min (70-130); Calcium 7.3 mg/dL (7.8-10.44); Carbon Dioxide 19 mmol/L (23-31); Chloride 118 mmol/L (98-107); Glucose 187 mg/dL (80-115); Potassium 4.1 mmol/L (3.5-5.1); Sodium 147 mmol/L (136-145)
[2021-05-16] MEDS: HumaLOG 300 UNITS/3 ML VIAL SC PRN ×3 (01:36→11:21)
[2021-05-16] MEDS: Vancomycin HCl 25 MG/ML Oral PO SCH ×2 (05:11→11:19)
[2021-05-16 05:20] LABS: Anion Gap 17 mmol/L (10-20); BUN (Urea Nitrogen) 57 mg/dL (9.8-20.1); Calc. Creatinine Clearance 51 mL/min (70-130); Calcium 7.1 mg/dL (7.8-10.44); Carbon Dioxide 16 mmol/L (23-31); Chloride 118 mmol/L (98-107); Glucose 248 mg/dL (80-115); Potassium 4.7 mmol/L (3.5-5.1); Sodium 146 mmol/L (136-145)
[2021-05-16] MEDS ORDERED: Potassium Chloride 20 MEQ TAB PO SCH (08:00)
[2021-05-16] MEDS: Latanoprost 0.005% Ophth Soln 2.5 ml Bottle EA EYE SCH (09:06)
[2021-05-16] MEDS: Lidocaine 5% Patch TD SCH (09:06)
[2021-05-16] MEDS: Morphine IR 10 MG/5 ML UDCUP PER TUBE SCH (09:07)
[2021-05-16] MEDS: Amlodipine 10 MG TAB PO SCH (09:08)
[2021-05-16] MEDS: hydrALAZINE 25 MG TAB PO SCH (09:08)
[2021-05-16] MEDS: Famotidine 20 MG TAB PO SCH (09:09)
[2021-05-16] MEDS: Lisinopril 20 MG TAB PO SCH (09:09)
[2021-05-16] MEDS: Metoprolol Tartrate 50 MG TAB PO SCH (09:09)
[2021-05-16] MEDS: Amiodarone 200 MG TAB PO SCH (09:09)
[2021-05-16] MEDS: Dexamethasone 4 mg/ml Vial SLOW IVP SCH (09:09)
[2021-05-16] MEDS ORDERED: Apixaban 5 MG TAB PO SCH ×2 (10:15→21:00)
[2021-05-16] MEDS ORDERED: Furosemide 20 MG/2 ML VIAL SLOW IVP SCH (11:00)
[2021-05-16] MEDS ORDERED: Morphine 4 MG/ML VIAL SLOW IVP PRN (12:17)
[2021-05-16] MEDS ORDERED: Lorazepam 2 MG/ML VIAL SLOW IVP PRN (12:19)
[2021-05-16 12:29] VITALS: BP 123/80; TEMP 97.6
[2021-05-16] MEDS ORDERED: metroNIDAZOLE 500 MG in Premix Bag 1 BAG IVPB SCH (14:00)
== END 2021-05-16 13:43 | disposition hospice, inpatient (51) | DRG 871 ==
LOC: ERS 10:38 → ERHOLD 13:35 → CCU 17:19 → IMCU/EMU 05-10 20:25 → 2SE 05-13 16:14
PROVIDERS: ADMIT Family Medicine; ATTEND Family Medicine
PROC: 06HY33Z Insertion of Infusion Device into Lower Vein, Percutaneous Approach (ICD-10-PCS; principal; 2021-05-08)
PROC: 3E033XZ Introduction of Vasopressor into Peripheral Vein, Percutaneous Approach (ICD-10-PCS; 2021-05-08)
PROC: 8E0ZXY6 Isolation (ICD-10-PCS; 2021-05-08)
DX: A41.51 Sepsis due to Escherichia coli [E. coli] (principal); G93.41 Metabolic encephalopathy; J69.0 Pneumonitis due to inhalation of food and vomit; Z51.5 Encounter for palliative care; U07.1 COVID-19; R65.21 Severe sepsis with septic shock; J96.01 Acute respiratory failure with hypoxia; N17.9 Acute kidney failure, unspecified; N39.0 Urinary tract infection, site not specified; C90.01 Multiple myeloma in remission; A04.72 Enterocolitis due to Clostridium difficile, not specified as recurrent; E87.0 Hyperosmolality and hypernatremia; K92.1 Melena; Z16.24 Resistance to multiple antibiotics; I10 Essential (primary) hypertension; M19.90 Unspecified osteoarthritis, unspecified site; I48.0 Paroxysmal atrial fibrillation; E87.5 Hyperkalemia; R74.01 Elevation of levels of liver transaminase levels; R77.8 Other specified abnormalities of plasma proteins; I25.10 Atherosclerotic heart disease of native coronary artery without angina pectoris; E86.0 Dehydration; D69.6 Thrombocytopenia, unspecified; F17.210 Nicotine dependence, cigarettes, uncomplicated; T38.0X5A Adverse effect of glucocorticoids and synthetic analogues, initial encounter; D64.9 Anemia, unspecified; E11.65 Type 2 diabetes mellitus with hyperglycemia; K21.9 Gastro-esophageal reflux disease without esophagitis; H40.9 Unspecified glaucoma; E87.6 Hypokalemia; Z88.8 Allergy status to other drugs, medicaments and biological substances; Z79.01 Long term (current) use of anticoagulants; Z79.4 Long term (current) use of insulin; Z79.899 Other long term (current) drug therapy; Z98.51 Tubal ligation status; Z90.49 Acquired absence of other specified parts of digestive tract; Z86.16 Personal history of COVID-19; Z98.890 Other specified postprocedural states; Z86.73 Personal history of transient ischemic attack (TIA), and cerebral infarction without residual deficits
CPT/HCPCS: 0240U; 36415; 36416; 36556; 36600; 51701; 70450; 71045; 74018; 74150; 80048; 80053; 81003; 81015; 82274; 82553; 82728; 82805; 83605; 83735; 84100; 84145; 84484; 85007; 85025; 85027; 85379; 86140; 87040; 87045; 87046; 87077; 87086; 87186; 87324; 87427; 87449; 87493; 93005; 93010; 94640; 96365; 96366; 96367; J0360; J0456; J0696; J1100; J1815; J1940; J2185; J3480; J3490; J7070; J7120; J7611; J7620

== ENCOUNTER 2021-05-16 13:51 | Inpatient (IN) | payer OTHER ==
[2021-05-16] MEDS ORDERED: Morphine 2 MG/ML VIAL SLOW IVP PRN (14:51)
[2021-05-16] MEDS ORDERED: Lorazepam 2 MG/ML VIAL SLOW IVP PRN (14:52)
[2021-05-16] MEDS ORDERED: Scopolamine 1.5 mg/72 hour Patch TOP PRN (15:00)
[2021-05-16] MEDS ORDERED: Haloperidol Lactate 5 MG/ML VIAL SLOW IVP PRN (15:00)
[2021-05-16] MEDS ORDERED: Ondansetron PF 4 MG/2 ML Vial IVP PRN (15:00)
[2021-05-16] MEDS: Morphine 4 MG/ML VIAL SLOW IVP PRN ×2 (15:42→18:20)
[2021-05-16] MEDS: Lorazepam 2 MG/ML VIAL SLOW IVP SCH ×2 (15:45→19:16)
[2021-05-17] MEDS: Lorazepam 2 MG/ML VIAL SLOW IVP SCH ×7 (02:34→23:33)
[2021-05-17] MEDS: Morphine 4 MG/ML VIAL SLOW IVP PRN ×5 (03:45→23:33)
[2021-05-17] MEDS: Bisacodyl 10 MG SUPP PR SCH (11:51)
[2021-05-18] MEDS: Morphine 4 MG/ML VIAL SLOW IVP PRN ×2 (03:10→08:08)
[2021-05-18] MEDS: Lorazepam 2 MG/ML VIAL SLOW IVP SCH ×5 (03:10→18:25)
[2021-05-18] MEDS ORDERED: Morphine 4 MG/ML VIAL SLOW IVP SCH (12:00)
[2021-05-18] MEDS: Morphine 4 MG/ML VIAL SLOW IVP SCH ×6 (12:01→23:12)
[2021-05-18] MEDS: Bisacodyl 10 MG SUPP PR SCH (15:45)
[2021-05-19] MEDS: Lorazepam 2 MG/ML VIAL SLOW IVP SCH ×7 (00:48→23:29)
[2021-05-19] MEDS: Morphine 4 MG/ML VIAL SLOW IVP SCH ×14 (00:49→23:29)
[2021-05-19] MEDS: Bisacodyl 10 MG SUPP PR SCH (17:46)
[2021-05-20] MEDS: Morphine 4 MG/ML VIAL SLOW IVP SCH ×4 (02:00→09:58)
[2021-05-20] MEDS: Lorazepam 2 MG/ML VIAL SLOW IVP SCH ×2 (03:00→09:56)
[2021-05-20 06:39] VITALS: BP 95/54; TEMP 98.4
== END 2021-05-20 09:36 | disposition expired | DRG 951 ==
LOC: 2SE 13:51
PROVIDERS: ADMIT Family Medicine; ATTEND Family Medicine
DX: Z51.5 Encounter for palliative care (principal); A41.9 Sepsis, unspecified organism; G93.41 Metabolic encephalopathy; J69.0 Pneumonitis due to inhalation of food and vomit; C90.00 Multiple myeloma not having achieved remission; N39.0 Urinary tract infection, site not specified; N17.9 Acute kidney failure, unspecified; E87.0 Hyperosmolality and hypernatremia; Z16.24 Resistance to multiple antibiotics; I10 Essential (primary) hypertension; M19.90 Unspecified osteoarthritis, unspecified site; E87.5 Hyperkalemia; E86.0 Dehydration; H40.9 Unspecified glaucoma; E87.6 Hypokalemia; E11.65 Type 2 diabetes mellitus with hyperglycemia; I48.0 Paroxysmal atrial fibrillation; I25.10 Atherosclerotic heart disease of native coronary artery without angina pectoris; K21.9 Gastro-esophageal reflux disease without esophagitis; Z88.8 Allergy status to other drugs, medicaments and biological substances; Z79.899 Other long term (current) drug therapy; Z79.4 Long term (current) use of insulin; Z79.01 Long term (current) use of anticoagulants; Z98.51 Tubal ligation status; Z90.49 Acquired absence of other specified parts of digestive tract; Z86.16 Personal history of COVID-19
CPT/HCPCS: J2060; J2270